=== PATIENT | male | born 1990 | race Caucasian/White ===

== ENCOUNTER 2022-06-26 02:04 | Emergency (ER) | payer MEDICARE, MEDICAID ==
[~2022-06-26] VITALS: Ht 172.7 cm; Wt 84.0 kg
[2022-06-26] MEDS ORDERED: SODIUM CHLORIDE 0.9% 2,000 ML IV ONE (02:30)
[2022-06-26] MEDS ORDERED: SODIUM BICARBONATE 8.4 % INJ 50ML VIAL IV ONE (02:30)
[2022-06-26 03:29] LABS: Basophils # (auto) 0 10 ^3/uL (0-0.2); Eosinophils # (auto) 0.1 10 ^3/uL (0-0.8); Eosinophils % (auto) 2.5 % (0.0-7.0); Hematocrit 44.6 % (41.0-53.0); Hemoglobin 15.5 g/dL (13.5-17.5); Lymphocytes # (auto) 1.9 10 ^3/uL (0.4-5.4); Mean Corpuscular Hgb Conc. 34.7 g/dL (32.0-36.0); Mean Corpuscular Volume 97.9 fL (80.0-100.0); Monocytes # (auto) 0.5 10 ^3/uL (0-1.3); Monocytes % (auto) 10.8 % (0.0-12.0); Neutrophils # (auto) 2.1 10 ^3/uL (1.6-8.6); Neutrophils % (auto) 45.7 % (37.0-80.0); Nucleated Red Blood Cells % 0.2 %; Red Blood Cells 4.56 10^6/uL (4.5-5.90); Red Cell Distribution Width 12.7 % (11.8-14.3); White Blood Cell 4.7 10^3/uL (4.4-10.8)
[2022-06-26 03:50] LABS: Albumin 3.4 g/dL (3.4-5.0); Calcium 9.2 mg/dL (8.5-10.1); Magnesium 2.5 mg/dL (1.6-2.6); Potassium 5.4 mmol/L (3.5-5.1)
[2022-06-26 03:58] LABS: BUN/Creatinine Ratio 25.5; Bilirubin, Total 0.6 mg/dL (0.2-1.0); Total Protein 7.4 g/dL (6.4-8.2)
[2022-06-26] MEDS ORDERED: InsuLIN REG 1unit/0.01ml Soln (100units/ml) IV ONE ×2 (04:30→05:30)
[2022-06-26] MEDS ORDERED: SODIUM CHLORIDE 0.9% 1,000 ML IV ONE (05:30)
[2022-06-26 07:43] LABS: Urine WBC None Seen /hpf (0 - 3)
[2022-06-26 08:31] LABS: BUN/Creatinine Ratio 28.7; Calcium 8.7 mg/dL (8.5-10.1); Potassium 4.5 mmol/L (3.5-5.1)
[2022-06-26 08:48] LABS: Urine Bacteria NONE SEEN /hpf (None Seen); Urine Blood Negative /uL (Negative); Urine Specific Gravity 1.012 (1.001-1.035)
[2022-06-26 09:25] VITALS: BP 128/84
== END 2022-06-26 09:55 | disposition home or self-care (01) ==
LOC: EDBD 02:04 → ER 02:04 → EDUNIT# 02:04 → ER 09:55
DX: E11.65 Type 2 diabetes mellitus with hyperglycemia (principal); E87.5 Hyperkalemia; N28.9 Disorder of kidney and ureter, unspecified; E86.0 Dehydration; F10.10 Alcohol abuse, uncomplicated
CPT/HCPCS: 36415; 36600; 80048; 80053; 81001; 82010; 82805; 82962; 83605; 83735; 85025; 96361; 96374; 96376; 99284; J1815; J7030

== ENCOUNTER 2022-07-12 14:33 | Inpatient (IN) | payer MEDICARE, MEDICAID ==
[~2022-07-12] VITALS: Ht 193 cm; Wt 86.0 kg
[2022-07-12 15:36] LABS: Basophils # (auto) 0.1 10 ^3/uL (0-0.2); Eosinophils # (auto) 0.1 10 ^3/uL (0-0.8); Eosinophils % (auto) 1.2 % (0.0-7.0); Hematocrit 44.4 % (41.0-53.0); Hemoglobin 15.4 g/dL (13.5-17.5); Lymphocytes # (auto) 1.5 10 ^3/uL (0.4-5.4); Lymphocytes % (auto) 23.2 % (10.0-50.0); Mean Corpuscular Hemoglobin 32.6 pg (28.0-32.0); Mean Corpuscular Hgb Conc. 34.6 g/dL (32.0-36.0); Mean Corpuscular Volume 94.3 fL (80.0-100.0); Monocytes # (auto) 0.5 10 ^3/uL (0-1.3); Monocytes % (auto) 8.1 % (0.0-12.0); Neutrophils # (auto) 4.2 10 ^3/uL (1.6-8.6); Neutrophils % (auto) 66.5 % (37.0-80.0); Nucleated Red Blood Cells % 0.1 %; Red Blood Cells 4.71 10^6/uL (4.5-5.90); White Blood Cell 6.4 10^3/uL (4.4-10.8)
[2022-07-12 17:38] LABS: Albumin 3.5 g/dL (3.4-5.0); Calcium 9.3 mg/dL (8.5-10.1); Potassium 4.8 mmol/L (3.5-5.1)
[2022-07-12 17:40] LABS: BUN/Creatinine Ratio 23.4
[2022-07-12 17:43] LABS: Bilirubin, Total 0.6 mg/dL (0.2-1.0); Total Protein 7.2 g/dL (6.4-8.2)
[2022-07-12] MEDS ORDERED: SODIUM CHLORIDE 0.9% 1,000 ML IV ONE (21:15)
[2022-07-12] MEDS ORDERED: InsuLIN REG 1unit/0.01ml Soln (100units/ml) IV ONE (23:00)
[2022-07-12] MEDS ORDERED: ONDANSETRON HCL 4 MG/2 ML VIAL IV ONE (23:15)
[2022-07-13] MEDS ORDERED: DEXTROSE (50%) 50ML SYRG IV PRN (03:45)
[2022-07-13] MEDS ORDERED: ACETAMINOPHEN 325 MG TAB PO PRN ×2 (03:45→10:30)
[2022-07-13] MEDS ORDERED: LORazepam 0.5 MG TAB PO PRN (03:45)
[2022-07-13] MEDS ORDERED: HYDROcodone-ACET 5/325MG TAB PO PRN (03:45)
[2022-07-13] MEDS ORDERED: MORPHINE SULFATE INJ 2 MG/ml SYRG IV PRN (03:45)
[2022-07-13] MEDS ORDERED: DOCUSATE SOD 100 MG CAP PO PRN (03:45)
[2022-07-13] MEDS ORDERED: ONDANSETRON HCL 4 MG/2 ML VIAL IV PRN (03:45)
[2022-07-13] MEDS: ACCU-CHEK COMFORT CURVE STRIP VI SCH ×5 (04:34→19:43)
[2022-07-13] MEDS: InsuLIN REG 1unit/0.01ml Soln (100units/ml) SC SCH ×5 (04:38→19:46)
[2022-07-13] MEDS: SODIUM CHLORIDE 0.9% 1,000 ML IV SCH ×2 (04:49→21:52)
[2022-07-13 05:02] LABS: Basophils # (auto) 0.1 10 ^3/uL (0-0.2); Basophils % (auto) 0.8 % (0.0-2.0); Eosinophils # (auto) 0.2 10 ^3/uL (0-0.8); Eosinophils % (auto) 2.8 % (0.0-7.0); Hematocrit 47.5 % (41.0-53.0); Lymphocytes # (auto) 1.8 10 ^3/uL (0.4-5.4); Lymphocytes % (auto) 24.8 % (10.0-50.0); Mean Corpuscular Hemoglobin 32.1 pg (28.0-32.0); Mean Corpuscular Hgb Conc. 33.6 g/dL (32.0-36.0); Mean Corpuscular Volume 95.4 fL (80.0-100.0); Monocytes # (auto) 0.7 10 ^3/uL (0-1.3); Monocytes % (auto) 10.4 % (0.0-12.0); Neutrophils # (auto) 4.3 10 ^3/uL (1.6-8.6); Neutrophils % (auto) 61.2 % (37.0-80.0); Red Blood Cells 4.97 10^6/uL (4.5-5.90); Red Cell Distribution Width 12.9 % (11.8-14.3); White Blood Cell 7.1 10^3/uL (4.4-10.8)
[2022-07-13 05:24] LABS: BUN/Creatinine Ratio 26.5; Calcium 9.1 mg/dL (8.5-10.1); Potassium 3.9 mmol/L (3.5-5.1)
[2022-07-13 09:52] VITALS: BP 127/69
[2022-07-13] MEDS ORDERED: INSULIN LANTUS (GLARGINE) 1 /0.01ml (100units/ml) SC ONE (10:30)
[2022-07-13 12:04] VITALS: BP 114/80
[2022-07-13] MEDS ORDERED: INSLANTI SC (14:16)
[2022-07-13] MEDS ORDERED: BACL20TA PO (14:16)
[2022-07-13] MEDS ORDERED: IBUP800T27 PO (14:18)
[2022-07-13] MEDS ORDERED: ACET1CAP14 PO (14:19)
[2022-07-13] MEDS ORDERED: ZIPR60CA24 PO (14:21)
[2022-07-13] MEDS ORDERED: QUET400T PO (14:23)
[2022-07-13] MEDS ORDERED: DIVA500T2 PO (14:25)
[2022-07-13] MEDS ORDERED: MONT-8 PO (14:26)
[2022-07-13] MEDS ORDERED: ATOR-47 PO (14:26)
[2022-07-13] MEDS ORDERED: LEVO25TA6 PO (14:27)
[2022-07-13] MEDS ORDERED: ASPI1TAB91 PO (14:28)
[2022-07-13] MEDS ORDERED: OMEP20TA PO (14:29)
[2022-07-13] MEDS ORDERED: LISI40TA11 PO (14:30)
[2022-07-13] MEDS ORDERED: CITA10TA8 PO (14:32)
[2022-07-13 17:05] VITALS: BP 115/59
[2022-07-13] MEDS ORDERED: diphenhdrAMINE HCL 50 MG/1 ML VL IV ONE (19:30)
[2022-07-13] MEDS ORDERED: ARTIFICIAL TEARS 15ml EACHEYE PRN (19:30)
[2022-07-13] MEDS: BACLOFEN 10 MG TAB PO SCH (21:49)
[2022-07-13 22:00] VITALS: BP 137/82
[2022-07-13] MEDS ORDERED: ZIPRASIDONE 60 MG PO SCH (22:00)
[2022-07-14] MEDS: ACCU-CHEK COMFORT CURVE STRIP VI SCH ×5 (00:12→15:58)
[2022-07-14] MEDS ORDERED: IBUPROFEN 800 MG TAB PO PRN (02:00)
[2022-07-14] MEDS ORDERED: ACETAMINOPHEN 325 MG PO SCH (02:00)
[2022-07-14] MEDS: InsuLIN REG 1unit/0.01ml Soln (100units/ml) SC SCH ×5 (04:37→16:13)
[2022-07-14 05:00] VITALS: BP 124/76
[2022-07-14 05:16] LABS: Basophils # (auto) 0.1 10 ^3/uL (0-0.2); Basophils % (auto) 1.3 % (0.0-2.0); Eosinophils # (auto) 0.2 10 ^3/uL (0-0.8); Eosinophils % (auto) 3.3 % (0.0-7.0); Hematocrit 45.5 % (41.0-53.0); Hemoglobin 15.7 g/dL (13.5-17.5); Lymphocytes # (auto) 1.8 10 ^3/uL (0.4-5.4); Lymphocytes % (auto) 25.3 % (10.0-50.0); Mean Corpuscular Hemoglobin 32.9 pg (28.0-32.0); Mean Corpuscular Hgb Conc. 34.5 g/dL (32.0-36.0); Mean Corpuscular Volume 95.3 fL (80.0-100.0); Monocytes # (auto) 0.6 10 ^3/uL (0-1.3); Monocytes % (auto) 7.8 % (0.0-12.0); Neutrophils # (auto) 4.5 10 ^3/uL (1.6-8.6); Neutrophils % (auto) 62.3 % (37.0-80.0); Nucleated Red Blood Cells % 0.1 %; Red Blood Cells 4.77 10^6/uL (4.5-5.90); White Blood Cell 7.2 10^3/uL (4.4-10.8)
[2022-07-14 05:40] LABS: BUN/Creatinine Ratio 19.2; Calcium 8.9 mg/dL (8.5-10.1); Potassium 4.5 mmol/L (3.5-5.1)
[2022-07-14] MEDS ORDERED: INSULIN LANTUS (GLARGINE) 1 /0.01ml (100units/ml) SC SCH (06:00)
[2022-07-14] MEDS: BACLOFEN 10 MG TAB PO SCH ×2 (06:08→14:42)
[2022-07-14] MEDS ORDERED: LEVOTHYROXINE SODIUM 25 MCG TAB PO SCH (07:00)
[2022-07-14 08:00] VITALS: BP 124/64
[2022-07-14 08:58] VITALS: BP 124/64
[2022-07-14] MEDS ORDERED: MONTELUKAST SODIUM 10 MG TAB PO SCH (10:00)
[2022-07-14] MEDS ORDERED: ATORVASTATIN 20 MG TAB PO SCH (10:00)
[2022-07-14] MEDS ORDERED: CITALOPRAM HYDROBR 20 MG TAB PO SCH (10:00)
[2022-07-14] MEDS ORDERED: ASPirin-EC 81 mg tab PO SCH (10:00)
[2022-07-14] MEDS ORDERED: PANTOPRAZOLE 40 MG TAB PO SCH (10:00)
[2022-07-14] MEDS ORDERED: LISINOPRIL 20 MG TAB PO SCH (10:00)
[2022-07-14] MEDS ORDERED: INSLANTI SC (10:42)
[2022-07-14] MEDS ORDERED: LORATADINE 10 MG TAB PO ONE (11:00)
[2022-07-14 12:57] VITALS: BP 123/60
[2022-07-14] MEDS: SODIUM CHLORIDE 0.9% 1,000 ML IV SCH (14:44)
[2022-07-14 16:23] VITALS: BP 123/60
[2022-07-14 17:00] VITALS: BP 118/61
[2022-07-14] MEDS ORDERED: QUEtiapine FUMARATE 100 MG TAB PO SCH (18:00)
[2022-07-15] MEDS ORDERED: INSULIN LANTUS (GLARGINE) 1 /0.01ml (100units/ml) SC SCH (06:00)
== END 2022-07-14 17:57 | disposition home or self-care (01) | DRG 639 ==
LOC: ER 14:33 → TELE 07-13 03:46 → TELE-EAST 07-13 09:36 → EAST 07-13 11:32
PROVIDERS: ADMIT Hospitalist; ATTEND Hospitalist
DX: E10.65 Type 1 diabetes mellitus with hyperglycemia (principal); F20.9 Schizophrenia, unspecified; N28.9 Disorder of kidney and ureter, unspecified; F32.A Depression, unspecified; R07.9 Chest pain, unspecified; Z20.822 Contact with and (suspected) exposure to COVID-19
CPT/HCPCS: 36415; 71045; 80048; 80053; 82962; 83036; 84484; 85025; 93005; 96361; 96374; G0378; J1815; J2405

== ENCOUNTER 2022-07-16 10:45 | Inpatient (IN) | payer BC, MEDICAID ==
[~2022-07-16] VITALS: Ht 193 cm; Wt 85.0 kg
[~2022-07-16 10:45] MED LIST: ACET1CAP14 PO; ASPI1TAB91 PO; ATOR-47 PO; BACL20TA PO; CITA10TA8 PO; DIVA500T2 PO; IBUP800T27 PO; INSLANTI SC; LEVO25TA6 PO; LISI40TA11 PO; MONT-8 PO; OMEP20TA PO; QUET400T PO; ZIPR60CA24 PO
[2022-07-16 12:03] LABS: Basophils # (auto) 0.1 10 ^3/uL (0-0.2); Basophils % (auto) 0.9 % (0.0-2.0); Eosinophils # (auto) 0.1 10 ^3/uL (0-0.8); Eosinophils % (auto) 1.5 % (0.0-7.0); Hematocrit 48.5 % (41.0-53.0); Hemoglobin 16.4 g/dL (13.5-17.5); Lymphocytes # (auto) 1.7 10 ^3/uL (0.4-5.4); Lymphocytes % (auto) 20.4 % (10.0-50.0); Mean Corpuscular Hemoglobin 32.4 pg (28.0-32.0); Mean Corpuscular Hgb Conc. 33.8 g/dL (32.0-36.0); Mean Corpuscular Volume 95.7 fL (80.0-100.0); Monocytes # (auto) 0.6 10 ^3/uL (0-1.3); Monocytes % (auto) 7.6 % (0.0-12.0); Neutrophils # (auto) 5.7 10 ^3/uL (1.6-8.6); Neutrophils % (auto) 69.6 % (37.0-80.0); Nucleated Red Blood Cells % 0.1 %; Red Blood Cells 5.07 10^6/uL (4.5-5.90); White Blood Cell 8.1 10^3/uL (4.4-10.8)
[2022-07-16 12:29] LABS: Albumin 3.5 g/dL (3.4-5.0); Calcium 9.7 mg/dL (8.5-10.1)
[2022-07-16 12:37] LABS: BUN/Creatinine Ratio 20.9; Bilirubin, Total 0.8 mg/dL (0.2-1.0); Total Protein 7.9 g/dL (6.4-8.2)
[2022-07-16 12:54] LABS: Potassium 6.3 mmol/L (3.5-5.1)
[2022-07-16 13:53] LABS: Salicylate 3.8 mg/dL (2.8-20.0)
[2022-07-16 13:55] LABS: Acetaminophen < 2.0 ug/mL (10-30)
[2022-07-16] MEDS ORDERED: INSULIN LANTUS (GLARGINE) 1 /0.01ml (100units/ml) SC ONE ×2 (14:30→18:15)
[2022-07-16] MEDS ORDERED: DEXTROSE (50%) 50ML SYRG IV PRN (14:30)
[2022-07-16] MEDS ORDERED: SODIUM CHLORIDE 0.9% 1,000 ML IV ONE (14:30)
[2022-07-16] MEDS ORDERED: InsuLIN R (HUMAN) 100 UNITS in SODIUM CHL 0.9% 99 ML IV SCH ×2 (14:30→19:00)
[2022-07-16 14:57] LABS: Basophils # (auto) 0.1 10 ^3/uL (0-0.2); Basophils % (auto) 0.7 % (0.0-2.0); Eosinophils # (auto) 0.1 10 ^3/uL (0-0.8); Eosinophils % (auto) 1.7 % (0.0-7.0); Hematocrit 46.9 % (41.0-53.0); Lymphocytes # (auto) 1.8 10 ^3/uL (0.4-5.4); Lymphocytes % (auto) 21.7 % (10.0-50.0); Mean Corpuscular Hemoglobin 32.8 pg (28.0-32.0); Mean Corpuscular Hgb Conc. 34.1 g/dL (32.0-36.0); Mean Corpuscular Volume 96.1 fL (80.0-100.0); Monocytes # (auto) 0.7 10 ^3/uL (0-1.3); Monocytes % (auto) 8.2 % (0.0-12.0); Neutrophils # (auto) 5.5 10 ^3/uL (1.6-8.6); Neutrophils % (auto) 67.7 % (37.0-80.0); Nucleated Red Blood Cells % 0.1 %; Red Blood Cells 4.88 10^6/uL (4.5-5.90); White Blood Cell 8.1 10^3/uL (4.4-10.8)
[2022-07-16] MEDS ORDERED: KETOROLAC TROMETH 30 MG/ML 1ML VIAL IM ONE (15:00)
[2022-07-16] MEDS: ACCU-CHEK COMFORT CURVE STRIP VI SCH ×7 (15:00→23:55)
[2022-07-16 15:14] LABS: BUN/Creatinine Ratio 24.8; Calcium 9.3 mg/dL (8.5-10.1); Phosphorus 4.1 mg/dL (2.5-4.90); Potassium 4.8 mmol/L (3.5-5.1)
[2022-07-16] MEDS: SODIUM CHLORIDE 0.9% 1,000 ML IV SCH ×2 (15:55→17:30)
[2022-07-16] MEDS ORDERED: DOCUSATE SOD 100 MG CAP PO PRN (16:30)
[2022-07-16] MEDS ORDERED: SODIUM CHLORIDE 0.9% 1,000 ML IV SCH ×3 (16:30→20:30)
[2022-07-16] MEDS ORDERED: ACETAMINOPHEN 325 MG TAB PO PRN (16:30)
[2022-07-16 17:20] LABS: BUN/Creatinine Ratio 28.1; Calcium 8.8 mg/dL (8.5-10.1)
[2022-07-16] MEDS: HYDROcodone-ACET 5/325MG TAB PO PRN (19:56)
[2022-07-16 20:37] LABS: BUN/Creatinine Ratio 29.2; Calcium 8.9 mg/dL (8.5-10.1); Potassium 3.8 mmol/L (3.5-5.1)
[2022-07-16 23:01] LABS: BUN/Creatinine Ratio 32.8; Calcium 9.1 mg/dL (8.5-10.1); Potassium 4.1 mmol/L (3.5-5.1)
[2022-07-17] MEDS: ACCU-CHEK COMFORT CURVE STRIP VI SCH ×5 (01:30→12:21)
[2022-07-17] MEDS ORDERED: DEXTROSE (50%) 50ML SYRG IV PRN (03:30)
[2022-07-17] MEDS: InsuLIN REG 1unit/0.01ml Soln (100units/ml) SC SCH ×3 (03:40→12:35)
[2022-07-17 03:53] LABS: BUN/Creatinine Ratio 37.6; Calcium 8.6 mg/dL (8.5-10.1); Potassium 4.5 mmol/L (3.5-5.1)
[2022-07-17] MEDS: HYDROcodone-ACET 5/325MG TAB PO PRN (05:12)
[2022-07-17 05:34] LABS: Basophils # (auto) 0.1 10 ^3/uL (0-0.2); Basophils % (auto) 1.7 % (0.0-2.0); Eosinophils # (auto) 0.2 10 ^3/uL (0-0.8); Eosinophils % (auto) 2.9 % (0.0-7.0); Hematocrit 43.4 % (41.0-53.0); Hemoglobin 15.2 g/dL (13.5-17.5); Lymphocytes # (auto) 1.7 10 ^3/uL (0.4-5.4); Lymphocytes % (auto) 26.5 % (10.0-50.0); Mean Corpuscular Hemoglobin 33.2 pg (28.0-32.0); Mean Corpuscular Hgb Conc. 35.1 g/dL (32.0-36.0); Mean Corpuscular Volume 94.7 fL (80.0-100.0); Monocytes # (auto) 0.6 10 ^3/uL (0-1.3); Monocytes % (auto) 8.7 % (0.0-12.0); Neutrophils # (auto) 3.9 10 ^3/uL (1.6-8.6); Neutrophils % (auto) 60.2 % (37.0-80.0); Nucleated Red Blood Cells % 0.2 %; Red Blood Cells 4.59 10^6/uL (4.5-5.90); Red Cell Distribution Width 12.9 % (11.8-14.3); White Blood Cell 6.5 10^3/uL (4.4-10.8)
[2022-07-17] MEDS: MORPHINE SULFATE INJ 2 MG/ml SYRG IV PRN ×2 (09:37→13:55)
[2022-07-17] MEDS: ONDANSETRON HCL 4 MG/2 ML VIAL IV PRN ×2 (09:37→13:55)
[2022-07-17] MEDS ORDERED: LEVOTHYROXINE SODIUM 25 MCG TAB PO SCH (10:00)
[2022-07-17] MEDS ORDERED: CITALOPRAM HYDROBR 20 MG TAB PO SCH (10:00)
[2022-07-17] MEDS ORDERED: INSULIN LANTUS (GLARGINE) 1 /0.01ml (100units/ml) SC SCH ×2 (10:00)
[2022-07-17] MEDS ORDERED: ENOXAPARIN SOD 40 MG/0.4 ML SYRINGE SC SCH (10:00)
[2022-07-17] MEDS ORDERED: INSLANTI SC (12:52)
[2022-07-17] MEDS ORDERED: INSREGI SC (12:52)
[2022-07-17 15:05] VITALS: BP 110/52
[2022-07-17] MEDS ORDERED: QUEtiapine FUMARATE 100 MG TAB PO SCH (18:00)
== END 2022-07-17 15:11 | disposition home or self-care (01) | DRG 638 ==
LOC: EDBD 10:45 → EDUNIT# 10:45 → ER 10:45 → TELE 16:24
PROVIDERS: ADMIT Internal Medicine; ATTEND Internal Medicine
DX: E11.10 Type 2 diabetes mellitus with ketoacidosis without coma (principal); R45.851 Suicidal ideations; E78.5 Hyperlipidemia, unspecified; E03.9 Hypothyroidism, unspecified; F32.A Depression, unspecified; F20.9 Schizophrenia, unspecified; Z20.822 Contact with and (suspected) exposure to COVID-19; E11.65 Type 2 diabetes mellitus with hyperglycemia; Z79.4 Long term (current) use of insulin
CPT/HCPCS: 36415; 36600; 71045; 80048; 80053; 80320; 80329; 82010; 82805; 83735; 83930; 84100; 84484; 85025; 93005; 96361; 96365; 96375; 99291; G0378; J1815; J1885; J2405

== ENCOUNTER 2022-07-21 13:26 | Emergency (ER) | payer BC, MEDICAID ==
[~2022-07-21] VITALS: Ht 193 cm; Wt 80.7 kg
[~2022-07-21 13:26] MED LIST changes: +INSREGI SC
[2022-07-21 13:51] VITALS: BP 139/77
[2022-07-21 17:30] LABS: Basophils # (auto) 0.1 10 ^3/uL (0-0.2); Basophils % (auto) 1.6 % (0.0-2.0); Eosinophils # (auto) 0.3 10 ^3/uL (0-0.8); Eosinophils % (auto) 2.8 % (0.0-7.0); Hematocrit 45.6 % (41.0-53.0); Hemoglobin 15.5 g/dL (13.5-17.5); Lymphocytes # (auto) 1.7 10 ^3/uL (0.4-5.4); Lymphocytes % (auto) 18.5 % (10.0-50.0); Mean Corpuscular Hemoglobin 32.6 pg (28.0-32.0); Mean Corpuscular Hgb Conc. 34.1 g/dL (32.0-36.0); Mean Corpuscular Volume 95.6 fL (80.0-100.0); Monocytes # (auto) 0.5 10 ^3/uL (0-1.3); Monocytes % (auto) 5.8 % (0.0-12.0); Neutrophils # (auto) 6.7 10 ^3/uL (1.6-8.6); Neutrophils % (auto) 71.3 % (37.0-80.0); Red Blood Cells 4.77 10^6/uL (4.5-5.90); Red Cell Distribution Width 12.9 % (11.8-14.3); White Blood Cell 9.4 10^3/uL (4.4-10.8)
[2022-07-21 17:48] LABS: Albumin 3.5 g/dL (3.4-5.0); BUN/Creatinine Ratio 21.5; Calcium 9.3 mg/dL (8.5-10.1); Potassium 4.4 mmol/L (3.5-5.1)
[2022-07-21 17:51] LABS: Bilirubin, Total 0.4 mg/dL (0.2-1.0); Total Protein 7.4 g/dL (6.4-8.2)
[2022-07-21] MEDS ORDERED: SODIUM CHLORIDE 0.9% 1,000 ML IV ONE (21:00)
[2022-07-21] MEDS ORDERED: CITA10TA8 PO (22:20)
== END 2022-07-21 22:27 | disposition home or self-care (01) ==
LOC: ER 13:26
DX: E86.0 Dehydration (principal); E11.649 Type 2 diabetes mellitus with hypoglycemia without coma; Z76.0 Encounter for issue of repeat prescription; Z79.82 Long term (current) use of aspirin; Z79.899 Other long term (current) drug therapy
CPT/HCPCS: 36415; 80053; 82010; 82962; 85025

== ENCOUNTER 2023-01-27 09:58 | Emergency (ER) | payer OTHER, MEDICAID ==
[~2023-01-27] VITALS: Ht 188 cm; Wt 72.6 kg
[2023-01-27] MEDS ORDERED: PANTOPRAZOLE 40 MG TAB PO ONE (10:30)
[2023-01-27 10:43] LABS: Basophils # (auto) 0 10 ^3/uL (0-0.2); Eosinophils # (auto) 0.1 10 ^3/uL (0-0.8); Lymphocytes # (auto) 1.5 10 ^3/uL (0.4-5.4); Mean Corpuscular Hemoglobin 34.8 pg (28.0-32.0); Mean Corpuscular Volume 97.9 fL (80.0-100.0); Monocytes # (auto) 0.4 10 ^3/uL (0-1.3)
[2023-01-27 10:45] LABS: Basophils % (auto) 0.8 % (0.0-2.0); Eosinophils % (auto) 1.1 % (0.0-7.0); Hematocrit 40.4 % (41.0-53.0); Hemoglobin 14.3 g/dL (13.5-17.5); Lymphocytes % (auto) 28.3 % (10.0-50.0); Mean Corpuscular Hgb Conc. 35.5 g/dL (32.0-36.0); Monocytes % (auto) 7.2 % (0.0-12.0); Neutrophils # (auto) 3.3 10 ^3/uL (1.6-8.6); Neutrophils % (auto) 62.6 % (37.0-80.0); Red Blood Cells 4.12 10^6/uL (4.5-5.90); Red Cell Distribution Width 13.2 % (11.8-14.3); White Blood Cell 5.3 10^3/uL (4.4-10.8)
[2023-01-27 10:49] LABS: Urine Bacteria NONE SEEN /hpf (None Seen); Urine Blood 1+ /uL (Negative); Urine Specific Gravity 1.026 (1.001-1.035); Urine WBC 8 /hpf (0 - 3)
[2023-01-27 10:59] LABS: Albumin 2.9 g/dL (3.4-5.0); BUN/Creatinine Ratio 16.8 (10.0-20.0); Calcium 8.7 mg/dL (8.5-10.1); Potassium 3.9 mmol/L (3.5-5.1)
[2023-01-27 11:01] LABS: INR 0.94 (0.9-1.15)
[2023-01-27 11:02] LABS: Bilirubin, Total 0.4 mg/dL (0.2-1.0); Total Protein 6.8 g/dL (6.4-8.2)
[2023-01-27] MEDS ORDERED: SODIUM CHLORIDE 0.9% 1,000 ML IV ONE (11:30)
[2023-01-27] MEDS ORDERED: FAMO20TA10 GT (12:41)
[2023-01-27] MEDS ORDERED: CYCL-839 PO (12:41)
[2023-01-27 13:06] VITALS: BP 133/85
== END 2023-01-27 13:10 | disposition home or self-care (01) ==
LOC: ER 09:58
DX: K21.9 Gastro-esophageal reflux disease without esophagitis (principal); E10.8 Type 1 diabetes mellitus with unspecified complications; G89.29 Other chronic pain; M54.9 Dorsalgia, unspecified
CPT/HCPCS: 36415; 71046; 80053; 81001; 82962; 85025; 85610; 96360; 99284; J7030

== ENCOUNTER 2023-11-03 10:45 | Inpatient (IN) | payer OTHER, MEDICAID ==
[~2023-11-03] VITALS: Ht 190.5 cm; Wt 74.6 kg
[~2023-11-03 10:45] MED LIST changes: -ASPI1TAB91 PO; +ASPI81TA28 PO; +CYCL-839 PO; -DIVA500T2 PO; +DIVA500T3 PO; +FAMO20TA10 GT; +IBUP-1456 PO; -IBUP800T27 PO; -LISI40TA11 PO; +LISI40TA16 PO
[2023-11-03 11:56] LABS: Basophils # (auto) 0 10 ^3/uL (0-0.2); Basophils % (auto) 0.9 % (0.0-2.0); Eosinophils # (auto) 0 10 ^3/uL (0-0.8); Eosinophils % (auto) 0.5 % (0.0-7.0); Hematocrit 33.7 % (41.0-53.0); Hemoglobin 12.1 g/dL (13.5-17.5); Lymphocytes # (auto) 0.9 10 ^3/uL (0.4-5.4); Lymphocytes % (auto) 23.7 % (10.0-50.0); Mean Corpuscular Hemoglobin 33.3 pg (28.0-32.0); Mean Corpuscular Hgb Conc. 35.8 g/dL (32.0-36.0); Mean Corpuscular Volume 92.8 fL (80.0-100.0); Monocytes # (auto) 0.3 10 ^3/uL (0-1.3); Monocytes % (auto) 7.2 % (0.0-12.0); Neutrophils # (auto) 2.7 10 ^3/uL (1.6-8.6); Neutrophils % (auto) 67.7 % (37.0-80.0); Red Blood Cells 3.63 10^6/uL (4.5-5.90); Red Cell Distribution Width 13.2 % (11.8-14.3); White Blood Cell 3.9 10^3/uL (4.4-10.8)
[2023-11-03 12:12] LABS: Alanine Aminotransferase 13 U/L (7-40); Albumin 3.6 g/dL (3.2-4.8); Alkaline Phosphatase 83 U/L (46-116); Anion Gap 10 (5-15); Aspartate Aminotransferase < 8 U/L (13-40); BUN/Creatinine Ratio 6.8 (10.0-20.0); Bilirubin, Total 0.5 mg/dL (0.2-1.0); Blood Urea Nitrogen 6 mg/dL (9-23); Calcium 8.8 mg/dL (8.5-10.1); Carbon Dioxide 24 mmol/L (20-30); Chloride 102 mmol/L (98-107); Glucose 286 mg/dL (74-106); Potassium 3.3 mmol/L (3.5-5.1); Sodium 136 mmol/L (136-145); Total Protein 5.7 g/dL (5.7-8.2)
[2023-11-03] MEDS ORDERED: ONDANSETRON HCL 4 MG/2 ML VIAL IV ONE (12:30)
[2023-11-03] MEDS ORDERED: SODIUM CHLORIDE 0.9% 1,000 ML IV ONE ×2 (12:30→13:30)
[2023-11-03] MEDS ORDERED: PANTOPRAZOLE 40 MG/10 ML VIAL INJ IV ONE (12:30)
[2023-11-03 12:34] LABS: Lactic Acid w/Reflex 2.5 mmol/L (0.4-2.0)
[2023-11-03] MEDS ORDERED: PIPERACILLIN-TAZOB 3.375GM 100 ML IV ONE (13:30)
[2023-11-03 13:52] LABS: INR 1.06 (0.9-1.15); Prothrombin Time 11.1 sec (9.3-11.8)
[2023-11-03] MEDS ORDERED: ACETAMINOPHEN 325 MG TAB PO PRN (14:00)
[2023-11-03] MEDS ORDERED: DEXTROSE (50%) 50ML SYRG IV PRN (14:00)
[2023-11-03] MEDS ORDERED: DOCUSATE SOD 100 MG CAP PO PRN (14:00)
[2023-11-03] MEDS ORDERED: ALBUTEROL SULF HFA 90MCG INH 200DOSE IN PRN (14:00)
[2023-11-03] MEDS ORDERED: REMDESIVIR PER PHARMACY 0 ML IV SCH ×2 (14:00→15:15)
[2023-11-03] MEDS ORDERED: HYDROcodone-ACET 10/325MG TAB PO PRN (14:00)
[2023-11-03] MEDS ORDERED: HYDROcodone-ACET 5/325MG TAB PO PRN (14:00)
[2023-11-03] MEDS ORDERED: POTASSIUM CHL 20 Meq TABLET PO ONE (14:00)
[2023-11-03] MEDS ORDERED: NITROGLYCERIN 0.4 MG SL TAB SL PRN (14:00)
[2023-11-03] MEDS ORDERED: ONDANSETRON HCL 4 MG/2 ML VIAL IV PRN (14:00)
[2023-11-03 14:04] LABS: COVID19 ANTIGEN SOFIA FIA POSITIVE (NEGATIVE)
[2023-11-03 14:05] LABS: Rapid Influenza A Negative (Negative); Rapid Influenza B Negative (Negative)
[2023-11-03] MEDS ORDERED: ASPirin-EC 325mg tab PO ONE (14:45)
[2023-11-03 14:52] VITALS: PULSE 89; RESP 19; O2SAT 94
[2023-11-03] MEDS ORDERED: BUPR300T28 PO (15:08)
[2023-11-03] MEDS ORDERED: CITA-77 PO (15:08)
[2023-11-03] MEDS ORDERED: QUET300T24 PO (15:08)
[2023-11-03] MEDS ORDERED: TRAZ-228 PO (15:08)
[2023-11-03] MEDS: SODIUM CHLORIDE 0.9% 1,000 ML IV SCH ×2 (16:14→20:28)
[2023-11-03 16:35] VITALS: PULSE 88; RESP 11; O2SAT 97
[2023-11-03] MEDS ORDERED: IOHEXOL 350 MG/ML 100ML IJ ONE (17:07)
[2023-11-03] MEDS: ACCU-CHEK COMFORT CURVE STRIP VI SCH ×2 (17:14→22:00)
[2023-11-03] MEDS: InsuLIN REG 1unit/0.01ml Soln (100units/ml) SC SCH ×2 (17:15→22:00)
[2023-11-03 19:25] LABS: Triglycerides 152 mg/dL (< 150)
[2023-11-03 19:26] LABS: LDL Cholesterol 59 mg/dL (< 100)
[2023-11-03 19:27] LABS: Amylase 81 U/L (30-118); Cholesterol 113 mg/dL (< 200); HDL Cholesterol 29 mg/dL (40-59)
[2023-11-03 19:30] VITALS: PULSE 98; RESP 14; O2SAT 98
[2023-11-03] MEDS: MORPHINE SULFATE INJ 2 MG/ml SYRG IV PRN (21:38)
[2023-11-03 21:40] LABS: Urine Bacteria NONE SEEN /hpf (None Seen); Urine Blood 1+ /uL (Negative); Urine Clarity Clear (Clear); Urine Color Colorless (Yellow); Urine Protein, UAD TRACE (Negative); Urine Specific Gravity 1.005 (1.001-1.035); Urine Urobilinogen Normal (Negative); Urine WBC 1 /hpf (0 - 3); Urine pH 5.5 (5.0-8.0)
[2023-11-03] MEDS: PANTOPRAZOLE 40 MG/10 ML VIAL INJ IV SCH (21:58)
[2023-11-03] MEDS ORDERED: QUEtiapine FUMARATE 100 MG TAB PO SCH (22:00)
[2023-11-03] MEDS: ZIPRASIDONE HYDROCHLORIDE PO SCH (22:00)
[2023-11-03] MEDS ORDERED: ATORVASTATIN 20 MG TAB PO SCH (22:00)
[2023-11-03] MEDS ORDERED: traZODone HCL 50 MG TAB PO SCH (22:00)
[2023-11-04] VITALS (9 sets, daily range): BP systolic 135–153; BP diastolic 71–88; PULSE 93–111; RESP 18–22; TEMP 98.4–99.3; O2SAT 95–98
[2023-11-04] MEDS: MORPHINE SULFATE INJ 2 MG/ml SYRG IV PRN (01:18)
[2023-11-04] MEDS: SODIUM CHLORIDE 0.9% 1,000 ML IV SCH ×2 (03:20→08:52)
[2023-11-04] MEDS: ACCU-CHEK COMFORT CURVE STRIP VI SCH ×2 (06:14→11:30)
[2023-11-04] MEDS: InsuLIN REG 1unit/0.01ml Soln (100units/ml) SC SCH ×2 (06:23→13:00)
[2023-11-04 07:00] LABS: Basophils # (auto) 0 10 ^3/uL (0-0.2); Basophils % (auto) 0.4 % (0.0-2.0); Eosinophils # (auto) 0 10 ^3/uL (0-0.8); Eosinophils % (auto) 0.9 % (0.0-7.0); Hematocrit 33.7 % (41.0-53.0); Hemoglobin 11.8 g/dL (13.5-17.5); Lymphocytes % (auto) 25.3 % (10.0-50.0); Mean Corpuscular Hemoglobin 33.3 pg (28.0-32.0); Mean Corpuscular Hgb Conc. 35.2 g/dL (32.0-36.0); Mean Corpuscular Volume 94.6 fL (80.0-100.0); Monocytes # (auto) 0.4 10 ^3/uL (0-1.3); Monocytes % (auto) 9.2 % (0.0-12.0); Neutrophils # (auto) 2.4 10 ^3/uL (1.6-8.6); Neutrophils % (auto) 64.2 % (37.0-80.0); Nucleated Red Blood Cells % 0.1 %; Red Blood Cells 3.56 10^6/uL (4.5-5.90); White Blood Cell 3.8 10^3/uL (4.4-10.8)
[2023-11-04] MEDS ORDERED: BUPROPION HCL 300 MG PO SCH (07:00)
[2023-11-04 07:10] LABS: Albumin 3.6 g/dL (3.2-4.8); Alkaline Phosphatase 78 U/L (46-116); Anion Gap 6 (5-15); Aspartate Aminotransferase 8 U/L (13-40); Bilirubin, Total 0.3 mg/dL (0.2-1.0); Calcium 8.7 mg/dL (8.5-10.1); Carbon Dioxide 29 mmol/L (20-30); Chloride 107 mmol/L (98-107); Cholesterol 103 mg/dL (< 200); Glucose 228 mg/dL (74-106); HDL Cholesterol 26 mg/dL (40-59); LDL Cholesterol 54 mg/dL (< 100); Potassium 3.8 mmol/L (3.5-5.1); Sodium 142 mmol/L (136-145); Triglycerides 151 mg/dL (< 150)
[2023-11-04 07:11] LABS: Total Protein 5.6 g/dL (5.7-8.2)
[2023-11-04 07:16] LABS: Alanine Aminotransferase 9 U/L (7-40); BUN/Creatinine Ratio 5.4 (10.0-20.0); Blood Urea Nitrogen < 5 mg/dL (9-23)
[2023-11-04] MEDS ORDERED: cefTRIAXone 1GM/50ML D5W 50 ML IV SCH (09:00)
[2023-11-04] MEDS ORDERED: DexAMETHasone SOD PHOS 10MG/1ML VIAL INJ IV SCH (10:00)
[2023-11-04] MEDS ORDERED: LISINOPRIL 20 MG TAB PO SCH (10:00)
[2023-11-04] MEDS ORDERED: LEVOTHYROXINE SODIUM 25 MCG TAB PO SCH (10:00)
[2023-11-04] MEDS ORDERED: ASCORBIC ACID 1,000 MG TAB PO SCH (10:00)
[2023-11-04] MEDS ORDERED: ZINC SULFATE 220mg CAP or TAB PO SCH (10:00)
[2023-11-04] MEDS ORDERED: ASPirin-EC 81 mg tab PO SCH (10:00)
[2023-11-04] MEDS ORDERED: AZITHROMYCIN 500MG/ 250ML 250 ML IV SCH (10:00)
[2023-11-04] MEDS: ZIPRASIDONE HYDROCHLORIDE PO SCH (10:00)
[2023-11-04] MEDS ORDERED: MONTELUKAST SODIUM 10 MG TAB PO SCH (10:00)
[2023-11-04] MEDS ORDERED: CITALOPRAM HYDROBR 20 MG TAB PO SCH (10:00)
[2023-11-04] MEDS ORDERED: CHOLECALCIFEROL (VITD3) 2,000 UNIT CAP/TAB PO SCH (10:00)
[2023-11-04] MEDS: PANTOPRAZOLE 40 MG/10 ML VIAL INJ IV SCH (10:07)
[2023-11-04] MEDS ORDERED: hydrALAZINE HCL 20 MG/ML VL IV PRN (10:45)
[2023-11-04] MEDS ORDERED: MAGNESIUM SULFATE 1GM/100ML 100 ML IV ONE (10:45)
[2023-11-04] MEDS ORDERED: MET25T PO (12:40)
[2023-11-04] MEDS ORDERED: SACU1TAB PO (12:40)
[2023-11-04] MEDS ORDERED: PANT40TA2 PO (12:40)
[2023-11-04] MEDS ORDERED: SUCR1SUS26 PO (12:40)
[2023-11-04 13:52] LABS: Amphetamine Screen, Urine Neg (NEGATIVE); Barbiturate Scree,Urine Neg (NEGATIVE); Benzodiazephine Screen, Urine Neg (NEGATIVE); Cannabinoid Screen, Urine Pos (NEGATIVE); Cocaine Screen, Urine Neg (NEGATIVE); Opiate Scree,Urine Neg (NEGATIVE); Phencyclidine Screen, Urine Neg (NEGATIVE)
[2023-11-04] MEDS ORDERED: SUCRALFATE 1 GM/10 ML ORAL SUSP PO SCH (17:00)
[2023-11-04] MEDS ORDERED: REMDESIVIR 200 MG in NS 210ml LOADING DOSE ADULT IV ONE (18:00)
[2023-11-04] MEDS ORDERED: ATORVASTATIN 20 MG TAB PO SCH (22:00)
[2023-11-04] MEDS ORDERED: METOPROLOL TARTRATE 25 MG TAB PO SCH (22:00)
[2023-11-05 09:35] LABS: Hepatitis B Surface Antigen Negative (Negative)
[2023-11-05 10:13] LABS: Hepatitis C Antibody Negative (Negative)
[2023-11-05] MEDS ORDERED: REMDESIVIR 100mg 100 MG in SODIUM CHL 0.9% 230 ML IV SCH (15:00)
[2023-11-05] MEDS ORDERED: SACUBITRIL-VALSARTAN 24mg/26mg TAB PO SCH (22:00)
== END 2023-11-04 16:30 | disposition home or self-care (01) | DRG 377 ==
LOC: ER 10:45 → TELE 14:35 → TELE-EAST 22:28
PROVIDERS: ADMIT Internal Medicine Pulmonary Disease; ATTEND Internal Medicine Pulmonary Disease
DX: K29.21 Alcoholic gastritis with bleeding (principal); I21.A1 Myocardial infarction type 2; U07.1 COVID-19; I50.20 Unspecified systolic (congestive) heart failure; F31.9 Bipolar disorder, unspecified; F20.9 Schizophrenia, unspecified; J45.909 Unspecified asthma, uncomplicated; Z78.9 Other specified health status; E87.6 Hypokalemia; E78.5 Hyperlipidemia, unspecified; E10.9 Type 1 diabetes mellitus without complications; E03.9 Hypothyroidism, unspecified; N20.0 Calculus of kidney; N28.1 Cyst of kidney, acquired; F17.210 Nicotine dependence, cigarettes, uncomplicated; G89.29 Other chronic pain; K21.9 Gastro-esophageal reflux disease without esophagitis; M54.9 Dorsalgia, unspecified; I11.0 Hypertensive heart disease with heart failure; F12.90 Cannabis use, unspecified, uncomplicated; F10.90 Alcohol use, unspecified, uncomplicated
CPT/HCPCS: 36415; 71045; 74018; 74176; 80053; 80061; 80307; 81001; 82150; 82306; 82728; 82962; 83036; 83605; 83615; 83690; 83735; 83880; 84443; 84484; 85025; 85379; 85610; 85730; 86803; 86850; 86900; 86901; 87040; 87081; 87086; 87340; 87426; 87804; 93005; 93306; 96361; 96365; 96375; C9113; G0378; J1815; J2405; J2543

== ENCOUNTER 2024-07-20 17:07 | Emergency (ER) | payer OTHER, MEDICAID ==
[~2024-07-20] VITALS: Ht 188 cm; Wt 160.6 kg
[~2024-07-20 17:07] MED LIST changes: +BUPR-581 PO; +CITA-77 PO; +DIVA-91 PO; -DIVA500T3 PO; +MET25T PO; +PANT40TA2 PO; +QUET300T24 PO; +SACU1TAB PO; +SUCR1SUS26 PO; +TRAZ-228 PO
[2024-07-20 17:55] VITALS: PULSE 82; RESP 21; O2SAT 100
[2024-07-20] MEDS: ONDANSETRON HCL 4 MG/2 ML VIAL IV ONE (18:06)
[2024-07-20] MEDS: MORPHINE SULFATE 4 MG/ML SYR/VIAL IV ONE (18:07)
[2024-07-20 18:17] LABS: Basophils # (auto) 0 10 ^3/uL (0-0.2); Eosinophils # (auto) 0.1 10 ^3/uL (0-0.8); Eosinophils % (auto) 2.1 % (0.0-7.0); Hematocrit 47.4 % (41.0-53.0); Hemoglobin 16.6 g/dL (13.5-17.5); Lymphocytes % (auto) 38.3 % (10.0-50.0); Mean Corpuscular Hemoglobin 32.9 pg (28.0-32.0); Monocytes # (auto) 0.3 10 ^3/uL (0-1.3); Monocytes % (auto) 5.4 % (0.0-12.0); Neutrophils # (auto) 2.8 10 ^3/uL (1.6-8.6); Neutrophils % (auto) 53.2 % (37.0-80.0); Nucleated Red Blood Cells % 0.1 %; Platelet Count (auto) 278 10^3/uL (140-450); Red Blood Cells 5.04 10^6/uL (4.5-5.90); Red Cell Distribution Width 13.3 % (11.8-14.3); White Blood Cell 5.2 10^3/uL (4.4-10.8)
[2024-07-20 18:34] LABS: Alanine Aminotransferase 17 U/L (7-40); Albumin 4.1 g/dL (3.2-4.8); Alkaline Phosphatase 130 U/L (46-116); Anion Gap 10 (5-15); Aspartate Aminotransferase 12 U/L (13-40); BUN/Creatinine Ratio 15.1 (10.0-20.0); Bilirubin, Total 0.6 mg/dL (0.2-1.0); Blood Urea Nitrogen 18 mg/dL (9-23); Calcium 9.8 mg/dL (8.7-10.4); Carbon Dioxide 24 mmol/L (20-30); Chloride 100 mmol/L (98-107); Glucose 374 mg/dL (74-106); Lipase 32 U/L (12-53); Potassium 4.3 mmol/L (3.5-5.1); Sodium 134 mmol/L (136-145)
[2024-07-20 18:52] LABS: Lactic Acid w/Reflex 3.2 mmol/L (0.4-2.0)
[2024-07-20] MEDS: SODIUM CHLORIDE 0.9% 1,000 ML IV ONE ×2 (19:22→21:27)
[2024-07-20 19:40] VITALS: TEMP 98.1
[2024-07-20 19:41] LABS: Urine Bacteria None Seen /hpf (None Seen)
[2024-07-20 19:58] LABS: Urine Blood Negative /uL (Negative); Urine Clarity Clear (Clear); Urine Color Light-Yellow (Yellow); Urine Protein, UAD TRACE (Negative); Urine Specific Gravity 1.019 (1.001-1.035); Urine Urobilinogen Normal (Negative); Urine WBC <1 /hpf (0 - 3)
[2024-07-20 21:00] VITALS: BP 137/77; PULSE 62; RESP 14; O2SAT 100
[2024-07-20] MEDS ORDERED: CEFP200T15 PO (21:00)
[2024-07-20] MEDS ORDERED: METF-370 PO (21:00)
[2024-07-20] MEDS ORDERED: HYDR-4798 PO (21:00)
[2024-07-20] MEDS ORDERED: IBUP-1455 PO (21:00)
== END 2024-07-20 21:40 | disposition home or self-care (01) ==
LOC: ER 17:07
DX: N20.0 Calculus of kidney (principal); N12 Tubulo-interstitial nephritis, not specified as acute or chronic; E11.65 Type 2 diabetes mellitus with hyperglycemia; I10 Essential (primary) hypertension; E78.5 Hyperlipidemia, unspecified; K21.9 Gastro-esophageal reflux disease without esophagitis
CPT/HCPCS: 36415; 71045; 74176; 80053; 81001; 82010; 82962; 83605; 83690; 84484; 85025; 96361; 96374; 96375; 99285; J2270; J2405; J7030

== ENCOUNTER 2024-08-05 13:53 | Emergency (ER) | payer OTHER, MEDICAID ==
[~2024-08-05] VITALS: Ht 185.4 cm; Wt 77.1 kg
[~2024-08-05 13:53] MED LIST changes: +CEFP200T15 PO; +HYDR-4798 PO; +IBUP-1455 PO; +METF-370 PO
[2024-08-05 15:32] VITALS: BP 138/77; PULSE 98; RESP 17; TEMP 97.7; O2SAT 97
[2024-08-05] MEDS ORDERED: PRED20TA2 PO (15:50)
[2024-08-05] MEDS ORDERED: AMOX875T3 PO (15:50)
== END 2024-08-05 16:09 | disposition home or self-care (01) ==
LOC: ER 13:53
DX: S61.210A Laceration without foreign body of right index finger without damage to nail, initial encounter (principal); J01.90 Acute sinusitis, unspecified; E11.9 Type 2 diabetes mellitus without complications; K21.9 Gastro-esophageal reflux disease without esophagitis; E78.5 Hyperlipidemia, unspecified; I10 Essential (primary) hypertension; W26.8XXA Contact with other sharp object(s), not elsewhere classified, initial encounter; Y93.89 Activity, other specified; Y92.89 Other specified places as the place of occurrence of the external cause; Y99.8 Other external cause status

== ENCOUNTER 2024-08-13 22:30 | Inpatient (IN) | payer OTHER, MEDICAID ==
[~2024-08-13] VITALS: Ht 185.4 cm; Wt 97.9 kg
[~2024-08-13 22:30] MED LIST changes: +AMOX875T3 PO; +PRED20TA2 PO
[2024-08-13 23:32] LABS: Urine Bacteria MANY /hpf (None Seen); Urine Blood Negative /uL (Negative); Urine Clarity Turbid (Clear); Urine Color Yellow (Yellow); Urine Protein, UAD 2+ (Negative); Urine Specific Gravity 1.024 (1.001-1.035); Urine Sperm PRESENT /hpf (None Seen); Urine Urobilinogen 2 mg/dL (Negative); Urine WBC 16 /hpf (0 - 3); Urine pH 8.5 (5.0-9.0)
[2024-08-13 23:59] LABS: Basophils # (auto) 0 10 ^3/uL (0-0.2); Basophils % (auto) 0.6 % (0.0-2.0); Eosinophils # (auto) 0.1 10 ^3/uL (0-0.8); Eosinophils % (auto) 1.4 % (0.0-7.0); Hemoglobin 17.4 g/dL (13.5-17.5); Lymphocytes # (auto) 2.5 10 ^3/uL (0.4-5.4); Lymphocytes % (auto) 35.6 % (10.0-50.0); Mean Corpuscular Hgb Conc. 35.4 g/dL (32.0-36.0); Monocytes # (auto) 0.5 10 ^3/uL (0-1.3); Monocytes % (auto) 6.8 % (0.0-12.0); Neutrophils # (auto) 3.9 10 ^3/uL (1.6-8.6); Neutrophils % (auto) 55.6 % (37.0-80.0); Nucleated Red Blood Cells % 0.1 %; Platelet Count (auto) 376 10^3/uL (140-450); Red Cell Distribution Width 13.8 % (11.8-14.3)
[2024-08-14 00:26] LABS: Alanine Aminotransferase 25 U/L (7-40); Albumin 4.5 g/dL (3.2-4.8); Alkaline Phosphatase 117 U/L (46-116); Anion Gap 7 (5-15); Aspartate Aminotransferase 18 U/L (13-40); Bilirubin, Total 0.4 mg/dL (0.2-1.0); Blood Urea Nitrogen 13 mg/dL (9-23); Calcium 10.3 mg/dL (8.7-10.4); Carbon Dioxide 28 mmol/L (20-31); Chloride 103 mmol/L (98-107); Glucose 176 mg/dL (74-106); Potassium 4.8 mmol/L (3.5-5.1); Sodium 138 mmol/L (136-145); Total Protein 7.1 g/dL (5.7-8.2)
[2024-08-14 00:30] LABS: Lactic Acid w/Reflex 2.5 mmol/L (0.4-2.0)
[2024-08-14] MEDS: MORPHINE SULFATE 4 MG/ML SYR/VIAL IV ONE ×2 (01:00→07:40)
[2024-08-14] MEDS: ONDANSETRON HCL 4 MG/2 ML VIAL IV ONE ×2 (01:00→07:40)
[2024-08-14] MEDS: cefTRIAXone 1GM/50ML D5W 50 ML IV ONE (01:34)
[2024-08-14 07:23] VITALS: PULSE 107; RESP 18; O2SAT 100
[2024-08-14] MEDS ORDERED: ONDANSETRON HCL 4 MG/2 ML VIAL IV PRN (09:45)
[2024-08-14] MEDS ORDERED: DEXTROSE (50%) 50ML SYRG IV PRN (09:45)
[2024-08-14] MEDS ORDERED: ACETAMINOPHEN 325 MG TAB PO PRN (09:45)
[2024-08-14] MEDS: SODIUM CHLORIDE 0.9% 1,000 ML IV ONE ×2 (10:05→11:04)
[2024-08-14] MEDS: HYDROcodone-ACET 5/325MG TAB PO PRN (10:12)
[2024-08-14 10:57] LABS: Basophils # (auto) 0 10 ^3/uL (0-0.2); Basophils % (auto) 0.5 % (0.0-2.0); Eosinophils # (auto) 0.1 10 ^3/uL (0-0.8); Eosinophils % (auto) 1.3 % (0.0-7.0); Hematocrit 45.1 % (41.0-53.0); Hemoglobin 15.6 g/dL (13.5-17.5); Lymphocytes # (auto) 1.7 10 ^3/uL (0.4-5.4); Lymphocytes % (auto) 27.6 % (10.0-50.0); Mean Corpuscular Hemoglobin 33.3 pg (28.0-32.0); Mean Corpuscular Hgb Conc. 34.7 g/dL (32.0-36.0); Mean Corpuscular Volume 95.9 fL (80.0-100.0); Monocytes # (auto) 0.4 10 ^3/uL (0-1.3); Monocytes % (auto) 6.4 % (0.0-12.0); Neutrophils % (auto) 64.2 % (37.0-80.0); Nucleated Red Blood Cells % 0.2 %; Platelet Count (auto) 303 10^3/uL (140-450); White Blood Cell 6.3 10^3/uL (4.4-10.8)
[2024-08-14] MEDS: SUCRALFATE 1 GM/10 ML ORAL SUSP PO SCH (11:30)
[2024-08-14 11:58] LABS: Triglycerides 310 mg/dL (< 150)
[2024-08-14] MEDS: ACCU-CHEK COMFORT CURVE STRIP VI SCH (11:58)
[2024-08-14 11:59] LABS: LDL Cholesterol 100 mg/dL (< 100)
[2024-08-14 12:00] LABS: Cholesterol 178 mg/dL (< 200); HDL Cholesterol 36 mg/dL (40-59)
[2024-08-14] MEDS: InsuLIN REG 1unit/0.01ml Soln (100units/ml) SC SCH (12:15)
[2024-08-14] MEDS: SODIUM CHLORIDE 0.9% 1,000 ML IV SCH (12:16)
[2024-08-14] MEDS: HYDROcodone-ACET 10/325MG TAB PO PRN (13:19)
[2024-08-14] MEDS ORDERED: BACLOFEN 10 MG TAB PO SCH (14:00)
[2024-08-14] MEDS ORDERED: IBUPROFEN 800 MG TAB PO SCH (14:00)
[2024-08-14 14:20] VITALS: BP 132/97; PULSE 117; RESP 20; TEMP 98; O2SAT 98
[2024-08-14 14:21] VITALS: BP 132/97; PULSE 117; RESP 20; TEMP 98; O2SAT 98
[2024-08-14] MEDS: CYCLOBENZAPRINE HCL 10 MG TAB PO PRN (16:39)
[2024-08-14 16:47] VITALS: BP 147/87; PULSE 107; RESP 18; TEMP 98.1; O2SAT 98
[2024-08-14 20:00] VITALS: PULSE 88; RESP 20; O2SAT 99
[2024-08-14 21:00] VITALS: BP 126/72; PULSE 87; RESP 18; TEMP 97.9; O2SAT 100
[2024-08-14] MEDS: traZODone HCL 50 MG TAB PO SCH (21:59)
[2024-08-14] MEDS: MONTELUKAST SODIUM 10 MG TAB PO SCH (21:59)
[2024-08-14] MEDS: METOPROLOL TARTRATE 25 MG TAB PO SCH (21:59)
[2024-08-14] MEDS: ATORVASTATIN 20 MG TAB PO SCH (21:59)
[2024-08-14] MEDS: ZIPRASIDONE HYDROCHLORIDE PO SCH (22:00)
[2024-08-14] MEDS ORDERED: SACUBITRIL-VALSARTAN 24mg/26mg TAB PO SCH (22:00)
[2024-08-14] MEDS ORDERED: FAMOTIDINE 20 MG TAB GT SCH (22:00)
[2024-08-15 01:00] VITALS: BP 140/75; PULSE 79; RESP 19; TEMP 98.1; O2SAT 95
[2024-08-15 05:00] VITALS: BP 120/65; PULSE 82; RESP 18; TEMP 97.6; O2SAT 96
[2024-08-15] MEDS: LEVOTHYROXINE SODIUM 25 MCG TAB PO SCH (05:55)
[2024-08-15 06:04] LABS: Alanine Aminotransferase 19 U/L (7-40); Albumin 3.5 g/dL (3.2-4.8); Alkaline Phosphatase 95 U/L (46-116); Anion Gap 7 (5-15); Aspartate Aminotransferase 15 U/L (13-40); BUN/Creatinine Ratio 12.5 (10.0-20.0); Basophils # (auto) 0 10 ^3/uL (0-0.2); Basophils % (auto) 0.7 % (0.0-2.0); Blood Urea Nitrogen 11 mg/dL (9-23); Carbon Dioxide 23 mmol/L (20-31); Chloride 108 mmol/L (98-107); Eosinophils # (auto) 0.2 10 ^3/uL (0-0.8); Eosinophils % (auto) 3.2 % (0.0-7.0); Glucose 272 mg/dL (74-106); Hematocrit 45.1 % (41.0-53.0); Hemoglobin 15.8 g/dL (13.5-17.5); Lymphocytes # (auto) 1.9 10 ^3/uL (0.4-5.4); Lymphocytes % (auto) 39.8 % (10.0-50.0); Mean Corpuscular Hgb Conc. 35.2 g/dL (32.0-36.0); Mean Corpuscular Volume 96.8 fL (80.0-100.0); Monocytes # (auto) 0.4 10 ^3/uL (0-1.3); Monocytes % (auto) 7.9 % (0.0-12.0); Neutrophils # (auto) 2.4 10 ^3/uL (1.6-8.6); Neutrophils % (auto) 48.4 % (37.0-80.0); Nucleated Red Blood Cells % 0.1 %; Platelet Count (auto) 278 10^3/uL (140-450); Potassium 4.6 mmol/L (3.5-5.1); Red Blood Cells 4.66 10^6/uL (4.5-5.90); Red Cell Distribution Width 13.8 % (11.8-14.3); Sodium 138 mmol/L (136-145); White Blood Cell 4.9 10^3/uL (4.4-10.8)
[2024-08-15 06:05] LABS: Bilirubin, Total 0.5 mg/dL (0.2-1.0); Total Protein 5.7 g/dL (5.7-8.2)
[2024-08-15] MEDS: BUPROPION HCL 300 MG PO SCH (06:28)
[2024-08-15 08:00] VITALS: BP 118/80; PULSE 89; RESP 18; TEMP 98.2; O2SAT 100; O2SAT 99
[2024-08-15] MEDS ORDERED: LISINOPRIL 20 MG TAB PO SCH (10:00)
[2024-08-15] MEDS: QUETIAPINE FUMERATE 300 MG PO SCH (10:00)
[2024-08-15] MEDS: cefTRIAXone 1GM/50ML D5W 50 ML IV SCH (10:09)
[2024-08-15] MEDS: ASPirin-EC 81 mg tab PO SCH (10:12)
[2024-08-15] MEDS: CITALOPRAM HYDROBR 20 MG TAB PO SCH (10:22)
[2024-08-15] MEDS: NICOTINE 7MG/24HR TOPICAL PATCH TD ONE (11:54)
[2024-08-15 12:00] VITALS: BP 130/75; PULSE 69; RESP 18; TEMP 97.7; O2SAT 97
[2024-08-15] MEDS: PANTOPRAZOLE 40 MG TAB PO ONE (14:08)
[2024-08-15] MEDS: HYDROcodone-ACET 10/325MG TAB PO PRN (14:10)
[2024-08-15] MEDS: IBUPROFEN 800 MG TAB PO SCH (14:11)
[2024-08-15 16:00] VITALS: BP 134/74; PULSE 87; RESP 18; TEMP 97.9; O2SAT 98
[2024-08-15] MEDS ORDERED: DEXTROSE (50%) 50ML SYRG IV PRN (16:30)
[2024-08-15] MEDS: InsuLIN REG 1unit/0.01ml Soln (100units/ml) SC SCH ×2 (17:16→21:22)
[2024-08-15] MEDS: ACCU-CHEK COMFORT CURVE STRIP VI SCH (17:17)
[2024-08-15 21:00] VITALS: BP 113/67; PULSE 75; RESP 17; TEMP 98; O2SAT 96
[2024-08-15] MEDS: PANTOPRAZOLE 40 MG TAB PO SCH (21:25)
[2024-08-16 01:00] VITALS: BP 130/81; PULSE 69; RESP 19; TEMP 98; O2SAT 99
[2024-08-16 05:00] VITALS: BP 106/70; PULSE 64; RESP 18; TEMP 98; O2SAT 98
[2024-08-16 09:00] VITALS: BP 134/83; PULSE 64; RESP 20; TEMP 98.6; O2SAT 96
[2024-08-16] MEDS: NICOTINE 7MG/24HR TOPICAL PATCH TD SCH (11:16)
[2024-08-16 13:00] VITALS: BP 115/69; PULSE 83; RESP 16; TEMP 97.9; O2SAT 98
[2024-08-16] MEDS: KETOROLAC TROMETH 30 MG/ML 1ML VIAL IV PRN (13:43)
[2024-08-16 16:52] VITALS: BP 134/83; PULSE 64; TEMP 36.6
[2024-08-16 17:00] VITALS: BP 112/69; PULSE 67; RESP 20; TEMP 98.8; O2SAT 99
[2024-08-20] MEDS ORDERED: HYDROcodone-ACET 5/325MG TAB PO PRN (11:30)
== END 2024-08-16 17:20 | disposition home or self-care (01) | DRG 690 ==
LOC: ER 22:30 → OVERFLOW 08-14 09:42 → WEST WING 08-14 13:46
PROVIDERS: ADMIT Nurse Practitioner Family; ATTEND Family Medicine
DX: N10 Acute pyelonephritis (principal); E87.21 Acute metabolic acidosis; K21.9 Gastro-esophageal reflux disease without esophagitis; F17.200 Nicotine dependence, unspecified, uncomplicated; I10 Essential (primary) hypertension; E78.00 Pure hypercholesterolemia, unspecified; F32.A Depression, unspecified; F20.9 Schizophrenia, unspecified; N20.0 Calculus of kidney; G89.4 Chronic pain syndrome; Z87.442 Personal history of urinary calculi; Z79.1 Long term (current) use of non-steroidal anti-inflammatories (NSAID); Z79.899 Other long term (current) drug therapy; Z79.84 Long term (current) use of oral hypoglycemic drugs; Z79.4 Long term (current) use of insulin; E11.65 Type 2 diabetes mellitus with hyperglycemia
CPT/HCPCS: 36415; 71045; 80053; 80061; 81001; 82962; 83036; 83605; 84484; 85025; 87081; 87086; 93005; G0378; J1815; J1885; J2405

== ENCOUNTER 2025-01-04 18:00 | Inpatient (IN) | payer OTHER, MEDICAID ==
[~2025-01-04] VITALS: Ht 188 cm; Wt 74.3 kg
--- NOTE | 2025-01-04 18:43 | ED.PDOC ---
History of present illness HPI Comments HPI: Poor Historian. 34-year-old male brought in by ambulance from home for evaluation of generalized weakness for the last three days and flu-like symptoms. Patient's blood sugar was 436. Patient took Lantus 60 units this morning and 40 regular units of insulin this morning. Past Medical History: Diabetes, hypertension, hyper lipidemia, MT, thyroid disease, depression. Past Surgical History: REVIEW OF SYSTEMS: CONSTITUTIONAL: Denies acute: fever, diaphoresis, chills, HEAD: Denies acute: headache, photophobia Eyes: Denies acute: Double vision, vision loss, eye pain, eye discharge. EARS: Denies acute: tinnitus, hearing loss, ear discharge, ear pain, THROAT: Denies acute: sore throat, swelling, difficulty swallowing , pain with swallowing, change in voice. NECK: Denies acute: neck pain, neck swelling, stiff neck. HEART: Denies acute : chest pain, palpitations, LUNGS: Denies acute: SOB, wheezing, cough, hemoptysis ABDOMEN: Denies acute: abdominal pain, Nausea, Vomiting, diarrhea, melena , hematemesis, hematochezia SKIN: Denies acute: rash, redness, lesions, itchiness. EXTREMITIES: Denies acute: calf pain, numbness, tingling, weakness, denies pain in extremity. Denies acute: Low back pain. Neuro: Denies acute: focal neurological deficit, motor or sensory focal neurological deficit, tremors, seizure like activity, confusion, dizziness, change in mental status, loss of bowel or bladder function, cauda equina like symptoms. : Denies acute: dysuria, hematuria, flank pain, increase in urinary frequency. PSYCH: Denies acute: hallucination, suicidal ideation, homicidal ideation. PHYSICAL EXAM: General: no acute distress, awake and alert. Head: normocephalic, atraumatic. Neck: supple, trachea is midline, no swelling. Throat: Normal phonation. Eyes:, no erythema, no purulent discharge, no proptosis, no icterus. Heart: regular tachycardic, no significant murmur appreciated. Lungs: no apparent respiratory distress, Able to speak in full sentences. No wheezing, no rhonchi, no crackles. No stridors Clear to auscultation bilaterally. Abdomen: non tender to palpation, non distended, soft, no guarding, no rebound, + bowel sounds. Neuro: Awake, Alert, oriented to name, self, situation, follows commands GCS=15. Speech is normal. Skin: no petechia, no purpura, no cyanosis, non-pale, not jaundice. Lower extremities: --no - Pitting edema no deformity, no focal swelling, no calf TTP. Makes eye contact. moves all four extremities. Face: no apparent facial droop. ED COURSE: Chief Complaint: Hyperglycemia Time Seen by MD: 18:15 Primary Care Provider: Nereida History of present illness: Nurses Notes, Allergies Allergies: Coded Allergies: NO KNOWN ALLERGIES (Unverified , 06/26/22) Home Meds Active Scripts Prednisone (Prednisone) 20 Mg Tab, 60 MG PO DAILY, #18 TAB Prov:TABATHA MONTENEGRO 08/05/24 Amoxicillin Trihydrate (Amoxicillin) 875 Mg Tab, 1 TAB PO BID, #20 TAB Prov:TABATHA MONTENEGRO 08/05/24 Metformin Hydrochloride (Metformin Hcl) 500 Mg Tab, 1 TAB PO BID, #60 TAB 3 Refills Prov:JENISE RAMOS 07/20/24 Ibuprofen Micronized (Ibuprofen) 800 Mg Tab, 800 MG PO Q8HPRN PRN, #20 TAB Prov:JENISE RAMOS 07/20/24 Hydrocodone-Acetaminophen (Hydrocodone Bitartrate/AC 10-325 mg) 1 Tab Tab, 1 TAB PO Q6HPRN PRN, #15 TAB Prov:JENISE RAMOS 07/20/24 Cefpodoxime Proxetil (Cefpodoxime Proxetil) 200 Mg Tab, 1 TAB PO BID for 10 Days, #20 TAB Prov:JENISE RAMOS 07/20/24 Pantoprazole Sodium Sesquihydr (Protonix) 40 Mg Tab, 40 MG PO BID for 30 Days, #60 TAB Prov:JOSE DE JESUS CLIFFORD MD 11/04/23 Sucralfate (CARAFATE SUSP) 1 Gm/10 Ml Ss, 1 GM PO TIDAC for 30 Days, #1200 ML Prov:JOSE DE JESUS CLIFFORD MD 11/04/23 Sacubitril-Valsartan (Entresto 24-26 mg) 1 Tab Tab, 1 TAB PO BID for 30 Days, #60 TAB Prov:JOSE DE JESUS CLIFFORD MD 11/04/23 Metoprolol Tartrate (Lopressor) 25 Mg Tb, 12.5 MG PO BID for 30 Days, #60 TAB Prov:JOSE DE JESUS CLIFFORD MD 11/04/23 Cyclobenzaprine Hcl (Cyclobenzaprine Hcl) 10 Mg Tab, 10 MG PO BID PRN, #20 TAB Prov:ISAAC ANTONIO MD 01/27/23 Famotidine (PEPCID TABLET) 20 Mg Tb, 20 MG GT BID for 14 Days, #28 TAB Prov:ISAAC ANTONIO MD 01/27/23 Citalopram Hydrobromide (Celexa) 10 Mg Tab, 1 TAB PO DAILY, #30 TAB 0 Refills Prov:DANIELA LEOS MD 07/21/22 Insulin Regular (Human) (Novolin R) 100 Unit/Ml Inj, 0 UNITS SC IQ4HR for 30 Days, INJ if BS 150-200 give 2 units if BS 201-250 give 4 units if BS 251-300 give 6 units if BS 301-350 give 8 units if BS 351-400 give 10 units. if BS >400 call your doctor Prov:BILLIE ADAMS MD 07/17/22 Insulin Glargine (Lantus) 100 Unit/Ml Inj, 30 UNIT SC DAILY for 30 Days, #30 INJ Prov:BILLIE ADAMS MD 07/17/22 Reported Medications Quetiapine Fumerate (QUETIAPINE FUMARATE) 300 Mg Tab, 1 TAB PO DAILY 11/03/23 Trazodone Hcl (Trazodone Hcl) 100 Mg Tab, 1 TAB PO HS 11/03/23 Citalopram Hydrobromide (Citalopram Hydrobromide) 20 Mg Tab, 1 TAB PO DAILY 11/03/23 Bupropion Hcl (Bupropion Hcl Xl) 300 Mg Tab, 1 TAB PO QAM 11/03/23 Citalopram Hydrobromide (Celexa) 10 Mg Tab, 1 TAB PO DAILY, #30 TAB 2 Refills 07/13/22 Lisinopril (Lisinopril) 40 Mg Tab, 1 TAB PO DAILY, #30 TAB 5 Refills 07/13/22 Omeprazole (Gnp Omeprazole) 20 Mg Tab, 1 TAB PO DAILY, #90 TAB 1 Refill 07/13/22 Aspirin (Aspirin Ec) 81 Mg Tab, 81 MG PO DAILY, TAB 07/13/22 Levothyroxine Sodium (Levothyroxine Sodium) 25 Mcg Tab, 1 TAB PO DAILY, #30 TAB 5 Refills 07/13/22 Montelukast Sodium (MONTELUKAST SODIUM) 10 Mg Tab, 1 TAB PO DAILY, #30 TAB 5 Refills 07/13/22 Atorvastatin Calcium (ATORVASTATIN CALCIUM) 80 Mg Tab, 1 TAB PO DAILY, #30 TAB 5 Refills 07/13/22 Divalproex Sodium (Depakote) 500 Mg Tab, 500 MG PO DAILY, TAB 07/13/22 Quetiapine Fumerate (Seroquel) 400 Mg Tab, 1 TAB PO QPM, #30 TAB 1 Refill 07/13/22 Ziprasidone Hydrochloride (Geodon) 60 Mg Cap, 60 MG PO BID, CAP 07/13/22 Acetaminophen (Tylenol) 325 Mg Cap, 325 MG PO Q4HPRN, CAP 07/13/22 Ibuprofen (Ibuprofen) 800 Mg Tab, 1 TAB PO Q4HPRN, #90 TAB 1 Refill 07/13/22 Baclofen (Baclofen) 20 Mg Tab, 1 TAB PO TID, #90 TAB 2 Refills 07/13/22 Mode of Arrival: EMS Past Medical History PAST MEDICAL HISTORY: Depression, DM, GERD, High Lipids, HTN, Schizophrenia Surgical History: Denies all surgeries Family History Family History: Reviewed,noncontributory to illness Social History Smoker: Non-Smoker Alcohol: Heavy Drugs: Denies Drug Use Lives In: Assisted Care Was a procedure done? Was a procedure done?: No Differential Diagnosis (DM) Differential Diagnosis: Dehydration, Diabetic Coma, DKA, Encephalopathy, Gastritis, Gastroenteritis, Hepatitis, Hyperglycemia, Hyperosmolar State, Hypoglycemia, Pancreatitis, Pyelonephritis, UTI X-Ray, Labs, Meds, VS Vital Signs Date Time Temp Pulse Resp B/P (MAP) Pulse Ox O2 Delivery O2 Flow Rate FiO2 01/04/25 20:36 98.9 108 15 120/82 (95) 98 98.9 01/04/25 18:21 99.0 110 22 159/94 (115) 100 Lab Test 01/04/25 20:44 01/04/25 20:30 01/04/25 20:10 01/04/25 19:15 Range/Units POC Glucose 533 *H 70-106 mg/dl Influenza Type A Antigen Negative Negative Influenza Type B Antigen Negative Negative SARS-CoV-2 Antigen (Rapid) Negative NEGATIVE Troponin I High Sensitivity 430 *H </=54 ng/L Urine Color Colorless Yellow Urine Clarity Clear Clear Urine pH 7.5 5.0-9.0 Urine Specific [place] 1.017 1.001-1.035 Urine Protein Negative Negative Urine Ketones 1+ H Negative Urine Blood Negative Negative /uL Urine Nitrite Negative Negative Urine Bilirubin Negative Negative Urine Urobilinogen Normal Negative mg/dL Urine Leukocyte Esterase Negative Negative /uL Urine RBC 1 0 - 3 /hpf Urine Microscopic WBC 1 0-3 /HPF Urine Squamous Epithelial Cells None seen <5 /hpf Urine Bacteria None seen None Seen /hpf Urine Glucose 4+ H Normal mg/dL Urine Opiates Screen Neg NEGATIVE Urine Fentanyl Screen Neg NEGATIVE Urine Barbiturates Screen Neg NEGATIVE Urine Phencyclidine Screen Neg NEGATIVE Urine Amphetamines Screen Neg NEGATIVE Urine Benzodiazepines Screen Neg NEGATIVE Urine Cocaine Screen Neg NEGATIVE Urine Cannabinoids Screen Neg NEGATIVE Test 01/04/25 18:58 01/04/25 18:56 Range/Units White Blood Count 8.3 4.4-10.8 10^3/uL Red Blood Count 4.60 4.5-5.90 10^6/uL Hemoglobin 15.2 13.5-17.5 g/dL Hematocrit 43.1 41.0-53.0 % Mean Corpuscular Volume 93.7 80.0-100.0 fL Mean Corpuscular Hemoglobin 33.1 H 28.0-32.0 pg Mean Corpuscular Hemoglobin Concent 35.4 32.0-36.0 g/dL Red Cell Distribution Width 13.5 11.8-14.3 % Platelet Count 401 140-450 10^3/uL Mean Platelet Volume 7.1 6.9-10.8 fL Neutrophils (%) (Auto) 71.7 37.0-80.0 % Lymphocytes (%) (Auto) 17.8 10.0-50.0 % Monocytes (%) (Auto) 9.3 0.0-12.0 % Eosinophils (%) (Auto) 0.7 0.0-7.0 % Basophils (%) (Auto) 0.5 0.0-2.0 % Neutrophils # (Auto) 5.9 1.6-8.6 10 ^3/uL Lymphocytes # (Auto) 1.5 0.4-5.4 10 ^3/uL Monocytes # (Auto) 0.8 0-1.3 10 ^3/uL Eosinophils # (Auto) 0.1 0-0.8 10 ^3/uL Basophils # (Auto) 0 0-0.2 10 ^3/uL Nucleated Red Blood Cells 0.0 % Sodium Level 130 L 136-145 mmol/L Potassium Level 4.9 3.5-5.1 mmol/L Chloride Level 95 L 98-107 mmol/L Carbon Dioxide Level 23 20-31 mmol/L Anion Gap 12 5-15 Blood Urea Nitrogen 20 9-23 mg/dL Creatinine 1.18 0.700-1.30 mg/dL Glomerular Filtration Rate Calc 83 >90 mL/min BUN/Creatinine Ratio 16.9 10.0-20.0 Serum Glucose 497 *H 74-106 mg/dL Lactic Acid Level 1.7 0.4-2.0 mmol/L Calcium Level 10.0 8.7-10.4 mg/dL Magnesium Level 1.9 1.6-2.6 mg/dL Total Bilirubin 0.4 0.2-1.0 mg/dL Aspartate Amino Transferase (AST) 9 L 13-40 U/L Alanine Aminotransferase (ALT) 15 7-40 U/L Alkaline Phosphatase 119 H 46-116 U/L Troponin I High Sensitivity 460 *H </=54 ng/L B-Type Natriuretic Peptide 22.30 0-100 pg/mL Total Protein 6.3 5.7-8.2 g/dL Albumin 4.3 3.2-4.8 g/dL Beta-Hydroxybutyric Acid 2.666 H < 0.4 mmol/L Blood Gas Specimen Type Venous Blood Gas Sample Site Vbg - n/a Blood Gas Patient Temperature 37.0 Arterial Blood Date Drawn [id number] Neno Test N/a Venous Blood pH 7.469 H 7.320-7.430 Venous Blood pCO2 at Patient Temp 33.5 L 38.0-54.0 mmHg Venous Blood pO2 at Patient Temp < 36.5 23.0-48.0 mmHg Venous Blood HCO3 23.8 22.0-29.0 mmol/L Venous Blood Base Excess 0.8 -2.0-3.0 mmol/L Blood Gas Modality Room air FiO2 % 21.0 Current Medications Medications (Trade) Dose Ordered Sig/Munir Route Start Time Stop Time Status Last Admin Sodium Chloride 1,000 ml @ 1,000 mls/hr Q1H ONCE IV 01/04/25 18:30 01/04/25 19:29 DC 01/04/25 20:30 Insulin Human Regular (InsuLIN R) 5 units ONCE ONCE IV 01/04/25 18:30 01/04/25 18:31 DC 01/04/25 20:49 Sodium Chloride 1,000 ml @ 1,000 mls/hr Q1H ONCE IV 01/04/25 21:00 01/04/25 21:59 DC 01/04/25 22:32 [place] [address] Ph: [phone] DIAGNOSTIC IMAGING Diagnostic Imaging Report : [id number] Signed PATIENT: MAKAYLA OSCAR ACCT: [id number] UNIT: [id number] : 1990 LOC: ER ROOM / BED: / AGE / SEX: 34 / M ADM STATUS: REG ER SERVICE 15 ORDERING PHYSICIAN: ESTHER BAZZI DO PROCEDURE(s): CXRP - CHEST PORTABLE REASON: hyperglycemia, tachy, fever ORDER NUMBER(s): [id number], ACCESSION NUMBER(s): [id number] EXAM: XR Chest, 1 View CLINICAL INDICATION: hyperglycemia, tachy, fever TECHNIQUE: Frontal view of the chest. COMPARISON: XY CHEST XRAY 1 VIEW on DOS: 08/13/24, XY CHEST XRAY 1 VIEW on DOS: 07/20/24, XY CHEST PORTABLE on DOS: 11/03/23, CHEST PORTABLE on DOS: 07/16/22, CXRP on DOS: 07/16/22 FINDINGS: LUNGS AND PLEURAL SPACES: Unremarkable. No consolidation. No pneumothorax. HEART: Unremarkable. No cardiomegaly. MEDIASTINUM: Unremarkable. Normal mediastinal contour. BONES/JOINTS: Unremarkable. No acute fracture. OTHER FINDINGS: . None. IMPRESSION: No acute cardiopulmonary process. ATED BY: DINAH WU MD DICTATED DATE/TIME: 01/04/251857 SIGNED BY: DINAH WU MD SIGNED DATE/TIME: 01/04/251857 CC: Time of 1ST Reevaluation: 01:29 Reevaluation 1ST: Improved Patient Education/Counseling: Diagnosis, Treatment Family Education/Counseling: No Family Present Comments Patient presented with the above HPI.----hyperglycemia and flu-like symptoms--workup was initiated. patient was found with the above mentioned diagnosis. the following medications were ordered: please refer to order lists of meds and tests obtained by myself Dr. Bazzi. Patient ED course and VS have been stabilized. Patient has been reassessed in the ED and remained in a stable condition. Pertinent incidental findings were discussed with the patient and/or family. Patient/family voices understanding and is agreeable with plan. Patient has been observed in the ED adequate length of time to insure improvement/stability. Escalation of care considered: Consideration of escalation to observation or admission Patient was ADMITTED to the medicine team for further evaluation and treatment of their presentation. All the reports of any imaging studies that were ordered by myself were reviewed by myself. Departure 1 Departure Time of Disposition: 19:47 Impression: Primary Impression: Uncontrolled diabetes mellitus Additional Impression: Hyperglycemia Disposition: 09 ADMITTED INPATIENT Admit to: Tele Condition: Guarded Discharged With: Self Critical Care Note Critical Care Time?: No I personally scribed for ESTHER BAZZI DO ([email or web address]) on 01/04/25 at 20:33. Electronically submitted by [employer]). ESTHER BAZZI DO Jan 04, 2025 18:43
--- NOTE | 2025-01-04 19:01 | DVH ---
EXAM: XR Chest, 1 View CLINICAL INDICATION: hyperglycemia, tachy, fever TECHNIQUE: Frontal view of the chest. COMPARISON: XY CHEST XRAY 1 VIEW on DOS: 08/13/24, XY CHEST XRAY 1 VIEW on DOS: 07/20/24, XY CHEST PO RTABLE on DOS: 11/03/23, CHEST PORTABLE on DOS: 07/16/22, CXRP on DOS: 07/16/22 FINDINGS: LUNGS AND PLEURAL SPACES: Unremarkable. No consolidation. No pneumothorax. HEART: Unremarkable. No cardiomegaly. MEDIASTINUM: Unremarkable. Normal mediastinal contour. BONES/JOINTS: Unremarkable. No acute fracture. OTHER FINDINGS: . None. IMPRESSION: No acute cardiopulmonary process.
[2025-01-04 19:10] LABS: Basophils # (auto) 0 10 ^3/uL (0-0.2); Basophils % (auto) 0.5 % (0.0-2.0); Eosinophils # (auto) 0.1 10 ^3/uL (0-0.8); Eosinophils % (auto) 0.7 % (0.0-7.0); Hematocrit 43.1 % (41.0-53.0); Hemoglobin 15.2 g/dL (13.5-17.5); Lymphocytes # (auto) 1.5 10 ^3/uL (0.4-5.4); Lymphocytes % (auto) 17.8 % (10.0-50.0); Mean Corpuscular Hemoglobin 33.1 pg (28.0-32.0); Mean Corpuscular Hgb Conc. 35.4 g/dL (32.0-36.0); Mean Corpuscular Volume 93.7 fL (80.0-100.0); Monocytes # (auto) 0.8 10 ^3/uL (0-1.3); Monocytes % (auto) 9.3 % (0.0-12.0); Neutrophils # (auto) 5.9 10 ^3/uL (1.6-8.6); Neutrophils % (auto) 71.7 % (37.0-80.0); Platelet Count (auto) 401 10^3/uL (140-450); Red Cell Distribution Width 13.5 % (11.8-14.3); White Blood Cell 8.3 10^3/uL (4.4-10.8)
[2025-01-04 19:17] LABS: Urine Bacteria None Seen /hpf (None Seen)
[2025-01-04 19:24] LABS: Urine Blood Negative /uL (Negative); Urine Clarity Clear (Clear); Urine Color Colorless (Yellow); Urine Protein, UAD Negative (Negative); Urine Specific Gravity 1.017 (1.001-1.035); Urine Squamous Epithelial Cell None Seen /hpf (<5); Urine Urobilinogen Normal (Negative); Urine WBC 1 /HPF (0-3); Urine pH 7.5 (5.0-9.0)
[2025-01-04 19:27] LABS: Alanine Aminotransferase 15 U/L (7-40); Albumin 4.3 g/dL (3.2-4.8); Anion Gap 12 (5-15); BUN/Creatinine Ratio 16.9 (10.0-20.0); Bilirubin, Total 0.4 mg/dL (0.2-1.0); Blood Urea Nitrogen 20 mg/dL (9-23); Carbon Dioxide 23 mmol/L (20-31); Magnesium 1.9 mg/dL (1.6-2.6); Potassium 4.9 mmol/L (3.5-5.1)
[2025-01-04 19:28] LABS: Total Protein 6.3 g/dL (5.7-8.2)
[2025-01-04 19:36] LABS: Chloride 95 mmol/L (98-107); Sodium 130 mmol/L (136-145)
[2025-01-04 19:37] LABS: Alkaline Phosphatase 119 U/L (46-116); Aspartate Aminotransferase 9 U/L (13-40); Glucose 497 mg/dL (74-106)
[2025-01-04] MEDS: SODIUM CHLORIDE 0.9% 1,000 ML IV ONE ×2 (20:30→22:32)
[2025-01-04] MEDS: InsuLIN REG 1unit/0.01ml Soln (100units/ml) IV ONE (20:49)
[2025-01-04] MEDS ORDERED: DEXTROSE (50%) 50ML SYRG IV PRN (21:30)
[2025-01-04] MEDS: INSULIN LANTUS (GLARGINE) 1 /0.01ml (100units/ml) SC SCH (22:00)
[2025-01-04 22:07] LABS: Amphetamine Screen, Urine Neg (NEGATIVE); Barbiturate Scree,Urine Neg (NEGATIVE); Benzodiazephine Screen, Urine Neg (NEGATIVE); Cannabinoid Screen, Urine Neg (NEGATIVE); Cocaine Screen, Urine Neg (NEGATIVE); Opiate Scree,Urine Neg (NEGATIVE); Phencyclidine Screen, Urine Neg (NEGATIVE)
[2025-01-04 22:09] LABS: COVID19 ANTIGEN SOFIA FIA NEGATIVE (NEGATIVE); Rapid Influenza A Negative (Negative); Rapid Influenza B Negative (Negative)
--- NOTE | 2025-01-04 22:28 | DVH ---
PARANASAL SINUSES: INDICATION: sinusitis TECHNIQUE: 4 views FINDINGS: Air-fluid level left maxillary sinus No abnormal soft tissue densities or air-fluid levels are present. Osseous alignment is anatomic. No displaced fractures are demonstrated. IMPRESSION: 1. Air-fluid level left maxillary sinus. HS:Y
[2025-01-05] VITALS (10 sets, daily range): BP systolic 106–139; BP diastolic 67–95; PULSE 67–125; RESP 15–19; TEMP 97.2–98.6; O2SAT 95–99
[2025-01-05] MEDS: ACCU-CHEK COMFORT CURVE STRIP VI SCH (00:09)
[2025-01-05] MEDS: InsuLIN REG 1unit/0.01ml Soln (100units/ml) SC SCH (00:12)
[2025-01-05] MEDS: AMOXICILLIN/CLAVUL 875 MG TAB PO SCH (02:19)
[2025-01-05 02:34] LABS: Erythrocyte Sedimentation Rate 23 mm/hr (0-20)
[2025-01-05] MEDS: LISINOPRIL 20 MG TAB PO SCH (03:35)
[2025-01-05] MEDS: METOPROLOL SUCCINATE XL 50 MG TAB PO SCH (03:36)
--- NOTE | 2025-01-05 04:04 | DVHHPRES ---
History of Present Illness Resident Creating Document: RANJIT GASTON RESIDENT Reason for Visit: Hyperglycemia History of Present Illness 34-year-old male with a history of diabetes mellitus, hypertension, hyperlipidemia, schizophrenia, chronic heart failure and hypothyroidism brought in by ambulance due to generalized weakness for three days. The patient reports feeling weak over the past three days with associated upper respiratory symptoms, including a runny nose and nasal congestion. He denies shortness of breath but describes difficulty breathing through his nose due to increased nasal secretions. Additionally, he noted that his blood sugars have been consistently elevated above 400 mg/dL. At home, he takes Lantus 60 units in the morning along with 40 units of regular insulin. His medication adherence is unclear. He has a history of diabetes, hypertension, hyperlipidemia, hyperthyroidism, and psychiatric conditions, including schizophrenia and depression. The patient was previously admitted for what Type 2 NSTEMI. Upon admission, initial labs revealed hyperglycemia, mild hyponatremia, and an elevated troponin trending around 400. The patients BNP is normal. He had an echocardiogram a year ago showing an ejection fraction of 45%. EKG on admission is unremarkable. The patient denies chest pain or other acute cardiac symptoms. Past Medical History: Diabetes Mellitus, Hypertension, Hyperlipidemia, Hypothyroidism, Schizophrenia, Depression, History of Type 2 NSTEMI (unclear details), Chronic Heart Failure (EF 45% per echocardiogram from one year ago) Medications at Home:Tylenol, Aspirin, Atorvastatin, Baclofen, Bupropion, Citalopram, Divalproex, Insulin (Lantus 60 units AM, 40 units regular), Levothyroxine, Lisinopril, Metformin, Metoprolol, Quetiapine, Ziprasidone UDS negative Smoker: Non-Smoker Alcohol: Heavy Drugs: Denies Drug Use Lives In: Assisted Care Review of Systems Constitutional: Yes: Weakness, Malaise; No: Fever, Chills, Sweats, Other Eyes: No: Pain, Vision change, Conjunctivae inflammation, Eyelid inflammation, Other, Redness ENT: Nose congestion; No: Ear pain, Ear discharge, Nose pain, Nose discharge, Mouth pain, Mouth swelling, Throat pain, Throat swelling, Other Respiratory: No: Cough, Dry, Shortness of breath, SOB with excertion, Wheezing, Hemoptysis, Pleuritic Pain, Sputum, Wheezing, Other Cardiovascular: No: Chest Pain, Palpitations, Orthopnea, Paroxysmal Noc. Dyspnea, Edema, Lt Headedness, Other Gastrointestinal: Nausea; No: Vomiting, Abdominal Pain, Diarrhea, Constipation, Melena, Hematochezia, Other Genitourinary: No Dysuria, No Frequency, No Incontinence, No Hematuria, No Retention, No Other Musculoskeletal: back pain; No: other, neck pain, shoulder pain, arm pain, hand pain, leg pain, foot pain Skin: No: Rash, Lesions, Jaundice, Bruising, Other Neurological: No: Weakness, Numbness, Incoordination, Change in speech, Confusion, Seizures, Other Allergies: Coded Allergies: Egg-derived Products (Verified Allergy, Unknown, 01/05/25) Medications Current Medications Medications Dose Ordered Sig/Munir Route Start Time Stop Time Status Last Admin Dose Admin Insulin Glargine 30 units HS SC 01/04/25 22:00 01/04/25 22:00 30 UNITS Diagnostic Test (Pha) 1 strip Q6HR 01/05/25 00:00 01/05/25 00:09 1 STRIP Insulin Human Regular Q6HR SC 01/05/25 00:00 01/05/25 00:12 12 UNITS Dextrose 50 ml UD PRN IV 01/04/25 21:30 Levothyroxine Sodium 25 mcg DAILY PO 01/05/25 10:00 Divalproex Sodium 500 mg DAILY PO 01/05/25 10:00 Amoxicillin/ Clavulanate Potassium 875 mg Q12HR PO 01/05/25 02:00 01/05/25 02:19 875 MG Lisinopril 40 mg DAILY PO 01/05/25 03:00 01/05/25 03:35 40 MG Empaglifozin 10 mg DAILY PO 01/05/25 10:00 Metoprolol Succinate 25 mg DAILY PO 01/05/25 03:00 01/05/25 03:36 25 MG Acetaminophen 650 mg Q4HP PRN PO 01/05/25 03:30 Ondansetron HCl 4 mg Q4HPRN PRN IV 01/05/25 03:30 Exam Vital Signs Vital Signs Date Time Temp Pulse Resp B/P (MAP) Pulse Ox O2 Delivery O2 Flow Rate FiO2 01/05/25 03:36 98 139/88 01/05/25 01:37 13 97 01/05/25 00:00 Room Air* 0 21 01/04/25 23:53 98.4 98.4 General Appearance: Alert, Oriented X3, Cooperative HEENT: Atraumatic, PERRLA, EOMI, Other (nasal congestion ) Respiratory: Clear to auscultation Cardiovascular: Regular rate, Normal S1 Abdominal: Normal bowel sounds, Soft Extremities: No clubbing, No cyanosis Skin: No rashes, No breakdown Neuro: Normal gait, Normal speech Psych/Mental Status: Mental status NL, Mood NL Labs/Xrays Labs Test 01/05/25 01:31 01/04/25 23:57 01/04/25 21:54 01/04/25 20:30 Range/Units Erythrocyte Sedimentation Rate 23 H 0-20 mm/hr POC Glucose 310 H 70-106 mg/dl Troponin I High Sensitivity 453 *H </=54 ng/L C-Reactive Protein High Sensitivity 1.01 H <1.0 mg/dL Influenza Type A Antigen Negative Negative Influenza Type B Antigen Negative Negative SARS-CoV-2 Antigen (Rapid) Negative NEGATIVE Test 01/04/25 19:15 01/04/25 18:58 01/04/25 18:56 Range/Units Urine Color Colorless Yellow Urine Clarity Clear Clear Urine pH 7.5 5.0-9.0 Urine Specific [place] 1.017 1.001-1.035 Urine Protein Negative Negative Urine Ketones 1+ H Negative Urine Blood Negative Negative /uL Urine Nitrite Negative Negative Urine Bilirubin Negative Negative Urine Urobilinogen Normal Negative mg/dL Urine Leukocyte Esterase Negative Negative /uL Urine RBC 1 0 - 3 /hpf Urine Microscopic WBC 1 0-3 /HPF Urine Squamous Epithelial Cells None seen <5 /hpf Urine Bacteria None seen None Seen /hpf Urine Glucose 4+ H Normal mg/dL Urine Opiates Screen Neg NEGATIVE Urine Fentanyl Screen Neg NEGATIVE Urine Barbiturates Screen Neg NEGATIVE Urine Phencyclidine Screen Neg NEGATIVE Urine Amphetamines Screen Neg NEGATIVE Urine Benzodiazepines Screen Neg NEGATIVE Urine Cocaine Screen Neg NEGATIVE Urine Cannabinoids Screen Neg NEGATIVE White Blood Count 8.3 4.4-10.8 10^3/uL Red Blood Count 4.60 4.5-5.90 10^6/uL Hemoglobin 15.2 13.5-17.5 g/dL Hematocrit 43.1 41.0-53.0 % Mean Corpuscular Volume 93.7 80.0-100.0 fL Mean Corpuscular Hemoglobin 33.1 H 28.0-32.0 pg Mean Corpuscular Hemoglobin Concent 35.4 32.0-36.0 g/dL Red Cell Distribution Width 13.5 11.8-14.3 % Platelet Count 401 140-450 10^3/uL Mean Platelet Volume 7.1 6.9-10.8 fL Neutrophils (%) (Auto) 71.7 37.0-80.0 % Lymphocytes (%) (Auto) 17.8 10.0-50.0 % Monocytes (%) (Auto) 9.3 0.0-12.0 % Eosinophils (%) (Auto) 0.7 0.0-7.0 % Basophils (%) (Auto) 0.5 0.0-2.0 % Neutrophils # (Auto) 5.9 1.6-8.6 10 ^3/uL Lymphocytes # (Auto) 1.5 0.4-5.4 10 ^3/uL Monocytes # (Auto) 0.8 0-1.3 10 ^3/uL Eosinophils # (Auto) 0.1 0-0.8 10 ^3/uL Basophils # (Auto) 0 0-0.2 10 ^3/uL Nucleated Red Blood Cells 0.0 % Sodium Level 130 L 136-145 mmol/L Potassium Level 4.9 3.5-5.1 mmol/L Chloride Level 95 L 98-107 mmol/L Carbon Dioxide Level 23 20-31 mmol/L Anion Gap 12 5-15 Blood Urea Nitrogen 20 9-23 mg/dL Creatinine 1.18 0.700-1.30 mg/dL Glomerular Filtration Rate Calc 83 >90 mL/min BUN/Creatinine Ratio 16.9 10.0-20.0 Serum Glucose 497 *H 74-106 mg/dL Lactic Acid Level 1.7 0.4-2.0 mmol/L Calcium Level 10.0 8.7-10.4 mg/dL Magnesium Level 1.9 1.6-2.6 mg/dL Total Bilirubin 0.4 0.2-1.0 mg/dL Aspartate Amino Transferase (AST) 9 L 13-40 U/L Alanine Aminotransferase (ALT) 15 7-40 U/L Alkaline Phosphatase 119 H 46-116 U/L B-Type Natriuretic Peptide 22.30 0-100 pg/mL Total Protein 6.3 5.7-8.2 g/dL Albumin 4.3 3.2-4.8 g/dL Beta-Hydroxybutyric Acid 2.666 H < 0.4 mmol/L Blood Gas Specimen Type Venous Blood Gas Sample Site Vbg - n/a Blood Gas Patient Temperature 37.0 Arterial Blood Date Drawn [id number] Neno Test N/a Venous Blood pH 7.469 H 7.320-7.430 Venous Blood pCO2 at Patient Temp 33.5 L 38.0-54.0 mmHg Venous Blood pO2 at Patient Temp < 36.5 23.0-48.0 mmHg Venous Blood HCO3 23.8 22.0-29.0 mmol/L Venous Blood Base Excess 0.8 -2.0-3.0 mmol/L Blood Gas Modality Room air FiO2 % 21.0 Assessment/Plan Assessment/Plan Labs & Imaging: CBC: Unremarkable CMP: Mild hyponatremia, hyperglycemia ESR: 23 CRP: 1 Troponins: Trending at ~400 BNP: Normal EKG: sinus tachycardia Echocardiogram (1 year ago): EF 45% Assessment & Plan: #NSTEMI possible type 2 #Uncontrolled diabetes - hyperglycemia #Acute sinusitis #Hypertensive heart disease with systolic dysfunction #Schizophrenia #Depression #Bipolar Disorder #Hyponatremia -mild Med surg Cardiac diet Cardiology consult due to NSTEMI with unclear cause - no chest pain - acute HF DVT prophylaxis Continue lisinopril 40 mg Start Jardiance Continue metoprolol 25 mg Continue divalproex 500 mg Levothyroxine 25 mcg Lantus 30 ui Moderate sliding scale Amoxicillin/ clavulanate due to sinusitis Tylenol per needed Zofran per minute IV fluids already given Case discussed with Dr. Lord Plan discussed with: Patient, Other My Orders Orders - RANJIT GASTON RESIDENT Procedure Category Date Status Time Admit ADMIT 01/04/25 Transmitted 21:24 Insulin Lantus PHA 01/04/25 In Process (Glargine) (Lantus) 22:00 Glucose Blood PHA 01/05/25 In Process (Accu-Chek Comfort 00:00 Insulin R (Human) PHA 01/05/25 In Process (Insulin R) 00:00 Dextrose 50% Syringe PHA 01/04/25 In Process 21:30 X Paranasal Sinuses XY 01/04/25 Resulted 3+ View 21:32 Levothyroxine Tablet PHA 01/05/25 In Process (Synthroid Tablet) 10:[address] Tablet PHA 01/05/25 In Process (Depakote "" Tabl 10:00 Echo 2d Mode Cardiac US 01/04/25 Logged DOP 21:38 Amoxicillin/Clavulanate PHA 01/05/25 In Process Tablet (Augmenti 02:00 Lisinopril Tablet PHA 01/05/25 In Process (Zestril Tablet) 03:00 Empagliflozin PHA 01/05/25 In Process (Jardiance) 10:00 Metoprolol Xl PHA 01/05/25 In Process Succinate (Toprol Xl) 03:00 Acetaminophen Tablet PHA 01/05/25 In Process (Tylenol Tablet) 03:30 Ondansetron Hcl PHA 01/05/25 In Process (Zofran) 03:30 Date of Service: Jan 04, 2025 Billing Provider: ORLIN LORD MD Common Visit Codes: [id number] INP/OBS CARE (HIGH) RANJIT GASTON RESIDENT Jan 05, 2025 04:04 ORLIN LORD MD Jan 06, 2025 08:46
[2025-01-05 05:09] LABS: Basophils # (auto) 0.1 10 ^3/uL (0-0.2); Eosinophils # (auto) 0.1 10 ^3/uL (0-0.8); Eosinophils % (auto) 1.3 % (0.0-7.0); Hematocrit 42.5 % (41.0-53.0); Hemoglobin 14.7 g/dL (13.5-17.5); Lymphocytes # (auto) 1.7 10 ^3/uL (0.4-5.4); Lymphocytes % (auto) 27.7 % (10.0-50.0); Mean Corpuscular Hemoglobin 32.6 pg (28.0-32.0); Mean Corpuscular Hgb Conc. 34.5 g/dL (32.0-36.0); Mean Corpuscular Volume 94.4 fL (80.0-100.0); Monocytes # (auto) 0.7 10 ^3/uL (0-1.3); Monocytes % (auto) 10.9 % (0.0-12.0); Neutrophils # (auto) 3.7 10 ^3/uL (1.6-8.6); Neutrophils % (auto) 59.1 % (37.0-80.0); Platelet Count (auto) 362 10^3/uL (140-450); Red Cell Distribution Width 13.5 % (11.8-14.3); White Blood Cell 6.3 10^3/uL (4.4-10.8)
[2025-01-05] MEDS: ONDANSETRON HCL 4 MG/2 ML VIAL IV PRN (05:19)
[2025-01-05] MEDS: ACETAMINOPHEN 325 MG TAB PO PRN (05:19)
[2025-01-05 05:33] LABS: Alanine Aminotransferase 12 U/L (7-40); Albumin 4.2 g/dL (3.2-4.8); Alkaline Phosphatase 112 U/L (46-116); Anion Gap 9 (5-15); BUN/Creatinine Ratio 14.5 (10.0-20.0); Blood Urea Nitrogen 16 mg/dL (9-23); Calcium 9.3 mg/dL (8.7-10.4); Carbon Dioxide 24 mmol/L (20-31); Chloride 101 mmol/L (98-107); Cholesterol 147 mg/dL (< 200); LDL Cholesterol 77 mg/dL (< 100); Potassium 4.2 mmol/L (3.5-5.1); Total Protein 6.4 g/dL (5.7-8.2)
[2025-01-05 05:36] LABS: Aspartate Aminotransferase 9 U/L (13-40); Bilirubin, Total 0.3 mg/dL (0.2-1.0); Blood Alcohol < 3.0 mg/dL (<10); Glucose 350 mg/dL (74-106); HDL Cholesterol 26 mg/dL (40-59); Sodium 134 mmol/L (136-145); Triglycerides 286 mg/dL (< 150)
[2025-01-05] MEDS ORDERED: PREGABALIN CAPSULE 75 MG CAP PO ONE (10:15)
[2025-01-05] MEDS: LEVOTHYROXINE SODIUM 25 MCG TAB PO SCH (10:39)
[2025-01-05] MEDS: ENOXAPARIN SOD 40 MG/0.4 ML SYRINGE SC SCH (10:39)
[2025-01-05] MEDS: EMPAGLIFLOZIN 10 MG TAB PO SCH (10:39)
--- NOTE | 2025-01-05 10:51 | DVHPNRES ---
Progress Note Date Seen: Jan 05, 2025 Resident Creating Document: SIENNA UMANZOR RESIDENT Medical Necessity Reason Pt with a Central, PICC or Fol: No Subjective Review of Systems Mr. Emery is a 34-year-old male patient with PMHx of juvenile diabetes mellitus 2, hypertension, hypothyroidism, HFmrEF, schizophrenia, NSTEMI 2 and COVID-19 2022, who presents to the ER with a chief complaint of generalized weakness and neuropathic pain along with URI symptoms for the past 3 days. He reports that he took his lidocaine patch following which he developed neuropathic pain bilateral lower and lower extremity. He denies previous history of neuropathic pain. Also reports runny nose/epistaxis. Says that his glucometer has been showing high for the past few days and has been using up to 60 units of insulin Lantus at a time, which could not control his blood glucose. Associated symptoms include dizziness. Patient is A&O x3. Patient smokes cigarettes and cannabis. Last 10/2023 shows EF 45%. PCP: Dr. Stratton. Patient denies chest pain/shortness of breaths/palpitations/diaphoresis. EKGs unremarkable. Home medications: Ziprasidone 60 mg, bupropion, valproate, topiramate, citalopram, lisinopril, tamsulosin, atorvastatin, atorvastatin, metoprolol, montelukast, levothyroxine, omeprazole Social history, lives with mother, smokes marijuana Patient seen and examined at the bedside. Lyrica started 25 mg b.i.d.. Pending cardiology consult, echocardiogram pending. Objective vital signs Vital Sign Date Time Temp Pulse Resp B/P (MAP) Pulse Ox O2 Delivery O2 Flow Rate FiO2 01/05/25 09:00 97.3 117 17 125/75 (92) 99 97.3 01/05/25 02:53 Room Air* 0 21 Total Intake and Output 01/04/25 01/04/25 01/05/25 15:00 23:00 07:00 Intake Total 1000 ml 1225 ml Balance 1000 ml 1225 ml medications Current Medications Medications Dose Ordered Sig/Munir Route Start Time Stop Time Status Last Admin Dose Admin Insulin Glargine 30 units HS SC 01/04/25 22:00 01/04/25 22:00 30 UNITS Diagnostic Test (Pha) 1 strip Q6HR 01/05/25 00:00 01/05/25 06:34 1 STRIP Insulin Human Regular Q6HR SC 01/05/25 00:00 01/05/25 06:41 9 UNITS Dextrose 50 ml UD PRN IV 01/04/25 21:30 Levothyroxine Sodium 25 mcg DAILY PO 01/05/25 10:00 Divalproex Sodium 500 mg DAILY PO 01/05/25 10:00 Amoxicillin/ Clavulanate Potassium 875 mg Q12HR PO 01/05/25 02:00 01/05/25 02:19 875 MG Lisinopril 40 mg DAILY PO 01/05/25 03:00 01/05/25 03:35 40 MG Empaglifozin 10 mg DAILY PO 01/05/25 10:00 Metoprolol Succinate 25 mg DAILY PO 01/05/25 03:00 01/05/25 03:36 25 MG Acetaminophen 650 mg Q4HP PRN PO 01/05/25 03:30 01/05/25 05:19 650 MG Ondansetron HCl 4 mg Q4HPRN PRN IV 01/05/25 03:30 01/05/25 05:19 4 MG Enoxaparin Sodium 40 mg DAILY SC 01/05/25 10:00 Pregabalin 25 mg BID PO 01/05/25 22:00 UNV Examination Patient lying in bed, standing at the window, saying benefit in the bed given the neuropathic pain General: thin, afebrile, palor, mucosae are moist Cardiovascular: Regular S1 and S2. No murmurs, gallops or rubs. No JVD elevation. No pedal edema Respiratory: Normal B/L air entry on room air. Clear lung sounds on auscultation Abdomen: Soft, nontender, nondistended, normoactive bowel sounds, no rebound tenderness, no organomegaly, no masses Genitourinary: Deferred MSK/skin: Mobilizes 4 limbs. Skin is dry and warm Neurological: No motor, no sensitive deficits, normal speech. Pupils are isocoric and reactive. Psych/Mental Status: A/Ox3 laboratory and microbiology Laboratory Tests 01/05/25 04:58 Test 01/05/25 04:58 Range/Units Serum Glucose 350 #H 74-106 mg/dL Labs and/or images reviewed: Labs reviewed by me, Image(s) reviewed by me Problem List/Assessment/Plan Problem List/Assessment/Plan HFmrEF- last echo 10/31 45% NSTEMI Hypertension EKG unremarkable, troponin unremarkable, BNP WNL monitoring coordinator Cardiology consulted, echocardiogram pending Continue home medication lisinopril 40 mg, 13, metoprolol 25 mg daily Uncontrolled juvenile diabetes mellitus type 2-A1c 13 Diabetic neuropathic pain Continue home medication Lantus 30 units daily On ISS Patient's is on sliding scale at home Started Lyrica 25 mg b.i.d. Acute sinusitis Continue Amoxil clavulanate daily Hyponatremia - psychogenic causes versus medication induced Monitor Schizophrenia Bipolar disorder Resume home medication Cannabis dependence Counseled regarding cessation for more than 22 minutes Hypertriglyceridemia Monitor Lovenox 40 mg sc daily Cardiac diet Plan discussed with patient in which all questions have been answered Goals of care discussed with patient for more than 28 minutes, full code status Case discussed with Dr. Coleman Plan discussed with: Patient My Orders My Orders Orders - SIENNA UMANZOR Procedure Category Date Status Time Supervisor Phosphorus Processing ORDERS 01/05/25 Transmitted 10:08 Transfer Orders XFER 01/05/25 Transmitted 10:08 Pregabalin Capsule PHA 01/05/25 Logged (Lyrica Capsule) 10:15 Pregabalin Capsule PHA 01/05/25 Logged (Lyrica Capsule) 22:00 Date of Service: Jan 05, 2025 Billing Provider: ADAIR GUEVARA MD Common Visit Codes: [id number] INP/OBS CARE(HIGH) SIENNA UMANZOR Jan 05, 2025 10:51 ADAIR GUEVARA MD Jan 16, 2025 01:10
[2025-01-05] MEDS: THROAT LOZENGES(CEPASTAT) MT ONE (11:15)
[2025-01-05] MEDS: PANTOPRAZOLE 40 MG/10 ML VIAL INJ IV ONE (12:14)
[2025-01-05] MEDS: PREGABALIN 25 MG CAP PO SCH (12:14)
--- NOTE | 2025-01-05 17:15 | DVHINCON2 ---
Date Seen: Jan 05, 2025 Referring Physician MD Dre resident Reason for Consultation NSTEMI History of Present Illness This is a 34-year-old male patient who presents to emergency room with chief complaint of generalized weakness, dizziness, and blurry vision for approximately five days prior to emergency room arrival. The patient reports he tried following up with his primary care physician and was told that he should come to the emergency room instead. Cardiology has been consulted at this time for elevated troponin level. The patient denies any cardiac symptoms at time of assessment. Initial twelve lead electrocardiogram reveals sinus tachycardia without any significant ST segment changes. Initial troponin level of 460ng/L with flat trend thereafter. Significant past medical history includes congestive heart failure, hypertension, hypertriglyceridemia, juvenile type 2 diabetes mellitus, thyroid disease, kidney stones, bipolar disorder, schizophrenia and heavy tobacco use. The patient reports he sees a change director in the outpatient setting in [place], does not remember his name at this time. Past Medical History Past medical history reviewed. No other significant than mentioned above. Past Surgical History Denies all previous surgeries Family History: Cardiovascular disease G8 MOTHER Diabetes mellitus G8 FATHER Family History Family history reviewed. Social History Patient has a 21 pack-year history, smokes approximately one pack per day Patient admits to marijuana use The patient reports occasional alcohol use Allergies: Coded Allergies: Egg-derived Products (Verified Allergy, Unknown, 01/05/25) Home Meds Active Scripts Prednisone (Prednisone) 20 Mg Tab, 60 MG PO DAILY, #18 TAB Prov:TABATHA MONTENEGRO 08/05/24 Amoxicillin Trihydrate (Amoxicillin) 875 Mg Tab, 1 TAB PO BID, #20 TAB Prov:TABATHA MONTENEGRO 08/05/24 Metformin Hydrochloride (Metformin Hcl) 500 Mg Tab, 1 TAB PO BID, #60 TAB 3 Refills Prov:JENISE RAMOS 07/20/24 Ibuprofen Micronized (Ibuprofen) 800 Mg Tab, 800 MG PO Q8HPRN PRN, #20 TAB Prov:JENISE RAMOS 07/20/24 Hydrocodone-Acetaminophen (Hydrocodone Bitartrate/AC 10-325 mg) 1 Tab Tab, 1 TAB PO Q6HPRN PRN, #15 TAB Prov:JENISE RAMOS 07/20/24 Cefpodoxime Proxetil (Cefpodoxime Proxetil) 200 Mg Tab, 1 TAB PO BID for 10 Days, #20 TAB Prov:JENISE RAMOS PAC 07/20/24 Pantoprazole Sodium Sesquihydr (Protonix) 40 Mg Tab, 40 MG PO BID for 30 Days, #60 TAB Prov:JOSE DE JESUS CLIFFORD MD 11/04/23 Sucralfate (CARAFATE SUSP) 1 Gm/10 Ml Ss, 1 GM PO TIDAC for 30 Days, #1200 ML Prov:JOSE DE JESUS CLIFFORD MD 11/04/23 Sacubitril-Valsartan (Entresto 24-26 mg) 1 Tab Tab, 1 TAB PO BID for 30 Days, #60 TAB Prov:JOSE DE JESUS CLIFFORD MD 11/04/23 Metoprolol Tartrate (Lopressor) 25 Mg Tb, 12.5 MG PO BID for 30 Days, #60 TAB Prov:JOSE DE JESUS CLIFFORD MD 11/04/23 Cyclobenzaprine Hcl (Cyclobenzaprine Hcl) 10 Mg Tab, 10 MG PO BID PRN, #20 TAB Prov:ISAAC ANTONIO MD 01/27/23 Famotidine (PEPCID TABLET) 20 Mg Tb, 20 MG GT BID for 14 Days, #28 TAB Prov:ISAAC ANTONIO MD 01/27/23 Citalopram Hydrobromide (Celexa) 10 Mg Tab, 1 TAB PO DAILY, #30 TAB 0 Refills Prov:DANIELA LEOS MD 07/21/22 Insulin Regular (Human) (Novolin R) 100 Unit/Ml Inj, 0 UNITS SC IQ4HR for 30 Days, INJ if BS 150-200 give 2 units if BS 201-250 give 4 units if BS 251-300 give 6 units if BS 301-350 give 8 units if BS 351-400 give 10 units. if BS >400 call your doctor Prov:BILLIE ADAMS MD 07/17/22 Insulin Glargine (Lantus) 100 Unit/Ml Inj, 30 UNIT SC DAILY for 30 Days, #30 INJ Prov:BILLIE ADAMS MD 07/17/22 Reported Medications Quetiapine Fumerate (QUETIAPINE FUMARATE) 300 Mg Tab, 1 TAB PO DAILY 11/03/23 Trazodone Hcl (Trazodone Hcl) 100 Mg Tab, 1 TAB PO HS 11/03/23 Citalopram Hydrobromide (Citalopram Hydrobromide) 20 Mg Tab, 1 TAB PO DAILY 11/03/23 Bupropion Hcl (Bupropion Hcl Xl) 300 Mg Tab, 1 TAB PO QAM 11/03/23 Citalopram Hydrobromide (Celexa) 10 Mg Tab, 1 TAB PO DAILY, #30 TAB 2 Refills 07/13/22 Lisinopril (Lisinopril) 40 Mg Tab, 1 TAB PO DAILY, #30 TAB 5 Refills 07/13/22 Omeprazole (Gnp Omeprazole) 20 Mg Tab, 1 TAB PO DAILY, #90 TAB 1 Refill 07/13/22 Aspirin (Aspirin Ec) 81 Mg Tab, 81 MG PO DAILY, TAB 07/13/22 Levothyroxine Sodium (Levothyroxine Sodium) 25 Mcg Tab, 1 TAB PO DAILY, #30 TAB 5 Refills 07/13/22 Montelukast Sodium (MONTELUKAST SODIUM) 10 Mg Tab, 1 TAB PO DAILY, #30 TAB 5 Refills 07/13/22 Atorvastatin Calcium (ATORVASTATIN CALCIUM) 80 Mg Tab, 1 TAB PO DAILY, #30 TAB 5 Refills 07/13/22 Divalproex Sodium (Depakote) 500 Mg Tab, 500 MG PO DAILY, TAB 07/13/22 Quetiapine Fumerate (Seroquel) 400 Mg Tab, 1 TAB PO QPM, #30 TAB 1 Refill 07/13/22 Ziprasidone Hydrochloride (Geodon) 60 Mg Cap, 60 MG PO BID, CAP 07/13/22 Acetaminophen (Tylenol) 325 Mg Cap, 325 MG PO Q4HPRN, CAP 07/13/22 Ibuprofen (Ibuprofen) 800 Mg Tab, 1 TAB PO Q4HPRN, #90 TAB 1 Refill 07/13/22 Baclofen (Baclofen) 20 Mg Tab, 1 TAB PO TID, #90 TAB 2 Refills 07/13/22 Home Meds Home medications reviewed. Current Medications Current Medications Medications (Trade) Dose Ordered Sig/Munir Route PRN Reason Start Time Stop Time Status Last Admin Insulin Glargine (Lantus) 30 units HS SC 01/04/25 22:00 01/04/25 22:00 Diagnostic Test (Pha) (Accu-Chek Comfort Curve T) 1 strip Q6HR 01/05/25 00:00 01/05/25 12:25 Insulin Human Regular (InsuLIN R) Q6HR SC 01/05/25 00:00 01/05/25 06:41 Dextrose 50 ml UD PRN IV Blood Sugar LESS THAN 60 01/04/25 21:30 Levothyroxine Sodium (Synthroid Tablet) 25 mcg DAILY PO 01/05/25 10:00 01/05/25 10:39 Divalproex Sodium (Depakote "Dr" Tablet) 500 mg DAILY PO 01/05/25 10:00 01/05/25 10:39 Amoxicillin/ Clavulanate Potassium (Augmentin Tablet) 875 mg Q12HR PO 01/05/25 02:00 01/05/25 10:38 Lisinopril (Zestril Tablet) 40 mg DAILY PO 01/05/25 03:00 01/05/25 03:35 Empaglifozin (Jardiance) 10 mg DAILY PO 01/05/25 10:00 01/05/25 10:39 Metoprolol Succinate (Toprol Xl) 25 mg DAILY PO 01/05/25 03:00 01/05/25 03:36 Acetaminophen (Tylenol Tablet) 650 mg Q4HP PRN PO MODERATE PAIN (4-6 PAIN SCALE) 01/05/25 03:30 01/05/25 05:19 Ondansetron HCl (Zofran) 4 mg Q4HPRN PRN IV NAUSEA / VOMITING 01/05/25 03:30 01/05/25 05:19 Enoxaparin Sodium (Lovenox) 40 mg DAILY SC 01/05/25 10:00 01/05/25 10:39 Pregabalin (Lyrica Capsule) 25 mg BID PO 01/05/25 11:00 01/05/25 12:14 Topiramate (Topamax) 25 mg DAILY PO 01/06/25 10:00 Future Hold Patient Own Medication 1 DAILY PO 01/06/25 10:00 Future Hold Throat Lozenges (Cepastat Lozenges) 1 nathaly Q2HP PRN MT FOR SORE THROAT 01/05/25 11:15 Pantoprazole Sodium (Protonix) 40 mg DAILY IV 01/06/25 10:00 Tamsulosin HCl (Flomax) 0.4 mg QPM PO 01/05/25 18:00 Review of Systems Constitutional: No symptom reported Ears, Nose, & Throat: No symptom reported Eyes: No symptom reported Neurological: No symptoms reported Pulmonary/Respiratory: No symptoms reported Cardiovascular: No symptom reported Gastrointestinal: No symptom reported Genitourinary: No symptom reported Musculoskeletal: No symptom reported Skin: No symptom reported Psychiatric: No symptom reported Endocrine: No symptom reported Hematologic/Lymphatic: No symptom reported Vital Signs Vital Signs Date Time Temp Pulse Resp B/P (MAP) Pulse Ox O2 Delivery O2 Flow Rate FiO2 01/05/25 13:00 97.6 100 19 106/67 (80) 99 97.6 01/05/25 08:00 Room Air* 0 21 Physical Exam General Appearance: Cooperative. Well-developed. Well-nourished. No acute distress. Pulmonary/Respiratory: Clear, bilateral breaths sounds. Cardiovascular/Chest: Regular rate and rhythm. Peripheral Pulses: 2+ Radial (R). 2+ Radial (L). 2+ Pedal (R). 2+ Pedal (L) Abdominal Exam: Normal bowel sounds. Ankle Exam: Negative ankle edema Lower extremities: Negative lower extremity edema Neuro/Mental Status: A/OX4, coherent. Thoughts/Psych: Normal thought pattern. Appropriate mood and affect. Good judgment and insight. Appearance: No acute distress. Skin Exam: Normal inspection. Normal color. Warm and dry. Labs/Diagnostic Data Labs Test 01/05/25 12:22 01/05/25 04:58 01/05/25 01:31 01/04/25 21:54 Range/Units POC Glucose 104 70-106 mg/dl White Blood Count 6.3 4.4-10.8 10^3/uL Red Blood Count 4.50 4.5-5.90 10^6/uL Hemoglobin 14.7 13.5-17.5 g/dL Hematocrit 42.5 41.0-53.0 % Mean Corpuscular Volume 94.4 80.0-100.0 fL Mean Corpuscular Hemoglobin 32.6 H 28.0-32.0 pg Mean Corpuscular Hemoglobin Concent 34.5 32.0-36.0 g/dL Red Cell Distribution Width 13.5 11.8-14.3 % Platelet Count 362 140-450 10^3/uL Mean Platelet Volume 7.0 6.9-10.8 fL Neutrophils (%) (Auto) 59.1 37.0-80.0 % Lymphocytes (%) (Auto) 27.7 10.0-50.0 % Monocytes (%) (Auto) 10.9 0.0-12.0 % Eosinophils (%) (Auto) 1.3 0.0-7.0 % Basophils (%) (Auto) 1.0 0.0-2.0 % Neutrophils # (Auto) 3.7 1.6-8.6 10 ^3/uL Lymphocytes # (Auto) 1.7 0.4-5.4 10 ^3/uL Monocytes # (Auto) 0.7 0-1.3 10 ^3/uL Eosinophils # (Auto) 0.1 0-0.8 10 ^3/uL Basophils # (Auto) 0.1 0-0.2 10 ^3/uL Nucleated Red Blood Cells 0.0 % Sodium Level 134 L 136-145 mmol/L Potassium Level 4.2 3.5-5.1 mmol/L Chloride Level 101 98-107 mmol/L Carbon Dioxide Level 24 20-31 mmol/L Anion Gap 9 5-15 Blood Urea Nitrogen 16 9-23 mg/dL Creatinine 1.10 0.700-1.30 mg/dL Glomerular Filtration Rate Calc 90 >90 mL/min BUN/Creatinine Ratio 14.5 10.0-20.0 Serum Glucose 350 #H 74-106 mg/dL Hemoglobin A1c 13.1 H <5.7 % A1C Calcium Level 9.3 8.7-10.4 mg/dL Total Bilirubin 0.3 0.2-1.0 mg/dL Aspartate Amino Transferase (AST) 9 L 13-40 U/L Alanine Aminotransferase (ALT) 12 7-40 U/L Alkaline Phosphatase 112 46-116 U/L Troponin I High Sensitivity 437 *H </=54 ng/L Total Protein 6.4 5.7-8.2 g/dL Albumin 4.2 3.2-4.8 g/dL Triglycerides Level 286 H < 150 mg/dL Cholesterol Level 147 < 200 mg/dL LDL Cholesterol 77 < 100 mg/dL HDL Cholesterol 26 L 40-59 mg/dL Thyroid Stimulating Hormone (TSH) 2.67 0.55-4.78 uIU/mL Plasma/Serum Blood Alcohol < 3.0 <10 mg/dL Erythrocyte Sedimentation Rate 23 H 0-20 mm/hr C-Reactive Protein High Sensitivity 1.01 H <1.0 mg/dL Test 01/04/25 20:30 01/04/25 19:15 01/04/25 18:58 01/04/25 18:56 Range/Units Influenza Type A Antigen Negative Negative Influenza Type B Antigen Negative Negative SARS-CoV-2 Antigen (Rapid) Negative NEGATIVE Urine Color Colorless Yellow Urine Clarity Clear Clear Urine pH 7.5 5.0-9.0 Urine Specific [place] 1.017 1.001-1.035 Urine Protein Negative Negative Urine Ketones 1+ H Negative Urine Blood Negative Negative /uL Urine Nitrite Negative Negative Urine Bilirubin Negative Negative Urine Urobilinogen Normal Negative mg/dL Urine Leukocyte Esterase Negative Negative /uL Urine RBC 1 0 - 3 /hpf Urine Microscopic WBC 1 0-3 /HPF Urine Squamous Epithelial Cells None seen <5 /hpf Urine Bacteria None seen None Seen /hpf Urine Glucose 4+ H Normal mg/dL Urine Opiates Screen Neg NEGATIVE Urine Fentanyl Screen Neg NEGATIVE Urine Barbiturates Screen Neg NEGATIVE Urine Phencyclidine Screen Neg NEGATIVE Urine Amphetamines Screen Neg NEGATIVE Urine Benzodiazepines Screen Neg NEGATIVE Urine Cocaine Screen Neg NEGATIVE Urine Cannabinoids Screen Neg NEGATIVE Lactic Acid Level 1.7 0.4-2.0 mmol/L Magnesium Level 1.9 1.6-2.6 mg/dL B-Type Natriuretic Peptide 22.30 0-100 pg/mL Beta-Hydroxybutyric Acid 2.666 H < 0.4 mmol/L Blood Gas Specimen Type Venous Blood Gas Sample Site Vbg - n/a Blood Gas Patient Temperature 37.0 Arterial Blood Date Drawn [id number] Neno Test N/a Venous Blood pH 7.469 H 7.320-7.430 Venous Blood pCO2 at Patient Temp 33.5 L 38.0-54.0 mmHg Venous Blood pO2 at Patient Temp < 36.5 23.0-48.0 mmHg Venous Blood HCO3 23.8 22.0-29.0 mmol/L Venous Blood Base Excess 0.8 -2.0-3.0 mmol/L Blood Gas Modality Room air FiO2 % 21.0 Assessment NSTEMI, rule out coronary ischemia Chronic HFmrEF, NYHA class II Uncontrolled juvenile type 2 diabetes mellitus, Hgb A1c 13.1% Hypertension Hypertriglyceridemia Thyroid disease Bipolar Schizophrenia Tobacco use Plan/Recommendation We will continue with the following plan/recommendations (Dr. Lamas): Case discussed with . We will proceed with obtaining a transthoracic echocardiogram to evaluate cardiac function. Previous echocardiogram reveals EF 45% on 11/03/2023. Given the patient's history of mildly reduced ejection fraction and now elevated troponin level, we will offer the patient a nuclear stress test on 01/06/25. Thank you for allowing us to care for this patient. Please call with any questions or concerns. Critical care time spent: 40 minutes This medical document was created using an electronic medical record system with voice recognition software and computerized dictation system. Although this document has been carefully reviewed, there might still be some phonetic and typographical errors. Occasional wrong-word or ``sound-alike substitutions may have occurred due to the inherent limitations of voice recognition software. These areas are purely typographical due to imperfections of the software programs and do not reflect any compromise in the patient's medical care. Please read the chart carefully and recognize, using context, where these substitutions have occurred. Plan discussed with: Patient NYHA Physical activity limitations: Class2(Slight)fatigue,sob (palpitatns, angina w activityv) Date of Service: Jan 05, 2025 Billing Provider: LAURENCE GALVIN Cardiology Common Codes: [id number] INP/OBS CARE (High) Cardiology Consultation Codes: [id number] CONSULT <45MIN LAURENCE GALVIN Jan 05, 2025 17:15
[2025-01-05] MEDS: TAMSULOSIN HYDROCHLORIDE 0.4 MG CAP PO SCH (18:12)
--- NOTE | 2025-01-05 20:52 | DVHSR ---
APPROVED REPORT EXAM: Two-dimensional and M-mode echocardiogram with Doppler and color Doppler. Blood Pressure: 139/88 mmHg INDICATION Heart Failure RISK FACTORS Height: 6'2", Weight: 154 DIMENSIONS LVDd4.4 (3.8-5.7cm)LA (2D)3.7 (1.9-4.0cm)Aortic Root2.7 (2.0-3.7cm) LVDs3.6 (2.5-4.0cm)LA (MM) (1.9-4.0cm)Aortic Cusp Exc1.7 (1.5-2.0cm) EF (%) 40.0 (55-70%)Rt. Atrium3.4 (1.9-4.0cm)Asc. Aorta2.8 cm IVSd1.0 (0.7-1.1cm)RV (D)4.3 (1.8-2.4cm) PWd1.0 (0.7-1.1cm) Mitral Valve MitralMitral Stenosis E wave0.60m/sMV Mean GR.mmHg A wave0.69m/sMV Peak GR.mmHg E/A ratio0.92D MVAcm2 DECEL [id number] 1/2 Timems Aortic Valve Aortic ValveAortic Stenosis V10.95m/Vikas Mean GR.5mmHg V21.35m/Vikas Peak GR.7mmHg LVOT Diameter2.3 (1.8-2.4cm)Doppler AVA2.92cm2 Pulmonic Valve V20.85m/s Conclusion Technically good study. Sinus rhythm. Mild LV enlargement with concentric LVH. Mild LA enlargement. RV enlargement. Valves appear to be normal. EF diminished. There is anterior apical and mid anterior septal hypokinesis of [id number] degr ee. EF is about 40%. Mild TR. No pericardial effusion masses or vegetations.
[2025-01-05] MEDS: THROAT LOZENGES(CEPASTAT) MT PRN (20:56)
[2025-01-05] MEDS: ZIPRASIDONE 60 MG PO SCH (22:14)
[2025-01-05] MEDS: MELATONIN 5 MG TAB PO ONE (23:54)
[2025-01-06] VITALS (7 sets, daily range): BP systolic 90–119; BP diastolic 58–90; PULSE 69–122; RESP 15–21; TEMP 97.5–98.5; O2SAT 94–100
[2025-01-06 05:17] LABS: Basophils # (auto) 0 10 ^3/uL (0-0.2); Basophils % (auto) 0.6 % (0.0-2.0); Eosinophils # (auto) 0.1 10 ^3/uL (0-0.8); Eosinophils % (auto) 1.6 % (0.0-7.0); Hematocrit 47.8 % (41.0-53.0); Hemoglobin 16.7 g/dL (13.5-17.5); Lymphocytes # (auto) 2.3 10 ^3/uL (0.4-5.4); Lymphocytes % (auto) 36.3 % (10.0-50.0); Mean Corpuscular Hgb Conc. 34.9 g/dL (32.0-36.0); Mean Corpuscular Volume 94.6 fL (80.0-100.0); Monocytes # (auto) 0.7 10 ^3/uL (0-1.3); Monocytes % (auto) 11.2 % (0.0-12.0); Neutrophils # (auto) 3.2 10 ^3/uL (1.6-8.6); Neutrophils % (auto) 50.3 % (37.0-80.0); Platelet Count (auto) 396 10^3/uL (140-450); Red Blood Cells 5.05 10^6/uL (4.5-5.90); Red Cell Distribution Width 13.7 % (11.8-14.3); White Blood Cell 6.4 10^3/uL (4.4-10.8)
[2025-01-06 05:30] LABS: Alanine Aminotransferase 13 U/L (7-40); Albumin 4.5 g/dL (3.2-4.8); Alkaline Phosphatase 108 U/L (46-116); Anion Gap 11 (5-15); BUN/Creatinine Ratio 12.6 (10.0-20.0); Blood Urea Nitrogen 12 mg/dL (9-23); Carbon Dioxide 26 mmol/L (20-31); Chloride 103 mmol/L (98-107); Magnesium 2.4 mg/dL (1.6-2.6); Potassium 4.2 mmol/L (3.5-5.1); Sodium 140 mmol/L (136-145)
[2025-01-06 05:31] LABS: Bilirubin, Total 0.3 mg/dL (0.2-1.0)
[2025-01-06 05:42] LABS: Aspartate Aminotransferase 9 U/L (13-40); Calcium 10.6 mg/dL (8.7-10.4); Glucose 134 mg/dL (74-106)
[2025-01-06] MEDS: LEVOTHYROXINE SODIUM 25 MCG TAB PO SCH (07:00)
[2025-01-06] MEDS: REGADENOSON 0.4 MG/5 ML SYRG IV ONE ×2 (09:18→09:24)
--- NOTE | 2025-01-06 09:30 | ECG ---
[facility] Test Date: 2025-01-05 Test Time: 02:05:45 Pat Name: MAKAYLA OSCAR Department: ER Room: 0218T B Gender: M Volunteer Patient Representative: Dany : 1990 Requested By: ESTHER BAZZI Order Number: [id number] Reading MD: Sukhwinder Lamas Measurements Intervals [place] Rate: 102 P: 69 NV: 144 QRS: 29 QRSD: 111 T: 16 QT: 356 QTc: 464 Interpretive Statements Incomplete analysis due to missing data in precordial lead V4 Sinus tachycardia Borderline T wave abnormalities Missing lead(s): V4 Electronically Signed On 01-07-2025 17:44:53 PST by Sukhwinder Lamas Please click the below link to view image of tracing.
[2025-01-06] MEDS ORDERED: TOPIRAMATE 25 MG TAB PO SCH (10:00)
--- NOTE | 2025-01-06 10:27 | ECG ---
[facility] Test Date: 2025-01-05 Test Time: 02:08:10 Pat Name: MAKAYLA OSCAR Department: ER Room: 0218T B Gender: M Financial Planner: Dany : 1990 Requested By: ESTHER BAZZI Order Number: [id number] Reading MD: Sukhwinder Lamas Measurements Intervals [place] Rate: 104 P: 62 MD: 152 QRS: 30 QRSD: 107 T: 28 QT: 345 QTc: 454 Interpretive Statements Sinus tachycardia Partial missing lead(s): V4 Electronically Signed On 01-07-2025 17:44:57 PST by Sukhwinder Lamas Please click the below link to view image of tracing.
[2025-01-06] MEDS: PANTOPRAZOLE 40 MG/10 ML VIAL INJ IV SCH (10:51)
[2025-01-06] MEDS: PROCHLORPERAZINE EDISYLATE 5 MG/ML 2ML VIAL IM ONE (15:13)
--- NOTE | 2025-01-06 17:17 | DVHPN2 ---
Consult Progress Note Date Seen: Jan 06, 2025 Subjective Review of Systems: CVS:Normal, RESPIRATORY:Normal, NEURO:Normal Objective vital signs Vital Sign Date Time Temp Pulse Resp B/P (MAP) Pulse Ox O2 Delivery O2 Flow Rate FiO2 01/06/25 13:00 97.5 122 21 107/72 (84) 100 97.5 01/06/25 08:00 Room Air* 0 21 Total Intake and Output 01/05/25 01/05/25 01/06/25 15:00 23:00 07:00 Intake Total 875 ml Balance 875 ml medications Current Medications Medications Dose Ordered Sig/Munir Route Start Time Stop Time Status Last Admin Dose Admin Insulin Glargine 30 units HS SC 01/04/25 22:00 01/05/25 22:11 30 UNITS Diagnostic Test (Pha) 1 strip Q6HR 01/05/25 00:00 01/06/25 11:59 1 STRIP Insulin Human Regular Q6HR SC 01/05/25 00:00 01/06/25 11:59 15 UNITS Dextrose 50 ml UD PRN IV 01/04/25 21:30 Divalproex Sodium 500 mg DAILY PO 01/05/25 10:00 01/06/25 10:53 500 MG Amoxicillin/ Clavulanate Potassium 875 mg Q12HR PO 01/05/25 02:00 01/06/25 11:09 875 MG Lisinopril 40 mg DAILY PO 01/05/25 03:00 01/06/25 10:53 40 MG Empaglifozin 10 mg DAILY PO 01/05/25 10:00 01/06/25 10:53 10 MG Metoprolol Succinate 25 mg DAILY PO 01/05/25 03:00 01/06/25 10:52 25 MG Acetaminophen 650 mg Q4HP PRN PO 01/05/25 03:30 01/06/25 11:09 650 MG Ondansetron HCl 4 mg Q4HPRN PRN IV 01/05/25 03:30 01/05/25 05:19 4 MG Enoxaparin Sodium 40 mg DAILY SC 01/05/25 10:00 01/06/25 10:54 40 MG Pregabalin 25 mg BID PO 01/05/25 11:00 01/06/25 10:51 25 MG Topiramate 25 mg DAILY PO 01/06/25 10:00 Hold Throat Lozenges 1 imelda Q2HP PRN MT 01/05/25 11:15 01/06/25 00:00 1 IMELDA Pantoprazole Sodium 40 mg DAILY IV 01/06/25 10:00 01/06/25 10:51 40 MG Tamsulosin HCl 0.4 mg QPM PO 01/05/25 18:00 01/05/25 18:12 0.4 MG Patient Own Medication 1 HS PO 01/05/25 22:00 01/05/25 22:14 1 Levothyroxine Sodium 25 mcg QAM PO 01/06/25 07:00 Examination: GENERAL:Abnormal (Anxious), LUNGS:Normal, CVS:Normal, NEURO:Normal laboratory and microbiology Laboratory Tests 01/06/25 04:58 Test 01/06/25 04:58 Range/Units Serum Glucose 134 #H 74-106 mg/dL Problem List/Assessment/Plan Problem List/Assessment/Plan NSTEMI, rule out coronary ischemia Chronic HFmrEF, 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 Lamas) Transthoracic echocardiogram revealed EF 40% with anterior apical and mid anterior septal hypokinesis of [id number] degree. Cardiolite stress test reviewed by Dr. Lamas with preliminary results indicating inferior wall ischemia. The patient is scheduled for a coronary angiogram with cardiac catheterization at first available and tentatively for 01/09/25. In the meantime, continue GDMT for CHF and uptitrate as tolerated. Initiate single- antiplatelet therapy and lipid-lowering agent. DVT/VTE prophylaxis. Thank you for allowing us to care for this patient. Please call with any questions or concerns. This medical document was created using an electronic medical record system with voice recognition software and computerized dictation system. Although this document has been carefully reviewed, there might still be some phonetic and typographical errors. Occasional wrong-word or ``sound-alike substitutions may have occurred due to the inherent limitations of voice recognition software. These areas are purely typographical due to imperfections of the software programs and do not reflect any compromise in the patient's medical care. Please read the chart carefully and recognize, using context, where these substitutions have occurred. Plan discussed with: Patient, Other (mother) Date of Service: Jan 06, 2025 Billing Provider: VLAD PRATER Cardiology Common Codes: [id number] HOSP CARE(High VLAD PRATER Jan 06, 2025 17:17
--- NOTE | 2025-01-06 17:25 | DVHPNRES ---
Progress Note Date Seen: Jan 06, 2025 Resident Creating Document: SIENNA UMANZOR RESIDENT Medical Necessity Reason Pt with a Central, PICC or Fol: No Subjective Review of Systems Mr. Emery is a 34-year-old male patient with PMHx of juvenile diabetes mellitus 2, hypertension, hypothyroidism, HFmrEF, schizophrenia, NSTEMI 2 and COVID-19 2022, who presents to the ER with a chief complaint of generalized weakness and neuropathic pain along with URI symptoms for the past 3 days. He reports that he took his lidocaine patch following which he developed neuropathic pain bilateral lower and lower extremity. He denies previous history of neuropathic pain. Also reports runny nose/epistaxis. Says that his glucometer has been showing high for the past few days and has been using up to 60 units of insulin Lantus at a time, which could not control his blood glucose. Associated symptoms include dizziness. Patient is A&O x3. Patient smokes cigarettes and cannabis. Last 10/2023 shows EF 45%. PCP: Dr. Stratton. Patient denies chest pain/shortness of breaths/palpitations/diaphoresis. EKGs unremarkable. Home medications: Ziprasidone 60 mg, bupropion, valproate, topiramate, citalopram, lisinopril, tamsulosin, atorvastatin, atorvastatin, metoprolol, montelukast, levothyroxine, omeprazole Social history, lives with mother, smokes marijuana 01/05-Patient seen and examined at the bedside. Lyrica started 25 mg b.i.d.. Pending cardiology consult, echocardiogram pending. 01/06-patient seen and examined at the bedside. Underwent TTE which revealed EF 40% with anterior apical and mid anterior septal hypokinesis of [id number] degree. Cardiolite stress test performed, results indicate inferior wall ischemia. Patient is scheduled for coronary angiogram with cardiac catheterization tentatively for 01/09/2025. Cardiology started GDMT. Objective vital signs Vital Sign Date Time Temp Pulse Resp B/P (MAP) Pulse Ox O2 Delivery O2 Flow Rate FiO2 01/06/25 13:00 97.5 122 21 107/72 (84) 100 97.5 01/06/25 08:00 Room Air* 0 21 Total Intake and Output 01/05/25 01/05/25 01/06/25 15:00 23:00 07:00 Intake Total 875 ml Balance 875 ml medications Current Medications Medications Dose Ordered Sig/Munir Route Start Time Stop Time Status Last Admin Dose Admin Insulin Glargine 30 units HS SC 01/04/25 22:00 01/05/25 22:11 30 UNITS Diagnostic Test (Pha) 1 strip Q6HR 01/05/25 00:00 01/06/25 11:59 1 STRIP Insulin Human Regular Q6HR SC 01/05/25 00:00 01/06/25 11:59 15 UNITS Dextrose 50 ml UD PRN IV 01/04/25 21:30 Divalproex Sodium 500 mg DAILY PO 01/05/25 10:00 01/06/25 10:53 500 MG Amoxicillin/ Clavulanate Potassium 875 mg Q12HR PO 01/05/25 02:00 01/06/25 11:09 875 MG Lisinopril 40 mg DAILY PO 01/05/25 03:00 01/06/25 10:53 40 MG Empaglifozin 10 mg DAILY PO 01/05/25 10:00 01/06/25 10:53 10 MG Metoprolol Succinate 25 mg DAILY PO 01/05/25 03:00 01/06/25 10:52 25 MG Acetaminophen 650 mg Q4HP PRN PO 01/05/25 03:30 01/06/25 11:09 650 MG Ondansetron HCl 4 mg Q4HPRN PRN IV 01/05/25 03:30 01/05/25 05:19 4 MG Enoxaparin Sodium 40 mg DAILY SC 01/05/25 10:00 01/06/25 10:54 40 MG Pregabalin 25 mg BID PO 01/05/25 11:00 01/06/25 10:51 25 MG Topiramate 25 mg DAILY PO 01/06/25 10:00 Hold Throat Lozenges 1 iemlda Q2HP PRN MT 01/05/25 11:15 01/06/25 00:00 1 IMELDA Pantoprazole Sodium 40 mg DAILY IV 01/06/25 10:00 01/06/25 10:51 40 MG Tamsulosin HCl 0.4 mg QPM PO 01/05/25 18:00 01/05/25 18:12 0.4 MG Patient Own Medication 1 HS PO 01/05/25 22:00 01/05/25 22:14 1 Levothyroxine Sodium 25 mcg QAM PO 01/06/25 07:00 Aspirin 81 mg DAILY PO 01/07/25 10:00 UNV Atorvastatin Calcium 40 mg HS PO 01/06/25 22:00 UNV Examination Patient lying in bed comfortably General: thin, afebrile, palor, mucosae are moist Cardiovascular: Regular S1 and S2. No murmurs, gallops or rubs. No JVD elevation. No pedal edema Respiratory: Normal B/L air entry on room air. Clear lung sounds on auscultation Abdomen: Soft, nontender, nondistended, normoactive bowel sounds, no rebound tenderness, no organomegaly, no masses Genitourinary: Deferred MSK/skin: Mobilizes 4 limbs. Skin is dry and warm Neurological: No motor, no sensitive deficits, normal speech. Pupils are isocoric and reactive. Unremarkable neurological exam. Psych/Mental Status: A/Ox3 laboratory and microbiology Laboratory Tests 01/06/25 04:58 Test 01/06/25 04:58 Range/Units Serum Glucose 134 #H 74-106 mg/dL Labs and/or images reviewed: Labs reviewed by me, Image(s) reviewed by me Problem List/Assessment/Plan Problem List/Assessment/Plan HFmrEF- last echo 10/31 45% NSTEMI Hypertension EKG unremarkable, troponin unremarkable, BNP WNL manager environmental services Cardiology consulted, Underwent TTE which revealed EF 40% with anterior apical and mid anterior septal hypokinesis of [id number] degree. Cardiolite stress test performed, results indicate inferior wall ischemia. Patient is scheduled for coronary angiogram with cardiac catheterization tentatively for 01/09/2025. Continue home medication lisinopril 40 mg, metoprolol 25 mg daily Continue aspirin 81 and atorvastatin 40 mg daily Uncontrolled juvenile diabetes mellitus type 2-A1c 13 Diabetic neuropathic pain Continue home medication Lantus 30 units daily On ISS Patient's is on sliding scale at home Started Lyrica 25 mg b.i.d. Acute sinusitis Continue Amoxil clavulanate daily Hyponatremia - psychogenic causes versus medication induced Monitor Schizophrenia Bipolar disorder Resume home medication Cannabis dependence Counseled regarding cessation for more than 22 minutes Hypertriglyceridemia Monitor Lovenox 40 mg sc daily Cardiac diet Plan discussed with patient in which all questions have been answered Goals of care discussed with patient for more than 28 minutes, full code status Case discussed with Dr. Coleman Plan discussed with: Patient My Orders My Orders Orders - SIENNA UMANZOR Procedure Category Date Status Time Patients Own PHA 01/05/25 In Process Medication 22:00 Date of Service: Jan 06, 2025 Billing Provider: ADAIR GUEVARA MD Common Visit Codes: [id number] INP/OBS CARE(HIGH) SIENNA UMANZOR Jan 06, 2025 17:25 ADAIR GUEVARA MD Jan 16, 2025 01:22
[2025-01-06] MEDS: ASPirin 81 mg TAB PO ONE (20:01)
[2025-01-06] MEDS ORDERED: ZIPRASIDONE 60 MG PO SCH (22:00)
[2025-01-06] MEDS: ATORVASTATIN 20 MG TAB PO SCH (23:10)
[2025-01-07] VITALS (9 sets, daily range): BP systolic 92–118; BP diastolic 55–72; PULSE 97–139; RESP 16–18; TEMP 97.5–98.8; O2SAT 94–100
[2025-01-07 08:05] LABS: Chloride 103 mmol/L (98-107); Potassium 4.2 mmol/L (3.5-5.1); Sodium 138 mmol/L (136-145)
[2025-01-07 08:06] LABS: Anion Gap 12 (5-15); Carbon Dioxide 23 mmol/L (20-31)
[2025-01-07 08:07] LABS: Calcium 9.6 mg/dL (8.7-10.4)
[2025-01-07 08:11] LABS: BUN/Creatinine Ratio 14.4 (10.0-20.0); Blood Urea Nitrogen 14 mg/dL (9-23); Glucose 99 mg/dL (74-106)
[2025-01-07] MEDS: ASPirin 81 mg TAB PO SCH (09:41)
--- NOTE | 2025-01-07 13:06 | DVHPNRES ---
Progress Note Date Seen: Jan 07, 2025 Resident Creating Document: MADALYN CHINCHILLA RESIDENT Medical Necessity Reason Pt with a Central, PICC or Fol: No Subjective Review of Systems Mr. Emery is a 34-year-old male patient with PMHx of juvenile diabetes mellitus 2, hypertension, hypothyroidism, HFmrEF, schizophrenia, NSTEMI 2 and COVID-19 2022, who presents to the ER with a chief complaint of generalized weakness and neuropathic pain along with URI symptoms for the past 3 days. He reports that he took his lidocaine patch following which he developed neuropathic pain bilateral lower and lower extremity. He denies previous history of neuropathic pain. Also reports runny nose/epistaxis. Says that his glucometer has been showing high for the past few days and has been using up to 60 units of insulin Lantus at a time, which could not control his blood glucose. Associated symptoms include dizziness. Patient is A&O x3. Patient smokes cigarettes and cannabis. Last 10/2023 shows EF 45%. PCP: Dr. Stratton. Patient denies chest pain/shortness of breaths/palpitations/diaphoresis. EKGs unremarkable. Home medications: Ziprasidone 60 mg, bupropion, valproate, topiramate, citalopram, lisinopril, tamsulosin, atorvastatin, atorvastatin, metoprolol, montelukast, levothyroxine, omeprazole Social history, lives with mother, smokes marijuana 01/05-Patient seen and examined at the bedside. Lyrica started 25 mg b.i.d.. Pending cardiology consult, echocardiogram pending. 01/06-patient seen and examined at the bedside. Underwent TTE which revealed EF 40% with anterior apical and mid anterior septal hypokinesis of [id number] degree. Cardiolite stress test performed, results indicate inferior wall ischemia. Patient is scheduled for coronary angiogram with cardiac catheterization tentatively for 01/09/2025. Cardiology started GDMT. 01/07-patient was seen today for clinical evaluation. Less than chart reviewed. Patient tolerating GDM T well. No acute chest pain or shortness of breath noted today. Patient is scheduled for coronary angiogram with cardiac catheterization tentatively for 01/09/2025. Objective vital signs Vital Sign Date Time Temp Pulse Resp B/P (MAP) Pulse Ox O2 Delivery O2 Flow Rate FiO2 01/07/25 09:42 95/55 01/07/25 09:00 97.5 104 18 96 97.5 01/07/25 08:10 Room Air* 0 21 Total Intake and Output 01/06/25 01/06/25 01/07/25 15:00 23:00 07:00 Intake Total 850 ml 1600 ml Output Total 0 ml Balance 850 ml 1600 ml medications Current Medications Medications Dose Ordered Sig/Munir Route Start Time Stop Time Status Last Admin Dose Admin Insulin Glargine 30 units HS SC 01/04/25 22:00 01/06/25 23:10 30 UNITS Diagnostic Test (Pha) 1 strip Q6HR 01/05/25 00:00 01/07/25 11:47 1 STRIP Insulin Human Regular Q6HR SC 01/05/25 00:00 01/07/25 11:58 15 UNITS Dextrose 50 ml UD PRN IV 01/04/25 21:30 Divalproex Sodium 500 mg DAILY PO 01/05/25 10:00 01/07/25 09:42 500 MG Amoxicillin/ Clavulanate Potassium 875 mg Q12HR PO 01/05/25 02:00 01/07/25 09:41 875 MG Lisinopril 40 mg DAILY PO 01/05/25 03:00 01/07/25 09:42 40 MG Empaglifozin 10 mg DAILY PO 01/05/25 10:00 01/07/25 09:42 10 MG Metoprolol Succinate 25 mg DAILY PO 01/05/25 03:00 01/06/25 10:52 25 MG Acetaminophen 650 mg Q4HP PRN PO 01/05/25 03:30 01/07/25 10:44 650 MG Ondansetron HCl 4 mg Q4HPRN PRN IV 01/05/25 03:30 01/05/25 05:19 4 MG Enoxaparin Sodium 40 mg DAILY SC 01/05/25 10:00 01/07/25 09:41 40 MG Pregabalin 25 mg BID PO 01/05/25 11:00 01/07/25 09:41 25 MG Topiramate 25 mg DAILY PO 01/06/25 10:00 Hold Throat Lozenges 1 imelda Q2HP PRN MT 01/05/25 11:15 01/06/25 00:00 1 IMELDA Pantoprazole Sodium 40 mg DAILY IV 01/06/25 10:00 01/07/25 09:41 40 MG Tamsulosin HCl 0.4 mg QPM PO 01/05/25 18:00 01/06/25 17:33 0.4 MG Patient Own Medication 1 HS PO 01/05/25 22:00 01/06/25 22:00 1 Levothyroxine Sodium 25 mcg QAM PO 01/06/25 07:00 Aspirin 81 mg DAILY PO 01/07/25 10:00 01/07/25 09:41 81 MG Atorvastatin Calcium 40 mg HS PO 01/06/25 22:00 01/06/25 23:10 40 MG Examination Patient lying in bed comfortably General: thin, afebrile, palor, mucosae are moist Cardiovascular: Regular S1 and S2. No murmurs, gallops or rubs. No JVD elevation. No pedal edema Respiratory: Normal B/L air entry on room air. Clear lung sounds on auscultation Abdomen: Soft, nontender, nondistended, normoactive bowel sounds, no rebound tenderness, no organomegaly, no masses Genitourinary: Deferred MSK/skin: Mobilizes 4 limbs. Skin is dry and warm Neurological: No motor, no sensitive deficits, normal speech. Pupils are isocoric and reactive. Unremarkable neurological exam. Psych/Mental Status: A/Ox3 laboratory and microbiology Laboratory Tests 01/07/25 06:56 01/06/25 04:58 Test 01/07/25 06:56 Range/Units Serum Glucose 99 74-106 mg/dL Problem List/Assessment/Plan Problem List/Assessment/Plan Problem List/Assessment/Plan HFmrEF- last echo 10/31 45% NSTEMI Hypertension EKG unremarkable, troponin unremarkable, BNP WNL lunchroom monitor Cardiology consulted, Underwent TTE which revealed EF 40% with anterior apical and mid anterior septal hypokinesis of [id number] degree. Cardiolite stress test performed, results indicate inferior wall ischemia. Patient is scheduled for coronary angiogram with cardiac catheterization tentatively for 01/09/2025. Continue home medication lisinopril 40 mg, metoprolol 25 mg daily Continue aspirin 81 and atorvastatin 40 mg daily Uncontrolled juvenile diabetes mellitus type 2-A1c 13 Diabetic neuropathic pain Continue home medication Lantus 30 units daily On ISS Patient's is on sliding scale at home Started Lyrica 25 mg b.i.d. Acute sinusitis Continue Amoxil clavulanate daily Hyponatremia - psychogenic causes versus medication induced Monitor Schizophrenia Bipolar disorder Resume home medication Cannabis dependence Counseled regarding cessation for more than 22 minutes Hypertriglyceridemia Monitor Lovenox 40 mg sc daily Cardiac diet Plan discussed with patient in which all questions have been answered Goals of care discussed with patient for more than 28 minutes, full code status Case discussed with Dr. Coleman Plan discussed with: Patient Plan discussed with: Patient, Other (RN) Date of Service: Jan 07, 2025 Billing Provider: ADAIR GUEVARA MD Common Visit Codes: [id number] INP/OBS CARE(HIGH) MADALYN CHINCHILLA RESIDENT Jan 07, 2025 13:06 ADAIR GUEVARA MD Jan 16, 2025 01:26
[2025-01-07] MEDS ORDERED: hydrOXYzine 25 MG TAB or CAP PO PRN (17:15)
[2025-01-07] MEDS: MORPHINE SULFATE INJ 2 MG/ml SYRG IV PRN (17:46)
[2025-01-07] MEDS: TOPIRAMATE 25 MG TAB PO ONE (18:04)
[2025-01-07] MEDS: CITALOPRAM HYDROBR 20 MG TAB PO ONE (18:04)
[2025-01-07] MEDS: QUEtiapine FUMARATE 100 MG TAB PO SCH (22:23)
[2025-01-07] MEDS: LORazepam 2MG/ML-1ML VIAL IV PRN (22:23)
[2025-01-08] VITALS (12 sets, daily range): BP systolic 93–124; BP diastolic 50–79; PULSE 72–121; RESP 16–20; TEMP 97.4–98.2; O2SAT 93–100
[2025-01-08] MEDS: METOPROLOL SUCCINATE XL 50 MG TAB PO SCH (00:50)
[2025-01-08 07:40] LABS: Chloride 103 mmol/L (98-107); Potassium 4.6 mmol/L (3.5-5.1); Sodium 137 mmol/L (136-145)
[2025-01-08 07:41] LABS: Anion Gap 10 (5-15); Calcium 9.5 mg/dL (8.7-10.4); Carbon Dioxide 24 mmol/L (20-31)
[2025-01-08 07:46] LABS: BUN/Creatinine Ratio 15.7 (10.0-20.0); Blood Urea Nitrogen 20 mg/dL (9-23); Magnesium 2.4 mg/dL (1.6-2.6)
[2025-01-08 07:47] LABS: Glucose 296 mg/dL (74-106)
[2025-01-08] MEDS ORDERED: SODIUM CHLORIDE 0.9% 1,000 ML IV ONE (10:45)
[2025-01-08] MEDS ORDERED: SODIUM CHLORIDE 0.9% 250 ML IV ONE (10:45)
--- NOTE | 2025-01-08 11:19 | DVHPN2 ---
Consult Progress Note Date Seen: Jan 08, 2025 Subjective Review of Systems: CVS:Normal, RESPIRATORY:Normal, NEURO:Normal Other Systems: Denies any cardic symptoms Objective vital signs Vital Sign Date Time Temp Pulse Resp B/P (MAP) Pulse Ox O2 Delivery O2 Flow Rate FiO2 01/08/25 09:00 97.4 104 16 109/64 (79) 95 97.4 01/08/25 07:50 Room Air* 0 21 Total Intake and Output 01/07/25 01/07/25 01/08/25 15:00 23:00 07:00 Intake Total 240 ml 1230 ml Balance 240 ml 1230 ml medications Current Medications Medications Dose Ordered Sig/Munir Route Start Time Stop Time Status Last Admin Dose Admin Insulin Glargine 30 units HS SC 01/04/25 22:00 01/08/25 00:05 30 UNITS Diagnostic Test (Pha) 1 strip Q6HR 01/05/25 00:00 01/08/25 06:22 1 STRIP Insulin Human Regular Q6HR SC 01/05/25 00:00 01/08/25 06:22 6 UNITS Dextrose 50 ml UD PRN IV 01/04/25 21:30 Divalproex Sodium 500 mg DAILY PO 01/05/25 10:00 01/07/25 09:42 500 MG Amoxicillin/ Clavulanate Potassium 875 mg Q12HR PO 01/05/25 02:00 01/07/25 22:23 875 MG Lisinopril 40 mg DAILY PO 01/05/25 03:00 Hold 01/07/25 09:42 40 MG Empaglifozin 10 mg DAILY PO 01/05/25 10:00 01/07/25 09:42 10 MG Acetaminophen 650 mg Q4HP PRN PO 01/05/25 03:30 01/07/25 10:44 650 MG Ondansetron HCl 4 mg Q4HPRN PRN IV 01/05/25 03:30 01/05/25 05:19 4 MG Enoxaparin Sodium 40 mg DAILY SC 01/05/25 10:00 01/07/25 09:41 40 MG Pregabalin 25 mg BID PO 01/05/25 11:00 01/07/25 22:23 25 MG Throat Lozenges 1 imelda Q2HP PRN MT 01/05/25 11:15 01/06/25 00:00 1 IMELDA Pantoprazole Sodium 40 mg DAILY IV 01/06/25 10:00 01/07/25 09:41 40 MG Tamsulosin HCl 0.4 mg QPM PO 01/05/25 18:00 01/07/25 18:04 0.4 MG Patient Own Medication 1 HS PO 01/05/25 22:00 01/07/25 22:24 1 Levothyroxine Sodium 25 mcg QAM PO 01/06/25 07:00 01/08/25 06:23 25 MCG Aspirin 81 mg DAILY PO 01/07/25 10:00 01/07/25 09:41 81 MG Atorvastatin Calcium 40 mg HS PO 01/06/25 22:00 01/07/25 22:23 40 MG Morphine Sulfate 1 mg Q6HP PRN IV 01/07/25 15:30 01/07/25 17:46 1 MG Quetiapine Fumarate 400 mg HS PO 01/07/25 22:00 01/07/25 22:23 400 MG Hydroxyzine Pamoate 25 mg TID PRN PO 01/07/25 17:15 Topiramate 25 mg DAILY PO 01/08/25 10:00 Citalopram Hydrobromide 10 mg DAILY PO 01/08/25 10:00 Lorazepam 1 mg Q8HP PRN IV 01/07/25 22:00 01/07/25 22:23 1 MG Metoprolol Succinate 25 mg BID PO 01/08/25 00:50 Examination: LUNGS:Normal, CVS:Normal, NEURO:Normal laboratory and microbiology Laboratory Tests 01/08/25 06:40 01/06/25 04:58 Test 01/08/25 06:40 Range/Units Serum Glucose 296 #H 74-106 mg/dL Problem List/Assessment/Plan Problem List/Assessment/Plan NSTEMI rule out coronary ischemia Chronic HFmrEF, 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 Lamas) Transthoracic echocardiogram revealed EF 40% with anterior apical and mid anterior septal hypokinesis of [id number] degree. Cardiolite stress test reviewed by Dr. Lamas with preliminary results indicating inferior wall ischemia. The patient is scheduled for a coronary angiogram with cardiac catheterization at first available and tentatively for 01/09/25. In the meantime, continue GDMT for CHF and uptitrate as tolerated. Continue single- antiplatelet therapy and lipid-lowering agent. DVT/VTE prophylaxis, hold day of procedure. Thank you for allowing us to care for this patient. Please call with any questions or concerns. This medical document was created using an electronic medical record system with voice recognition software and computerized dictation system. Although this document has been carefully reviewed, there might still be some phonetic and typographical errors. Occasional wrong-word or ``sound-alike substitutions may have occurred due to the inherent limitations of voice recognition software. These areas are purely typographical due to imperfections of the software programs and do not reflect any compromise in the patient's medical care. Please read the chart carefully and recognize, using context, where these substitutions have occurred. Plan discussed with: Patient, Other Date of Service: Jan 08, 2025 Billing Provider: VLAD PRATER Cardiology Common Codes: [id number] HOSP CARE(High VLAD PRATER Jan 08, 2025 11:19
[2025-01-08] MEDS: CITALOPRAM HYDROBR 20 MG TAB PO SCH (11:34)
[2025-01-08] MEDS: TOPIRAMATE 25 MG TAB PO SCH (11:35)
--- NOTE | 2025-01-08 12:08 | DVHINCON2 ---
Date of Service if different f: Jan 08, 2025 Consultation ([facility]) Progress: Somewhat better Labs Laboratory Tests Test 01/04/25 18:56 01/04/25 18:58 01/04/25 19:15 01/04/25 20:30 Blood Gas Specimen Type Venous Blood Gas Sample Site Vbg - n/a Blood Gas Patient Temperature 37.0 Arterial Blood Date Drawn [id number] [place] Test N/a Venous Blood pH 7.469 (7.320-7.430) Venous Blood pCO2 at Patient Temp 33.5 mmHg (38.0-54.0) Venous Blood pO2 at Patient Temp < 36.5 mmHg (23.0-48.0) Venous Blood HCO3 23.8 mmol/L (22.0-29.0) Venous Blood Base Excess 0.8 mmol/L (-2.0-3.0) Blood Gas Modality Room air FiO2 % 21.0 Lactic Acid Level 1.7 mmol/L (0.4-2.0) B-Type Natriuretic Peptide 22.30 pg/mL (0-100) Beta-Hydroxybutyric Acid 2.666 mmol/L (< 0.4) Urine Color Colorless (Yellow) Urine Clarity Clear (Clear) Urine pH 7.5 (5.0-9.0) Urine Specific [place] 1.017 (1.001-1.035) Urine Protein Negative (Negative) Urine Ketones 1+ (Negative) Urine Blood Negative /uL (Negative) Urine Nitrite Negative (Negative) Urine Bilirubin Negative (Negative) Urine Urobilinogen Normal mg/dL (Negative) Urine Leukocyte Esterase Negative /uL (Negative) Urine RBC 1 /hpf (0 - 3) Urine Microscopic WBC 1 /HPF (0-3) Urine Squamous Epithelial Cells None seen /hpf (<5) Urine Bacteria None seen /hpf (None Seen) Urine Glucose 4+ mg/dL (Normal) Urine Opiates Screen Neg (NEGATIVE) Urine Fentanyl Screen Neg (NEGATIVE) Urine Barbiturates Screen Neg (NEGATIVE) Urine Phencyclidine Screen Neg (NEGATIVE) Urine Amphetamines Screen Neg (NEGATIVE) Urine Benzodiazepines Screen Neg (NEGATIVE) Urine Cocaine Screen Neg (NEGATIVE) Urine Cannabinoids Screen Neg (NEGATIVE) Influenza Type A Antigen Negative (Negative) Influenza Type B Antigen Negative (Negative) SARS-CoV-2 Antigen (Rapid) Negative (NEGATIVE) Test 01/04/25 21:54 01/05/25 01:31 01/05/25 04:58 01/06/25 04:58 C-Reactive Protein High Sensitivity 1.01 mg/dL (<1.0) Erythrocyte Sedimentation Rate 23 mm/hr (0-20) Hemoglobin A1c 13.1 % A1C (<5.7) Troponin I High Sensitivity 437 ng/L (</=54) Triglycerides Level 286 mg/dL (< 150) Cholesterol Level 147 mg/dL (< 200) LDL Cholesterol 77 mg/dL (< 100) HDL Cholesterol 26 mg/dL (40-59) Thyroid Stimulating Hormone (TSH) 2.67 uIU/mL (0.55-4.78) Plasma/Serum Blood Alcohol < 3.0 mg/dL (<10) White Blood Count 6.4 10^3/uL (4.4-10.8) Red Blood Count 5.05 10^6/uL (4.5-5.90) Hemoglobin 16.7 g/dL (13.5-17.5) Hematocrit 47.8 % (41.0-53.0) Mean Corpuscular Volume 94.6 fL (80.0-100.0) Mean Corpuscular Hemoglobin 33.0 pg (28.0-32.0) Mean Corpuscular Hemoglobin Concent 34.9 g/dL (32.0-36.0) Red Cell Distribution Width 13.7 % (11.8-14.3) Platelet Count 396 10^3/uL (140-450) Mean Platelet Volume 7.1 fL (6.9-10.8) Neutrophils (%) (Auto) 50.3 % (37.0-80.0) Lymphocytes (%) (Auto) 36.3 % (10.0-50.0) Monocytes (%) (Auto) 11.2 % (0.0-12.0) Eosinophils (%) (Auto) 1.6 % (0.0-7.0) Basophils (%) (Auto) 0.6 % (0.0-2.0) Neutrophils # (Auto) 3.2 10 ^3/uL (1.6-8.6) Lymphocytes # (Auto) 2.3 10 ^3/uL (0.4-5.4) Monocytes # (Auto) 0.7 10 ^3/uL (0-1.3) Eosinophils # (Auto) 0.1 10 ^3/uL (0-0.8) Basophils # (Auto) 0 10 ^3/uL (0-0.2) Nucleated Red Blood Cells 0.0 % Total Bilirubin 0.3 mg/dL (0.2-1.0) Aspartate Amino Transf (AST/SGOT) 9 U/L (13-40) Alanine Aminotransferase (ALT/SGPT) 13 U/L (7-40) Alkaline Phosphatase 108 U/L (46-116) Total Protein 7.0 g/dL (5.7-8.2) Albumin 4.5 g/dL (3.2-4.8) Test 01/08/25 05:26 01/08/25 06:40 Bedside Glucose 246 mg/dl (70-106) Sodium Level 137 mmol/L (136-145) Potassium Level 4.6 mmol/L (3.5-5.1) Chloride Level 103 mmol/L (98-107) Carbon Dioxide Level 24 mmol/L (20-31) Anion Gap 10 (5-15) Blood Urea Nitrogen 20 mg/dL (9-23) Creatinine 1.27 mg/dL (0.700-1.30) Glomerular Filtration Rate Calc 76 mL/min (>90) BUN/Creatinine Ratio 15.7 (10.0-20.0) Serum Glucose 296 mg/dL (74-106) Calcium Level 9.5 mg/dL (8.7-10.4) Magnesium Level 2.4 mg/dL (1.6-2.6) Appetite: Very Good (voracious) Side effects of medications: EPS (pt c/o some tightness in jaws right now. Offered singel dose of cogentin for relief now. Hospitalist agreed.) Appearance: Stated age Psychomotor activity: WNL Behavioral: Cooperative Eye contact: Appropriate Speech: WNL Affect: Appropriate, Mood Congruent Mood: Euthymic Thought processes: Linear/Goal-directed Thought content: WNL Suicidal ideations: Absent Homicidal ideations: Absent Orientation: Person, Place, Time, Situation Memory intact: Recent Intellect: Average Abstractability: WNL Concentration: Adequate Attention: Adequate Judgement: Limited (struggles with prioritizing smoking versus adhering to medical team recommendations for angiogram tomorrow.) Insight: Fair Vitals Vital Signs Date Time Temp Pulse Resp B/P (MAP) Pulse Ox O2 Delivery O2 Flow Rate FiO2 01/08/25 09:00 97.4 104 16 109/64 (79) 95 97.4 01/08/25 07:50 Room Air* 0 21 Current medications Current Medications Medications Dose Ordered Sig/Munir Route Start Time Stop Time Status Last Admin Dose Admin Insulin Glargine 30 units HS SC 01/04/25 22:00 01/08/25 00:05 30 UNITS Diagnostic Test (Pha) 1 strip Q6HR 01/05/25 00:00 01/08/25 06:22 1 STRIP Insulin Human Regular Q6HR SC 01/05/25 00:00 01/08/25 06:22 6 UNITS Dextrose 50 ml UD PRN IV 01/04/25 21:30 Divalproex Sodium 500 mg DAILY PO 01/05/25 10:00 01/07/25 09:42 500 MG Amoxicillin/ Clavulanate Potassium 875 mg Q12HR PO 01/05/25 02:00 01/07/25 22:23 875 MG Lisinopril 40 mg DAILY PO 01/05/25 03:00 Hold 01/07/25 09:42 40 MG Empaglifozin 10 mg DAILY PO 01/05/25 10:00 01/07/25 09:42 10 MG Acetaminophen 650 mg Q4HP PRN PO 01/05/25 03:30 01/07/25 10:44 650 MG Ondansetron HCl 4 mg Q4HPRN PRN IV 01/05/25 03:30 01/05/25 05:19 4 MG Enoxaparin Sodium 40 mg DAILY SC 01/05/25 10:00 01/07/25 09:41 40 MG Pregabalin 25 mg BID PO 01/05/25 11:00 01/07/25 22:23 25 MG Throat Lozenges 1 imelda Q2HP PRN MT 01/05/25 11:15 01/06/25 00:00 1 IMELDA Pantoprazole Sodium 40 mg DAILY IV 01/06/25 10:00 01/07/25 09:41 40 MG Tamsulosin HCl 0.4 mg QPM PO 01/05/25 18:00 01/07/25 18:04 0.4 MG Patient Own Medication 1 HS PO 01/05/25 22:00 01/07/25 22:24 1 Levothyroxine Sodium 25 mcg QAM PO 01/06/25 07:00 01/08/25 06:23 25 MCG Aspirin 81 mg DAILY PO 01/07/25 10:00 01/07/25 09:41 81 MG Atorvastatin Calcium 40 mg HS PO 01/06/25 22:00 01/07/25 22:23 40 MG Morphine Sulfate 1 mg Q6HP PRN IV 01/07/25 15:30 01/07/25 17:46 1 MG Quetiapine Fumarate 400 mg HS PO 01/07/25 22:00 01/07/25 22:23 400 MG Hydroxyzine Pamoate 25 mg TID PRN PO 01/07/25 17:15 Topiramate 25 mg DAILY PO 01/08/25 10:00 Citalopram Hydrobromide 10 mg DAILY PO 01/08/25 10:00 Lorazepam 1 mg Q8HP PRN IV 01/07/25 22:00 01/07/25 22:23 1 MG Metoprolol Succinate 25 mg BID PO 01/08/25 00:50 Treatment plan discussed: With staff Medication adjusted: Yes Labs ordered: No Psychotherapy provided: Yes Type: Voluntary Diagnosis: Bipolar Disorder Unspecified. ADHD Combined type. Nicotine addition. Plan : Meds reviewed with covering hospitalist in detail while pt was also interviewed. Recommended med changes - Stop Seroquel, tomapax, celexa, hydroxyzine (not working for the rash) and ativan. Continue Depakote. Start Haldol 5 mg PO BID (May increase by 5 mg per dose to get optimal benefit per pt report). Start Cogentin 1 mg PO q am. Start Benadryl 25 mg PO Qhs. Start Lexapro 10 mg P Qam. If the pt has c/o anxiety, consider reducing the dose or lisinopril and optimizing toprol xl further to address anxiety more while keeping the HTN management stable. Please also initiate an endocrine consult for transitioning the pt to CGM and Insulin pump as his current way of managing his BS is not working and he is losing wt and likely hyperglycemic more often than not. Please have SW coordinate with PBM and OP provider/pharmacy to make sure pt has the CGM and Insulin pump before he leaves the hospital (Ideally). Please explore meds to beds program if available with the pt's health plan and pharmacy benefit (Case management referral) and please refer to adaptive physical educator before discharge and for OP follow-up. History of Present Illness Reason for Consult : Pt was making suicidal thoughts. HPI : Pt says that he has bipolar disorder. He takes many pills daily. Pt recently made friends when he was living in [facility]. Pt always struggled with making friends. One of his friends got discharged yesterday and he went down stairs, smoked a cigarettes and cried a lot. Upon his return he was still upset. Pt was NPO and they hadn't taken it off and he didn't have dinner last night. The nurses had to go down to the kitchen to get him food because of it. Pt talks about at length about his lack of diabetes management and trouble with declining health, weight. Pt admits to having had an emotional day yesterday and felt nearly suicidal. Pt denies current SI, HI or AVH. Pt denies lifetime SA. Pt says he was diagnosed with ADHD as a kid when he was admitted to the hospital for initial presentation of diabetes, but was never told by anyone that he had bipolar disorder. However, pt feels that his mood are highly volatile and unstable frequently, if he is not on these meds. Past Psychiatric History : Lengthy history of ADHD, not diagnosed with bipolar disorder per se. Past Medical History : DM2, CAD. Social History : Lives with mother. Gets SSI. Not working. Assessment/Diagnosis/Plan Reviewed: Consults, Care Plan, Labs, Medications, Previous Orders LUCIANA BECERRIL MD Jan 08, 2025 12:08
[2025-01-08] MEDS: LEVALBUTEROL HCL 1.25 MG/3 ML NEB NEB SCH (12:40)
[2025-01-08] MEDS: BENZTROPINE MESY 0.5 MG TAB PO ONE (12:52)
[2025-01-08] MEDS: LACTATED RINGER'S 500 ML IV ONE (12:52)
[2025-01-08] MEDS: InsuLIN REG 1unit/0.01ml Soln (100units/ml) IV ONE ×2 (12:53→15:05)
[2025-01-08] MEDS: NICOTINE 21MG/24 HR TOPICAL PATCH TD ONE (13:30)
[2025-01-08] MEDS: diphenhdrAMINE HCL 25 MG CAP PO SCH (13:31)
[2025-01-08] MEDS: HALOPERIDOL LACTATE 5 MG/ML INJ VIAL IV SCH (13:31)
--- NOTE | 2025-01-08 13:57 | DVHPNRES ---
Progress Note Date Seen: Jan 08, 2025 Resident Creating Document: SIENNA UMANZOR RESIDENT Medical Necessity Reason Pt with a Central, PICC or Fol: No Subjective Review of Systems Mr. Emery is a 34-year-old male patient with PMHx of juvenile diabetes mellitus 2, hypertension, hypothyroidism, HFmrEF, schizophrenia, NSTEMI 2 and COVID-19 2022, who presents to the ER with a chief complaint of generalized weakness and neuropathic pain along with URI symptoms for the past 3 days. He reports that he took his lidocaine patch following which he developed neuropathic pain bilateral lower and lower extremity. He denies previous history of neuropathic pain. Also reports runny nose/epistaxis. Says that his glucometer has been showing high for the past few days and has been using up to 60 units of insulin Lantus at a time, which could not control his blood glucose. Associated symptoms include dizziness. Patient is A&O x3. Patient smokes cigarettes and cannabis. Last 10/2023 shows EF 45%. PCP: Dr. Stratton. Patient denies chest pain/shortness of breaths/palpitations/diaphoresis. EKGs unremarkable. Home medications: Ziprasidone 60 mg, bupropion, valproate, topiramate, citalopram, lisinopril, tamsulosin, atorvastatin, atorvastatin, metoprolol, montelukast, levothyroxine, omeprazole Social history, lives with mother, smokes marijuana 01/05-Patient seen and examined at the bedside. Lyrica started 25 mg b.i.d.. Pending cardiology consult, echocardiogram pending. 01/06-patient seen and examined at the bedside. Underwent TTE which revealed EF 40% with anterior apical and mid anterior septal hypokinesis of [id number] degree. Cardiolite stress test performed, results indicate inferior wall ischemia. Patient is scheduled for coronary angiogram with cardiac catheterization tentatively for 01/09/2025. Cardiology started GDMT. 01/08 - patient seen and examined at the bedside with Dr Londono over the phone for telepsyv. Discontinued Ativan, topiramate, Seroquel, hydroxyzine. Patient started on haloperidol 5 mg IV b.i.d., we will continue Celexa 10 mg daily given that escitalopram is not available. Continue metoprolol for anxiety and heart failure. Benadryl 25 mg Q 8 hours scheduled for next 2 days, then 25 mg p.o. daily. Nicotine patch and nebulized treatment started. Tablet benztropine 1 mg daily for questionable EPS Patient was counseled regarding the importance of smoking cessation, he is struggling with smoking cessation and recommendations at this time. Objective vital signs Vital Sign Date Time Temp Pulse Resp B/P (MAP) Pulse Ox O2 Delivery O2 Flow Rate FiO2 01/08/25 12:45 102 20 98 01/08/25 12:40 Room Air* 0 21 01/08/25 12:27 97.4 109/64 97.4 Total Intake and Output 01/07/25 01/07/25 01/08/25 15:00 23:00 07:00 Intake Total 240 ml 1230 ml Balance 240 ml 1230 ml medications Current Medications Medications Dose Ordered Sig/Munir Route Start Time Stop Time Status Last Admin Dose Admin Insulin Glargine 30 units HS SC 01/04/25 22:00 01/08/25 00:05 30 UNITS Diagnostic Test (Pha) 1 strip Q6HR 01/05/25 00:00 01/08/25 11:34 1 STRIP Insulin Human Regular Q6HR SC 01/05/25 00:00 01/08/25 06:22 6 UNITS Dextrose 50 ml UD PRN IV 01/04/25 21:30 Divalproex Sodium 500 mg DAILY PO 01/05/25 10:00 01/08/25 11:34 500 MG Amoxicillin/ Clavulanate Potassium 875 mg Q12HR PO 01/05/25 02:00 01/08/25 11:34 875 MG Lisinopril 40 mg DAILY PO 01/05/25 03:00 Hold 01/07/25 09:42 40 MG Empaglifozin 10 mg DAILY PO 01/05/25 10:00 01/08/25 11:33 10 MG Acetaminophen 650 mg Q4HP PRN PO 01/05/25 03:30 01/07/25 10:44 650 MG Ondansetron HCl 4 mg Q4HPRN PRN IV 01/05/25 03:30 01/05/25 05:19 4 MG Enoxaparin Sodium 40 mg DAILY SC 01/05/25 10:00 01/08/25 11:32 40 MG Pregabalin 25 mg BID PO 01/05/25 11:00 01/08/25 11:34 25 MG Throat Lozenges 1 imelda Q2HP PRN MT 01/05/25 11:15 01/06/25 00:00 1 IMELDA Pantoprazole Sodium 40 mg DAILY IV 01/06/25 10:00 01/08/25 11:32 40 MG Tamsulosin HCl 0.4 mg QPM PO 01/05/25 18:00 01/07/25 18:04 0.4 MG Patient Own Medication 1 HS PO 01/05/25 22:00 01/07/25 22:24 1 Levothyroxine Sodium 25 mcg QAM PO 01/06/25 07:00 01/08/25 06:23 25 MCG Aspirin 81 mg DAILY PO 01/07/25 10:00 01/08/25 11:33 81 MG Atorvastatin Calcium 40 mg HS PO 01/06/25 22:00 01/07/25 22:23 40 MG Morphine Sulfate 1 mg Q6HP PRN IV 01/07/25 15:30 01/07/25 17:46 1 MG Citalopram Hydrobromide 10 mg DAILY PO 01/08/25 10:00 01/08/25 11:34 10 MG Metoprolol Succinate 25 mg BID PO 01/08/25 00:50 01/08/25 11:45 25 MG Sodium Chloride 250 ml @ 250 mls/hr Q1H IV 01/08/25 11:45 01/08/25 13:44 Benztropine Mesylate 1 mg DAILY PO 01/09/25 10:00 Haloperidol Lactate 5 mg BID IV 01/08/25 12:15 01/08/25 13:31 5 MG Diphenhydramine HCl 25 mg Q8H PO 01/08/25 12:15 01/08/25 13:31 25 MG Nicotine 1 patch DAILY TD 01/09/25 10:00 Levalbuterol HCl 0.625 mg Q6HR NEB 01/08/25 12:15 01/08/25 12:40 0.625 MG Examination Patient lying in bed comfortably General: thin, afebrile, palor, mucosae are moist Cardiovascular: Regular S1 and S2. No murmurs, gallops or rubs. No JVD elevation. No pedal edema Respiratory: Normal B/L air entry on room air. Clear lung sounds on auscultation Abdomen: Soft, nontender, nondistended, normoactive bowel sounds, no rebound tenderness, no organomegaly, no masses Genitourinary: Deferred MSK/skin: Mobilizes 4 limbs. Skin is dry and warm Neurological: No motor, no sensitive deficits, normal speech. Pupils are isocoric and reactive. Unremarkable neurological exam. Psych/Mental Status: A/Ox3 laboratory and microbiology Laboratory Tests 01/08/25 06:40 01/06/25 04:58 Test 01/08/25 06:40 Range/Units Serum Glucose 296 #H 74-106 mg/dL Labs and/or images reviewed: Labs reviewed by me, Image(s) reviewed by me Problem List/Assessment/Plan Problem List/Assessment/Plan 01/08-tele psych Dr. Londono: Discontinued Ativan, topiramate, Seroquel, hydroxyzine. Patient started on haloperidol 5 mg IV b.i.d., we will continue Celexa 10 mg daily given that escitalopram is not available. Continue metoprolol for anxiety and heart failure. Benadryl 25 mg Q 8 hours scheduled for next 2 days, then 25 mg p.o. daily. Nicotine patch and nebulized treatment started. Tablet benztropine 1 mg daily for questionable EPS Patient was counseled regarding the importance of smoking cessation, he is struggling with smoking cessation and recommendations at this time. 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 Cardiolite stress test performed, results indicate inferior wall ischemia. Patient is scheduled for coronary angiogram with cardiac catheterization tentatively for 01/09/2025. Continue home medication lisinopril 40 mg, metoprolol 25 mg b.i.d. Continue aspirin 81 and atorvastatin 40 mg daily Uncontrolled juvenile diabetes mellitus type 2-A1c 13 Diabetic neuropathic pain Continue home medication Lantus 30 units daily On aggressive ISS Patient's is on sliding scale at home Started Lyrica 25 mg b.i.d. Diabetic education provided Acute sinusitis Continue Amoxil clavulanate daily Hyponatremia - psychogenic causes versus medication induced Monitor ADHD combined type Bipolar disorder-unspecified Possible EPS Continue haloperidol 5 mg IV b.i.d., Celexa 10 mg daily given that his citalopram is not available Continue benztropine 1 mg daily Continue Benadryl 25 mg Q 8 hourly for the next 2 days followed by 25 mg p.o. daily Cannabis and nicotine dependence Counseled regarding cessation for more than 22 minutes Nicotine patch started Hypertriglyceridemia Monitor Lovenox 40 mg sc daily Cardiac diet. NPO after midnight for left heart catheterization 01/09 Plan discussed with patient in which all questions have been answered Goals of care discussed with patient for more than 28 minutes, full code status Case discussed with Dr. Coleman Plan discussed with: Patient My Orders My Orders Orders - SIENNA UMANZOR Procedure Category Date Status Time Sitter 1:1 ORDERS 01/08/25 Transmitted 10:33 Sodium Chloride 0.9% PHA 01/08/25 In Process 11:45 Benztropine Tablet PHA 01/09/25 In Process (Cogentin Tablet) 10:00 Haloperidol Lactate PHA 01/08/25 In Process Injection (Haldol) 12:15 Diphenhdramine PHA 01/08/25 In Process Capsule (Benadryl 12:15 Nicotine 21mg/24hr PHA 01/09/25 In Process (Nicoderm 21mg/24hr) 10:00 Levalbuterol Hcl PHA 01/08/25 In Process (Xopenex Medneb) 12:15 Date of Service: Jan 08, 2025 Billing Provider: ADAIR GUEVARA MD Common Visit Codes: [id number] INP/OBS CARE(HIGH) SIENNA UMANZOR RESIDENT Jan 08, 2025 13:57 ADAIR GUEVARA MD Jan 16, 2025 01:28
[2025-01-08] MEDS ORDERED: DEXTROSE (50%) 50ML SYRG IV PRN (14:00)
[2025-01-08] MEDS: SODIUM CHLORIDE 0.9% 250 ML IV SCH (14:40)
[2025-01-08] MEDS: ACCU-CHEK COMFORT CURVE STRIP VI SCH (17:29)
[2025-01-08] MEDS: InsuLIN REG 1unit/0.01ml Soln (100units/ml) SC SCH ×2 (17:43→21:33)
[2025-01-08] MEDS: HALOPERIDOL LACTATE 5 MG/ML INJ VIAL IM SCH (21:11)
[2025-01-09] VITALS (19 sets, daily range): BP systolic 108–150; BP diastolic 67–99; PULSE 60–145; RESP 11–20; TEMP 97.3–98.1; O2SAT 95–100
[2025-01-09] MEDS: QUEtiapine FUMARATE 100 MG TAB PO ONE (00:16)
[2025-01-09] MEDS: LORazepam 2MG/ML-1ML VIAL IV ONE (00:17)
[2025-01-09 07:55] LABS: Anion Gap 11 (5-15); Carbon Dioxide 23 mmol/L (20-31); Chloride 105 mmol/L (98-107); Potassium 4.7 mmol/L (3.5-5.1); Sodium 139 mmol/L (136-145)
[2025-01-09 07:56] LABS: Calcium 9.5 mg/dL (8.7-10.4)
[2025-01-09 08:00] LABS: INR 0.97 (0.9-1.15); Partial Thromboplastin Time 27.1 SEC (24.5-34.5); Prothrombin Time 10.3 sec (9.3-11.8)
[2025-01-09 08:01] LABS: BUN/Creatinine Ratio 15.2 (10.0-20.0); Blood Urea Nitrogen 14 mg/dL (9-23)
[2025-01-09 08:02] LABS: Glucose 72 mg/dL (74-106)
--- NOTE | 2025-01-09 08:06 | DVHSR ---
APPROVED REPORT Exam: Nuclear Stress Test Indication: NSTEMI BMI: 0 Medical History Medical History: HTN, COPD, CT Allergies: No known drug allergies Stress Test Details Stress Test: Pharmacologic stress testing performed using 0.4 mg of regadenoson per 5 mL given IV ov er 10 seconds. HR Resting HR: 125 bpmMax Heart Rate (APMHR): 185.382656 bpm Max HR Achieved: 136 bpmTarget HR (85% APMHR): 157.150256 bpm % of APMHR: 73.51 Recovery HR: 125 bpm BP Resting BP: 111/54 mmHg Recovery BP: 104/59 mmHg ECG Resting ECG: Sinus Tachycardia Clinical Reason for Termination: Completed protocol Nurse Comments Recieved pt. from [facility]. A/Ox4 on RA. Connected to manager documentation, VS stable. PIV flushes well. Reviewed POC. Pt. verbalized understanding of procedure including risks and side ef fects, agrees for stress testing. Lexiscan stress test performed per protocol. [employer] administered Cardiolite. Pt. tolerated well . Pt. stable, no change on exam. VS returned to baseline. Transferred to [facility] via wheelchair w/ te ch. Stress ECG Conclusion lvef 38% moderate LV dysfunction inferoseptal ischemia is noted ecg shows sinus tachy with LAD NM EXAM: Myocardial Perfusion REST/STRESS Imaging Protocol: Rest Tc-99m/Stress Tc-99m 1 day Resting Data Rest SPECT myocardial perfusion imaging was performed in supine position 60 minutes following the int ravenous injection of 14.3 mCi of Tc-99m Sestamibi. Time of rest injection: 0735 Time of rest imagin Administration Route: IV Administration Site: Right Hand Pharmacologic Stress Pharmacologic stress test was performed by injecting Regadenoson 0.4 mg IV push followed by the intra venous injection of 32 mCi of Tc-99m Sestamibi. Time of stress injection: 0924 Time of stress imagin Administration Route: IV Administration Site: Right Hand Gated Stress SPECT was performed 60 minutes after stress injection. The images were gated to evaluate regional wall motion and calculate left ventricular ejection fracti on. Stress only was performed in the Supine position. Nuclear Conclusion Nuclear Findings: positive for ischemia lvef 38% moderate LV dysfunction inferoseptal ischemia is noted ecg shows sinus tachy with LAD
[2025-01-09 09:52] LABS: Basophils # (auto) 0 10 ^3/uL (0-0.2); Eosinophils # (auto) 0.1 10 ^3/uL (0-0.8); Eosinophils % (auto) 2.4 % (0.0-7.0); Hematocrit 40.8 % (41.0-53.0); Hemoglobin 13.7 g/dL (13.5-17.5); Lymphocytes # (auto) 2.2 10 ^3/uL (0.4-5.4); Lymphocytes % (auto) 46.4 % (10.0-50.0); Mean Corpuscular Hemoglobin 32.2 pg (28.0-32.0); Mean Corpuscular Hgb Conc. 33.5 g/dL (32.0-36.0); Mean Corpuscular Volume 96.2 fL (80.0-100.0); Monocytes # (auto) 0.4 10 ^3/uL (0-1.3); Monocytes % (auto) 8.7 % (0.0-12.0); Neutrophils # (auto) 1.9 10 ^3/uL (1.6-8.6); Neutrophils % (auto) 41.5 % (37.0-80.0); Nucleated Red Blood Cells % 0.3 %; Platelet Count (auto) 336 10^3/uL (140-450); Red Blood Cells 4.25 10^6/uL (4.5-5.90); Red Cell Distribution Width 13.8 % (11.8-14.3); White Blood Cell 4.7 10^3/uL (4.4-10.8)
[2025-01-09] MEDS: BENZTROPINE MESY 0.5 MG TAB PO SCH (10:45)
[2025-01-09] MEDS: NICOTINE 21MG/24 HR TOPICAL PATCH TD SCH (10:52)
[2025-01-09] MEDS: MIDAZOLAM HCL 2MG/2ML 2ml VIAL (1mg/ml) ONE (14:09)
[2025-01-09] MEDS: HEPARIN SODIUM (PORCINE) 5000 UNITS/ML 1ML VIAL ONE (14:09)
[2025-01-09] MEDS: VERAPAMIL 2.5MG/ML INJ 2ML VIAL IV ONE (14:09)
[2025-01-09] MEDS: fentaNYL CITRATE 100 MCG/2 ML VL ONE (14:09)
[2025-01-09] MEDS: LIDOCAINE 2%HCL (LOCAL ANESTH.) INJ 20ML MDV ONE (14:10)
[2025-01-09] MEDS: SODIUM CHL 0.9% 0 ML ONE (14:16)
[2025-01-09] MEDS: ANGIOMAX 250 MG VIAL IV ONE (14:16)
--- NOTE | 2025-01-09 14:50 | DVHPN2 ---
Progress Note Date Seen: Jan 09, 2025 Medical Necessity Reason Pt with a Central, PICC or Fol: No Subjective Patient reports: Feels better Other Systems: sp cath has multivessel cad pt wishes to go out to smoke Objective vital signs Vital Sign Date Time Temp Pulse Resp B/P (MAP) Pulse Ox O2 Delivery O2 Flow Rate FiO2 01/09/25 12:16 77 16 100 01/09/25 12:11 Room Air 0.0 01/09/25 12:11 21 01/09/25 08:51 97.6 108/67 (81) 97.6 Total Intake and Output 01/08/25 01/08/25 01/09/25 15:00 23:00 07:00 Intake Total 500 ml 1150 ml 500 ml Balance 500 ml 1150 ml 500 ml medications Current Medications Medications Dose Ordered Sig/Munir Route Start Time Stop Time Status Last Admin Dose Admin Insulin Glargine 30 units HS SC 01/04/25 22:00 01/08/25 21:32 30 UNITS Divalproex Sodium 500 mg DAILY PO 01/05/25 10:00 01/09/25 10:45 500 MG Amoxicillin/ Clavulanate Potassium 875 mg Q12HR PO 01/05/25 02:00 01/09/25 10:45 875 MG Lisinopril 40 mg DAILY PO 01/05/25 03:00 Hold 01/07/25 09:42 40 MG Empaglifozin 10 mg DAILY PO 01/05/25 10:00 01/08/25 11:33 10 MG Acetaminophen 650 mg Q4HP PRN PO 01/05/25 03:30 01/08/25 14:43 650 MG Ondansetron HCl 4 mg Q4HPRN PRN IV 01/05/25 03:30 01/05/25 05:19 4 MG Enoxaparin Sodium 40 mg DAILY SC 01/05/25 10:00 01/08/25 11:32 40 MG Pregabalin 25 mg BID PO 01/05/25 11:00 01/09/25 10:45 25 MG Throat Lozenges 1 imelda Q2HP PRN MT 01/05/25 11:15 01/06/25 00:00 1 IMELDA Pantoprazole Sodium 40 mg DAILY IV 01/06/25 10:00 01/09/25 10:39 40 MG Tamsulosin HCl 0.4 mg QPM PO 01/05/25 18:00 01/08/25 17:30 0.4 MG Patient Own Medication 1 HS PO 01/05/25 22:00 01/08/25 21:26 1 Levothyroxine Sodium 25 mcg QAM PO 01/06/25 07:00 01/09/25 06:23 25 MCG Aspirin 81 mg DAILY PO 01/07/25 10:00 01/09/25 10:45 81 MG Atorvastatin Calcium 40 mg HS PO 01/06/25 22:00 01/08/25 21:12 40 MG Morphine Sulfate 1 mg Q6HP PRN IV 01/07/25 15:30 01/07/25 17:46 1 MG Citalopram Hydrobromide 10 mg DAILY PO 01/08/25 10:00 01/08/25 11:34 10 MG Metoprolol Succinate 25 mg BID PO 01/08/25 00:50 01/08/25 11:45 25 MG Benztropine Mesylate 1 mg DAILY PO 01/09/25 10:00 01/09/25 10:45 1 MG Diphenhydramine HCl 25 mg Q8H PO 01/08/25 12:15 01/09/25 05:08 25 MG Nicotine 1 patch DAILY TD 01/09/25 10:00 Levalbuterol HCl 0.625 mg Q6HR NEB 01/08/25 12:15 01/09/25 12:11 0.625 MG Diagnostic Test (Pha) 1 strip ACHS 01/08/25 17:00 01/09/25 11:13 1 STRIP Insulin Human Regular AC SC 01/08/25 17:00 01/08/25 17:43 12 UNITS Insulin Human Regular HS SC 01/08/25 22:00 01/08/25 21:33 3 UNITS Dextrose 50 ml UD PRN IV 01/08/25 14:00 Haloperidol Lactate 5 mg BID IM 01/08/25 22:00 01/09/25 10:44 5 MG Examination: GENERAL:Abnormal, HEENT:Abnormal, LUNGS:Abnormal, CVS:Abnormal, ABDOMEN:Abnormal laboratory and microbiology Laboratory Tests 01/09/25 05:40 Test 01/09/25 05:40 Range/Units Serum Glucose 72 #L 74-106 mg/dL Problem List/Assessment/Plan Problem List/Assessment/Plan cad HTN HL DM uncontrolled type 1 tobacco LHC shows multivessel cad options include cabg vs pci pt wishes to speak with primary cards team further regarding best option compliance is an issue for pt will sign off Plan discussed with: Patient Date of Service: Jan 09, 2025 Billing Provider: AMARILIS SMITH MD Common Visit Codes: NOT BILLABLE AMARILIS SMITH MD Jan 09, 2025 14:50
--- NOTE | 2025-01-09 14:54 | DVHOP2 ---
Operative Report Operative Report CARDIAC LOSS PREVENTION OFFICER PROCEDURE REPORT [place], [place] Date of Service: 01/09/25 Efficiency Miner: Amarilis Smith MD PROCEDURES PERFORMED: Coronary angiogram, left heart catheterization, conscious sedation administration and supervision, less than 15 minutes; fluoroscopy use and interpretation. PREOPERATIVE DIAGNOSES: ACS, abnormal stress POSTOP DIAGNOSIS: multivessel cad DESCRIPTION OF PROCEDURE: The patient or appropriate family signed informed consent understanding the risks, benefits and alternatives of the procedure, they wished to proceed. The patient was brought to the cardiac laborer cutting tool in n.p.o. state. The patient was prepped in a sterile fashion. Sedation was used per cardiac cath protocol. I administered 2 mL of 2% lidocaine to the right wrist. With an antegrade front wall puncture. I cannulated the right radial artery and placed a 6-[place] slender. Next, an intra-arterial spasmolytic was administered. Next, a - 6[place] catheter and and were used for coronary angiogram and LVEDP measurement and pressure pullback. At the completion of procedure, all guides and wires were removed, and there were no immediate complications. FINDINGS: RCA: Moderate vessel off the right sinus of Valsalva, there i40-50% mid vessel stenosis. rpda and rpl have mild ostial plaque. LEFT MAIN: Moderate size left main, it bifurcates into LAD and circumflex. no severe stenosis. CIRCUMFLEX: Moderate caliber vessel coming off the left main. prox CX is patent. mid CX has tandem 70-80% stenosis. OM3 is largest OM branch has a focal 90% soft plaque LAD: LAD is a moderate caliber vessel coming of the left main. prox LAD is patent. mid LAD has a tubular 70-80% stenosis, distal LAD has a 70% stenosis and apical LAD has 70% stenosis. LVEDP of 2 mmhg CONCLUSIONS: 1. consider LAD/CX/OM pci vs cabg AMARILIS SMITH MD Jan 09, 2025 14:54
--- NOTE | 2025-01-09 16:09 | DVHPNRES ---
Progress Note Date Seen: Jan 09, 2025 Resident Creating Document: SIENNA UMANZOR RESIDENT Medical Necessity Reason Pt with a Central, PICC or Fol: No Subjective Review of Systems Mr. Emery is a 34-year-old male patient with PMHx of juvenile diabetes mellitus 2, hypertension, hypothyroidism, HFmrEF, schizophrenia, NSTEMI 2 and COVID-19 2022, who presents to the ER with a chief complaint of generalized weakness and neuropathic pain along with URI symptoms for the past 3 days. He reports that he took his lidocaine patch following which he developed neuropathic pain bilateral lower and lower extremity. He denies previous history of neuropathic pain. Also reports runny nose/epistaxis. Says that his glucometer has been showing high for the past few days and has been using up to 60 units of insulin Lantus at a time, which could not control his blood glucose. Associated symptoms include dizziness. Patient is A&O x3. Patient smokes cigarettes and cannabis. Last 10/2023 shows EF 45%. PCP: Dr. Stratton. Patient denies chest pain/shortness of breaths/palpitations/diaphoresis. EKGs unremarkable. Home medications: Ziprasidone 60 mg, bupropion, valproate, topiramate, citalopram, lisinopril, tamsulosin, atorvastatin, atorvastatin, metoprolol, montelukast, levothyroxine, omeprazole Social history, lives with mother, smokes marijuana 01/05-Patient seen and examined at the bedside. Lyrica started 25 mg b.i.d.. Pending cardiology consult, echocardiogram pending. 01/06-patient seen and examined at the bedside. Underwent TTE which revealed EF 40% with anterior apical and mid anterior septal hypokinesis of [id number] degree. Cardiolite stress test performed, results indicate inferior wall ischemia. Patient is scheduled for coronary angiogram with cardiac catheterization tentatively for 01/09/2025. Cardiology started GDMT. 01/08 - patient seen and examined at the bedside with Dr Londono over the phone for telepsyv. Discontinued Ativan, topiramate, Seroquel, hydroxyzine. Patient started on haloperidol 5 mg IV b.i.d., we will continue Celexa 10 mg daily given that escitalopram is not available. Continue metoprolol for anxiety and heart failure. Benadryl 25 mg Q 8 hours scheduled for next 2 days, then 25 mg p.o. daily. Nicotine patch and nebulized treatment started. Tablet benztropine 1 mg daily for questionable EPS Patient was counseled regarding the importance of smoking cessation, he is struggling with smoking cessation and recommendations at this time. 01/09 - patient underwent left heart catheterization, shows multivessel coronary artery disease. Options include CABG versus PCI per Cardiology. No acute distress. Objective vital signs Vital Sign Date Time Temp Pulse Resp B/P (MAP) Pulse Ox O2 Delivery O2 Flow Rate FiO2 01/09/25 12:16 77 16 100 01/09/25 12:11 Room Air 0.0 01/09/25 12:11 21 01/09/25 08:51 97.6 108/67 (81) 97.6 Total Intake and Output 01/08/25 01/08/25 01/09/25 15:00 23:00 07:00 Intake Total 500 ml 1150 ml 500 ml Balance 500 ml 1150 ml 500 ml medications Current Medications Medications Dose Ordered Sig/Munir Route Start Time Stop Time Status Last Admin Dose Admin Insulin Glargine 30 units HS SC 01/04/25 22:00 01/08/25 21:32 30 UNITS Divalproex Sodium 500 mg DAILY PO 01/05/25 10:00 01/09/25 10:45 500 MG Amoxicillin/ Clavulanate Potassium 875 mg Q12HR PO 01/05/25 02:00 01/09/25 10:45 875 MG Lisinopril 40 mg DAILY PO 01/05/25 03:00 Hold 01/07/25 09:42 40 MG Empaglifozin 10 mg DAILY PO 01/05/25 10:00 01/08/25 11:33 10 MG Acetaminophen 650 mg Q4HP PRN PO 01/05/25 03:30 01/08/25 14:43 650 MG Ondansetron HCl 4 mg Q4HPRN PRN IV 01/05/25 03:30 01/05/25 05:19 4 MG Enoxaparin Sodium 40 mg DAILY SC 01/05/25 10:00 01/08/25 11:32 40 MG Pregabalin 25 mg BID PO 01/05/25 11:00 01/09/25 10:45 25 MG Throat Lozenges 1 imelda Q2HP PRN MT 01/05/25 11:15 01/06/25 00:00 1 IMELDA Pantoprazole Sodium 40 mg DAILY IV 01/06/25 10:00 01/09/25 10:39 40 MG Tamsulosin HCl 0.4 mg QPM PO 01/05/25 18:00 01/08/25 17:30 0.4 MG Patient Own Medication 1 HS PO 01/05/25 22:00 01/08/25 21:26 1 Levothyroxine Sodium 25 mcg QAM PO 01/06/25 07:00 01/09/25 06:23 25 MCG Aspirin 81 mg DAILY PO 01/07/25 10:00 01/09/25 10:45 81 MG Atorvastatin Calcium 40 mg HS PO 01/06/25 22:00 01/08/25 21:12 40 MG Morphine Sulfate 1 mg Q6HP PRN IV 01/07/25 15:30 01/07/25 17:46 1 MG Citalopram Hydrobromide 10 mg DAILY PO 01/08/25 10:00 01/08/25 11:34 10 MG Metoprolol Succinate 25 mg BID PO 01/08/25 00:50 01/08/25 11:45 25 MG Benztropine Mesylate 1 mg DAILY PO 01/09/25 10:00 01/09/25 10:45 1 MG Diphenhydramine HCl 25 mg Q8H PO 01/08/25 12:15 01/09/25 05:08 25 MG Nicotine 1 patch DAILY TD 01/09/25 10:00 Levalbuterol HCl 0.625 mg Q6HR NEB 01/08/25 12:15 01/09/25 12:11 0.625 MG Diagnostic Test (Pha) 1 strip ACHS 01/08/25 17:00 01/09/25 11:13 1 STRIP Insulin Human Regular AC SC 01/08/25 17:00 01/08/25 17:43 12 UNITS Insulin Human Regular HS SC 01/08/25 22:00 01/08/25 21:33 3 UNITS Dextrose 50 ml UD PRN IV 01/08/25 14:00 Haloperidol Lactate 5 mg BID IM 01/08/25 22:00 01/09/25 10:44 5 MG Examination Patient lying in bed comfortably General: thin, afebrile, palor, mucosae are moist Cardiovascular: Regular S1 and S2. No murmurs, gallops or rubs. No JVD elevation. No pedal edema Respiratory: Normal B/L air entry on room air. Clear lung sounds on auscultation Abdomen: Soft, nontender, nondistended, normoactive bowel sounds, no rebound tenderness, no organomegaly, no masses Genitourinary: Deferred MSK/skin: Mobilizes 4 limbs. Skin is dry and warm Neurological: No motor, no sensitive deficits, normal speech. Pupils are isocoric and reactive. Unremarkable neurological exam. Psych/Mental Status: A/Ox3 laboratory and microbiology Laboratory Tests 01/09/25 05:40 Test 01/09/25 05:40 Range/Units Serum Glucose 72 #L 74-106 mg/dL Labs and/or images reviewed: Labs reviewed by me, Image(s) reviewed by me Problem List/Assessment/Plan Problem List/Assessment/Plan 01/08-tele psych Dr. Londono: Discontinued Ativan, topiramate, Seroquel, hydroxyzine. Patient started on haloperidol 5 mg IV b.i.d., we will continue Celexa 10 mg daily given that escitalopram is not available. Continue metoprolol for anxiety and heart failure. Benadryl 25 mg Q 8 hours scheduled for next 2 days, then 25 mg p.o. daily. Nicotine patch and nebulized treatment started. Tablet benztropine 1 mg daily for questionable EPS Patient was counseled regarding the importance of smoking cessation, he is struggling with smoking cessation and recommendations at this time. HFmrEF- last echo 10/31 45% NSTEMI Hypertension Multivessel coronary artery disease EKG unremarkable, troponin unremarkable, BNP WNL school lunch monitor Cardiology consulted, Underwent TTE which revealed EF 40% with anterior apical and mid anterior septal hypokinesis of [id number] degree. Cardiolite stress test performed, results indicate inferior wall ischemia. 01/09-Underwent left heart catheterization, shows multivessel coronary artery disease. Cardiology recommended CABG versus PCI. Continue home medication lisinopril 40 mg, metoprolol 25 mg b.i.d. Continue aspirin 81 and atorvastatin 40 mg daily Uncontrolled juvenile diabetes mellitus type 2-A1c 13 Diabetic neuropathic pain Continue home medication Lantus 30 units daily On aggressive ISS Patient's is on sliding scale at home Started Lyrica 25 mg b.i.d. Diabetic education provided Acute sinusitis Continue Amoxil clavulanate daily Hyponatremia - psychogenic causes versus medication induced Monitor ADHD combined type Bipolar disorder-unspecified Possible EPS Continue haloperidol 5 mg IV b.i.d., Celexa 10 mg daily given that his citalopram is not available Continue benztropine 1 mg daily Continue Benadryl 25 mg Q 8 hourly for the next 2 days followed by 25 mg p.o. daily Cannabis and nicotine dependence Counseled regarding cessation for more than 22 minutes Nicotine patch started Hypertriglyceridemia Monitor Lovenox 40 mg sc daily Cardiac diet. Plan discussed with patient in which all questions have been answered Goals of care discussed with patient for more than 28 minutes, full code status Case discussed with Dr. Coleman Plan discussed with: Patient Date of Service: Jan 09, 2025 Billing Provider: ADARI GUEVARA MD Common Visit Codes: [id number] INP/OBS CARE(HIGH) SIENNA UMANZOR RESIDENT Jan 09, 2025 16:09 ADAIR GUEVARA MD Jan 16, 2025 01:55
[2025-01-10] VITALS (8 sets, daily range): BP systolic 98–145; BP diastolic 56–89; PULSE 81–118; RESP 16–20; TEMP 97.9–98.4; O2SAT 95–99
[2025-01-10] MEDS: HALOPERIDOL LACTATE 5 MG/ML INJ VIAL IV ONE (00:10)
[2025-01-10] MEDS: QUEtiapine FUMARATE 25 MG TAB PO ONE (01:45)
[2025-01-10] MEDS: clonazePAM 0.5 MG TAB PO ONE (01:45)
[2025-01-10 07:02] LABS: Anion Gap 10 (5-15); Calcium 9.8 mg/dL (8.7-10.4); Carbon Dioxide 24 mmol/L (20-31); Chloride 106 mmol/L (98-107); Potassium 4.2 mmol/L (3.5-5.1); Sodium 140 mmol/L (136-145)
[2025-01-10 07:05] LABS: Basophils # (auto) 0 10 ^3/uL (0-0.2); Basophils % (auto) 0.9 % (0.0-2.0); Eosinophils # (auto) 0.1 10 ^3/uL (0-0.8); Eosinophils % (auto) 1.5 % (0.0-7.0); Hematocrit 40.5 % (41.0-53.0); Hemoglobin 14.2 g/dL (13.5-17.5); Lymphocytes % (auto) 37.4 % (10.0-50.0); Mean Corpuscular Hemoglobin 33.3 pg (28.0-32.0); Mean Corpuscular Volume 95.1 fL (80.0-100.0); Monocytes # (auto) 0.4 10 ^3/uL (0-1.3); Monocytes % (auto) 8.1 % (0.0-12.0); Neutrophils # (auto) 2.8 10 ^3/uL (1.6-8.6); Neutrophils % (auto) 52.1 % (37.0-80.0); Nucleated Red Blood Cells % 0.1 %; Platelet Count (auto) 361 10^3/uL (140-450); Red Blood Cells 4.25 10^6/uL (4.5-5.90); Red Cell Distribution Width 13.6 % (11.8-14.3); White Blood Cell 5.4 10^3/uL (4.4-10.8)
[2025-01-10 07:08] LABS: BUN/Creatinine Ratio 17.3 (10.0-20.0); Blood Urea Nitrogen 14 mg/dL (9-23)
[2025-01-10 07:09] LABS: Magnesium 2.3 mg/dL (1.6-2.6)
[2025-01-10 07:18] LABS: Glucose 109 mg/dL (74-106)
[2025-01-10] MEDS ORDERED: THROAT LOZENGES(CEPASTAT) MT PRN (10:00)
--- NOTE | 2025-01-10 10:02 | DVHPN2 ---
Consult Progress Note Date Seen: Jan 10, 2025 Subjective Review of Systems: CVS:Normal, RESPIRATORY:Normal, NEURO:Normal Objective vital signs Vital Sign Date Time Temp Pulse Resp B/P (MAP) Pulse Ox O2 Delivery O2 Flow Rate FiO2 01/10/25 08:47 98.4 83 19 98/56 (70) 95 98.4 01/09/25 23:22 Room Air* 0 21 Total Intake and Output 01/09/25 01/09/25 01/10/25 15:00 23:00 07:00 Intake Total 300 ml 400 ml Balance 300 ml 400 ml medications Current Medications Medications Dose Ordered Sig/Munir Route Start Time Stop Time Status Last Admin Dose Admin Insulin Glargine 30 units HS SC 01/04/25 22:00 01/09/25 22:26 30 UNITS Divalproex Sodium 500 mg DAILY PO 01/05/25 10:00 01/09/25 10:45 500 MG Amoxicillin/ Clavulanate Potassium 875 mg Q12HR PO 01/05/25 02:00 01/09/25 22:13 875 MG Lisinopril 40 mg DAILY PO 01/05/25 03:00 Hold 01/07/25 09:42 40 MG Empaglifozin 10 mg DAILY PO 01/05/25 10:00 01/08/25 11:33 10 MG Acetaminophen 650 mg Q4HP PRN PO 01/05/25 03:30 01/08/25 14:43 650 MG Ondansetron HCl 4 mg Q4HPRN PRN IV 01/05/25 03:30 01/05/25 05:19 4 MG Enoxaparin Sodium 40 mg DAILY SC 01/05/25 10:00 01/08/25 11:32 40 MG Pregabalin 25 mg BID PO 01/05/25 11:00 01/09/25 21:53 25 MG Throat Lozenges 1 imelda Q2HP PRN MT 01/05/25 11:15 01/06/25 00:00 1 IMELDA Pantoprazole Sodium 40 mg DAILY IV 01/06/25 10:00 01/09/25 10:39 40 MG Tamsulosin HCl 0.4 mg QPM PO 01/05/25 18:00 01/09/25 18:12 0.4 MG Patient Own Medication 1 HS PO 01/05/25 22:00 01/09/25 21:53 1 Levothyroxine Sodium 25 mcg QAM PO 01/06/25 07:00 01/10/25 06:46 25 MCG Aspirin 81 mg DAILY PO 01/07/25 10:00 01/09/25 10:45 81 MG Atorvastatin Calcium 40 mg HS PO 01/06/25 22:00 01/09/25 21:53 40 MG Morphine Sulfate 1 mg Q6HP PRN IV 01/07/25 15:30 01/07/25 17:46 1 MG Citalopram Hydrobromide 10 mg DAILY PO 01/08/25 10:00 01/08/25 11:34 10 MG Metoprolol Succinate 25 mg BID PO 01/08/25 00:50 01/09/25 22:12 25 MG Benztropine Mesylate 1 mg DAILY PO 01/09/25 10:00 01/09/25 10:45 1 MG Diphenhydramine HCl 25 mg Q8H PO 01/08/25 12:15 01/10/25 05:23 25 MG Nicotine 1 patch DAILY TD 01/09/25 10:00 Levalbuterol HCl 0.625 mg Q6HR NEB 01/08/25 12:15 01/09/25 23:22 0.625 MG Diagnostic Test (Pha) 1 strip ACHS 01/08/25 17:00 01/10/25 06:46 1 STRIP Insulin Human Regular AC SC 01/08/25 17:00 01/08/25 17:43 12 UNITS Insulin Human Regular HS SC 01/08/25 22:00 01/09/25 22:27 6 UNITS Dextrose 50 ml UD PRN IV 01/08/25 14:00 Haloperidol Lactate 5 mg BID IM 01/08/25 22:00 01/09/25 21:52 5 MG Examination: GENERAL:Abnormal (Anxious), LUNGS:Normal, CVS:Normal, NEURO:Normal laboratory and microbiology Laboratory Tests 01/10/25 06:03 Test 01/10/25 06:03 Range/Units Serum Glucose 109 H 74-106 mg/dL Problem List/Assessment/Plan Problem List/Assessment/Plan Non-ST elevation myocardial infarction Severe multivessel coronary artery disease Chronic compensated HFmrEF, 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 Lamas) Transthoracic echocardiogram revealed EF 40% with anterior apical and mid anterior septal hypokinesis of mejg-he-[id number] degree. Cardiolite stress test revealed inferoseptal wall ischemia. Coronary angiogram with cardiac catheterization revealed multivessel disease involving the LCx, OM, and LAD. He will be referred to [facility] for CABG. In the meantime, continue GDMT for CHF and uptitrate as tolerated. Continue single-antiplatelet therapy (hold Plavix) and lipid-lowering agent. Thank you for allowing us to care for this patient. Please call with any questions or concerns. This medical document was created using an electronic medical record system with voice recognition software and computerized dictation system. Although this document has been carefully reviewed, there might still be some phonetic and typographical errors. Occasional wrong-word or ``sound-alike substitutions may have occurred due to the inherent limitations of voice recognition software. These areas are purely typographical due to imperfections of the software programs and do not reflect any compromise in the patient's medical care. Please read the chart carefully and recognize, using context, where these substitutions have occurred. Plan discussed with: Patient, Other Date of Service: Jan 10, 2025 Billing Provider: VLAD PRAETR Cardiology Common Codes: [id number] [facility](High VLAD PRATER Jan 10, 2025 10:02
[2025-01-10] MEDS: SACUBITRIL-VALSARTAN 24mg/26mg TAB PO SCH (11:00)
--- NOTE | 2025-01-10 13:28 | DVHPNRES ---
Progress Note Date Seen: Jan 10, 2025 Resident Creating Document: SIENNA UMANZOR RESIDENT Medical Necessity Reason Pt with a Central, PICC or Fol: No Subjective Review of Systems Mr. Emery is a 34-year-old male patient with PMHx of juvenile diabetes mellitus 2, hypertension, hypothyroidism, HFmrEF, schizophrenia, NSTEMI 2 and COVID-19 2022, who presents to the ER with a chief complaint of generalized weakness and neuropathic pain along with URI symptoms for the past 3 days. He reports that he took his lidocaine patch following which he developed neuropathic pain bilateral lower and lower extremity. He denies previous history of neuropathic pain. Also reports runny nose/epistaxis. Says that his glucometer has been showing high for the past few days and has been using up to 60 units of insulin Lantus at a time, which could not control his blood glucose. Associated symptoms include dizziness. Patient is A&O x3. Patient smokes cigarettes and cannabis. Last 10/2023 shows EF 45%. PCP: Dr. Stratton. Patient denies chest pain/shortness of breaths/palpitations/diaphoresis. EKGs unremarkable. Home medications: Ziprasidone 60 mg, bupropion, valproate, topiramate, citalopram, lisinopril, tamsulosin, atorvastatin, atorvastatin, metoprolol, montelukast, levothyroxine, omeprazole Social history, lives with mother, smokes marijuana 01/05-Patient seen and examined at the bedside. Lyrica started 25 mg b.i.d.. Pending cardiology consult, echocardiogram pending. 01/06-patient seen and examined at the bedside. Underwent TTE which revealed EF 40% with anterior apical and mid anterior septal hypokinesis of [id number] degree. Cardiolite stress test performed, results indicate inferior wall ischemia. Patient is scheduled for coronary angiogram with cardiac catheterization tentatively for 01/09/2025. Cardiology started GDMT. 01/08 - patient seen and examined at the bedside with Dr Londono over the phone for telepsyv. Discontinued Ativan, topiramate, Seroquel, hydroxyzine. Patient started on haloperidol 5 mg IV b.i.d., we will continue Celexa 10 mg daily given that escitalopram is not available. Continue metoprolol for anxiety and heart failure. Benadryl 25 mg Q 8 hours scheduled for next 2 days, then 25 mg p.o. daily. Nicotine patch and nebulized treatment started. Tablet benztropine 1 mg daily for questionable EPS Patient was counseled regarding the importance of smoking cessation, he is struggling with smoking cessation and recommendations at this time. 01/09 - patient underwent left heart catheterization, shows multivessel coronary artery disease. Options include CABG versus PCI per Cardiology. No acute distress. 01/10-social worker health services consulted for higher level of care for CABG. No acute distress. Objective vital signs Vital Sign Date Time Temp Pulse Resp B/P (MAP) Pulse Ox O2 Delivery O2 Flow Rate FiO2 01/10/25 12:38 98.4 81 19 145/89 (107) 98 98.4 01/10/25 08:00 Room Air* 0 21 Total Intake and Output 01/09/25 01/09/25 01/10/25 15:00 23:00 07:00 Intake Total 300 ml 400 ml Balance 300 ml 400 ml medications Current Medications Medications Dose Ordered Sig/Munir Route Start Time Stop Time Status Last Admin Dose Admin Insulin Glargine 30 units HS SC 01/04/25 22:00 01/09/25 22:26 30 UNITS Divalproex Sodium 500 mg DAILY PO 01/05/25 10:00 01/10/25 11:02 500 MG Amoxicillin/ Clavulanate Potassium 875 mg Q12HR PO 01/05/25 02:00 01/10/25 12:18 875 MG Empaglifozin 10 mg DAILY PO 01/05/25 10:00 01/10/25 11:03 10 MG Acetaminophen 650 mg Q4HP PRN PO 01/05/25 03:30 01/08/25 14:43 650 MG Ondansetron HCl 4 mg Q4HPRN PRN IV 01/05/25 03:30 01/05/25 05:19 4 MG Enoxaparin Sodium 40 mg DAILY SC 01/05/25 10:00 01/10/25 11:05 40 MG Pregabalin 25 mg BID PO 01/05/25 11:00 01/10/25 11:01 25 MG Pantoprazole Sodium 40 mg DAILY IV 01/06/25 10:00 01/10/25 11:05 40 MG Tamsulosin HCl 0.4 mg QPM PO 01/05/25 18:00 01/09/25 18:12 0.4 MG Patient Own Medication 1 HS PO 01/05/25 22:00 01/09/25 21:53 1 Levothyroxine Sodium 25 mcg QAM PO 01/06/25 07:00 01/10/25 06:46 25 MCG Aspirin 81 mg DAILY PO 01/07/25 10:00 01/10/25 10:57 81 MG Atorvastatin Calcium 40 mg HS PO 01/06/25 22:00 01/09/25 21:53 40 MG Morphine Sulfate 1 mg Q6HP PRN IV 01/07/25 15:30 01/07/25 17:46 1 MG Citalopram Hydrobromide 10 mg DAILY PO 01/08/25 10:00 01/10/25 11:03 10 MG Metoprolol Succinate 25 mg BID PO 01/08/25 00:50 01/09/25 22:12 25 MG Benztropine Mesylate 1 mg DAILY PO 01/09/25 10:00 01/10/25 11:00 1 MG Diphenhydramine HCl 25 mg Q8H PO 01/08/25 12:15 01/10/25 12:18 25 MG Nicotine 1 patch DAILY TD 01/09/25 10:00 Levalbuterol HCl 0.625 mg Q6HR NEB 01/08/25 12:15 01/09/25 23:22 0.625 MG Diagnostic Test (Pha) 1 strip ACHS 01/08/25 17:00 01/10/25 12:19 1 STRIP Insulin Human Regular AC SC 01/08/25 17:00 01/10/25 12:23 12 UNITS Insulin Human Regular HS SC 01/08/25 22:00 01/09/25 22:27 6 UNITS Dextrose 50 ml UD PRN IV 01/08/25 14:00 Haloperidol Lactate 5 mg BID IM 01/08/25 22:00 01/10/25 11:06 5 MG Sacubitril/ Valsartan 0.5 tab BID PO 01/10/25 10:00 01/10/25 11:00 0.5 TAB Throat Lozenges 1 nathaly Q2HP PRN MT 01/10/25 10:00 Examination Patient lying in bed comfortably General: thin, afebrile, palor, mucosae are moist Cardiovascular: Regular S1 and S2. No murmurs, gallops or rubs. No JVD elevation. No pedal edema Respiratory: Normal B/L air entry on room air. Clear lung sounds on auscultation Abdomen: Soft, nontender, nondistended, normoactive bowel sounds, no rebound tenderness, no organomegaly, no masses Genitourinary: Deferred MSK/skin: Mobilizes 4 limbs. Skin is dry and warm Neurological: No motor, no sensitive deficits, normal speech. Pupils are isocoric and reactive. Unremarkable neurological exam. Psych/Mental Status: A/Ox3 laboratory and microbiology Laboratory Tests 01/10/25 06:03 Test 01/10/25 06:03 Range/Units Serum Glucose 109 H 74-106 mg/dL Labs and/or images reviewed: Labs reviewed by me, Image(s) reviewed by me Problem List/Assessment/Plan Problem List/Assessment/Plan 01/08-tele psych Dr. Londono: Discontinued Ativan, topiramate, Seroquel, hydroxyzine. Patient started on haloperidol 5 mg IV b.i.d., we will continue Celexa 10 mg daily given that escitalopram is not available. Continue metoprolol for anxiety and heart failure. Benadryl 25 mg Q 8 hours scheduled for next 2 days, then 25 mg p.o. daily. Nicotine patch and nebulized treatment started. Tablet benztropine 1 mg daily for questionable EPS Patient was counseled regarding the importance of smoking cessation, he is struggling with smoking cessation and recommendations at this time. HFmrEF- last echo 10/31 45% NSTEMI Hypertension Multivessel coronary artery disease EKG unremarkable, troponin unremarkable, BNP WNL potline monitor Cardiology consulted, Underwent TTE which revealed EF 40% with anterior apical and mid anterior septal hypokinesis of [id number] degree. Cardiolite stress test performed, results indicate inferior wall ischemia. 01/09-Underwent left heart catheterization, shows multivessel coronary artery disease. Cardiology recommended CABG versus PCI. Patient will be transferred to [facility] for CABG. Continue home medication lisinopril 40 mg, metoprolol 25 mg b.i.d. Continue aspirin 81 and atorvastatin 40 mg daily Uncontrolled juvenile diabetes mellitus type 2-A1c 13 Diabetic neuropathic pain Continue home medication Lantus 30 units daily On aggressive ISS Patient's is on sliding scale at home Started Lyrica 25 mg b.i.d. Diabetic education provided Acute sinusitis Continue Amoxil clavulanate daily Hyponatremia - psychogenic causes versus medication induced Monitor ADHD combined type Bipolar disorder-unspecified Possible EPS Continue haloperidol 5 mg IV b.i.d., Celexa 10 mg daily given that his citalopram is not available Continue benztropine 1 mg daily Continue Benadryl 25 mg Q 8 hourly for the next 2 days followed by 25 mg p.o. daily Cannabis and nicotine dependence Counseled regarding cessation for more than 22 minutes Nicotine patch started Hypertriglyceridemia Monitor Lovenox 40 mg sc daily Cardiac diet. visitor services technician consulted for transferring to higher level of care for CABG Plan discussed with patient in which all questions have been answered Goals of care discussed with patient for more than 28 minutes, full code status Case discussed with Dr. Coleman Plan discussed with: Patient Date of Service: Jan 10, 2025 Billing Provider: ADAIR GUEVARA MD Common Visit Codes: [id number] INP/OBS CARE(HIGH) SIENNA UMANZOR RESIDENT Jan 10, 2025 13:28 ADAIR GUEVARA MD Jan 16, 2025 01:56
--- NOTE | 2025-01-10 13:36 | DVHDSRES ---
Discharge Summary Date of Admission Resident Creating Document: SIENNA UMANZOR RESIDENT Jan 04, 2025 at 21:24 Date of Discharge: Jan 11, 2025 Labs/Diagnostic Data: Laboratory Results Test 01/10/25 11:25 01/10/25 06:03 01/09/25 05:40 01/06/25 04:58 POC Glucose 317 mg/dl (70-106) White Blood Count 5.4 10^3/uL (4.4-10.8) Red Blood Count 4.25 10^6/uL (4.5-5.90) Hemoglobin 14.2 g/dL (13.5-17.5) Hematocrit 40.5 % (41.0-53.0) Mean Corpuscular Volume 95.1 fL (80.0-100.0) Mean Corpuscular Hemoglobin 33.3 pg (28.0-32.0) Mean Corpuscular Hemoglobin Concent 35.0 g/dL (32.0-36.0) Red Cell Distribution Width 13.6 % (11.8-14.3) Platelet Count 361 10^3/uL (140-450) Mean Platelet Volume 7.0 fL (6.9-10.8) Neutrophils (%) (Auto) 52.1 % (37.0-80.0) Lymphocytes (%) (Auto) 37.4 % (10.0-50.0) Monocytes (%) (Auto) 8.1 % (0.0-12.0) Eosinophils (%) (Auto) 1.5 % (0.0-7.0) Basophils (%) (Auto) 0.9 % (0.0-2.0) Neutrophils # (Auto) 2.8 10 ^3/uL (1.6-8.6) Lymphocytes # (Auto) 2.0 10 ^3/uL (0.4-5.4) Monocytes # (Auto) 0.4 10 ^3/uL (0-1.3) Eosinophils # (Auto) 0.1 10 ^3/uL (0-0.8) Basophils # (Auto) 0 10 ^3/uL (0-0.2) Nucleated Red Blood Cells 0.1 % Sodium Level 140 mmol/L (136-145) Potassium Level 4.2 mmol/L (3.5-5.1) Chloride Level 106 mmol/L (98-107) Carbon Dioxide Level 24 mmol/L (20-31) Anion Gap 10 (5-15) Blood Urea Nitrogen 14 mg/dL (9-23) Creatinine 0.81 mg/dL (0.700-1.30) Glomerular Filtration Rate Calc 118 mL/min (>90) BUN/Creatinine Ratio 17.3 (10.0-20.0) Serum Glucose 109 mg/dL (74-106) Calcium Level 9.8 mg/dL (8.7-10.4) Magnesium Level 2.3 mg/dL (1.6-2.6) Prothrombin Time 10.3 sec (9.3-11.8) Prothrombin Time INR 0.97 (0.9-1.15) Activated Partial Thromboplast Time 27.1 SEC (24.5-34.5) Total Bilirubin 0.3 mg/dL (0.2-1.0) Aspartate Amino Transferase (AST) 9 U/L (13-40) Alanine Aminotransferase (ALT) 13 U/L (7-40) Alkaline Phosphatase 108 U/L (46-116) Total Protein 7.0 g/dL (5.7-8.2) Albumin 4.5 g/dL (3.2-4.8) Test 01/05/25 04:58 01/05/25 01:31 01/04/25 21:54 01/04/25 20:30 Hemoglobin A1c 13.1 % A1C (<5.7) Troponin I High Sensitivity 437 ng/L (</=54) Triglycerides Level 286 mg/dL (< 150) Cholesterol Level 147 mg/dL (< 200) LDL Cholesterol 77 mg/dL (< 100) HDL Cholesterol 26 mg/dL (40-59) Thyroid Stimulating Hormone (TSH) 2.67 uIU/mL (0.55-4.78) Plasma/Serum Blood Alcohol < 3.0 mg/dL (<10) Erythrocyte Sedimentation Rate 23 mm/hr (0-20) C-Reactive Protein High Sensitivity 1.01 mg/dL (<1.0) Influenza Type A Antigen Negative (Negative) Influenza Type B Antigen Negative (Negative) SARS-CoV-2 Antigen (Rapid) Negative (NEGATIVE) Test 01/04/25 19:15 01/04/25 18:58 01/04/25 18:56 Urine Color Colorless (Yellow) Urine Clarity Clear (Clear) Urine pH 7.5 (5.0-9.0) Urine Specific [place] 1.017 (1.001-1.035) Urine Protein Negative (Negative) Urine Ketones 1+ (Negative) Urine Blood Negative /uL (Negative) Urine Nitrite Negative (Negative) Urine Bilirubin Negative (Negative) Urine Urobilinogen Normal mg/dL (Negative) Urine Leukocyte Esterase Negative /uL (Negative) Urine RBC 1 /hpf (0 - 3) Urine Microscopic WBC 1 /HPF (0-3) Urine Squamous Epithelial Cells None seen /hpf (<5) Urine Bacteria None seen /hpf (None Seen) Urine Glucose 4+ mg/dL (Normal) Urine Opiates Screen Neg (NEGATIVE) Urine Fentanyl Screen Neg (NEGATIVE) Urine Barbiturates Screen Neg (NEGATIVE) Urine Phencyclidine Screen Neg (NEGATIVE) Urine Amphetamines Screen Neg (NEGATIVE) Urine Benzodiazepines Screen Neg (NEGATIVE) Urine Cocaine Screen Neg (NEGATIVE) Urine Cannabinoids Screen Neg (NEGATIVE) Lactic Acid Level 1.7 mmol/L (0.4-2.0) B-Type Natriuretic Peptide 22.30 pg/mL (0-100) Beta-Hydroxybutyric Acid 2.666 mmol/L (< 0.4) Blood Gas Specimen Type Venous Blood Gas Sample Site Vbg - n/a Blood Gas Patient Temperature 37.0 Arterial Blood Date Drawn [id number] [place] Test N/a Venous Blood pH 7.469 (7.320-7.430) Venous Blood pCO2 at Patient Temp 33.5 mmHg (38.0-54.0) Venous Blood pO2 at Patient Temp < 36.5 mmHg (23.0-48.0) Venous Blood HCO3 23.8 mmol/L (22.0-29.0) Venous Blood Base Excess 0.8 mmol/L (-2.0-3.0) Blood Gas Modality Room air FiO2 % 21.0 Other Laboratory Tests 01/10/25 06:03 Brief Hx & Hospital Course: Mr. Emery is a 34-year-old male patient with PMHx of juvenile diabetes mellitus 2, hypertension, hypothyroidism, HFmrEF, schizophrenia, NSTEMI 2 and COVID-19 2022, who presents to the ER with a chief complaint of generalized weakness and neuropathic pain along with URI symptoms for the past 3 days. He reports that he took his lidocaine patch following which he developed neuropathic pain bilateral lower and lower extremity. He denies previous history of neuropathic pain. Also reports runny nose/epistaxis. Says that his glucometer has been showing high for the past few days and has been using up to 60 units of insulin Lantus at a time, which could not control his blood glucose. Associated symptoms include dizziness. Patient is A&O x3. Patient smokes cigarettes and cannabis. Last 10/2023 shows EF 45%. PCP: Dr. Stratton. Patient denies chest pain/shortness of breaths/palpitations/diaphoresis. EKGs unremarkable. Home medications: Ziprasidone 60 mg, bupropion, valproate, topiramate, citalopram, lisinopril, tamsulosin, atorvastatin, atorvastatin, metoprolol, montelukast, levothyroxine, omeprazole Social history, lives with mother, smokes marijuana During the hospitalization, EKG unremarkable, troponin unremarkable, BNP WNL, cardiology was consulted patient underwent TTE which revealed EF 40% with anterior apical and mid anterior septal hypokinesis of [id number] degree. Cardiolite stress test performed, results indicate inferior wall ischemia. Conceivably was scheduled for left heart catheterization on 01/09/2025 showed multivessel CAD. Cardiology recommended CABG versus PCI. Patient up to for CABG at this time, therefore social work lecturer are consulted for higher level of care for CABG. Patient was started on aspirin 81 and atorvastatin 40 mg daily. Given the psych comorbidities, tele psych was consulted on 01/08-tele psych Dr. Londono Discontinued Ativan, topiramate, Seroquel, hydroxyzine. Patient started on haloperidol 5 mg IV b.i.d., we will continue Celexa 10 mg daily given that escitalopram is not available. Continue metoprolol for anxiety and heart failure. Benadryl 25 mg Q 8 hours scheduled for next 2 days, then 25 mg p.o. daily. Nicotine patch and nebulized treatment started. Tablet benztropine 1 mg daily for questionable EPS Patient was counseled regarding the importance of smoking cessation, he is struggling with smoking cessation and recommendations at this time. He was prescribed nicotine patch and breathing treatments and Benadryl, all of which he refused and said that did not help with the feeling get from smoking. Patient was placed on aggressive ISS and home medication Lantus 30 units daily for adequate glucose control. We started Lyrica 25 mg twice daily. Diabetic education was provided. He also received amoxicillin for sinusitis. 01/10/2025-patient is hemodynamically/clinically stable, on room air awaiting transfer to higher level of care for CABG. Discharge diagnosis: Chest pain secondary to Multivessel coronary artery disease HFmrEF- last echo 10/31 45% NSTEMI Hypertension Uncontrolled juvenile diabetes mellitus type 2-A1c 13 Diabetic neuropathic pain Acute sinusitis Hyponatremia - psychogenic causes versus medication induced ADHD combined type Bipolar disorder-unspecified Possible EPS Cannabis and nicotine dependence Hypertriglyceridemia Consults/Reason for consult Cardiology consulted for chest pain Operations or Procedures Operative Report Operative Report CARDIAC PHLEBOTOMY LAB ASSISTANT PROCEDURE REPORT [place], [place] Date of Service: 01/09/25 Licensed Life And Health Agent: Elie Smith MD PROCEDURES PERFORMED: Coronary angiogram, left heart catheterization, conscious sedation administration and supervision, less than 15 minutes; fluoroscopy use and interpretation. PREOPERATIVE DIAGNOSES: ACS, abnormal stress POSTOP DIAGNOSIS: multivessel cad DESCRIPTION OF PROCEDURE: The patient or appropriate family signed informed consent understanding the risks, benefits and alternatives of the procedure, they wished to proceed. The patient was brought to the cardiac nursery laborer in n.p.o. state. The patient was prepped in a sterile fashion. Sedation was used per cardiac cath protocol. I administered 2 mL of 2% lidocaine to the right wrist. With an antegrade front wall puncture. I cannulated the right radial artery and placed a 6-[place] Gl[place]heath slender. Next, an intra-arterial spasmolytic was administered. Next, a - 6French Toponas catheter and and were used for coronary angiogram and LVEDP measurement and pressure pullback. At the completion of procedure, all guides and wires were removed, and there were no immediate complications. FINDINGS: RCA: Moderate vessel off the right sinus of Valsalva, there i40-50% mid vessel stenosis. rpda and rpl have mild ostial plaque. LEFT MAIN: Moderate size left main, it bifurcates into LAD and circumflex. no severe stenosis. CIRCUMFLEX: Moderate caliber vessel coming off the left main. prox CX is patent. mid CX has tandem 70-80% stenosis. OM3 is largest OM branch has a focal 90% soft plaque LAD: LAD is a moderate caliber vessel coming of the left main. prox LAD is patent. mid LAD has a tubular 70-80% stenosis, distal LAD has a 70% stenosis and apical LAD has 70% stenosis. LVEDP of 2 mmhg CONCLUSIONS: 1. consider LAD/CX/OM pci vs cabg ELIE SMITH MD Jan 09, 2025 14:54 DICTATED BY:ELIE SMITH MD DICTATED DATE/TIME:01/09/251453 ELECTRONICALLY SIGNED BY:ELIE SMITH MD 01/09/25 145 ELECTRONICALLY CO-SIGNED BY: ORDERING PHYSICIAN: LAURENCE GALVIN PROCEDURE(s): CWMM - CARDIOLITE MULTIPLE REASON: NSTEMI ORDER NUMBER(s): [id number], ACCESSION NUMBER(s): [id number] APPROVED REPORT Exam: Nuclear Stress Test Indication: NSTEMI BMI: 0 Medical History Medical History: HTN, COPD, [place] Allergies: No known drug allergies Stress Test Details Stress Test: Pharmacologic stress testing performed using 0.4 mg of regadenoson per 5 mL given IV over 10 seconds. HR Resting HR: 125 bpm Max Heart Rate (APMHR): 185.664585 bpm Max HR Achieved: 136 bpm Target HR (85% APMHR): 157.729377 bpm % of APMHR: 73.51 Recovery HR: 125 bpm BP Resting BP: 111/54 mmHg Recovery BP: 104/59 mmHg ECG Resting ECG: Sinus Tachycardia Clinical Reason for Termination: Completed protocol Nurse Comments Recieved pt. from [employer]. A/Ox4 on RA. Connected to air sampling and monitoring, VS stable. PIV flushes well. Reviewed POC. Pt. verbalized understanding of procedure including risks and side effects, agrees for stress testing. Lexiscan stress test performed per protocol. [employer] tech administered Cardiolite. Pt. tolerated well. Pt. stable, no change on exam. VS returned to baseline. Transferred to [employer] via wheelchair w/ tech. Stress ECG Conclusion lvef 38% moderate LV dysfunction inferoseptal ischemia is noted ecg shows sinus tachy with LAD NM EXAM: Myocardial Perfusion REST/STRESS Imaging Protocol: Rest Tc-99m/Stress Tc-99m 1 day Resting Data Rest SPECT myocardial perfusion imaging was performed in supine position 60 minutes following the intravenous injection of 14.3 mCi of Tc-99m Sestamibi. Time of rest injection: 0735 Time of rest imagin Administration Route: IV Administration Site: Right Hand Pharmacologic Stress Pharmacologic stress test was performed by injecting Regadenoson 0.4 mg IV push followed by the intravenous injection of 32 mCi of Tc-99m Sestamibi. Time of stress injection: 0924 Time of stress imagin Administration Route: IV Administration Site: Right Hand Gated Stress SPECT was performed 60 minutes after stress injection. The images were gated to evaluate regional wall motion and calculate left ventricular ejection fraction. Stress only was performed in the Supine position. Nuclear Conclusion Nuclear Findings: positive for ischemia lvef 38% moderate LV dysfunction inferoseptal ischemia is noted ecg shows sinus tachy with LAD SIGNED BY: ELIE SMITH MD SIGNED DATE/TIME: 01/09/25 0806 CC: Condition at Discharge: Higher Level of Care Final Diagnosis/Problems List Chest pain secondary to Multivessel coronary artery disease HFmrEF- last echo 10/31 45% NSTEMI Hypertension Uncontrolled juvenile diabetes mellitus type 2-A1c 13 Diabetic neuropathic pain Acute sinusitis Hyponatremia - psychogenic causes versus medication induced ADHD combined type Bipolar disorder-unspecified Possible EPS Cannabis and nicotine dependence Hypertriglyceridemia Discharge Disposition: Acute Care Facility Discharge Instruct/Medications Activity: Light activity Follow Up/Referral: Follow up with the higher level of care Medications: Per EMR Discharge Statement: "Patient was advised to return to the ER or call 911 if any headaches, dizziness, shortness of breath, chest pain, abdominal pain, bleeding, fevers, or worsening of medical condition. Patient was counseled about treatment plan, medications, possible side effects, patientverbalized understanding. All questions were answered to the best of my ability. This discharge took greater then 30 minutes in planning, reviewing documentation, counseling the patient, and discussing with other team members." ASSESSMENT ASSESSMENT Assessment Date of Service: Jan 11, 2025 Billing Provider: ADAIR GUEVARA MD Common Visit Codes: 22897-BAZ/OBS DISCH DAY >30min SIENNA UMANZOR RESIDENT Jan 10, 2025 13:36 ADAIR GUEVARA MD Jan 16, 2025 02:32
[2025-01-10] MEDS: THROAT LOZENGES(CEPASTAT) MT ONE (14:24)
[2025-01-11] VITALS (7 sets, daily range): BP systolic 104–129; BP diastolic 61–80; PULSE 76–99; RESP 16–20; TEMP 97.4–97.9; O2SAT 94–100
--- NOTE | 2025-01-11 14:32 | DVHPN2 ---
Consult Progress Note Date Seen: Jan 11, 2025 Subjective Review of Systems: CVS:Normal, RESPIRATORY:Normal, NEURO:Normal Objective vital signs Vital Sign Date Time Temp Pulse Resp B/P (MAP) Pulse Ox O2 Delivery O2 Flow Rate FiO2 01/11/25 13:00 97.9 88 19 104/61 (75) 100 97.9 01/11/25 12:25 21 01/11/25 10:00 Room Air 01/11/25 10:00 0 Total Intake and Output 01/10/25 01/10/25 01/11/25 15:00 23:00 07:00 Intake Total 1040 ml 700 ml Balance 1040 ml 700 ml medications Current Medications Medications Dose Ordered Sig/Munir Route Start Time Stop Time Status Last Admin Dose Admin Insulin Glargine 30 units HS SC 01/04/25 22:00 01/10/25 21:52 30 UNITS Divalproex Sodium 500 mg DAILY PO 01/05/25 10:00 01/11/25 10:27 500 MG Amoxicillin/ Clavulanate Potassium 875 mg Q12HR PO 01/05/25 02:00 01/11/25 10:27 875 MG Empaglifozin 10 mg DAILY PO 01/05/25 10:00 01/11/25 10:27 10 MG Acetaminophen 650 mg Q4HP PRN PO 01/05/25 03:30 01/11/25 09:07 650 MG Ondansetron HCl 4 mg Q4HPRN PRN IV 01/05/25 03:30 01/05/25 05:19 4 MG Enoxaparin Sodium 40 mg DAILY SC 01/05/25 10:00 01/11/25 10:29 40 MG Pregabalin 25 mg BID PO 01/05/25 11:00 01/11/25 10:26 25 MG Pantoprazole Sodium 40 mg DAILY IV 01/06/25 10:00 01/11/25 10:25 40 MG Tamsulosin HCl 0.4 mg QPM PO 01/05/25 18:00 01/10/25 18:39 0.4 MG Patient Own Medication 1 HS PO 01/05/25 22:00 01/10/25 21:54 1 Levothyroxine Sodium 25 mcg QAM PO 01/06/25 07:00 01/10/25 06:46 25 MCG Aspirin 81 mg DAILY PO 01/07/25 10:00 3/5/25 10:27 81 MG Atorvastatin Calcium 40 mg HS PO 01/06/25 22:00 01/10/25 21:53 40 MG Morphine Sulfate 1 mg Q6HP PRN IV 01/07/25 15:30 01/11/25 11:58 1 MG Citalopram Hydrobromide 10 mg DAILY PO 01/08/25 10:00 01/11/25 10:27 10 MG Metoprolol Succinate 25 mg BID PO 01/08/25 00:50 01/11/25 10:28 25 MG Benztropine Mesylate 1 mg DAILY PO 01/09/25 10:00 01/11/25 10:26 1 MG Diphenhydramine HCl 25 mg Q8H PO 01/08/25 12:15 01/11/25 10:53 25 MG Nicotine 1 patch DAILY TD 01/09/25 10:00 01/11/25 10:30 1 PATCH Levalbuterol HCl 0.625 mg Q6HR NEB 01/08/25 12:15 01/09/25 23:22 0.625 MG Diagnostic Test (Pha) 1 strip ACHS 01/08/25 17:00 01/11/25 10:53 1 STRIP Insulin Human Regular AC SC 01/08/25 17:00 01/11/25 10:57 16 UNITS Insulin Human Regular HS SC 01/08/25 22:00 01/10/25 21:51 10 UNITS Dextrose 50 ml UD PRN IV 01/08/25 14:00 Haloperidol Lactate 5 mg BID IM 01/08/25 22:00 01/10/25 21:56 5 MG Sacubitril/ Valsartan 0.5 tab BID PO 01/10/25 10:00 01/11/25 10:26 0.5 TAB Throat Lozenges 1 nathaly Q2HP PRN MT 01/10/25 10:00 Examination: GENERAL:Abnormal (Anxious), LUNGS:Normal, CVS:Normal, NEURO:Normal laboratory and microbiology Laboratory Tests 01/10/25 06:03 Test 01/10/25 06:03 Range/Units Serum Glucose 109 H 74-106 mg/dL Problem List/Assessment/Plan Problem List/Assessment/Plan Non-ST elevation myocardial infarction Severe multivessel coronary artery disease Chronic compensated HFmrEF, NYHA class II Uncontrolled juvenile type 2 diabetes mellitus, Hgb A1c 13.1% Hypertension Hypertriglyceridemia Thyroid disease Bipolar Schizophrenia Nicotine dependance Plan/Recommendation (Dr. Lamas) Transthoracic echocardiogram revealed EF 40% with anterior apical and mid anterior septal hypokinesis of [id number] degree. Cardiolite stress test revealed inferoseptal wall ischemia. Coronary angiogram with cardiac catheterization revealed multivessel disease involving the LCx, OM, and LAD. Patient has been accepted to [facility], awaiting bed assignment at this time. In the meantime, continue GDMT for CHF and uptitrate as tolerated. Continue single-antiplatelet therapy (hold Plavix) and lipid-lowering agent. Strongly counseled on tobacco use cessation. We will sign off. Kindly call if in need to continue follow-up. Thank you for allowing us to care for this patient. This medical document was created using an electronic medical record system with voice recognition software and computerized dictation system. Although this document has been carefully reviewed, there might still be some phonetic and typographical errors. Occasional wrong-word or ``sound-alike substitutions may have occurred due to the inherent limitations of voice recognition software. These areas are purely typographical due to imperfections of the software programs and do not reflect any compromise in the patient's medical care. Please read the chart carefully and recognize, using context, where these substitutions have occurred. Plan discussed with: Patient, Other Date of Service: Jan 11, 2025 Billing Provider: VLAD PRATER Cardiology Common Codes: [id number] INP/OBS CARE(Mod) VLAD PRATER Jan 11, 2025 14:32
--- NOTE | 2025-01-11 14:52 | DVHPNRES ---
Progress Note Date Seen: Jan 11, 2025 Resident Creating Document: SIENNA UMANZOR RESIDENT Medical Necessity Reason Pt with a Central, PICC or Fol: No Subjective Review of Systems Mr. Emery is a 34-year-old male patient with PMHx of juvenile diabetes mellitus 2, hypertension, hypothyroidism, HFmrEF, schizophrenia, NSTEMI 2 and COVID-19 2022, who presents to the ER with a chief complaint of generalized weakness and neuropathic pain along with URI symptoms for the past 3 days. He reports that he took his lidocaine patch following which he developed neuropathic pain bilateral lower and lower extremity. He denies previous history of neuropathic pain. Also reports runny nose/epistaxis. Says that his glucometer has been showing high for the past few days and has been using up to 60 units of insulin Lantus at a time, which could not control his blood glucose. Associated symptoms include dizziness. Patient is A&O x3. Patient smokes cigarettes and cannabis. Last 10/2023 shows EF 45%. PCP: Dr. Stratton. Patient denies chest pain/shortness of breaths/palpitations/diaphoresis. EKGs unremarkable. Home medications: Ziprasidone 60 mg, bupropion, valproate, topiramate, citalopram, lisinopril, tamsulosin, atorvastatin, atorvastatin, metoprolol, montelukast, levothyroxine, omeprazole Social history, lives with mother, smokes marijuana 01/05-Patient seen and examined at the bedside. Lyrica started 25 mg b.i.d.. Pending cardiology consult, echocardiogram pending. 01/06-patient seen and examined at the bedside. Underwent TTE which revealed EF 40% with anterior apical and mid anterior septal hypokinesis of [id number] degree. Cardiolite stress test performed, results indicate inferior wall ischemia. Patient is scheduled for coronary angiogram with cardiac catheterization tentatively for 01/09/2025. Cardiology started GDMT. 01/08 - patient seen and examined at the bedside with Dr Londono over the phone for telepsyv. Discontinued Ativan, topiramate, Seroquel, hydroxyzine. Patient started on haloperidol 5 mg IV b.i.d., we will continue Celexa 10 mg daily given that escitalopram is not available. Continue metoprolol for anxiety and heart failure. Benadryl 25 mg Q 8 hours scheduled for next 2 days, then 25 mg p.o. daily. Nicotine patch and nebulized treatment started. Tablet benztropine 1 mg daily for questionable EPS Patient was counseled regarding the importance of smoking cessation, he is struggling with smoking cessation and recommendations at this time. 01/09 - patient underwent left heart catheterization, shows multivessel coronary artery disease. Options include CABG versus PCI per Cardiology. No acute distress. 01/10-social sciences lecturer consulted for higher level of care for CABG. No acute distress. 01/11 - patient seen and examined at the bedside. He reports taking doxepin 75 mg HS. Started doxepin 75 mg HS. Cardiology- Continue single-antiplatelet therapy (hold Plavix) and lipid-lowering agent. Strongly counseled on tobacco use cessation. We will sign off. Objective vital signs Vital Sign Date Time Temp Pulse Resp B/P (MAP) Pulse Ox O2 Delivery O2 Flow Rate FiO2 01/11/25 13:00 97.9 88 19 104/61 (75) 100 97.9 01/11/25 12:25 21 01/11/25 10:00 Room Air 01/11/25 10:00 0 Total Intake and Output 01/10/25 01/10/25 01/11/25 15:00 23:00 07:00 Intake Total 1040 ml 700 ml Balance 1040 ml 700 ml medications Current Medications Medications Dose Ordered Sig/Munir Route Start Time Stop Time Status Last Admin Dose Admin Insulin Glargine 30 units HS SC 01/04/25 22:00 01/10/25 21:52 30 UNITS Divalproex Sodium 500 mg DAILY PO 01/05/25 10:00 01/11/25 10:27 500 MG Amoxicillin/ Clavulanate Potassium 875 mg Q12HR PO 01/05/25 02:00 01/11/25 10:27 875 MG Empaglifozin 10 mg DAILY PO 01/05/25 10:00 01/11/25 10:27 10 MG Acetaminophen 650 mg Q4HP PRN PO 01/05/25 03:30 01/11/25 09:07 650 MG Ondansetron HCl 4 mg Q4HPRN PRN IV 01/05/25 03:30 01/05/25 05:19 4 MG Enoxaparin Sodium 40 mg DAILY SC 01/05/25 10:00 01/11/25 10:29 40 MG Pregabalin 25 mg BID PO 01/05/25 11:00 01/11/25 10:26 25 MG Pantoprazole Sodium 40 mg DAILY IV 01/06/25 10:00 01/11/25 10:25 40 MG Tamsulosin HCl 0.4 mg QPM PO 01/05/25 18:00 01/10/25 18:39 0.4 MG Patient Own Medication 1 HS PO 01/05/25 22:00 01/10/25 21:54 1 Levothyroxine Sodium 25 mcg QAM PO 01/06/25 07:00 01/10/25 06:46 25 MCG Aspirin 81 mg DAILY PO 01/07/25 10:00 01/11/25 10:27 81 MG Atorvastatin Calcium 40 mg HS PO 01/06/25 22:00 01/10/25 21:53 40 MG Morphine Sulfate 1 mg Q6HP PRN IV 01/07/25 15:30 01/11/25 11:58 1 MG Citalopram Hydrobromide 10 mg DAILY PO 01/08/25 10:00 01/11/25 10:27 10 MG Metoprolol Succinate 25 mg BID PO 01/08/25 00:50 01/11/25 10:28 25 MG Benztropine Mesylate 1 mg DAILY PO 01/09/25 10:00 01/11/25 10:26 1 MG Diphenhydramine HCl 25 mg Q8H PO 01/08/25 12:15 01/11/25 10:53 25 MG Nicotine 1 patch DAILY TD 01/09/25 10:00 01/11/25 10:30 1 PATCH Levalbuterol HCl 0.625 mg Q6HR NEB 01/08/25 12:15 01/09/25 23:22 0.625 MG Diagnostic Test (Pha) 1 strip ACHS 01/08/25 17:00 01/11/25 10:53 1 STRIP Insulin Human Regular AC SC 01/08/25 17:00 01/11/25 10:57 16 UNITS Insulin Human Regular HS SC 01/08/25 22:00 01/10/25 21:51 10 UNITS Dextrose 50 ml UD PRN IV 01/08/25 14:00 Haloperidol Lactate 5 mg BID IM 01/08/25 22:00 01/10/25 21:56 5 MG Sacubitril/ Valsartan 0.5 tab BID PO 01/10/25 10:00 01/11/25 10:26 0.5 TAB Throat Lozenges 1 nathaly Q2HP PRN MT 01/10/25 10:00 Patient Own Medication 1 HS PO 01/11/25 22:00 UNV Examination Patient lying in bed comfortably General: thin, afebrile, palor, mucosae are moist Cardiovascular: Regular S1 and S2. No murmurs, gallops or rubs. No JVD elevation. No pedal edema Respiratory: Normal B/L air entry on room air. Clear lung sounds on auscultation Abdomen: Soft, nontender, nondistended, normoactive bowel sounds, no rebound tenderness, no organomegaly, no masses Genitourinary: Deferred MSK/skin: Mobilizes 4 limbs. Skin is dry and warm Neurological: No motor, no sensitive deficits, normal speech. Pupils are isocoric and reactive. Unremarkable neurological exam. Psych/Mental Status: A/Ox3 laboratory and microbiology Laboratory Tests 01/10/25 06:03 Test 01/10/25 06:03 Range/Units Serum Glucose 109 H 74-106 mg/dL Labs and/or images reviewed: Labs reviewed by me, Image(s) reviewed by me Problem List/Assessment/Plan Problem List/Assessment/Plan 01/08-tele psych Dr. Londono: Discontinued Ativan, topiramate, Seroquel, hydroxyzine. Patient started on haloperidol 5 mg IV b.i.d., we will continue Celexa 10 mg daily given that escitalopram is not available. Continue metoprolol for anxiety and heart failure. Benadryl 25 mg Q 8 hours scheduled for next 2 days, then 25 mg p.o. daily. Nicotine patch and nebulized treatment started. Tablet benztropine 1 mg daily for questionable EPS Patient was counseled regarding the importance of smoking cessation, he is struggling with smoking cessation and recommendations at this time. HFmrEF- last echo 10/31 45% NSTEMI Hypertension Multivessel coronary artery disease EKG unremarkable, troponin unremarkable, BNP WNL medical reception specialist Cardiology consulted, Underwent TTE which revealed EF 40% with anterior apical and mid anterior septal hypokinesis of [id number] degree. Cardiolite stress test performed, results indicate inferior wall ischemia. 01/09-Underwent left heart catheterization, shows multivessel coronary artery disease. Cardiology recommended CABG versus PCI. Patient will be transferred to [facility] for CABG. Continue home medication lisinopril 40 mg, metoprolol 25 mg b.i.d. Continue aspirin 81 and atorvastatin 40 mg daily Uncontrolled juvenile diabetes mellitus type 2-A1c 13 Diabetic neuropathic pain Continue home medication Lantus 30 units daily On aggressive ISS Patient's is on sliding scale at home Started Lyrica 25 mg b.i.d. Diabetic education provided Acute sinusitis Continue Amoxil clavulanate daily Hyponatremia - psychogenic causes versus medication induced Monitor ADHD combined type Bipolar disorder-unspecified Possible EPS Continue haloperidol 5 mg IV b.i.d., Celexa 10 mg daily given that his citalopram is not available Continue benztropine 1 mg daily Continue Benadryl 25 mg Q 8 hourly for the next 2 days followed by 25 mg p.o. daily Started doxepin 75 mg HS daily Cannabis and nicotine dependence Counseled regarding cessation for more than 22 minutes Nicotine patch started Hypertriglyceridemia Monitor Lovenox 40 mg sc daily Cardiac diet. child and family services worker consulted for transferring to higher level of care for CABG Plan discussed with patient in which all questions have been answered Goals of care discussed with patient for more than 28 minutes, full code status Case discussed with Dr. Coleman Plan discussed with: Patient My Orders My Orders Orders - SIENNA UMANZOR Procedure Category Date Status Time Discharge DISCHARGE 01/11/25 Transmitted 14:10 Patients Own PHA 01/11/25 Logged Medication 22:00 Date of Service: Jan 11, 2025 Billing Provider: ADAIR GUEVARA MD Common Visit Codes: [id number] INP/OBS CARE(HIGH) SIENNA UMANZOR Jan 11, 2025 14:52 ADAIR GUEVARA MD Jan 16, 2025 01:40
[2025-01-11] MEDS ORDERED: DOXEPIN 75 MG PO SCH (22:00)
[2025-01-11] MEDS ORDERED: PATIENTS OWN MEDICATION PO SCH (22:00)
[2025-01-12] MEDS ORDERED: diphenhdrAMINE HCL 25 MG CAP PO SCH (10:00)
== END 2025-01-11 20:10 | disposition short-term general hospital (02) | DRG 281 ==
LOC: ER 18:00 → EDBD 18:00 → OVERFLOW 21:24 → CENTRAL 01-05 02:36 → TELE-CENTR 01-05 16:45
PROVIDERS: ADMIT Student in an Organized Health Care Education/Training Program; ATTEND Student in an Organized Health Care Education/Training Program
PROC: B211YZZ Fluoroscopy of Multiple Coronary Arteries using Other Contrast (ICD-10-PCS; principal; 2025-01-09)
PROC: 4A023N7 Measurement of Cardiac Sampling and Pressure, Left Heart, Percutaneous Approach (ICD-10-PCS; 2025-01-09)
DX: I21.4 Non-ST elevation (NSTEMI) myocardial infarction (principal); E87.1 Hypo-osmolality and hyponatremia; I50.22 Chronic systolic (congestive) heart failure; R45.851 Suicidal ideations; I25.10 Atherosclerotic heart disease of native coronary artery without angina pectoris; E11.65 Type 2 diabetes mellitus with hyperglycemia; I11.0 Hypertensive heart disease with heart failure; Z20.822 Contact with and (suspected) exposure to COVID-19; F20.9 Schizophrenia, unspecified; E07.9 Disorder of thyroid, unspecified; F31.9 Bipolar disorder, unspecified; E78.1 Pure hyperglyceridemia; F90.2 Attention-deficit hyperactivity disorder, combined type; Z87.891 Personal history of nicotine dependence; Z87.442 Personal history of urinary calculi; Z83.3 Family history of diabetes mellitus; Z79.4 Long term (current) use of insulin; Z82.49 Family history of ischemic heart disease and other diseases of the circulatory system; Z79.84 Long term (current) use of oral hypoglycemic drugs; Z79.82 Long term (current) use of aspirin; Z79.899 Other long term (current) drug therapy
CPT/HCPCS: 36415; 36600; 70220; 71045; 78452; 80048; 80053; 80061; 80307; 80320; 81001; 82010; 82805; 82962; 83036; 83605; 83735; 83880; 84443; 84484; 85025; 85610; 85652; 85730; 86141; 86850; 86900; 86901; 87426; 87804; 93005; 93017; 93306; 93458; 94640; 96361; 96374; 99152; G0378; J1815; J2250; J2405; J2470

== ENCOUNTER 2025-01-22 15:06 | Inpatient (IN) | payer OTHER, MEDICAID ==
[~2025-01-22] VITALS: Ht 188 cm; Wt 74.2 kg
--- NOTE | 2025-01-22 15:48 | ED.PDOC ---
HPI Comments 34-year-old male with PMHx CABG, HTN, DM, presents with a chief complaint of chest pain and SOB x 4 days. Patient states that his pain is localized to his sternal region where he had his recent heart surgery. Patient mentions that he had a CABG done at [facility] and was just discharged x 4 days ago. Patient is reporting that since leaving the hospital he has been having chest pain and now feels SOB as well. Patient has recent, well-healing scar to sternal chest. Chief Complaint: Shortness of Breath Time Seen by MD: 15:40 Primary Care Provider: Nereida Reviewed Notes: Medications, Allergies Allergies: Coded Allergies: Egg-derived Products (Verified Allergy, Unknown, 01/05/25) Home Meds Active Scripts Prednisone (Prednisone) 20 Mg Tab, 60 MG PO DAILY, #18 TAB Prov:TABATHA MONTENEGRO 08/05/24 Amoxicillin Trihydrate (Amoxicillin) 875 Mg Tab, 1 TAB PO BID, #20 TAB Prov:TABATHA MONTENEGRO 08/05/24 Metformin Hydrochloride (Metformin Hcl) 500 Mg Tab, 1 TAB PO BID, #60 TAB 3 Refills Prov:JENISE RAMOS 07/20/24 Ibuprofen Micronized (Ibuprofen) 800 Mg Tab, 800 MG PO Q8HPRN PRN, #20 TAB Prov:JENISE RAMOS 07/20/24 Hydrocodone-Acetaminophen (Hydrocodone Bitartrate/AC 10-325 mg) 1 Tab Tab, 1 TAB PO Q6HPRN PRN, #15 TAB Prov:JENISE RAMOS 07/20/24 Cefpodoxime Proxetil (Cefpodoxime Proxetil) 200 Mg Tab, 1 TAB PO BID for 10 Days, #20 TAB Prov:JENISE RAMOS 07/20/24 Pantoprazole Sodium Sesquihydr (Protonix) 40 Mg Tab, 40 MG PO BID for 30 Days, #60 TAB Prov:JOSE DE JESUS CLIFFORD MD 11/04/23 Sucralfate (CARAFATE SUSP) 1 Gm/10 Ml Ss, 1 GM PO TIDAC for 30 Days, #1200 ML Prov:JOSE DE JESUS CLIFFORD MD 11/04/23 Sacubitril-Valsartan (Entresto 24-26 mg) 1 Tab Tab, 1 TAB PO BID for 30 Days, #60 TAB Prov:JOSE DE JESUS CLIFFORD MD 11/04/23 Metoprolol Tartrate (Lopressor) 25 Mg Tb, 12.5 MG PO BID for 30 Days, #60 TAB Prov:JOSE DE JESUS CLIFFORD MD 11/04/23 Cyclobenzaprine Hcl (Cyclobenzaprine Hcl) 10 Mg Tab, 10 MG PO BID PRN, #20 TAB Prov:ISAAC ANTONIO MD 01/27/23 Famotidine (PEPCID TABLET) 20 Mg Tb, 20 MG GT BID for 14 Days, #28 TAB Prov:ISAAC ANTONIO MD 01/27/23 Citalopram Hydrobromide (Celexa) 10 Mg Tab, 1 TAB PO DAILY, #30 TAB 0 Refills Prov:DANIELA LEOS MD 07/21/22 Insulin Regular (Human) (Novolin R) 100 Unit/Ml Inj, 0 UNITS SC IQ4HR for 30 Days, INJ if BS 150-200 give 2 units if BS 201-250 give 4 units if BS 251-300 give 6 units if BS 301-350 give 8 units if BS 351-400 give 10 units. if BS >400 call your doctor Prov:BILLIE ADAMS MD 07/17/22 Insulin Glargine (Lantus) 100 Unit/Ml Inj, 30 UNIT SC DAILY for 30 Days, #30 INJ Prov:BILLIE ADAMS MD 07/17/22 Reported Medications Quetiapine Fumerate (QUETIAPINE FUMARATE) 300 Mg Tab, 1 TAB PO DAILY 11/03/23 Trazodone Hcl (Trazodone Hcl) 100 Mg Tab, 1 TAB PO HS 11/03/23 Citalopram Hydrobromide (Citalopram Hydrobromide) 20 Mg Tab, 1 TAB PO DAILY 11/03/23 Bupropion Hcl (Bupropion Hcl Xl) 300 Mg Tab, 1 TAB PO QAM 11/03/23 Citalopram Hydrobromide (Celexa) 10 Mg Tab, 1 TAB PO DAILY, #30 TAB 2 Refills 07/13/22 Lisinopril (Lisinopril) 40 Mg Tab, 1 TAB PO DAILY, #30 TAB 5 Refills 07/13/22 Omeprazole (Gnp Omeprazole) 20 Mg Tab, 1 TAB PO DAILY, #90 TAB 1 Refill 07/13/22 Aspirin (Aspirin Ec) 81 Mg Tab, 81 MG PO DAILY, TAB 07/13/22 Levothyroxine Sodium (Levothyroxine Sodium) 25 Mcg Tab, 1 TAB PO DAILY, #30 TAB 5 Refills 07/13/22 Montelukast Sodium (MONTELUKAST SODIUM) 10 Mg Tab, 1 TAB PO DAILY, #30 TAB 5 Refills 07/13/22 Atorvastatin Calcium (ATORVASTATIN CALCIUM) 80 Mg Tab, 1 TAB PO DAILY, #30 TAB 5 Refills 07/13/22 Divalproex Sodium (Depakote) 500 Mg Tab, 500 MG PO DAILY, TAB 07/13/22 Quetiapine Fumerate (Seroquel) 400 Mg Tab, 1 TAB PO QPM, #30 TAB 1 Refill 07/13/22 Ziprasidone Hydrochloride (Geodon) 60 Mg Cap, 60 MG PO BID, CAP 07/13/22 Acetaminophen (Tylenol) 325 Mg Cap, 325 MG PO Q4HPRN, CAP 07/13/22 Ibuprofen (Ibuprofen) 800 Mg Tab, 1 TAB PO Q4HPRN, #90 TAB 1 Refill 07/13/22 Baclofen (Baclofen) 20 Mg Tab, 1 TAB PO TID, #90 TAB 2 Refills 07/13/22 Information Source: Patient Mode of Arrival: Ambulatory Severity: Moderate Timing: Days Duration: Since onset Prehospital treatment: None Location: Substernal Radiation: No Radiation Quality: Burning Onset: At Rest Cardiac Risk Factors: Smoker, HTN, Diabetes PE Risk Factors: Recent Surgery Past Medical History PAST MEDICAL HISTORY: Depression, DM, GERD, High Lipids, HTN, Schizophrenia Surgical History: Denies all surgeries Family History Family History: Reviewed,noncontributory to illness Social History Smoker: Cigarettes Alcohol: Heavy Drugs: Denies Drug Use Lives In: Assisted Care Constitutional: denies: chills, diaphoresis, fatigue, fever, malaise, sweats, weakness, others EENTM: denies: blurred vision, double vision, ear bleeding, ear discharge, ear drainage, ear pain, ear ringing, eye pain, eye redness, hearing loss, mouth pain, mouth swelling, nasal discharge, nose bleeding, nose congestion, nose pain, photophobia, tearing, throat pain, throat swelling, voice changes, others Respiratory: reports: shortness of breath; denies: cough, hemoptysis, orthopnea, SOB at rest, SOB with excertion, stridor, wheezing, others Cardiovascular: reports: chest pain; denies: dizzy spells, diaphoresis, Dyspnea on exertion, edema, irregular heart beat, left arm pain, lightheadedness, palpit ations, PND, syncope, others Gastrointestinal: denies: abdomen distended, abdominal pain, blood streaked b owels, constipated, diarrhea, dysphagia, difficulty swallowing, hematemesis, melena, nausea, poor appetite, poor fluid intake, rectal bleeding, rectal pain, vomiting, others Genitourinary: denies: burning, dysuria, flank pain, frequency, hematuria, incontinence, penile discharge, penile sore, pain, testicle pain, testicle swelling, urgency, others Neurological: denies: dizziness, fainting, headache, left sided numbness, left sided weakness, numbness, paresthesia, pre-existing deficit, right sided numbness, right sided weakness, seizure, speech problems, tingling, tremors, weakness, others Musculoskeletal: denies: back pain, gout, joint pain, joint swelling, muscle pain, muscle stiffness, neck pain, others Integumetry: denies: bruises, change in color, change in hair/nails, dryness, laceration, lesions, lumps, rash, wounds, others Allergic/Immunocompromised: denies: Difficulty Healing, Frequent Infections, Hives, Itching, others Hematologic/Lymphatic: denies: anemia, blood clots, easy bleeding, easy bruisi ng, swollen glands, others Endocrine: denies: excessive hunger, excessive sweating, excessive thirst, exce ssive urination, flushing, intolerance to cold, intolerance to heat, unexplained weight gain, unexplained weight loss, others Psychiatric: denies: anxiety, bipolar disorder, depression, hopeless, panic disorder, schizophrenia, sleepless, suicidal, others All Other Systems: Reviewed and Negative Physical Exam General Appearance: No Apparent Distress, Normal HEENT: Normal ENT Inspection, Pharynx Normal, TMs Normal Neck: Full Range of Motion, Non-Tender, Normal, Normal Inspection Respiratory: Chest Non-Tender, Lungs Clear, No Accessory Muscle Use, No Respiratory Distress, Normal Breath Sounds Cardiovascular: No Edema, No JVD, No Murmur, No Gallop, Normal Peripheral Pulses, Regular Rate/Rhythm, Other (WELL-HEALING STERNOTOMY WOUND) Breast Exam: Deferred Gastrointestinal: No Organomegaly, Non Tender, No Pulsatile Mass, Normal Bowel Sounds, Soft Genitalia: Deferred Pelvic: Deferred Rectal: Deferred Extremities: No calf tenderness, Normal capillary refill, Normal inspection, Normal range of motion, Non-tender, No pedal edema Musculoskeletal : Apperance: Normal Neurologic: Alert, hide spreader II-XII nml as Tested, No Motor Deficits, Normal Affect, Normal Mood, No Sensory Deficits Cerebellar Function: Normal Reflexes: Normal Skin: Dry, Normal Color, Warm Lymphatic: No Adenopathy EKG EKG : Pulse Rate (adult): 81 [place]: RAD Cardiac Rhythm: NSR Block: None Hypertrophy: None ST: Normal Was a procedure done? Was a procedure done?: No CP Differential Dx Differential Diagnosis: A-fib, A-Flutter, Angina, Anxiety / Panic Attack, Atrial Dysrhythmia, Electrolyte Disorder, Heart Failure, Hypoxia, TN, Pulmonary Embolus, Renal Failure, Sinus Tachycardia, Torsades De Pointes, Ventricular Dysrhythmia, V-Fib, V-Tach, WPW Differential Diagnosis: CHF Differential Diagnosis: Angina, Aortic dissection, Myocardial Infarction, Pericarditis, Pneumonia, Pneumothorax, Pulmonary Embolus X-Ray, Labs, Meds, VS Vital Signs Date Time Temp Pulse Resp B/P (MAP) Pulse Ox O2 Delivery O2 Flow Rate FiO2 01/22/25 17:00 22 100 Room Air* 0 21 01/22/25 16:00 80 01/22/25 16:00 80 19 93/51 (65) 97 01/22/25 15:48 81 01/22/25 15:18 81 01/22/25 15:15 98.2 81 16 87/47 (60) 98 98.2 94/43 (60) Lab Test 01/22/25 16:59 01/22/25 15:50 01/22/25 15:16 Range/Units Troponin I High Sensitivity Pending 147 *H </=54 ng/L White Blood Count 7.7 4.4-10.8 10^3/uL Red Blood Count 3.11 L 4.5-5.90 10^6/uL Hemoglobin 10.3 L 13.5-17.5 g/dL Hematocrit 30.1 L 41.0-53.0 % Mean Corpuscular Volume 97.0 80.0-100.0 fL Mean Corpuscular Hemoglobin 33.3 H 28.0-32.0 pg Mean Corpuscular Hemoglobin Concent 34.3 32.0-36.0 g/dL Red Cell Distribution Width 13.9 11.8-14.3 % Platelet Count 616 H 140-450 10^3/uL Mean Platelet Volume 6.9 6.9-10.8 fL Neutrophils (%) (Auto) 70.0 37.0-80.0 % Lymphocytes (%) (Auto) 23.0 10.0-50.0 % Monocytes (%) (Auto) 4.4 0.0-12.0 % Eosinophils (%) (Auto) 1.9 0.0-7.0 % Basophils (%) (Auto) 0.7 0.0-2.0 % Neutrophils # (Auto) 5.4 1.6-8.6 10 ^3/uL Lymphocytes # (Auto) 1.8 0.4-5.4 10 ^3/uL Monocytes # (Auto) 0.3 0-1.3 10 ^3/uL Eosinophils # (Auto) 0.1 0-0.8 10 ^3/uL Basophils # (Auto) 0.1 0-0.2 10 ^3/uL Nucleated Red Blood Cells 0.0 % D-Dimer, Quantitative 2.02 H 0.0-0.49 mg/L FEU Sodium Level 135 L 136-145 mmol/L Potassium Level 6.0 *H 3.5-5.1 mmol/L Chloride Level 104 98-107 mmol/L Carbon Dioxide Level 24 20-31 mmol/L Anion Gap 7 5-15 Blood Urea Nitrogen 29 H 9-23 mg/dL Creatinine 1.18 0.700-1.30 mg/dL Glomerular Filtration Rate Calc 83 >90 mL/min BUN/Creatinine Ratio 24.6 H 10.0-20.0 Serum Glucose 175 H 74-106 mg/dL Calcium Level 9.2 8.7-10.4 mg/dL POC Glucose 266 H 70-106 mg/dl Time of 1ST Reevaluation: 16:10 Reevaluation 1ST: Unchanged Time of 2ND Reevaluation: 17:27 Reevaluation 2ND: Improved Patient Education/Counseling: Diagnosis, Treatment, Prognosis, Need For Follow Up Family Education/Counseling: No Family Present Additional Information pt presents with post CABG sob, chest discomfort. ekg does not show new ischemia. cta is negative for PE or anuerism. US of the right extremity is negative for DVT. cxr does show pneumonia, with postoperative changes. he also has elevatged troponin, which is likely due to the recent CABG. he does have hyperkalemia, which will need to be monitored as we continue to treat it. we will also admit and trend the troponin. in addition, he needs treatment for pneumonia. he is not septic. his hypotensive state is accompanied by clinical symptoms. he is alert, active, has no fatigue or lightheadedness. he is receiving fluids. it is unknown what his EF is, which may make systolic BP in the 90s ideal, if it is low. Departure 1 Departure Time of Disposition: 17:26 Impression: Primary Impression: Pneumonia Qualified Codes: J18.9 - Pneumonia, unspecified organism Additional Impressions: Pleural effusion Hyperkalemia Elevated troponin Disposition: ADMITTED INPATIENT Condition: Serious Discharged With: Self Critical Care Note Critical Care Time?: Yes (55 min-critical care time only) Critical care comment: Due to concerns for patients condition deteriorating, the care required my highest level of attention and readiness to intervene. I assessed the patient, reviewed the medical records, ordered the appropriate tests and treatments, then reassessed for results and responsiveness. I communicated with medical personnel and consultants and formulated a plan of care. Total critical care time excludes any procedures Stability Stability form required: No Heart Score Heart Score: Heart Score Response (Comments) Value History Moderate Suspicious 1 EKG Repolarization Disturb 1 Age <45 0 Risk Factors >3 or Hx ASHD 2 Troponin >3 x's Normal limit 2 Total 6 I personally scribed for LOC DA SILVA MD ([email or web address]) on 01/22/25 at 15:48. Electronically submitted by Nayan Perrin ([email or web address]). LOC DA SILVA MD Jan 22, 2025 15:48
[2025-01-22 16:09] LABS: Eosinophils # (auto) 0.1 10 ^3/uL (0-0.8); Eosinophils % (auto) 1.9 % (0.0-7.0); Hemoglobin 10.3 g/dL (13.5-17.5)
[2025-01-22 16:10] LABS: Basophils # (auto) 0.1 10 ^3/uL (0-0.2); Basophils % (auto) 0.7 % (0.0-2.0); Hematocrit 30.1 % (41.0-53.0); Lymphocytes # (auto) 1.8 10 ^3/uL (0.4-5.4); Mean Corpuscular Hemoglobin 33.3 pg (28.0-32.0); Mean Corpuscular Hgb Conc. 34.3 g/dL (32.0-36.0); Monocytes # (auto) 0.3 10 ^3/uL (0-1.3); Monocytes % (auto) 4.4 % (0.0-12.0); Neutrophils # (auto) 5.4 10 ^3/uL (1.6-8.6); Platelet Count (auto) 616 10^3/uL (140-450); Red Blood Cells 3.11 10^6/uL (4.5-5.90); Red Cell Distribution Width 13.9 % (11.8-14.3); White Blood Cell 7.7 10^3/uL (4.4-10.8)
[2025-01-22 16:15] LABS: Anion Gap 7 (5-15); Carbon Dioxide 24 mmol/L (20-31); Chloride 104 mmol/L (98-107)
[2025-01-22 16:16] LABS: Calcium 9.2 mg/dL (8.7-10.4)
[2025-01-22 16:23] LABS: Sodium 135 mmol/L (136-145)
[2025-01-22 16:24] LABS: BUN/Creatinine Ratio 24.6 (10.0-20.0); Blood Urea Nitrogen 29 mg/dL (9-23); Glucose 175 mg/dL (74-106)
--- NOTE | 2025-01-22 16:26 | DVH ---
US RT LOWER DVT US 01/22/2025 04:14 PM Clinical History: r/o dvt Comparison: None Technique: Duplex Doppler evaluation of the deep venous system of the right lower extremity from the common femo ral vein to the popliteal vein including color Doppler and spectral/pulsed waveform analysis was perf ormed. Findings: The common femoral vein demonstrates appropriate compressibility and waveform variability. There is compressibility/patency of the great saphenous vein at the proximal thigh. The femoral vein demonstrates appropriate compressibility and waveform variability. The deep femoral vein demonstrates appropriate compressibility and waveform variability. The popliteal vein demonstrates appropriate compressibility and waveform variability. There is color flow in the tibioperoneal trunk and posterior tibial vein. Impression: 1. No deep venous thrombosis right lower extremity. If clinical concern/symptoms persist or worsen, short-interval follow-up study is suggested.
[2025-01-22] MEDS: ALBUTEROL SULF 2.5 MG/0.5ML(0.5%) NEB SOLN NEB ONE (17:00)
[2025-01-22] MEDS: SODIUM BICARB 8.4% 50Meq/50ml SYR INJ IV ONE (17:00)
[2025-01-22] MEDS: ALBUTEROL SULF 2.5 MG/0.5ML(0.5%) NEB SOLN ONE (17:00)
--- NOTE | 2025-01-22 17:11 | DVH ---
CHEST RADIOGRAPH Indication: cp Technique: Single frontal view of the chest was obtained COMPARISON: XY CHEST PORTABLE on DOS: 01/04/25, FINDINGS: Lines and Tubes: None Lungs: Small left pleural effusion with adjacent airspace disease. No pneumothorax. Cardiomediastinal contours: Cardiomegaly. Cardiothoracic postsurgical changes. Bones: Unremarkable IMPRESSION: 1. Small left pleural effusion with adjacent airspace disease.
[2025-01-22] MEDS: IOHEXOL 350 MG/ML 100ML IJ ONE (17:18)
--- NOTE | 2025-01-22 17:18 | DVH ---
PROCEDURE: CT CT ANGIO CHEST CONTRAST 01/22/2025 04:39 PM INDICATION: post CABG chest pain, and sob COMPARISON: None TECHNIQUE: Coverage: Thorax IV contrast: Administered Phases: Arterial Multiplanar 3-D Maximum Intensity Projection images (MIP) reconstructions were created by the technchin johnson in the coronal and sagittal planes as part of the CT angiography protocol. Adverse events: None Medication laboratory values were reviewed to verify the patient meets criteria for contrast administ ration. All CT scans at this medical facility are performed using dose modulation techniques as appropriate t o a performed exam including the following: Automated exposure control was utilized; adjustment of th e MA and/or KV according to patient size; and use of iterative reconstruction technique. Radiation dose: CTDIvol 23.68 mGy, DLP 568.63 mGy*cm. FINDINGS: Cardiovascular: No evidence of acute or chronic pulmonary emboli identified. Aorta is normal in calib er. The heart is normal in size. Median sternotomy wires and mediastinal vascular clips are seen. Tra ce pericardial effusion. Small foci air in the mediastinum anterior to the heart and in the upper abd omen related to the recent surgery Lungs: Small bilateral pleural effusions an adjacent pulmonary opacities No pneumothorax. The airways are patent. Thyroid: Unremarkable. Esophagus: Unremarkable. Lymphatics: No hilar or mediastinal lymphadenopathy. Bones/soft tissues: No acute abnormality. Upper abdomen: No acute abnormality. Other: None. IMPRESSION: 1. No evidence of acute pulmonary emboli. No aortic aneurysm or dissection. 2. Small pericardial effusion, trace pneumomediastinum and small amount of air in the anterior upper abdomen most likely postsurgical in nature. 3. Small bilateral pleural effusions and adjacent pulmonary opacities represent compressive atelectas is or pneumonia. Recommend clinical and biochemical correlation.
[2025-01-22] MEDS: SODIUM CHLORIDE 0.9% 1,000 ML IV ONE (17:30)
--- NOTE | 2025-01-22 18:15 | DVHHP2 ---
Admitting Diagnosis: Shortness of the breath History of Present Illness 34-year-old male with PMHx CABG, HTN, DM, presents with a chief complaint of chest pain and SOB x 4 days. Patient states that his pain is localized to his sternal region where he had his recent heart surgery. Patient mentions that he had a CABG done at [facility] and was just discharged x 4 days ago. Patient is reporting that since leaving the hospital he has been having chest pain and now feels SOB as well. Patient has recent, well-healing scar to sternal chest. PAST MEDICAL HISTORY: Depression, DM, GERD, High Lipids, HTN, Schizophrenia Surgical History: Denies all surgeries Family History Family History: Reviewed,noncontributory to illness Social History Smoker: Cigarettes Alcohol: Heavy Drugs: Denies Drug Use Lives In: Assisted Care Patient Family History: Cardiovascular disease G8 MOTHER Diabetes mellitus G8 FATHER Allergies: Coded Allergies: Egg-derived Products (Verified Allergy, Unknown, 01/05/25) Home Meds Active Scripts Prednisone (Prednisone) 20 Mg Tab, 60 MG PO DAILY, #18 TAB Prov:TABATHA MONTENEGRO 08/05/24 Amoxicillin Trihydrate (Amoxicillin) 875 Mg Tab, 1 TAB PO BID, #20 TAB Prov:TABATHA MONTENEGRO 08/05/24 Metformin Hydrochloride (Metformin Hcl) 500 Mg Tab, 1 TAB PO BID, #60 TAB 3 Refills Prov:JENISE RAMOS 07/20/24 Ibuprofen Micronized (Ibuprofen) 800 Mg Tab, 800 MG PO Q8HPRN PRN, #20 TAB Prov:JENISE RAMOS 07/20/24 Hydrocodone-Acetaminophen (Hydrocodone Bitartrate/AC 10-325 mg) 1 Tab Tab, 1 TAB PO Q6HPRN PRN, #15 TAB Prov:JENISE RAMOS 07/20/24 Cefpodoxime Proxetil (Cefpodoxime Proxetil) 200 Mg Tab, 1 TAB PO BID for 10 Days, #20 TAB Prov:JENISE RAMOS 07/20/24 Pantoprazole Sodium Sesquihydr (Protonix) 40 Mg Tab, 40 MG PO BID for 30 Days, #60 TAB Prov:JOSE DE JESUS CLIFFORD MD 11/04/23 Sucralfate (CARAFATE SUSP) 1 Gm/10 Ml Ss, 1 GM PO TIDAC for 30 Days, #1200 ML Prov:JOSE DE JESUS CLIFFORD MD 11/04/23 Sacubitril-Valsartan (Entresto 24-26 mg) 1 Tab Tab, 1 TAB PO BID for 30 Days, #60 TAB Prov:JOSE DE JESUS CLIFFORD MD 11/04/23 Metoprolol Tartrate (Lopressor) 25 Mg Tb, 12.5 MG PO BID for 30 Days, #60 TAB Prov:JOSE DE JESUS CLIFFORD MD 11/04/23 Cyclobenzaprine Hcl (Cyclobenzaprine Hcl) 10 Mg Tab, 10 MG PO BID PRN, #20 TAB Prov:ISAAC ANTONIO MD 01/27/23 Famotidine (PEPCID TABLET) 20 Mg Tb, 20 MG GT BID for 14 Days, #28 TAB Prov:ISAAC ANTONIO MD 01/27/23 Citalopram Hydrobromide (Celexa) 10 Mg Tab, 1 TAB PO DAILY, #30 TAB 0 Refills Prov:DANIELA LEOS MD 07/21/22 Insulin Regular (Human) (Novolin R) 100 Unit/Ml Inj, 0 UNITS SC IQ4HR for 30 Days, INJ if BS 150-200 give 2 units if BS 201-250 give 4 units if BS 251-300 give 6 units if BS 301-350 give 8 units if BS 351-400 give 10 units. if BS >400 call your doctor Prov:BILLIE ADAMS MD 07/17/22 Insulin Glargine (Lantus) 100 Unit/Ml Inj, 30 UNIT SC DAILY for 30 Days, #30 INJ Prov:BILLIE ADAMS MD 07/17/22 Reported Medications Quetiapine Fumerate (QUETIAPINE FUMARATE) 300 Mg Tab, 1 TAB PO DAILY 11/03/23 Trazodone Hcl (Trazodone Hcl) 100 Mg Tab, 1 TAB PO HS 11/03/23 Citalopram Hydrobromide (Citalopram Hydrobromide) 20 Mg Tab, 1 TAB PO DAILY 11/03/23 Bupropion Hcl (Bupropion Hcl Xl) 300 Mg Tab, 1 TAB PO QAM 11/03/23 Citalopram Hydrobromide (Celexa) 10 Mg Tab, 1 TAB PO DAILY, #30 TAB 2 Refills 07/13/22 Lisinopril (Lisinopril) 40 Mg Tab, 1 TAB PO DAILY, #30 TAB 5 Refills 07/13/22 Omeprazole (Gnp Omeprazole) 20 Mg Tab, 1 TAB PO DAILY, #90 TAB 1 Refill 07/13/22 Aspirin (Aspirin Ec) 81 Mg Tab, 81 MG PO DAILY, TAB 07/13/22 Levothyroxine Sodium (Levothyroxine Sodium) 25 Mcg Tab, 1 TAB PO DAILY, #30 TAB 5 Refills 07/13/22 Montelukast Sodium (MONTELUKAST SODIUM) 10 Mg Tab, 1 TAB PO DAILY, #30 TAB 5 Refills 07/13/22 Atorvastatin Calcium (ATORVASTATIN CALCIUM) 80 Mg Tab, 1 TAB PO DAILY, #30 TAB 5 Refills 07/13/22 Divalproex Sodium (Depakote) 500 Mg Tab, 500 MG PO DAILY, TAB 07/13/22 Quetiapine Fumerate (Seroquel) 400 Mg Tab, 1 TAB PO QPM, #30 TAB 1 Refill 07/13/22 Ziprasidone Hydrochloride (Geodon) 60 Mg Cap, 60 MG PO BID, CAP 07/13/22 Acetaminophen (Tylenol) 325 Mg Cap, 325 MG PO Q4HPRN, CAP 07/13/22 Ibuprofen (Ibuprofen) 800 Mg Tab, 1 TAB PO Q4HPRN, #90 TAB 1 Refill 07/13/22 Baclofen (Baclofen) 20 Mg Tab, 1 TAB PO TID, #90 TAB 2 Refills 07/13/22 Current Medications Current Medications Medications (Trade) Dose Ordered Sig/Munir Route PRN Reason Start Time Stop Time Status Last Admin Zirconium Oxide (Lokelma) 10 gm TID PO 01/22/25 22:00 01/24/25 14:01 Sodium Chloride (Saline Lock Ns) 10 ml Q8HR IV 01/22/25 22:00 Docusate Sodium (Colace Capsule) 100 mg BIDPRN PRN PO FOR CONSTIPATION 01/22/25 20:45 Acetaminophen (Tylenol Tablet) 650 mg Q6HP PRN PO PAIN SCALE 1-3 OR TEMP>100.4 01/22/25 20:45 Acetaminophen/ Hydrocodone Bitart ([place] 5/325MG Tab) 1 tab Q4HP PRN PO MODERATE PAIN (4-6 PAIN SCALE) 01/22/25 20:45 Hydromorphone HCl (Dilaudid Injection) 0.5 mg Q4HP PRN IV SEVERE PAIN (7-10 PAIN SCALE) 01/22/25 20:45 Ondansetron HCl (Zofran) 4 mg Q4HP PRN IV NAUSEA / VOMITING 01/22/25 20:45 Enoxaparin Sodium (Lovenox) 40 mg DAILY SC 01/23/25 10:00 Nitroglycerin (Ntrostat Sublingual) 0.4 mg Q5MINP PRN SL FOR CHEST PAIN 01/22/25 20:45 Morphine Sulfate 2 mg Q30M PRN IV FOR CHEST PAIN 01/22/25 20:45 Ceftriaxone Sodium 50 ml @ 100 mls/hr DAILY IV 01/23/25 10:00 Azithromycin 250 ml @ 125 mls/hr DAILY IV 01/23/25 10:00 Aspirin (Ecotrin Enteric Coated Tablet) 81 mg DAILY PO 01/23/25 10:00 UNV Famotidine (Pepcid Tablet) 20 mg BID GT 01/22/25 22:00 UNV Insulin Glargine (Lantus) 30 units DAILY SC 01/23/25 10:00 UNV Levothyroxine Sodium (Synthroid Tablet) 25 mcg DAILY PO 01/23/25 10:00 UNV Metoprolol Tartrate (Lopressor Tablet) 12.5 mg BID PO 01/22/25 22:00 UNV Montelukast Sodium (Singulair Tablet) 10 mg DAILY PO 01/23/25 10:00 UNV Pantoprazole Sodium (Protonix Tablet) 40 mg BID PO 01/22/25 22:00 UNV Sacubitril/ Valsartan (Entresto 24-26 Mg tab) 1 tab BID PO 01/22/25 22:00 UNV Patient Own Medication 1 tab DAILY PO 01/23/25 10:00 UNV Patient Own Medication 1 tab TID PO 01/22/25 22:00 UNV Patient Own Medication 1 tab QAM PO 01/23/25 07:00 UNV Patient Own Medication 1 tab DAILY PO 01/23/25 10:00 UNV Patient Own Medication 500 mg DAILY PO 01/23/25 10:00 UNV Patient Own Medication 1 tab DAILY PO 01/23/25 10:00 UNV Patient Own Medication 1 tab DAILY PO 01/23/25 10:00 UNV Patient Own Medication 1 tab DAILY PO 01/23/25 10:00 UNV Patient Own Medication 1 tab HS PO 01/22/25 22:00 UNV Vital Signs Vital Signs Date Time Temp Pulse Resp B/P (MAP) Pulse Ox O2 Delivery O2 Flow Rate FiO2 01/22/25 19:04 86 21 97 Room Air* 0 21 01/22/25 18:00 97.8 97/51 (66) 97.8 Physical Exam Gen: 34 y.o. man, sitting on bed. Mild distress HEENT: AT/NC Lung: decrease breath sounds Heart: RRR, + chest surgical site is healing Abd: soft, non-tender, non-distented Msk: No edema or cyanosis Neuro: Aox3, no focal deficit Results Labs Test 01/22/25 18:59 01/22/25 15:50 01/22/25 15:16 Range/Units Sodium Level 140 # 136-145 mmol/L Potassium Level 4.3 3.5-5.1 mmol/L Chloride Level 106 98-107 mmol/L Carbon Dioxide Level 25 20-31 mmol/L Anion Gap 9 5-15 Blood Urea Nitrogen 30 H 9-23 mg/dL Creatinine 1.06 0.700-1.30 mg/dL Glomerular Filtration Rate Calc 94 >90 mL/min BUN/Creatinine Ratio 28.3 H 10.0-20.0 Serum Glucose 268 H 74-106 mg/dL Lactic Acid Level 4.9 *H 0.4-2.0 mmol/L Calcium Level 9.4 8.7-10.4 mg/dL Troponin I High Sensitivity 154 *H </=54 ng/L White Blood Count 7.7 4.4-10.8 10^3/uL Red Blood Count 3.11 L 4.5-5.90 10^6/uL Hemoglobin 10.3 L 13.5-17.5 g/dL Hematocrit 30.1 L 41.0-53.0 % Mean Corpuscular Volume 97.0 80.0-100.0 fL Mean Corpuscular Hemoglobin 33.3 H 28.0-32.0 pg Mean Corpuscular Hemoglobin Concent 34.3 32.0-36.0 g/dL Red Cell Distribution Width 13.9 11.8-14.3 % Platelet Count 616 H 140-450 10^3/uL Mean Platelet Volume 6.9 6.9-10.8 fL Neutrophils (%) (Auto) 70.0 37.0-80.0 % Lymphocytes (%) (Auto) 23.0 10.0-50.0 % Monocytes (%) (Auto) 4.4 0.0-12.0 % Eosinophils (%) (Auto) 1.9 0.0-7.0 % Basophils (%) (Auto) 0.7 0.0-2.0 % Neutrophils # (Auto) 5.4 1.6-8.6 10 ^3/uL Lymphocytes # (Auto) 1.8 0.4-5.4 10 ^3/uL Monocytes # (Auto) 0.3 0-1.3 10 ^3/uL Eosinophils # (Auto) 0.1 0-0.8 10 ^3/uL Basophils # (Auto) 0.1 0-0.2 10 ^3/uL Nucleated Red Blood Cells 0.0 % D-Dimer, Quantitative 2.02 H 0.0-0.49 mg/L FEU POC Glucose 266 H 70-106 mg/dl Primary Diagnosis Shortness of breaths likely due to pneumonia Parapneumonic effusion Elevated troponin rule out ACS Recent CABG Hyperkalemia Plan Chest x-ray shows small effusion CTA chest ruled out PE small parapneumonic effusion Zosyn for broad-spectrum antibiotics Check blood culture, sputum culture. Adjust antibiotic according to the ID and sensitivity IV fluids Elevated troponin rule out ACS Check echocardiogram of the heart Cardiology consult for elevated troponin Check lactic acid BNP to assess for hyperkalemia resume home meds NPO midnight Nuclear stress test tomorrow Full code Cardiac diet Lovenox for DVT prophylaxis PPI for GI Plan discussed with: Patient Problems List: (1) Elevated troponin Status: Acute (2) Hyperkalemia Status: Acute (3) Pneumonia Status: Acute (4) Pleural effusion Status: Acute Date of Service: Jan 22, 2025 Billing Provider: JOSEPHINE LANDAVERDE MD Common Visit Codes: [id number] INP/OBS CARE (HIGH) JOSEPHINE LANDAVERDE MD Jan 22, 2025 18:15
[2025-01-22] MEDS: DEXTROSE (50%) 50ML SYRG IV ONE (18:40)
[2025-01-22] MEDS: InsuLIN REG 1unit/0.01ml Soln (100units/ml) IV ONE (18:45)
[2025-01-22] MEDS: cefTRIAXone 1GM/50ML D5W 50 ML IV ONE (18:55)
[2025-01-22 19:04] VITALS: PULSE 86; RESP 21; O2SAT 97
[2025-01-22 19:24] LABS: Chloride 106 mmol/L (98-107); Potassium 4.3 mmol/L (3.5-5.1); Sodium 140 mmol/L (136-145)
[2025-01-22 19:25] LABS: Anion Gap 9 (5-15); Calcium 9.4 mg/dL (8.7-10.4); Carbon Dioxide 25 mmol/L (20-31)
[2025-01-22 19:30] LABS: BUN/Creatinine Ratio 28.3 (10.0-20.0)
[2025-01-22 19:32] LABS: Blood Urea Nitrogen 30 mg/dL (9-23); Glucose 268 mg/dL (74-106)
[2025-01-22 19:34] VITALS: PULSE 88; RESP 18; O2SAT 98
[2025-01-22 19:37] LABS: Lactic Acid w/Reflex 4.9 mmol/L (0.4-2.0)
[2025-01-22] MEDS ORDERED: ONDANSETRON HCL 4 MG/2 ML VIAL IV PRN (20:45)
[2025-01-22] MEDS ORDERED: NITROGLYCERIN 0.4 MG SL TAB SL PRN (20:45)
[2025-01-22] MEDS ORDERED: ACETAMINOPHEN 325 MG TAB PO PRN (20:45)
[2025-01-22] MEDS ORDERED: DEXTROSE (50%) 50ML SYRG IV PRN (21:00)
[2025-01-22] MEDS: SODIUM CHLORIDE 0.9% 500 ML IV ONE (21:08)
[2025-01-22] MEDS: LACTATED RINGER'S 1,000 ML IV ONE (21:08)
[2025-01-22] MEDS: HYDROcodone-ACET 5/325MG TAB PO PRN (21:11)
[2025-01-22] MEDS ORDERED: PATIENTS OWN MEDICATION (Baclofen 1 TAB) PO SCH (22:00)
[2025-01-22] MEDS: FAMOTIDINE 20 MG TAB GT SCH (22:00)
[2025-01-22] MEDS ORDERED: PATIENTS OWN MEDICATION (Trazodone Hcl 1 TAB) PO SCH (22:00)
[2025-01-22 22:04] LABS: COVID19 ANTIGEN SOFIA FIA NEGATIVE (NEGATIVE)
[2025-01-22 22:05] LABS: Rapid Influenza A Negative (Negative); Rapid Influenza B Negative (Negative)
[2025-01-22] MEDS: SACUBITRIL-VALSARTAN 24mg/26mg TAB PO SCH (22:40)
[2025-01-22] MEDS: BACLOFEN 10 MG TAB PO SCH (22:40)
[2025-01-22] MEDS: PANTOPRAZOLE 40 MG TAB PO SCH (22:40)
[2025-01-22] MEDS: traZODone HCL 50 MG TAB PO SCH (22:41)
[2025-01-22] MEDS: METOPROLOL TARTRATE 25 MG TAB PO SCH (22:42)
[2025-01-22] MEDS: ACCU-CHEK COMFORT CURVE STRIP VI SCH (22:42)
[2025-01-22] MEDS: InsuLIN REG 1unit/0.01ml Soln (100units/ml) SC SCH (22:43)
[2025-01-22] MEDS: SODIUM ZIRCONIUM CYCL 10 GM PAK PO SCH (22:43)
[2025-01-22] MEDS: SODIUM CHLOR 0.9% PF (SALINE LOCK) 10ML VIAL/SYR IV SCH (22:59)
[2025-01-22 23:05] VITALS: BP 117/60; PULSE 78; PULSE 91; RESP 16; RESP 18; TEMP 98.4; O2SAT 98
[2025-01-23] MEDS ORDERED: SACU1TAB PO (00:18)
[2025-01-23] MEDS ORDERED: METO25TA93 PO (00:19)
[2025-01-23] MEDS ORDERED: METH-1181 PO (00:20)
[2025-01-23] MEDS: HYDROmorphone HCL 2 MG/ML VL/or syr IV PRN (01:04)
[2025-01-23] MEDS: MORPHINE SULFATE INJ 2 MG/ml SYRG IV PRN (03:27)
[2025-01-23 03:51] LABS: Basophils # (auto) 0.1 10 ^3/uL (0-0.2); Basophils % (auto) 1.3 % (0.0-2.0); Eosinophils # (auto) 0.1 10 ^3/uL (0-0.8); Eosinophils % (auto) 1.6 % (0.0-7.0); Hemoglobin 9.5 g/dL (13.5-17.5); Mean Corpuscular Hemoglobin 33.4 pg (28.0-32.0); Mean Corpuscular Hgb Conc. 35.1 g/dL (32.0-36.0); Monocytes # (auto) 0.4 10 ^3/uL (0-1.3); Monocytes % (auto) 5.7 % (0.0-12.0); Neutrophils # (auto) 4.2 10 ^3/uL (1.6-8.6); Neutrophils % (auto) 61.4 % (37.0-80.0); Platelet Count (auto) 649 10^3/uL (140-450); Red Blood Cells 2.84 10^6/uL (4.5-5.90); Red Cell Distribution Width 13.7 % (11.8-14.3); White Blood Cell 6.8 10^3/uL (4.4-10.8)
[2025-01-23 04:06] LABS: Alanine Aminotransferase 15 U/L (7-40); Albumin 3.9 g/dL (3.2-4.8); Alkaline Phosphatase 79 U/L (46-116); Anion Gap 10 (5-15); BUN/Creatinine Ratio 23.9 (10.0-20.0); Blood Urea Nitrogen 22 mg/dL (9-23); Calcium 9.5 mg/dL (8.7-10.4); Carbon Dioxide 23 mmol/L (20-31); Chloride 103 mmol/L (98-107); Magnesium 1.9 mg/dL (1.6-2.6); Potassium 3.9 mmol/L (3.5-5.1); Sodium 136 mmol/L (136-145); Total Protein 6.6 g/dL (5.7-8.2)
[2025-01-23 04:08] LABS: Bilirubin, Total 0.4 mg/dL (0.2-1.0)
[2025-01-23 04:14] LABS: Aspartate Aminotransferase 11 U/L (13-40); Glucose 186 mg/dL (74-106)
[2025-01-23] MEDS ORDERED: BACLOFEN 10 MG TAB PO SCH (06:00)
[2025-01-23 06:32] VITALS: BP 110/55; PULSE 83; RESP 16; TEMP 99.2; O2SAT 99
[2025-01-23 09:00] VITALS: BP 115/63; PULSE 91; RESP 17; TEMP 97.9; O2SAT 100
[2025-01-23] MEDS: ASPirin-EC 81 mg tab PO SCH (09:29)
[2025-01-23] MEDS: ATORVASTATIN 20 MG TAB PO SCH (09:30)
[2025-01-23] MEDS: cefTRIAXone 1GM/50ML D5W 50 ML IV SCH (09:30)
[2025-01-23] MEDS: ENOXAPARIN SOD 40 MG/0.4 ML SYRINGE SC SCH (09:31)
--- NOTE | 2025-01-23 09:58 | DVHINCON2 ---
Date Seen: Jan 23, 2025 Referring Physician MD Brendan Reason for Consultation Chest pain rule out ACS, recent CABG History of Present Illness This is a 34-year-old male who presented to the emergency room with a chief complaint of bilateral lower extremity paresthesia. The patient's initial complaint was his bilateral lower extremities feeling like pins and needles as well as complaining of a popping feeling to his left chest wall area with inspiration. Reports his chest wall symptoms initiated after sneezing approximately three days ago. The patient with a recent admission to this facility was transferred to [facility] on 01/11/2025 as he was found with multivessel coronary artery disease. He underwent a triple-vessel coronary artery bypass graft at [facility] with discharge home 5-6 days ago. Underwent multiple 12 lead electrocardiograms x 2 revealing a sinus rhythm with nonspecific ST nonprogressive changes. Serial troponin levels have remained flat in the 100s ng/L. Significant past medical history includes congestive heart failure, hypertension, hypertriglyceridemia, juvenile type 2 diabetes mellitus, thyroid disease, nephrolithiasis, bipolar disorder, schizophrenia, and heavy tobacco use. Past Medical History Past medical history reviewed. No other significant than mentioned above. Past Surgical History Triple-vessel CABG at [facility] on 01/2025 Family History: Cardiovascular disease G8 MOTHER Diabetes mellitus G8 FATHER Family History Family history reviewed. Social History Denies the use of illicit drugs and alcohol. Admits to current tobacco use. Allergies: Coded Allergies: Egg-derived Products (Verified Allergy, Unknown, 01/05/25) Home Meds Active Scripts Prednisone (Prednisone) 20 Mg Tab, 60 MG PO DAILY, #18 TAB Prov:TABATHA MONTENEGRO 08/05/24 Amoxicillin Trihydrate (Amoxicillin) 875 Mg Tab, 1 TAB PO BID, #20 TAB Prov:TABATHA MONTENEGRO 08/05/24 Metformin Hydrochloride (Metformin Hcl) 500 Mg Tab, 1 TAB PO BID, #60 TAB 3 Refills Prov:JENISE RAMOS 07/20/24 Ibuprofen Micronized (Ibuprofen) 800 Mg Tab, 800 MG PO Q8HPRN PRN, #20 TAB Prov:JENISE RAMOS 07/20/24 Hydrocodone-Acetaminophen (Hydrocodone Bitartrate/AC 10-325 mg) 1 Tab Tab, 1 TAB PO Q6HPRN PRN, #15 TAB Prov:JENISE RAMOS 07/20/24 Cefpodoxime Proxetil (Cefpodoxime Proxetil) 200 Mg Tab, 1 TAB PO BID for 10 Days, #20 TAB Prov:JENISE RAMOS [facility] 07/20/24 Pantoprazole Sodium Sesquihydr (Protonix) 40 Mg Tab, 40 MG PO BID for 30 Days, #60 TAB Prov:JOSE DE JESUS CLIFFORD MD 11/04/23 Sucralfate (CARAFATE SUSP) 1 Gm/10 Ml Ss, 1 GM PO TIDAC for 30 Days, #1200 ML Prov:JOSE DE JESUS CLIFFORD MD 11/04/23 Sacubitril-Valsartan (Entresto 24-26 mg) 1 Tab Tab, 1 TAB PO BID for 30 Days, #60 TAB Prov:JOSE DE JESUS CLIFFORD MD 11/04/23 Metoprolol Tartrate (Lopressor) 25 Mg Tb, 12.5 MG PO BID for 30 Days, #60 TAB Prov:JOSE DE JESUS CLIFFORD MD 11/04/23 Cyclobenzaprine Hcl (Cyclobenzaprine Hcl) 10 Mg Tab, 10 MG PO BID PRN, #20 TAB Prov:ISAAC ANTONIO MD 01/27/23 Famotidine (PEPCID TABLET) 20 Mg Tb, 20 MG GT BID for 14 Days, #28 TAB Prov:ISAAC ANTONIO MD 01/27/23 Citalopram Hydrobromide (Celexa) 10 Mg Tab, 1 TAB PO DAILY, #30 TAB 0 Refills Prov:DANIELA LEOS MD 07/21/22 Insulin Regular (Human) (Novolin R) 100 Unit/Ml Inj, 0 UNITS SC IQ4HR for 30 Days, INJ if BS 150-200 give 2 units if BS 201-250 give 4 units if BS 251-300 give 6 units if BS 301-350 give 8 units if BS 351-400 give 10 units. if BS >400 call your doctor Prov:BILLIE ADAMS MD 07/17/22 Insulin Glargine (Lantus) 100 Unit/Ml Inj, 30 UNIT SC DAILY for 30 Days, #30 INJ Prov:BILLIE ADAMS MD 07/17/22 Reported Medications Methocarbamol (Methocarbamol) 500 Mg Tab, 500 MG PO TID for 30 Days, MG 01/23/25 Metoprolol Succinate (Metoprolol Succinate Er) 25 Mg Tab, 25 MG PO DAILY for 30 Days, MG 01/23/25 Sacubitril-Valsartan (Entresto 24-26 mg) 1 Tab Tab, 1 TAB PO BID, TAB 01/23/25 Quetiapine Fumerate (QUETIAPINE FUMARATE) 300 Mg Tab, 1 TAB PO DAILY 11/03/23 Trazodone Hcl (Trazodone Hcl) 100 Mg Tab, 1 TAB PO HS 11/03/23 Citalopram Hydrobromide (Citalopram Hydrobromide) 20 Mg Tab, 1 TAB PO DAILY 11/03/23 Bupropion Hcl (Bupropion Hcl Xl) 300 Mg Tab, 1 TAB PO QAM 11/03/23 Citalopram Hydrobromide (Celexa) 10 Mg Tab, 1 TAB PO DAILY, #30 TAB 2 Refills 07/13/22 Lisinopril (Lisinopril) 40 Mg Tab, 1 TAB PO DAILY, #30 TAB 5 Refills 07/13/22 Omeprazole (Gnp Omeprazole) 20 Mg Tab, 1 TAB PO DAILY, #90 TAB 1 Refill 07/13/22 Aspirin (Aspirin Ec) 81 Mg Tab, 81 MG PO DAILY, TAB 07/13/22 Levothyroxine Sodium (Levothyroxine Sodium) 25 Mcg Tab, 1 TAB PO DAILY, #30 TAB 5 Refills 07/13/22 Montelukast Sodium (MONTELUKAST SODIUM) 10 Mg Tab, 1 TAB PO DAILY, #30 TAB 5 Refills 07/13/22 Atorvastatin Calcium (ATORVASTATIN CALCIUM) 80 Mg Tab, 1 TAB PO DAILY, #30 TAB 5 Refills 07/13/22 Divalproex Sodium (Depakote) 500 Mg Tab, 500 MG PO DAILY, TAB 07/13/22 Quetiapine Fumerate (Seroquel) 400 Mg Tab, 1 TAB PO QPM, #30 TAB 1 Refill 07/13/22 Ziprasidone Hydrochloride (Geodon) 60 Mg Cap, 60 MG PO BID, CAP 07/13/22 Acetaminophen (Tylenol) 325 Mg Cap, 325 MG PO Q4HPRN, CAP 07/13/22 Ibuprofen (Ibuprofen) 800 Mg Tab, 1 TAB PO Q4HPRN, #90 TAB 1 Refill 07/13/22 Baclofen (Baclofen) 20 Mg Tab, 1 TAB PO TID, #90 TAB 2 Refills 07/13/22 Home Meds Home medications reviewed. Current Medications Current Medications Medications (Trade) Dose Ordered Sig/Munir Route PRN Reason Start Time Stop Time Status Last Admin Zirconium Oxide (Lokelma) 10 gm TID PO 01/22/25 22:00 01/24/25 14:01 01/22/25 22:43 Sodium Chloride (Saline Lock Ns) 10 ml Q8HR IV 01/22/25 22:00 01/23/25 05:48 Docusate Sodium (Colace Capsule) 100 mg BIDPRN PRN PO FOR CONSTIPATION 01/22/25 20:45 Acetaminophen (Tylenol Tablet) 650 mg Q6HP PRN PO PAIN SCALE 1-3 OR TEMP>100.4 01/22/25 20:45 Acetaminophen/ Hydrocodone Bitart ([place] 5/325MG Tab) 1 tab Q4HP PRN PO MODERATE PAIN (4-6 PAIN SCALE) 01/22/25 20:45 01/22/25 21:11 Hydromorphone HCl (Dilaudid Injection) 0.5 mg Q4HP PRN IV SEVERE PAIN (7-10 PAIN SCALE) 01/22/25 20:45 01/23/25 01:04 Ondansetron HCl (Zofran) 4 mg Q4HP PRN IV NAUSEA / VOMITING 01/22/25 20:45 Enoxaparin Sodium (Lovenox) 40 mg DAILY SC 01/23/25 10:00 Nitroglycerin (Ntrostat Sublingual) 0.4 mg Q5MINP PRN SL FOR CHEST PAIN 01/22/25 20:45 Morphine Sulfate 2 mg Q30M PRN IV FOR CHEST PAIN 01/22/25 20:45 01/23/25 03:27 Ceftriaxone Sodium 50 ml @ 100 mls/hr DAILY IV 01/23/25 10:00 Azithromycin 250 ml @ 125 mls/hr DAILY IV 01/23/25 10:00 Aspirin (Ecotrin Enteric Coated Tablet) 81 mg DAILY PO 01/23/25 10:00 Famotidine (Pepcid Tablet) 20 mg BID GT 01/22/25 22:00 Insulin Glargine (Lantus) 30 units DAILY SC 01/23/25 10:00 Levothyroxine Sodium (Synthroid Tablet) 25 mcg DAILY PO 01/23/25 10:00 01/23/25 03:24 DC Metoprolol Tartrate (Lopressor Tablet) 12.5 mg BID PO 01/22/25 22:00 01/22/25 22:42 Montelukast Sodium (Singulair Tablet) 10 mg DAILY PO 01/23/25 10:00 01/23/25 03:25 DC Pantoprazole Sodium (Protonix Tablet) 40 mg BID PO 01/22/25 22:00 01/22/25 22:40 Sacubitril/ Valsartan (Entresto 24-26 Mg tab) 1 tab BID PO 01/22/25 22:00 01/22/25 22:40 Patient Own Medication 1 tab DAILY PO 01/23/25 10:00 01/22/25 21:20 DC Patient Own Medication 1 tab TID PO 01/22/25 22:00 01/22/25 21:22 DC Patient Own Medication 1 tab QAM PO 01/23/25 07:00 UNV Patient Own Medication 1 tab DAILY PO 01/23/25 10:00 01/22/25 21:15 DC Patient Own Medication 500 mg DAILY PO 01/23/25 10:00 UNV Patient Own Medication 1 tab DAILY PO 01/23/25 10:00 01/22/25 21:13 DC Patient Own Medication 1 tab DAILY PO 01/23/25 10:00 01/22/25 21:13 DC Patient Own Medication 1 tab DAILY PO 01/23/25 10:00 01/22/25 21:26 DC Patient Own Medication 1 tab HS PO 01/22/25 22:00 01/22/25 21:17 DC Diagnostic Test (Pha) (Accu-Chek Comfort Curve T) 1 strip ACHS 01/22/25 22:00 01/23/25 06:10 Insulin Human Regular (InsuLIN R) ACHS SC 01/22/25 22:00 01/23/25 06:11 Dextrose 50 ml UD PRN IV Blood Sugar LESS THAN 60 01/22/25 21:00 Citalopram Hydrobromide (CeleXA TABLET) 10 mg DAILY PO 01/23/25 10:00 01/23/25 03:18 DC Trazodone HCl (Desyrel) 100 mg HS PO 01/22/25 22:00 01/23/25 03:23 DC 01/22/25 22:41 Atorvastatin Calcium (Lipitor) 80 mg DAILY PO 01/23/25 10:00 Baclofen (Liorisal Tablet) 20 mg TID PO 01/22/25 22:00 01/23/25 03:21 DC 01/22/25 22:40 Quetiapine Fumarate (SEROquel TABLET) 300 mg DAILY PO 01/23/25 10:00 01/23/25 03:19 DC Citalopram Hydrobromide (CeleXA TABLET) 10 mg DAILY PO 01/23/25 10:00 UNV Quetiapine Fumarate (SEROquel TABLET) 300 mg DAILY PO 01/23/25 10:00 UNV Baclofen (Liorisal Tablet) 20 mg TID PO 01/23/25 06:00 UNV Levothyroxine Sodium (Synthroid Tablet) 25 mcg DAILY PO 01/23/25 10:00 01/23/25 03:24 DC Trazodone HCl (Desyrel) 100 mg HS PO 01/23/25 22:00 UNV Levothyroxine Sodium (Synthroid Tablet) 25 mcg DAILY PO 01/23/25 10:00 UNV Montelukast Sodium (Singulair Tablet) 10 mg DAILY PO 01/23/25 10:00 UNV Review of Systems Constitutional: No symptom reported Ears, Nose, & Throat: No symptom reported Eyes: No symptom reported Neurological: No symptoms reported Pulmonary/Respiratory: No symptom reported Cardiovascular: No symptom reported Gastrointestinal: No symptom reported Genitourinary: No symptom reported Musculoskeletal: Chest wall pain Skin: No symptom reported Psychiatric: No symptom reported Endocrine: No symptom reported Hemotologic/Lymphatic: No symptom reported Vital Signs Vital Signs Date Time Temp Pulse Resp B/P (MAP) Pulse Ox O2 Delivery O2 Flow Rate FiO2 01/23/25 06:32 99.2 83 16 110/55 (73) 99 99.2 01/22/25 19:34 Room Air* 0 21 Physical Exam General Appearance: Cooperative. Well developed. Well nourished. In no acute distress Head Exam: Normal inspection Neck Exam: Normal inspection. Non-tender. Normal alignment Pulmonary/Respiratory: Chest non-tender. Clear bilateral breath sounds Cardiovascular/Chest: Regular rate and rhythm. S1, S2. No murmurs. No JVD. Peripheral Pulses: 2+ Radial (R). 2+ Radial (L). 2+ Pedal (R). 2+ Pedal (L) Abdominal Exam: Normal bowel sounds. Soft. Nontender. No hepatospenomegaly. No masses Ankle Exam: Negative ankle edema Lower extremities: Negative lower extremity edema Neuro/Mental Status: A&O x4. Coherent Thoughts/Psych: Normal thought pattern. Rambling thoughts Appearance: In no acute distress Skin Exam: Hematoma to right thigh. Mid-sternal vertical incision with no signs of trauma or infection Labs/Diagnostic Data Labs Test 01/23/25 06:04 01/23/25 03:20 01/23/25 00:14 01/22/25 21:20 Range/Units POC Glucose 230 H 70-106 mg/dl White Blood Count 6.8 4.4-10.8 10^3/uL Red Blood Count 2.84 L 4.5-5.90 10^6/uL Hemoglobin 9.5 L 13.5-17.5 g/dL Hematocrit 27.0 #L 41.0-53.0 % Mean Corpuscular Volume 95.0 80.0-100.0 fL Mean Corpuscular Hemoglobin 33.4 H 28.0-32.0 pg Mean Corpuscular Hemoglobin Concent 35.1 32.0-36.0 g/dL Red Cell Distribution Width 13.7 11.8-14.3 % Platelet Count 649 H 140-450 10^3/uL Mean Platelet Volume 6.8 L 6.9-10.8 fL Neutrophils (%) (Auto) 61.4 37.0-80.0 % Lymphocytes (%) (Auto) 30.0 10.0-50.0 % Monocytes (%) (Auto) 5.7 0.0-12.0 % Eosinophils (%) (Auto) 1.6 0.0-7.0 % Basophils (%) (Auto) 1.3 0.0-2.0 % Neutrophils # (Auto) 4.2 1.6-8.6 10 ^3/uL Lymphocytes # (Auto) 2.0 0.4-5.4 10 ^3/uL Monocytes # (Auto) 0.4 0-1.3 10 ^3/uL Eosinophils # (Auto) 0.1 0-0.8 10 ^3/uL Basophils # (Auto) 0.1 0-0.2 10 ^3/uL Nucleated Red Blood Cells 0.0 % Sodium Level 136 136-145 mmol/L Potassium Level 3.9 3.5-5.1 mmol/L Chloride Level 103 98-107 mmol/L Carbon Dioxide Level 23 20-31 mmol/L Anion Gap 10 5-15 Blood Urea Nitrogen 22 9-23 mg/dL Creatinine 0.92 0.700-1.30 mg/dL Glomerular Filtration Rate Calc 111 >90 mL/min BUN/Creatinine Ratio 23.9 H 10.0-20.0 Serum Glucose 186 H 74-106 mg/dL Calcium Level 9.5 8.7-10.4 mg/dL Magnesium Level 1.9 1.6-2.6 mg/dL Total Bilirubin 0.4 0.2-1.0 mg/dL Aspartate Amino Transferase (AST) 11 L 13-40 U/L Alanine Aminotransferase (ALT) 15 7-40 U/L Alkaline Phosphatase 79 46-116 U/L Total Protein 6.6 5.7-8.2 g/dL Albumin 3.9 3.2-4.8 g/dL Troponin I High Sensitivity 168 *H </=54 ng/L Influenza Type A Antigen Negative Negative Influenza Type B Antigen Negative Negative SARS-CoV-2 Antigen (Rapid) Negative NEGATIVE Test 01/22/25 21:05 01/22/25 15:50 Range/Units Lactic Acid Level 4.3 *H 0.4-2.0 mmol/L D-Dimer, Quantitative 2.02 H 0.0-0.49 mg/L FEU Assessment Non-ST elevation myocardial infarction Type V post triple vessel CABG Severe multivessel coronary artery disease s/p CABG Chronic compensated HFrEF, NYHA class I Uncontrolled juvenile type 2 diabetes mellitus, Hgb A1c 13.1% Hypertension Hypertriglyceridemia Thyroid disease Bipolar/Schizophrenia Nicotine dependance Plan/Recommendation (Dr. Enriquez) The patient presents with pleuritic/chest wall pain post triple-vessel CABG at [facility] within the past week. Continue pain management with NSAIDS. Given findings from transthoracic echocardiogram revealing an EF of 40% initiate GDMT for CHF and uptitrate as tolerated. Continue single-antiplatelet therapy with ASA and lipid-lowering agent. Strongly counseled on tobacco use cessation. Follow-up with a primary prototype technician within 1-2 weeks post-discharge plus sutures removal within 8-10 days post surgical intervention. We will sign off at this time. Kindly call if in need to continue to follow-up. Thank you for allowing us to care for this patient. This medical document was created using an electronic medical record system with voice recognition software and computerized dictation system. Although this document has been carefully reviewed, there might still be some phonetic and typographical errors. Occasional wrong-word or ``sound-alike substitutions may have occurred due to the inherent limitations of voice recognition software. These areas are purely typographical due to imperfections of the software programs and do not reflect any compromise in the patient's medical care. Please read the chart carefully and recognize, using context, where these substitutions have occurred. Plan discussed with: Patient, Other NYHA Physical activity limitations: Class1(None)absent sob, (fatigue,palpitaions w activity) Date of Service: Jan 23, 2025 Billing Provider: VLAD PRATER Cardiology Common Codes: 46121-[id number] INP/OBS CARE (High) VLAD PRATER Jan 23, 2025 09:58
[2025-01-23] MEDS: NICOTINE 14 MG/24HR TOPICAL PATCH TD SCH (10:00)
[2025-01-23] MEDS ORDERED: QUEtiapine FUMARATE 100 MG TAB PO SCH ×2 (10:00)
[2025-01-23] MEDS ORDERED: PATIENTS OWN MEDICATION (Quetiapine Fumerate (Quetiapine Fumarate) 1 TAB) PO SCH (10:00)
[2025-01-23] MEDS ORDERED: LEVOTHYROXINE SODIUM 25 MCG TAB PO SCH ×2 (10:00)
[2025-01-23] MEDS ORDERED: MONTELUKAST SODIUM 10 MG TAB PO SCH (10:00)
[2025-01-23] MEDS ORDERED: CITALOPRAM HYDROBR 20 MG TAB PO SCH (10:00)
[2025-01-23] MEDS ORDERED: PATIENTS OWN MEDICATION (Atorvastatin Calcium 1 TAB) PO SCH (10:00)
[2025-01-23] MEDS ORDERED: PATIENTS OWN MEDICATION (Lisinopril 1 TAB) PO SCH (10:00)
[2025-01-23] MEDS ORDERED: PATIENTS OWN MEDICATION (Omeprazole (Gnp Omeprazole) 1 TAB) PO SCH (10:00)
[2025-01-23] MEDS ORDERED: PATIENTS OWN MEDICATION (Citalopram Hydrobromide (Celexa) 1 TAB) PO SCH (10:00)
[2025-01-23] MEDS: AZITHROMYCIN 500MG/ 250ML 250 ML IV SCH (11:01)
[2025-01-23] MEDS: KETOROLAC TROMETH 30 MG/ML 1ML VIAL IV ONE (11:12)
[2025-01-23] MEDS: EMPAGLIFLOZIN 10 MG TAB PO SCH (11:58)
[2025-01-23] MEDS: SPIRONOLACTONE 25 MG TAB PO SCH (11:59)
[2025-01-23] MEDS: INSULIN LANTUS (GLARGINE) 1 /0.01ml (100units/ml) SC SCH (12:01)
[2025-01-23 13:00] VITALS: BP 104/60; PULSE 81; RESP 17; TEMP 97.5; O2SAT 95
--- NOTE | 2025-01-23 14:02 | DVHPNRES ---
Progress Note Date Seen: Jan 23, 2025 Resident Creating Document: JOSE MCNAMARA RESIDENT Medical Necessity Reason Pt with a Central, PICC or Fol: No Subjective Review of Systems MAKAYLA OSCAR is a 34-year-old male with PMHx CABG, HTN, DM, presents with a chief complaint of chest pain and SOB x 4 days. patient reported his chest wall symptoms initiated after sneezing approximately three days ago. The patient with a recent admission to this facility was transferred to [facility] on 01/11/2025 as he was found with multivessel coronary artery disease. He underwent a triple-vessel coronary artery bypass graft at [facility] with discharge home 5-6 days ago. patient also reported he has been having bilateral lower extremity paresthesias, feeling neck pain son needle. On my assessment patient denies fever, nausea, vomiting, diarrhea, diaphoresis, palpitations, and other associated symptoms, PMH: CHF, CAD status post CABG, HTN, type 2 DM, hypertriglyceridemia, thyroid disease, nephrolithiasis, bipolar, schizophrenia PSH: Triple-vessel CABG at [facility] on 01/2025 Family history: Reviewed, noncontributory Social history: Lives with family. Active smoker still smoking but denies alcohol and other drug abuse Allergies: Egg derived products Patient seen and examined at the bedside. Patient reported mild chest wall pain but no new complaints. Underwent multiple 12 lead electrocardiograms x 2 revealing a sinus rhythm with nonspecific ST nonprogressive changes. Troponins are mildly elevated , consulted Cardiology, advised pain management due to pleuritic or chest wall pain post surgery and advised to continue aspirin, Lipitor and GDM T for CHF as tolerated. Objective vital signs Vital Sign Date Time Temp Pulse Resp B/P (MAP) Pulse Ox O2 Delivery O2 Flow Rate FiO2 01/23/25 10:30 78 118/78 01/23/25 09:00 97.9 17 100 97.9 01/22/25 23:05 Room Air* 0 21 Total Intake and Output 01/22/25 01/22/25 01/23/25 15:00 23:00 07:00 Intake Total 1000 ml Balance 1000 ml medications Current Medications Medications Dose Ordered Sig/Munir Route Start Time Stop Time Status Last Admin Dose Admin Zirconium Oxide 10 gm TID PO 01/22/25 22:00 01/24/25 14:01 01/22/25 22:43 10 GM Sodium Chloride 10 ml Q8HR IV 01/22/25 22:00 01/23/25 05:48 10 ML Docusate Sodium 100 mg BIDPRN PRN PO 01/22/25 20:45 Acetaminophen 650 mg Q6HP PRN PO 01/22/25 20:45 Acetaminophen/ Hydrocodone Bitart 1 tab Q4HP PRN PO 01/22/25 20:45 01/23/25 11:46 1 TAB Ondansetron HCl 4 mg Q4HP PRN IV 01/22/25 20:45 Enoxaparin Sodium 40 mg DAILY SC 01/23/25 10:00 01/23/25 09:31 40 MG Nitroglycerin 0.4 mg Q5MINP PRN SL 01/22/25 20:45 Morphine Sulfate 2 mg Q30M PRN IV 01/22/25 20:45 01/23/25 03:27 2 MG Ceftriaxone Sodium 50 ml @ 100 mls/hr DAILY IV 01/23/25 10:00 01/23/25 09:30 100 MLS/HR Azithromycin 250 ml @ 125 mls/hr DAILY IV 01/23/25 10:00 01/23/25 11:01 125 MLS/HR Aspirin 81 mg DAILY PO 01/23/25 10:00 01/23/25 09:29 81 MG Famotidine 20 mg BID GT 01/22/25 22:00 01/23/25 09:29 20 MG Insulin Glargine 30 units DAILY SC 01/23/25 10:00 01/23/25 12:01 30 UNITS Metoprolol Tartrate 12.5 mg BID PO 01/22/25 22:00 01/23/25 09:30 12.5 MG Pantoprazole Sodium 40 mg BID PO 01/22/25 22:00 01/23/25 09:30 40 MG Sacubitril/ Valsartan 1 tab BID PO 01/22/25 22:00 01/23/25 09:29 1 TAB Patient Own Medication 1 tab QAM PO 01/23/25 07:00 UNV Patient Own Medication 500 mg DAILY PO 01/23/25 10:00 UNV Diagnostic Test (Pha) 1 strip ACHS 01/22/25 22:00 01/23/25 11:44 1 STRIP Insulin Human Regular ACHS SC 01/22/25 22:00 01/23/25 12:02 6 UNITS Dextrose 50 ml UD PRN IV 01/22/25 21:00 Atorvastatin Calcium 80 mg DAILY PO 01/23/25 10:00 01/23/25 09:30 80 MG Citalopram Hydrobromide 10 mg DAILY PO 01/23/25 10:00 UNV Quetiapine Fumarate 300 mg DAILY PO 01/23/25 10:00 UNV Trazodone HCl 100 mg HS PO 01/23/25 22:00 UNV Levothyroxine Sodium 25 mcg DAILY PO 01/23/25 13:01 Montelukast Sodium 10 mg DAILY PO 01/23/25 13:08 Spironolactone 12.5 mg DAILY PO 01/23/25 10:00 01/23/25 11:59 12.5 MG Empaglifozin 10 mg DAILY PO 01/23/25 10:00 01/23/25 11:58 10 MG Nicotine 1 patch DAILY TD 01/23/25 10:00 Ketorolac Tromethamine 15 mg Q6HPRN PRN IV 01/23/25 10:00 01/28/25 09:59 Examination Pt is lying on bed General Appearance: Alert, Oriented X3, Cooperative, Not in acute distress HEENT: Atraumatic, Mucous membranes moist/pink Respiratory: Clear to auscultation, Normal air movement, No added sounds Cardiovascular:Chest wall tenderness. Regular rate, Normal S1, Normal S2, No murmurs Abdominal: Active bowel sounds, Soft, no distention, no tenderness Extremities: No edema, Normal pulses, No tenderness/swelling Skin: Skin Exam: Hematoma to right thigh. Mid-sternal vertical incision with no signs of trauma or infection Neuro: Normal speech, sensorimotor deficits none Psych/Mental Status: Mental status NL, Mood NL Nurse was there as sharperone during examination laboratory and microbiology Laboratory Tests 01/23/25 03:20 Test 01/23/25 03:20 Range/Units Serum Glucose 186 H 74-106 mg/dL Labs and/or images reviewed: Labs reviewed by me, Image(s) reviewed by me Problem List/Assessment/Plan Problem List/Assessment/Plan # NSEMI- V post triple vessel CABG # Severe multivessel CAD s/p CABG # Hypertriglyceridemia # Small pericardial effusion likely from CABG - 12 lead electrocardiograms x 2 revealing a sinus rhythm with nonspecific ST nonprogressive changes. - Troponins are mildly elevated - cardiology evaluated the patient, advised to continue aspirin, Lipitor # Acute G+/- bacterial PNA # Small bilateral pleural effusions - Evident on CXR and CT, Small left pleural effusion with adjacent airspace disease. - currently giving Rocephin and azithromycin - ordered respiratory cultures # Acute on hronic compensated HFrEF, NYHA class I - GDM T as tolerated - echocardiogram EF 40% # ? costochondritis from surgery - continue NSAIDs # Uncontrolled juvenile type 2 DM, Hgb A1c 13.1% - Accu-Cheks and ISS # ruled out DVT/PE - Negative lower venous scan and CT pulmonary angiogram # dependence tobacco # tobacco abuse disorder - counseled regarding cessation for more than 17 minutes - consider nicotine patches # bipolar/schizophrenia - resumed home meds - no suicidal or homicidal ideations Protonix Lovenox Cardiac diet Goals of care discussed with the patient for more than 27 minutes: Full code status Case discussed with Dr. Coleman, patient and nurse Plan discussed with: Patient My Orders My Orders Orders - JOSE MCNAMARA RESIDENT Procedure Category Date Status Time PTPTT LAB 01/23/25 Logged 13:48 Magnesium LAB 01/23/25 Logged 13:48 Thyroid Stimulating LAB 01/23/25 In Process Hormone 13:48 Urinalysis LAB 01/23/25 Logged 13:48 Rapid Influenza A&B LAB 01/23/25 Logged 13:48 Blood Alcohol LAB 01/23/25 Logged 13:48 B-Type Natriuretic LAB 01/23/25 In Process Peptide 13:48 Drug Screen LAB 01/23/25 Logged 13:48 Incentive Spirometry ORDERS 01/23/25 Transmitted 13:52 Pantoprazole Tablet PHA 01/24/25 Verified (Protonix Tablet) 06:00 JOSE MCNAMARA RESIDENT Jan 23, 2025 14:02
--- NOTE | 2025-01-23 14:46 | ECG ---
[facility] Test Date: 2025-01-22 Test Time: 15:18:51 Pat Name: MAKAYLA OSCAR Department: ER Room: 0292T Gender: M Computer Networking Instructor: DR VALERA: 1990 Requested By: SHANTAL HAWTHORNE Order Number: [id number] Reading MD: Sukhwinder Lamas Measurements Intervals [place] Rate: 81 P: 50 NH: 126 QRS: 128 QRSD: 107 T: 16 QT: 377 QTc: 438 Interpretive Statements Sinus rhythm Right axis deviation Minimal ST elevation, inferior leads Electronically Signed On 01-25-2025 22:31:34 PDT by Sukhwinder Lamas Please click the below link to view image of tracing.
[2025-01-23 14:54] LABS: Blood Alcohol < 3.0 mg/dL (<10)
[2025-01-23 14:58] LABS: INR 1.04 (0.9-1.15); Partial Thromboplastin Time 30.3 SEC (24.5-34.5)
[2025-01-23] MEDS: LEVOTHYROXINE SODIUM 25 MCG TAB PO SCH (15:24)
[2025-01-23] MEDS: MONTELUKAST SODIUM 10 MG TAB PO SCH (15:24)
[2025-01-23] MEDS: KETOROLAC TROMETH 30 MG/ML 1ML VIAL IV PRN (18:04)
[2025-01-23 18:40] VITALS: BP 111/64; PULSE 78; RESP 17; TEMP 97.5; O2SAT 97; O2SAT 99
[2025-01-23] MEDS ORDERED: THROAT LOZENGES(CEPASTAT) MT PRN (19:30)
--- NOTE | 2025-01-23 19:44 | DVHINCON2 ---
Date of service: Jan 23, 2025 Referring Physician MD Brendan Reason for Consultation Chest pain History of Present Illness This is a 34-year-old male with a PMH of congestive heart failure, hypertension, hypertriglyceridemia, juvenile type 2 diabetes mellitus, thyroid disease, nephrolithiasis, bipolar disorder, schizophrenia, and heavy tobacco use who presented to the ED with c/o chest pain and SOB x 4 days. Patient reports feeling a pop sensation to his left chest wall area with inspiration. Reports his chest wall symptoms initiated after sneezing. Patient endorses bilateral lower extremity paresthesia. Patient states his bilateral lower extremities feeling like pins and needles. The patient with a recent admission to this facility was transferred to [facility] on 01/11/2025 as he was found with multivessel coronary artery disease. Patient underwent a triple-vessel coronary artery bypass graft at [facility] with discharge home 5-6 days ago. EKG shows sinus rhythm with nonspecific ST nonprogressive changes. Serial troponin levels have remained flat in the 100s ng/L. Chest x-ray shows small left pleural effusion with adjacent airspace disease. RLE US is negative for DVT. CTA chest shows no evidence of acute pulmonary emboli. No aortic aneurysm or dissection. Small pericardial effusion, trace pneumomediastinum and small amount of air in the anterior upper abdomen most likely postsurgical in nature. Small bilateral pleural effusions and adjacent pulmonary opacities represent compressive atelectasis or pneumonia. Patient was admitted to the hospital. I am asked to consult on this patient. Family History: Cardiovascular disease G8 MOTHER Diabetes mellitus G8 FATHER Allergies: Coded Allergies: Egg-derived Products (Verified Allergy, Unknown, 01/05/25) Home Meds Active Scripts Prednisone (Prednisone) 20 Mg Tab, 60 MG PO DAILY, #18 TAB Prov:TABATHA MONTENEGRO 08/05/24 Amoxicillin Trihydrate (Amoxicillin) 875 Mg Tab, 1 TAB PO BID, #20 TAB Prov:TABATHA MONTENEGRO 08/05/24 Metformin Hydrochloride (Metformin Hcl) 500 Mg Tab, 1 TAB PO BID, #60 TAB 3 Refills Prov:JENISE RAMOS 07/20/24 Ibuprofen Micronized (Ibuprofen) 800 Mg Tab, 800 MG PO Q8HPRN PRN, #20 TAB Prov:JENISE RAMOS 07/20/24 Hydrocodone-Acetaminophen (Hydrocodone Bitartrate/AC 10-325 mg) 1 Tab Tab, 1 TAB PO Q6HPRN PRN, #15 TAB Prov:JENISE RAMOS PAC 07/20/24 Cefpodoxime Proxetil (Cefpodoxime Proxetil) 200 Mg Tab, 1 TAB PO BID for 10 Days, #20 TAB Prov:JENISE RAMOS PAC 07/20/24 Pantoprazole Sodium Sesquihydr (Protonix) 40 Mg Tab, 40 MG PO BID for 30 Days, #60 TAB Prov:JOSE DE JESUS CLIFFORD MD 11/04/23 Sucralfate (CARAFATE SUSP) 1 Gm/10 Ml Ss, 1 GM PO TIDAC for 30 Days, #1200 ML Prov:JOSE DE JESUS CLIFFORD MD 11/04/23 Sacubitril-Valsartan (Entresto 24-26 mg) 1 Tab Tab, 1 TAB PO BID for 30 Days, #60 TAB Prov:JOSE DE JESUS CLIFFORD MD 11/04/23 Metoprolol Tartrate (Lopressor) 25 Mg Tb, 12.5 MG PO BID for 30 Days, #60 TAB Prov:JOSE DE JESUS CLIFFORD MD 11/04/23 Cyclobenzaprine Hcl (Cyclobenzaprine Hcl) 10 Mg Tab, 10 MG PO BID PRN, #20 TAB Prov:ISAAC ANTONIO MD 01/27/23 Famotidine (PEPCID TABLET) 20 Mg Tb, 20 MG GT BID for 14 Days, #28 TAB Prov:ISAAC ANTONIO MD 01/27/23 Citalopram Hydrobromide (Celexa) 10 Mg Tab, 1 TAB PO DAILY, #30 TAB 0 Refills Prov:DANIELA LEOS MD 07/21/22 Insulin Regular (Human) (Novolin R) 100 Unit/Ml Inj, 0 UNITS SC IQ4HR for 30 Days, INJ if BS 150-200 give 2 units if BS 201-250 give 4 units if BS 251-300 give 6 units if BS 301-350 give 8 units if BS 351-400 give 10 units. if BS >400 call your doctor Prov:BILLIE ADAMS MD 07/17/22 Insulin Glargine (Lantus) 100 Unit/Ml Inj, 30 UNIT SC DAILY for 30 Days, #30 INJ Prov:BILLIE ADAMS MD 07/17/22 Reported Medications Methocarbamol (Methocarbamol) 500 Mg Tab, 500 MG PO TID for 30 Days, MG 01/23/25 Metoprolol Succinate (Metoprolol Succinate Er) 25 Mg Tab, 25 MG PO DAILY for 30 Days, MG 01/23/25 Sacubitril-Valsartan (Entresto 24-26 mg) 1 Tab Tab, 1 TAB PO BID, TAB 01/23/25 Quetiapine Fumerate (QUETIAPINE FUMARATE) 300 Mg Tab, 1 TAB PO DAILY 11/03/23 Trazodone Hcl (Trazodone Hcl) 100 Mg Tab, 1 TAB PO HS 11/03/23 Citalopram Hydrobromide (Citalopram Hydrobromide) 20 Mg Tab, 1 TAB PO DAILY 11/03/23 Bupropion Hcl (Bupropion Hcl Xl) 300 Mg Tab, 1 TAB PO QAM 11/03/23 Citalopram Hydrobromide (Celexa) 10 Mg Tab, 1 TAB PO DAILY, #30 TAB 2 Refills 07/13/22 Lisinopril (Lisinopril) 40 Mg Tab, 1 TAB PO DAILY, #30 TAB 5 Refills 07/13/22 Omeprazole (Gnp Omeprazole) 20 Mg Tab, 1 TAB PO DAILY, #90 TAB 1 Refill 07/13/22 Aspirin (Aspirin Ec) 81 Mg Tab, 81 MG PO DAILY, TAB 07/13/22 Levothyroxine Sodium (Levothyroxine Sodium) 25 Mcg Tab, 1 TAB PO DAILY, #30 TAB 5 Refills 07/13/22 Montelukast Sodium (MONTELUKAST SODIUM) 10 Mg Tab, 1 TAB PO DAILY, #30 TAB 5 Refills 07/13/22 Atorvastatin Calcium (ATORVASTATIN CALCIUM) 80 Mg Tab, 1 TAB PO DAILY, #30 TAB 5 Refills 07/13/22 Divalproex Sodium (Depakote) 500 Mg Tab, 500 MG PO DAILY, TAB 07/13/22 Quetiapine Fumerate (Seroquel) 400 Mg Tab, 1 TAB PO QPM, #30 TAB 1 Refill 07/13/22 Ziprasidone Hydrochloride (Geodon) 60 Mg Cap, 60 MG PO BID, CAP 07/13/22 Acetaminophen (Tylenol) 325 Mg Cap, 325 MG PO Q4HPRN, CAP 07/13/22 Ibuprofen (Ibuprofen) 800 Mg Tab, 1 TAB PO Q4HPRN, #90 TAB 1 Refill 07/13/22 Baclofen (Baclofen) 20 Mg Tab, 1 TAB PO TID, #90 TAB 2 Refills 07/13/22 Current Medications Current Medications Medications (Trade) Dose Ordered Sig/Munir Route PRN Reason Start Time Stop Time Status Last Admin Zirconium Oxide (Lokelma) 10 gm TID PO 01/22/25 22:00 01/24/25 14:01 01/23/25 15:23 Sodium Chloride (Saline Lock Ns) 10 ml Q8HR IV 01/22/25 22:00 01/23/25 14:00 Docusate Sodium (Colace Capsule) 100 mg BIDPRN PRN PO FOR CONSTIPATION 01/22/25 20:45 Acetaminophen (Tylenol Tablet) 650 mg Q6HP PRN PO PAIN SCALE 1-3 OR TEMP>100.4 01/22/25 20:45 Acetaminophen/ Hydrocodone Bitart (Wasta 5/325MG Tab) 1 tab Q4HP PRN PO MODERATE PAIN (4-6 PAIN SCALE) 01/22/25 20:45 01/23/25 11:46 Hydromorphone HCl (Dilaudid Injection) 0.5 mg Q4HP PRN IV SEVERE PAIN (7-10 PAIN SCALE) 01/22/25 20:45 01/23/25 09:50 DC 01/23/25 01:04 Ondansetron HCl (Zofran) 4 mg Q4HP PRN IV NAUSEA / VOMITING 01/22/25 20:45 Enoxaparin Sodium (Lovenox) 40 mg DAILY SC 01/23/25 10:00 01/23/25 09:31 Nitroglycerin (Ntrostat Sublingual) 0.4 mg Q5MINP PRN SL FOR CHEST PAIN 01/22/25 20:45 Morphine Sulfate 2 mg Q30M PRN IV FOR CHEST PAIN 01/22/25 20:45 01/23/25 03:27 Ceftriaxone Sodium 50 ml @ 100 mls/hr DAILY IV 01/23/25 10:00 01/23/25 09:30 Azithromycin 250 ml @ 125 mls/hr DAILY IV 01/23/25 10:00 01/23/25 11:01 Aspirin (Ecotrin Enteric Coated Tablet) 81 mg DAILY PO 01/23/25 10:00 01/23/25 09:29 Famotidine (Pepcid Tablet) 20 mg BID GT 01/22/25 22:00 01/23/25 09:29 Insulin Glargine (Lantus) 30 units DAILY SC 01/23/25 10:00 01/23/25 12:01 Levothyroxine Sodium (Synthroid Tablet) 25 mcg DAILY PO 01/23/25 10:00 01/23/25 03:24 DC Metoprolol Tartrate (Lopressor Tablet) 12.5 mg BID PO 01/22/25 22:00 01/23/25 09:30 Montelukast Sodium (Singulair Tablet) 10 mg DAILY PO 01/23/25 10:00 01/23/25 03:25 DC Pantoprazole Sodium (Protonix Tablet) 40 mg BID PO 01/22/25 22:00 01/23/25 09:30 Sacubitril/ Valsartan (Entresto 24-26 Mg tab) 1 tab BID PO 01/22/25 22:00 01/23/25 09:29 Patient Own Medication 1 tab DAILY PO 01/23/25 10:00 01/22/25 21:20 DC Patient Own Medication 1 tab TID PO 01/22/25 22:00 01/22/25 21:22 DC Bupropion HCl (Wellbutrin Tablet) 100 mg BID PO 01/23/25 22:00 Patient Own Medication 1 tab DAILY PO 01/23/25 10:00 01/22/25 21:15 DC Divalproex Sodium (Depakote "Dr" Tablet) 1,500 mg DAILY PO 01/24/25 10:00 Patient Own Medication 1 tab DAILY PO 01/23/25 10:00 01/22/25 21:13 DC Patient Own Medication 1 tab DAILY PO 01/23/25 10:00 01/22/25 21:13 DC Patient Own Medication 1 tab DAILY PO 01/23/25 10:00 01/22/25 21:26 DC Patient Own Medication 1 tab HS PO 01/22/25 22:00 01/22/25 21:17 DC Diagnostic Test (Pha) (Accu-Chek Comfort Curve T) 1 strip ACHS 01/22/25 22:00 01/23/25 17:04 Insulin Human Regular (InsuLIN R) ACHS SC 01/22/25 22:00 01/23/25 17:04 Dextrose 50 ml UD PRN IV Blood Sugar LESS THAN 60 01/22/25 21:00 Citalopram Hydrobromide (CeleXA TABLET) 10 mg DAILY PO 01/23/25 10:00 01/23/25 03:18 DC Trazodone HCl (Desyrel) 100 mg HS PO 01/22/25 22:00 01/23/25 03:23 DC 01/22/25 22:41 Atorvastatin Calcium (Lipitor) 80 mg DAILY PO 01/23/25 10:00 01/23/25 09:30 Baclofen (Liorisal Tablet) 20 mg TID PO 01/22/25 22:00 01/23/25 03:21 DC 01/22/25 22:40 Quetiapine Fumarate (SEROquel TABLET) 300 mg DAILY PO 01/23/25 10:00 01/23/25 03:19 DC Citalopram Hydrobromide (CeleXA TABLET) 20 mg DAILY PO 01/24/25 10:00 Quetiapine Fumarate (SEROquel TABLET) 300 mg DAILY PO 01/23/25 10:00 01/23/25 17:01 DC Baclofen (Liorisal Tablet) 20 mg TID PO 01/23/25 06:00 01/23/25 09:50 DC Levothyroxine Sodium (Synthroid Tablet) 25 mcg DAILY PO 01/23/25 10:00 01/23/25 03:24 DC Trazodone HCl (Desyrel) 100 mg HS PO 01/23/25 22:00 01/23/25 17:01 DC Levothyroxine Sodium (Synthroid Tablet) 25 mcg DAILY PO 01/23/25 13:01 01/23/25 15:24 Montelukast Sodium (Singulair Tablet) 10 mg DAILY PO 01/23/25 13:08 01/23/25 15:24 Spironolactone (Aldactone) 12.5 mg DAILY PO 01/23/25 10:00 01/23/25 11:59 Empaglifozin (Jardiance) 10 mg DAILY PO 01/23/25 10:00 01/23/25 11:58 Nicotine (Nicoderm 14MG/ 24HR) 1 patch DAILY TD 01/23/25 10:00 Ketorolac Tromethamine (Toradol Injection) 15 mg Q6HPRN PRN IV MODERATE PAIN (4-6 PAIN SCALE) 01/23/25 10:00 01/28/25 09:59 01/23/25 18:04 Pantoprazole Sodium (Protonix Tablet) 40 mg DAILY@0600 PO 01/24/25 06:00 Acetaminophen/ Hydrocodone Bitart (Wasta 7.5/325MG Tab) 1 tab Q6HP PRN PO MODERATE PAIN (4-6 PAIN SCALE) 01/23/25 15:30 Review of Systems Constitutional: denies: chills, diaphoresis, fatigue, fever, malaise, sweats, weakness, others EENTM: denies: blurred vision, double vision, ear bleeding, ear discharge, ear drainage, ear pain, ear ringing, eye pain, eye redness, hearing loss, mouth pain, mouth swelling, nasal discharge, nose bleeding, nose congestion, nose pain, photophobia, tearing, throat pain, throat swelling, voice changes, others Respiratory: reports: shortness of breath; denies: cough, hemoptysis, orthopnea, SOB at rest, SOB with excertion, stridor, wheezing, others Cardiovascular: reports: chest pain; denies: dizzy spells, diaphoresis, Dyspnea on exertion, edema, irregular heart beat, left arm pain, lightheadedness, palpitations, PND, syncope, others Gastrointestinal: denies: abdomen distended, abdominal pain, blood streaked bowels, constipated, diarrhea, dysphagia, difficulty swallowing, hematemesis, me betsy, nausea, poor appetite, poor fluid intake, rectal bleeding, rectal pain, vomiting, others Genitourinary: denies: burning, dysuria, flank pain, frequency, hematuria, incontinence, penile discharge, penile sore, pain, testicle pain, testicle swelling, urgency, others Neurological: denies: dizziness, fainting, headache, left sided numbness, left sided weakness, numbness, paresthesia, pre-existing deficit, right sided numbness, right sided weakness, seizure, speech problems, tingling, tremors, weakness, others Musculoskeletal: denies: back pain, gout, joint pain, joint swelling, muscle pain, muscle stiffness, neck pain, others Integumetry: denies: bruises, change in color, change in hair/nails, dryness, laceration, lesions, lumps, rash, wounds, others Allergic/Immunocompromised: denies: Difficulty Healing, Frequent Infections, Hives, Itching, others Hematologic/Lymphatic: denies: anemia, blood clots, easy bleeding, easy bruising, swollen glands, others Endocrine: denies: excessive hunger, excessive sweating, excessive thirst, excessive urination, flushing, intolerance to cold, intolerance to heat, unexplained weight gain, unexplained weight loss, others Psychiatric: denies: anxiety, bipolar disorder, depression, hopeless, panic disorder, schizophrenia, sleepless, suicidal, others All Other Systems: Reviewed and Negative Vital Signs Vital Signs Date Time Temp Pulse Resp B/P (MAP) Pulse Ox O2 Delivery O2 Flow Rate FiO2 01/23/25 18:40 78 17 97 Room Air* 0 21 01/23/25 18:40 97.5 111/64 (80) 97.5 Physical Exam GENERAL: Awake, alert, oriented. LUNGS: Clear. CARDIOVASCULAR: Heart sounds are good. ABDOMEN: Soft. SKIN: Hematoma to right thigh. Mid-sternal vertical incision with no signs of trauma or infection Labs/Diagnostic Data Labs Test 01/23/25 17:45 01/23/25 16:56 01/23/25 14:16 01/23/25 03:20 Range/Units POC Glucose 242 H 70-106 mg/dl Prothrombin Time 11.0 9.3-11.8 sec Prothrombin Time INR 1.04 0.9-1.15 Activated Partial Thromboplast Time 30.3 24.5-34.5 SEC Magnesium Level 2.0 1.6-2.6 mg/dL Plasma/Serum Blood Alcohol < 3.0 <10 mg/dL White Blood Count 6.8 4.4-10.8 10^3/uL Red Blood Count 2.84 L 4.5-5.90 10^6/uL Hemoglobin 9.5 L 13.5-17.5 g/dL Hematocrit 27.0 #L 41.0-53.0 % Mean Corpuscular Volume 95.0 80.0-100.0 fL Mean Corpuscular Hemoglobin 33.4 H 28.0-32.0 pg Mean Corpuscular Hemoglobin Concent 35.1 32.0-36.0 g/dL Red Cell Distribution Width 13.7 11.8-14.3 % Platelet Count 649 H 140-450 10^3/uL Mean Platelet Volume 6.8 L 6.9-10.8 fL Neutrophils (%) (Auto) 61.4 37.0-80.0 % Lymphocytes (%) (Auto) 30.0 10.0-50.0 % Monocytes (%) (Auto) 5.7 0.0-12.0 % Eosinophils (%) (Auto) 1.6 0.0-7.0 % Basophils (%) (Auto) 1.3 0.0-2.0 % Neutrophils # (Auto) 4.2 1.6-8.6 10 ^3/uL Lymphocytes # (Auto) 2.0 0.4-5.4 10 ^3/uL Monocytes # (Auto) 0.4 0-1.3 10 ^3/uL Eosinophils # (Auto) 0.1 0-0.8 10 ^3/uL Basophils # (Auto) 0.1 0-0.2 10 ^3/uL Nucleated Red Blood Cells 0.0 % Sodium Level 136 136-145 mmol/L Potassium Level 3.9 3.5-5.1 mmol/L Chloride Level 103 98-107 mmol/L Carbon Dioxide Level 23 20-31 mmol/L Anion Gap 10 5-15 Blood Urea Nitrogen 22 9-23 mg/dL Creatinine 0.92 0.700-1.30 mg/dL Glomerular Filtration Rate Calc 111 >90 mL/min BUN/Creatinine Ratio 23.9 H 10.0-20.0 Serum Glucose 186 H 74-106 mg/dL Calcium Level 9.5 8.7-10.4 mg/dL Total Bilirubin 0.4 0.2-1.0 mg/dL Aspartate Amino Transferase (AST) 11 L 13-40 U/L Alanine Aminotransferase (ALT) 15 7-40 U/L Alkaline Phosphatase 79 46-116 U/L B-Type Natriuretic Peptide 277.92 0-100 pg/mL Total Protein 6.6 5.7-8.2 g/dL Albumin 3.9 3.2-4.8 g/dL Thyroid Stimulating Hormone (TSH) 4.04 0.55-4.78 uIU/mL Test 01/23/25 00:14 01/22/25 21:20 01/22/25 21:05 01/22/25 15:50 Range/Units Troponin I High Sensitivity 168 *H </=54 ng/L SARS-CoV-2 Antigen (Rapid) Negative NEGATIVE Lactic Acid Level 4.3 *H 0.4-2.0 mmol/L D-Dimer, Quantitative 2.02 H 0.0-0.49 mg/L FEU Assessment Non-ST elevation myocardial infarction Type V post triple vessel CABG. Severe multivessel coronary artery disease s/p CABG. Chronic compensated HFrEF, NYHA class I. Uncontrolled juvenile type 2 diabetes mellitus. Hypertension. Hypertriglyceridemia. Thyroid disease. Bipolar/Schizophrenia. Nicotine dependance. Plan/Recommendation I agree with your ongoing assessment and care of plan. Telemetry reviewed. Strongly counseled on tobacco use cessation. Morphine and Wasta for pain management. Aspirin, Lipitor, Metoprolol. IV antibiotics as ordered. DVT and GI prophylactics. Nitro SL. Additional plan as per the hospital course. A total of 45 minutes was spent reviewing the patient record, examining the patient, making a diagnostic and therapeutic plan, discussing this plan with medical personnel, following up on diagnostic studies and following the patient for clinical stability excluding any and all procedures. At least 50% of this time was spent in direct, [id number] contact. Plan discussed with: Patient DEVEN MEJIA MD Jan 23, 2025 19:44
[2025-01-23 20:00] VITALS: PULSE 78; PULSE 83; RESP 17; O2SAT 100
[2025-01-23 20:11] LABS: Rapid Influenza A Negative (Negative); Rapid Influenza B Negative (Negative)
[2025-01-23 21:00] VITALS: BP 121/76; PULSE 83; RESP 17; TEMP 97.8; O2SAT 100
[2025-01-23] MEDS: buPROPion HCL 100 MG TAB PO SCH (21:47)
[2025-01-23] MEDS: HYDROcodone-ACET 7.5/325MG TAB PO PRN (21:48)
[2025-01-23] MEDS ORDERED: traZODone HCL 50 MG TAB PO SCH (22:00)
[2025-01-23] MEDS: HYDROmorphone HCL 2 MG/ML VL/or syr IV ONE (23:37)
[2025-01-24 01:00] VITALS: BP 131/74; PULSE 100; RESP 17; TEMP 97.8; O2SAT 98
[2025-01-24] MEDS: diphenhdrAMINE HCL 25 MG CAP PO ONE (01:05)
[2025-01-24 05:00] VITALS: BP 119/67; PULSE 77; RESP 16; TEMP 97.8; O2SAT 98
[2025-01-24] MEDS: PANTOPRAZOLE 40 MG TAB PO SCH (06:00)
[2025-01-24 07:27] LABS: Basophils # (auto) 0 10 ^3/uL (0-0.2); Basophils % (auto) 0.8 % (0.0-2.0); Eosinophils # (auto) 0.1 10 ^3/uL (0-0.8); Hematocrit 27.5 % (41.0-53.0); Hemoglobin 9.9 g/dL (13.5-17.5); Lymphocytes # (auto) 1.7 10 ^3/uL (0.4-5.4); Lymphocytes % (auto) 35.4 % (10.0-50.0); Mean Corpuscular Hemoglobin 34.1 pg (28.0-32.0); Monocytes # (auto) 0.4 10 ^3/uL (0-1.3); Monocytes % (auto) 7.1 % (0.0-12.0); Neutrophils # (auto) 2.6 10 ^3/uL (1.6-8.6); Neutrophils % (auto) 53.7 % (37.0-80.0); Nucleated Red Blood Cells % 0.1 %; Platelet Count (auto) 650 10^3/uL (140-450); Red Blood Cells 2.89 10^6/uL (4.5-5.90); Red Cell Distribution Width 13.5 % (11.8-14.3); White Blood Cell 4.9 10^3/uL (4.4-10.8)
[2025-01-24 07:45] LABS: Alanine Aminotransferase 23 U/L (7-40); Albumin 3.6 g/dL (3.2-4.8); Alkaline Phosphatase 108 U/L (46-116); Anion Gap 9 (5-15); Aspartate Aminotransferase 21 U/L (13-40); BUN/Creatinine Ratio 18.3 (10.0-20.0); Blood Urea Nitrogen 20 mg/dL (9-23); Calcium 9.3 mg/dL (8.7-10.4); Carbon Dioxide 26 mmol/L (20-31); Chloride 104 mmol/L (98-107); Magnesium 2.1 mg/dL (1.6-2.6); Potassium 4.1 mmol/L (3.5-5.1); Sodium 139 mmol/L (136-145); Total Protein 6.1 g/dL (5.7-8.2)
[2025-01-24 07:46] LABS: Bilirubin, Total 0.2 mg/dL (0.2-1.0); Glucose 195 mg/dL (74-106)
[2025-01-24 08:00] VITALS: PULSE 80; RESP 16; O2SAT 96
[2025-01-24 09:00] VITALS: BP 115/58; PULSE 80; RESP 16; TEMP 97.7; O2SAT 96
[2025-01-24] MEDS: DOCUSATE SOD 100 MG CAP PO PRN (09:26)
[2025-01-24] MEDS: CITALOPRAM HYDROBR 20 MG TAB PO SCH (10:09)
[2025-01-24 13:00] VITALS: BP 117/71; PULSE 74; RESP 19; TEMP 98.6; O2SAT 96
[2025-01-24] MEDS ORDERED: AZIT-185 PO (13:02)
[2025-01-24 14:03] VITALS: BP 114/69; PULSE 74
--- NOTE | 2025-01-24 14:10 | DVHDSRES ---
Discharge Summary Date of Admission Resident Creating Document: JOSE MCNAMARA RESIDENT Jan 22, 2025 at 20:45 Date of Discharge: Jan 24, 2025 Admitting Diagnosis Chest pain Labs/Diagnostic Data: Laboratory Results Test 01/24/25 12:41 01/24/25 06:14 01/23/25 17:45 01/23/25 14:16 POC Glucose 356 mg/dl (70-106) White Blood Count 4.9 10^3/uL (4.4-10.8) Red Blood Count 2.89 10^6/uL (4.5-5.90) Hemoglobin 9.9 g/dL (13.5-17.5) Hematocrit 27.5 % (41.0-53.0) Mean Corpuscular Volume 95.0 fL (80.0-100.0) Mean Corpuscular Hemoglobin 34.1 pg (28.0-32.0) Mean Corpuscular Hemoglobin Concent 36.0 g/dL (32.0-36.0) Red Cell Distribution Width 13.5 % (11.8-14.3) Platelet Count 650 10^3/uL (140-450) Mean Platelet Volume 6.8 fL (6.9-10.8) Neutrophils (%) (Auto) 53.7 % (37.0-80.0) Lymphocytes (%) (Auto) 35.4 % (10.0-50.0) Monocytes (%) (Auto) 7.1 % (0.0-12.0) Eosinophils (%) (Auto) 3.0 % (0.0-7.0) Basophils (%) (Auto) 0.8 % (0.0-2.0) Neutrophils # (Auto) 2.6 10 ^3/uL (1.6-8.6) Lymphocytes # (Auto) 1.7 10 ^3/uL (0.4-5.4) Monocytes # (Auto) 0.4 10 ^3/uL (0-1.3) Eosinophils # (Auto) 0.1 10 ^3/uL (0-0.8) Basophils # (Auto) 0 10 ^3/uL (0-0.2) Nucleated Red Blood Cells 0.1 % Sodium Level 139 mmol/L (136-145) Potassium Level 4.1 mmol/L (3.5-5.1) Chloride Level 104 mmol/L (98-107) Carbon Dioxide Level 26 mmol/L (20-31) Anion Gap 9 (5-15) Blood Urea Nitrogen 20 mg/dL (9-23) Creatinine 1.09 mg/dL (0.700-1.30) Glomerular Filtration Rate Calc 91 mL/min (>90) BUN/Creatinine Ratio 18.3 (10.0-20.0) Serum Glucose 195 mg/dL (74-106) Calcium Level 9.3 mg/dL (8.7-10.4) Magnesium Level 2.1 mg/dL (1.6-2.6) Total Bilirubin 0.2 mg/dL (0.2-1.0) Aspartate Amino Transferase (AST) 21 U/L (13-40) Alanine Aminotransferase (ALT) 23 U/L (7-40) Alkaline Phosphatase 108 U/L (46-116) Total Protein 6.1 g/dL (5.7-8.2) Albumin 3.6 g/dL (3.2-4.8) Influenza Type A Antigen Negative (Negative) Influenza Type B Antigen Negative (Negative) Prothrombin Time 11.0 sec (9.3-11.8) Prothrombin Time INR 1.04 (0.9-1.15) Activated Partial Thromboplast Time 30.3 SEC (24.5-34.5) Plasma/Serum Blood Alcohol < 3.0 mg/dL (<10) Test 01/23/25 03:20 01/23/25 00:14 01/22/25 21:20 01/22/25 21:05 B-Type Natriuretic Peptide 277.92 pg/mL (0-100) Thyroid Stimulating Hormone (TSH) 4.04 uIU/mL (0.55-4.78) Troponin I High Sensitivity 168 ng/L (</=54) SARS-CoV-2 Antigen (Rapid) Negative (NEGATIVE) Lactic Acid Level 4.3 mmol/L (0.4-2.0) Test 01/22/25 15:50 D-Dimer, Quantitative 2.02 mg/L FEU (0.0-0.49) Other Laboratory Tests 01/24/25 06:14 Brief Hx & Hospital Course: MAKAYLA OSCAR is a 34-year-old male with PMHx CABG, HTN, DM, presents with a chief complaint of chest pain and SOB x 4 days. patient reported his chest wall symptoms initiated after sneezing approximately three days ago. The patient with a recent admission to this facility was transferred to [facility] on 01/11/2025 as he was found with multivessel coronary artery disease. He underwent a triple-vessel coronary artery bypass graft at [facility] with discharge home 5-6 days ago. patient also reported he has been having bilateral lower extremity paresthesias, feeling neck pain son needle. On my assessment patient denies fever, nausea, vomiting, diarrhea, diaphoresis, palpitations, and other associated symptoms, Patient required hospital admission for further evaluation and management of chest pain. Underwent multiple 12 lead electrocardiograms x 2 revealing a sinus rhythm with nonspecific ST nonprogressive changes. Troponins are mildly elevated , consulted Cardiology, advised pain management due to pleuritic or chest wall pain post surgery and advised to continue aspirin, Lipitor and GDM T for CHF as tolerated. Continuously monitored. CXR showed small left pleural effusion with airspace disease and patient does reported SOB, patient is started on Rocephin and azithromycin and ordered respiratory cultures. Patient was counseled regarding tobacco cessation but unable to accept. Patient condition was improved, hemodynamically stable and in condition to be discharged home with optimal medical treatment. Patient will advised to follow up with PCP and Cardiology for further workup. Pt is lying on bed General Appearance: Alert, Oriented X3, Cooperative, Not in acute distress HEENT: Atraumatic, Mucous membranes moist/pink Respiratory: Clear to auscultation, Normal air movement, No added sounds Cardiovascular:Chest wall tenderness. Regular rate, Normal S1, Normal S2, No murmurs Abdominal: Active bowel sounds, Soft, no distention, no tenderness Extremities: No edema, Normal pulses, No tenderness/swelling Skin: Skin Exam: Hematoma to right thigh. Mid-sternal vertical incision with no signs of trauma or infection Neuro: Normal speech, sensorimotor deficits none Psych/Mental Status: Mental status NL, Mood NL Nurse was there as sharperone during examination Operations or Procedures PROCEDURE: CT CT ANGIO CHEST CONTRAST 01/22/2025 04:39 PM IMPRESSION: 1. No evidence of acute pulmonary emboli. No aortic aneurysm or dissection. 2. Small pericardial effusion, trace pneumomediastinum and small amount of air in the anterior upper abdomen most likely postsurgical in nature. 3. Small bilateral pleural effusions and adjacent pulmonary opacities represent compressive atelectasis or pneumonia. Recommend clinical and biochemical correlation. US RT LOWER DVT US 01/22/2025 04:14 PM Impression: 1. No deep venous thrombosis right lower extremity. If clinical concern/symptoms persist or worsen, short-interval follow-up study is suggested. CXR IMPRESSION: 1. Small left pleural effusion with adjacent airspace disease. Condition at Discharge: Stable Final Diagnosis/Problems List # NSTEMI- V post triple vessel CABG # Severe multivessel CAD s/p CABG # Hypertriglyceridemia # Small pericardial effusion likely from CABG # Acute G+/- bacterial PNA # Small bilateral pleural effusions # Acute on hronic compensated HFrEF, NYHA class I # ? Costochondritis from surgery # Uncontrolled juvenile type 2 DM, Hgb A1c 13.1% # ruled out DVT/PE # dependence tobacco # tobacco abuse disorder # bipolar/schizophrenia Discharge Disposition: Home Discharge Instruct/Medications Diet: Consistent carbohydrate, Cardiac 2g Na,low cholest Activity: No Restrictions, As Tolerated Follow Up/Referral: PCP and cardiology Medications: Azithromycin for 5 days and resume home meds Discharge Statement: "Patient was advised to return to the ER or call 911 if any headaches, dizziness, shortness of breath, chest pain, abdominal pain, bleeding, fevers, or worsening of medical condition. Patient was counseled about treatment plan, medications, possible side effects, patientverbalized understanding. All questions were answered to the best of my ability. This discharge took greater then 30 minutes in planning, reviewing documentation, counseling the patient, and discussing with other team members." ASSESSMENT ASSESSMENT Assessment # NSEMI- V post triple vessel CABG # Severe multivessel CAD s/p CABG # Hypertriglyceridemia # Small pericardial effusion likely from CABG JOSE MCNAMARA RESIDENT Jan 24, 2025 14:09
[2025-01-24] MEDS: AZITHROMYCIN 250 MG TAB PO ONE (15:01)
--- NOTE | 2025-01-24 21:30 | DVHPN2 ---
Progress Note - Dictate Date Seen: Jan 24, 2025 Medical Necessity Reason Pt with a Central, PICC or Fol: No Subjective Patient was seen and evaluated in follow up. Patient reported mild chest wall pain but no new complaints. HGB 9.9, HCT 27.5. Patient is cardiac stable for discharge. Telemetry reviewed. vital signs Vital Sign Date Time Temp Pulse Resp B/P (MAP) Pulse Ox O2 Delivery O2 Flow Rate FiO2 01/24/25 14:03 74 01/24/25 13:00 98.6 19 117/71 (86) 96 98.6 01/24/25 08:00 Room Air* 0 21 Total Intake and Output 01/23/25 01/23/25 01/24/25 15:00 23:00 07:00 Intake Total 1900 ml 450 ml Balance 1900 ml 450 ml objective GENERAL: Awake, alert, oriented. LUNGS: Clear. CARDIOVASCULAR: Heart sounds are good. ABDOMEN: Soft. SKIN: Hematoma to right thigh. Mid-sternal vertical incision with no signs of trauma or infection laboratory and microbiology Laboratory Tests 01/24/25 06:14 Test 01/24/25 06:14 Range/Units Serum Glucose 195 H 74-106 mg/dL Problem List Non-ST elevation myocardial infarction Type V post triple vessel CABG. Severe multivessel coronary artery disease s/p CABG. Chronic compensated HFrEF, NYHA class I. Uncontrolled juvenile type 2 diabetes mellitus. Hypertension. Hypertriglyceridemia. Thyroid disease. Bipolar/Schizophrenia. Nicotine dependance. Assessment/Plan Continued all current supportive medical care. Strongly counseled on tobacco use cessation. Morphine and [place] for pain management. Aspirin, Lipitor, Metoprolol. IV antibiotics as ordered. DVT and GI prophylactics. Nitro SL. Additional plan as per the hospital course. Plan discussed with: Patient DEVEN MEJIA MD Jan 24, 2025 21:30
== END 2025-01-24 16:01 | disposition home or self-care (01) | DRG 280 ==
LOC: ER 15:06 → OVERFLOW 20:45 → TELE-WESTW 01-23 18:36
PROVIDERS: ADMIT Student in an Organized Health Care Education/Training Program; ATTEND Student in an Organized Health Care Education/Training Program
DX: I11.0 Hypertensive heart disease with heart failure (principal); I50.23 Acute on chronic systolic (congestive) heart failure; I21.A9 Other myocardial infarction type; J15.69 Pneumonia due to other Gram-negative bacteria; J15.9 Unspecified bacterial pneumonia; I31.39 Other pericardial effusion (noninflammatory); E87.5 Hyperkalemia; I25.10 Atherosclerotic heart disease of native coronary artery without angina pectoris; E07.9 Disorder of thyroid, unspecified; E11.9 Type 2 diabetes mellitus without complications; F20.9 Schizophrenia, unspecified; F31.9 Bipolar disorder, unspecified; F17.210 Nicotine dependence, cigarettes, uncomplicated; M94.0 Chondrocostal junction syndrome [Tietze]; K21.9 Gastro-esophageal reflux disease without esophagitis; E78.1 Pure hyperglyceridemia; Z95.1 Presence of aortocoronary bypass graft; Z91.012 Allergy to eggs; Z79.2 Long term (current) use of antibiotics; Z79.84 Long term (current) use of oral hypoglycemic drugs; Z79.4 Long term (current) use of insulin; Z79.82 Long term (current) use of aspirin; Z79.899 Other long term (current) drug therapy; Z83.3 Family history of diabetes mellitus; Z82.49 Family history of ischemic heart disease and other diseases of the circulatory system; Z87.442 Personal history of urinary calculi
CPT/HCPCS: 36415; 71045; 71275; 80048; 80053; 80320; 82962; 83605; 83735; 83880; 84443; 84484; 85025; 85379; 85610; 85730; 87040; 87081; 87426; 87804; 93005; 93971; 94640; 99291; G0378; J1815; J1885

== ENCOUNTER 2025-01-27 09:57 | Emergency (ER) | payer OTHER, MEDICAID ==
[~2025-01-27] VITALS: Ht 188 cm; Wt 77.0 kg
[~2025-01-27 09:57] MED LIST changes: +AZIT-185 PO; +METH-1181 PO; +METO25TA93 PO
[2025-01-27 10:05] VITALS: BP 118/99; PULSE 85; RESP 20; TEMP 97.3; O2SAT 99
--- NOTE | 2025-01-27 10:33 | ED.PDOC ---
Musculoskeletal HPI Comments A 34 YEAR OLD MALE PRESENTS TO THE ED WITH COMPLAINT OF RIGHT LOWER LEG PAIN AND SUTURE REMOVAL. PATIENT STATES HE WAS ADMITTED 2 WEEKS AGO FOR OPEN HEART SURGERY AND HAD SUTURES PLACED ON HIS CHEST WALL. PATIENT IS REQUESTING THESE SUTURES BE REMOVED TODAY. PATIENT REPORTS HE HAS ALSO BEEN EXPERIENCING RIGHT LOWER LEG PAIN THAT INITIALLY STARTED HE WAS ADMITTED HERE IN THIS HOSPITAL, BUT STATES HE WAS ONLY TOLD TO TAKE TYLENOL AND MOTRIN. PATIENT IS REQUESTING AN ULTRASOUND TO RULE OUT A DVT IN HIS RIGHT LOWER LEG. PATIENT DENIES FEVER, CHILLS, SHORTNESS OF BREATH, CHEST PAIN, ABDOMINAL PAIN, NAUSEA, VOMITING, HEADACHE, OR OTHER COMPLAINTS. NO OTHER SYMPTOMS OR MODIFYING FACTORS AT THIS TIME. PATIENT IS ALERT, ORIENTED X 4, AND HAS STEADY GAIT. Chief Complaint: Lower Extremity Time Seen by MD: 10:00 Primary Care Provider: FEDERICO Reviewed Notes: Nurses Notes, Medications, Allergies Allergies: Coded Allergies: Egg-derived Products (Verified Allergy, Unknown, 01/05/25) Home Meds Active Scripts Naproxen (Naproxen) 500 Mg Tab, 500 MG PO BID, #30 TAB Prov:TABATHA MONTENEGRO 01/27/25 Azithromycin (ZITHROMAX TABLET) 250 Mg Tb, 250 MG PO DAILY for 5 Days, #5 TAB Prov:JOSE MCNAMARA RESIDENT 01/24/25 Prednisone (Prednisone) 20 Mg Tab, 60 MG PO DAILY, #18 TAB Prov:TABATHA MONTENEGRO 08/05/24 Amoxicillin Trihydrate (Amoxicillin) 875 Mg Tab, 1 TAB PO BID, #20 TAB Prov:TABATHA MONTENEGRO 08/05/24 Metformin Hydrochloride (Metformin Hcl) 500 Mg Tab, 1 TAB PO BID, #60 TAB 3 Refills Prov:JENISE RAMOS 07/20/24 Ibuprofen Micronized (Ibuprofen) 800 Mg Tab, 800 MG PO Q8HPRN PRN, #20 TAB Prov:JENISE RAMOS 07/20/24 Hydrocodone-Acetaminophen (Hydrocodone Bitartrate/AC 10-325 mg) 1 Tab Tab, 1 TAB PO Q6HPRN PRN, #15 TAB Prov:JENISE RAMOS 07/20/24 Cefpodoxime Proxetil (Cefpodoxime Proxetil) 200 Mg Tab, 1 TAB PO BID for 10 Days, #20 TAB Prov:JENISE RAMOS 07/20/24 Pantoprazole Sodium Sesquihydr (Protonix) 40 Mg Tab, 40 MG PO BID for 30 Days, #60 TAB Prov:JOSE DE JESUS CLIFFORD MD 11/04/23 Sucralfate (CARAFATE SUSP) 1 Gm/10 Ml Ss, 1 GM PO TIDAC for 30 Days, #1200 ML Prov:JOSE DE JESUS CLIFFORD MD 11/04/23 Sacubitril-Valsartan (Entresto 24-26 mg) 1 Tab Tab, 1 TAB PO BID for 30 Days, #60 TAB Prov:JOSE DE JESUS CLIFFORD MD 11/04/23 Metoprolol Tartrate (Lopressor) 25 Mg Tb, 12.5 MG PO BID for 30 Days, #60 TAB Prov:JOSE DE JESUS CLIFFORD MD 11/04/23 Cyclobenzaprine Hcl (Cyclobenzaprine Hcl) 10 Mg Tab, 10 MG PO BID PRN, #20 TAB Prov:ISAAC ANTONIO MD 01/27/23 Famotidine (PEPCID TABLET) 20 Mg Tb, 20 MG GT BID for 14 Days, #28 TAB Prov:ISAAC ANTONIO MD 01/27/23 Citalopram Hydrobromide (Celexa) 10 Mg Tab, 1 TAB PO DAILY, #30 TAB 0 Refills Prov:DANIELA LEOS MD 07/21/22 Insulin Regular (Human) (Novolin R) 100 Unit/Ml Inj, 0 UNITS SC IQ4HR for 30 Days, INJ if BS 150-200 give 2 units if BS 201-250 give 4 units if BS 251-300 give 6 units if BS 301-350 give 8 units if BS 351-400 give 10 units. if BS >400 call your doctor Prov:BILLIE ADAMS MD 07/17/22 Insulin Glargine (Lantus) 100 Unit/Ml Inj, 30 UNIT SC DAILY for 30 Days, #30 INJ Prov:BILLIE ADAMS MD 07/17/22 Reported Medications Methocarbamol (Methocarbamol) 500 Mg Tab, 500 MG PO TID for 30 Days, MG 01/23/25 Metoprolol Succinate (Metoprolol Succinate Er) 25 Mg Tab, 25 MG PO DAILY for 30 Days, MG 01/23/25 Sacubitril-Valsartan (Entresto 24-26 mg) 1 Tab Tab, 1 TAB PO BID, TAB 01/23/25 Quetiapine Fumerate (QUETIAPINE FUMARATE) 300 Mg Tab, 1 TAB PO DAILY 11/03/23 Trazodone Hcl (Trazodone Hcl) 100 Mg Tab, 1 TAB PO HS 11/03/23 Citalopram Hydrobromide (Citalopram Hydrobromide) 20 Mg Tab, 1 TAB PO DAILY 11/03/23 Bupropion Hcl (Bupropion Hcl Xl) 300 Mg Tab, 1 TAB PO QAM 11/03/23 Citalopram Hydrobromide (Celexa) 10 Mg Tab, 1 TAB PO DAILY, #30 TAB 2 Refills 07/13/22 Lisinopril (Lisinopril) 40 Mg Tab, 1 TAB PO DAILY, #30 TAB 5 Refills 07/13/22 Omeprazole (Gnp Omeprazole) 20 Mg Tab, 1 TAB PO DAILY, #90 TAB 1 Refill 07/13/22 Aspirin (Aspirin Ec) 81 Mg Tab, 81 MG PO DAILY, TAB 07/13/22 Levothyroxine Sodium (Levothyroxine Sodium) 25 Mcg Tab, 1 TAB PO DAILY, #30 TAB 5 Refills 07/13/22 Montelukast Sodium (MONTELUKAST SODIUM) 10 Mg Tab, 1 TAB PO DAILY, #30 TAB 5 Refills 07/13/22 Atorvastatin Calcium (ATORVASTATIN CALCIUM) 80 Mg Tab, 1 TAB PO DAILY, #30 TAB 5 Refills 07/13/22 Divalproex Sodium (Depakote) 500 Mg Tab, 500 MG PO DAILY, TAB 07/13/22 Quetiapine Fumerate (Seroquel) 400 Mg Tab, 1 TAB PO QPM, #30 TAB 1 Refill 07/13/22 Ziprasidone Hydrochloride (Geodon) 60 Mg Cap, 60 MG PO BID, CAP 07/13/22 Acetaminophen (Tylenol) 325 Mg Cap, 325 MG PO Q4HPRN, CAP 07/13/22 Ibuprofen (Ibuprofen) 800 Mg Tab, 1 TAB PO Q4HPRN, #90 TAB 1 Refill 07/13/22 Baclofen (Baclofen) 20 Mg Tab, 1 TAB PO TID, #90 TAB 2 Refills 07/13/22 Information Source: Patient Mode of Arrival: Ambulatory Location: Right Extremity Location: Leg (LOWER LEG) Timing: Weeks Prehospital treatment: None Severity: Moderate Able to Move Extremity: Yes Bear Weight: Fully Pain: Moderate Mechanism: No Trauma, Spontaneous Circumstances: Spontaneous Onset of Symptoms: Spontaneous Symptoms: Pain DVT Risk Factors: Recent surgery Last Tetanus: Unknown Associated signs and symptoms: Leg pain Past Medical History PAST MEDICAL HISTORY: Depression, DM, GERD, High Lipids, HTN, Schizophrenia Surgical History (Other): OPEN SURGERY Family History Family History: Reviewed,noncontributory to illness Social History Smoker: Cigarettes Alcohol: Heavy Drugs: Denies Drug Use Lives In: Assisted Care Constitutional: denies: chills, diaphoresis, fatigue, fever, malaise, sweats, weakness, others EENTM: denies: blurred vision, double vision, ear bleeding, ear discharge, ear drainage, ear pain, ear ringing, eye pain, eye redness, hearing loss, mouth pain, mouth swelling, nasal discharge, nose bleeding, nose congestion, nose pain, photophobia, tearing, throat pain, throat swelling, voice changes, others Respiratory: denies: cough, hemoptysis, orthopnea, SOB at rest, shortness of breath, SOB with excertion, stridor, wheezing, others Cardiovascular: denies: chest pain, dizzy spells, diaphoresis, Dyspnea on exertion, edema, irregular heart beat, left arm pain, lightheadedness, palpitations, PND, syncope, others Gastrointestinal: denies: abdomen distended, abdominal pain, blood streaked bowels, constipated, diarrhea, dysphagia, difficulty swallowing, hematemesis, melena, nausea, poor appetite, poor fluid intake, rectal bleeding, rectal pain, vomiting, others Genitourinary: denies: burning, dysuria, flank pain, frequency, hematuria, incontinence, penile discharge, penile sore, pain, testicle pain, testicle swelling, urgency, others Neurological: denies: dizziness, fainting, headache, left sided numbness, left sided weakness, numbness, paresthesia, pre-existing deficit, right sided numbness, right sided weakness, seizure, speech problems, tingling, tremors, weakness, others Musculoskeletal: reports: muscle pain, others (RIGHT LOWER LEG PAIN); denies: back pain, gout, joint pain, joint swelling, muscle stiffness, neck pain Integumetry: reports: lumps (RIGHT INNER THIGH ), wounds (INCISION WOUND ON LEFT SIDE ABD WALL. ); denies: bruises, change in color, change in hair/nails, dryness, laceration, lesions, rash, others Allergic/Immunocompromised: denies: Difficulty Healing, Frequent Infections, Hives, Itching, others Hematologic/Lymphatic: denies: anemia, blood clots, easy bleeding, easy bruising, swollen glands, others Endocrine: denies: excessive hunger, excessive sweating, excessive thirst, excessive urination, flushing, intolerance to cold, intolerance to heat, unexplained weight gain, unexplained weight loss, others Psychiatric: denies: anxiety, bipolar disorder, depression, hopeless, panic disorder, schizophrenia, sleepless, suicidal, others All Other Systems: Reviewed and Negative Physical Exam General Appearance: No Apparent Distress, Normal HEENT: Normal ENT Inspection, PERRL/EOMI, Pharynx Normal, TMs Normal Neck: Full Range of Motion, Non-Tender, Normal, Normal Inspection Respiratory: Chest Non-Tender, Lungs Clear, No Accessory Muscle Use, No Respiratory Distress, Normal Breath Sounds Cardiovascular: No Edema, No JVD, No Murmur, No Gallop, Normal Peripheral Pulses, Regular Rate/Rhythm Breast Exam: Deferred Gastrointestinal: No Organomegaly, Non Tender, No Pulsatile Mass, Normal Bowel Sounds, Soft Genitalia: Deferred Pelvic: Normal External Exam Rectal: Deferred Extremities: No calf tenderness, Normal capillary refill, Normal range of motion, No pedal edema, Tender (RIGHT INNER THIGH TO RIGHT LOWER LEG, NO REDNESS AND SWELLING, NO DVT SIGNS. ) Musculoskeletal : Apperance: Normal Neurologic: Alert, proration clerk II-XII nml as Tested, No Motor Deficits, Normal Affect, Normal Mood, No Sensory Deficits Cerebellar Function: Normal Reflexes: Normal Skin: Dry, Normal Color, Warm, Wounds (INCISION WOUND ON LEFT SIDE ABD WALL, HEALED, NO INFECTION SIGNS. ), Other (A SMALL BUMP ON RIGHT INNER THIGH, NO REDNESS AND SWELLING. ) Peripheral Pulses: 2+ carotid (R), 2+ carotid (L), 2+ dorsalis pedis (R), 2+ dorsalis pedis (L) Lymphatic: No Adenopathy Was a procedure done? Was a procedure done?: No Differential Diagnosis EXT Differential Diagnosis: Cellulitis, Deep Vein Thrombosis, Sprain, DJD, Strain X-Ray, Labs, Meds, VS Vital Signs Date Time Temp Pulse Resp B/P (MAP) Pulse Ox O2 Delivery O2 Flow Rate FiO2 01/27/25 10:05 97.3 85 20 118/99 (105) 99 97.3 01/27/25 10:05 97.3 85 20 115/49 (71) 99 97.3 Right lower extremity venous duplex Clinical History: RIGHT INNER THIGH PAIN TO RIGHT LOWER LEG Comparison: US RT LOWER DVT on DOS: 01/22/25 Findings: Duplex Doppler evaluation of the deep venous systems of the right lower extremity from the common femoral veins to the popliteal veins including color Doppler and spectral/pulsed waveform analysis was performed. RIGHT SIDE: The common femoral vein demonstrates appropriate compressibility and waveform variability. There is compressibility/patency of the great saphenous vein at the proximal thigh. The femoral vein demonstrates appropriate compressibility and waveform variability. The deep femoral vein demonstrates appropriate compressibility and waveform variability. The popliteal vein demonstrates appropriate compressibility and waveform variability. There is normal compressibility at the tibioperoneal trunk. There is a fluid collection in the proximal thigh which measures 2.8 cm. Impression: 1. No deep venous thrombosis in the right lower extremity. 2. Fluid collection in the right proximal thigh measuring 2.8 cm probably reflecting a seroma. ATED BY: MORRIS CRUZ MD DICTATED DATE/TIME: 01/27/25 1123 SIGNED BY: MORRIS CRUZ MD SIGNED DATE/TIME: 01/27/25 1123 CC: X-Ray, Labs, Meds, VS Comment EXTERNAL MEDICAL RECORDS REVIEWED: [NONE] INDEPENDENT HISTORIANS: [NONE] SOCIAL DETERMINANTS OF HEALTH: [NONE] LABS ORDERED: NONE REVIEWED AND INTERPRETED RESULTS: NONE IMAGING ORDERED: CV VENOUS DOPPLER LOW EXT RT TREATMENTS ORDERED: NONE PROCEDURES PERFORMED: NONE CRITICAL CARE TIME: NONE I HAVE DISCUSSED THE PATIENT WITH THE ATTENDING PHYSICIAN DR. DA SILVA AND HE AGREES WITH THE PATIENT'S PLAN OF CARE AND DISPOSITION. BASED ON HISTORY OF PRESENT ILLNESS, AND PHYSICAL EXAM, PATIENT WILL BE DISCHARGED HOME. SHARED DECISION MAKING: PATIENT INSTRUCTED TO FOLLOW UP WITH PRIMARY CARE PROVIDER IN 1-2 DAYS FOR RE-EVALUATION OF SYMPTOMS. PATIENT VERBALIZES UNDERSTAN DING TO RETURN TO ED FOR NEW OR WORSENING SYMPTOMS OR IF FOLLOW UP WITH PCP CANNOT BE OBTAINED. PATIENT FEELS COMFORTABLE GOING HOME AT THIS TIME. ALL QUESTIONS ADDRESSED AT TIME OF DISCHARGE. Images Reviewed?: Images reviewed and evaluated by me Time of 1ST Reevaluation: 11:41 Reevaluation 1ST: Improved Patient Education/Counseling: Diagnosis, Treatment, Need For Follow Up Family Education/Counseling: Diagnosis, Treatment, Need For Follow Up Medical Screening: No EMC Exist At This Time Departure 1 Departure Time of Disposition: 11:42 Impression: Primary Impression: Seroma, postoperative Qualified Codes: L76.34 - Postprocedural seroma of skin and subcutaneous tissue following other procedure Additional Impression: Encounter for removal of sutures Disposition: 01 HOME / SELF CARE / HOMELESS Condition: Stable Additional Instructions: FOLLOW-UP WITH PCP IN 1 TO 2 DAYS. TAKE MEDICATIONS PRESCRIBED. RETURN TO ED FOR ANY NEW OR WORSENING SYMPTOMS. e-Prescriptions Naproxen (Naproxen) 500 Mg Tab 500 MG PO BID, #30 TAB Prov: TABATHA MONTENEGRO 01/27/25 Discharged With: Self Critical Care Note Critical Care Time?: No Stability Stability form required: No I personally scribed for TABATHA MONTENEGRO ([email or web address]) on 01/27/25 at 10:33. Electronically submitted by Laurent Stone ([email or web address]). I personally scribed for TABATHA MONTENEGRO ([email or web address]) on 01/27/25 at 11:32. Electronically submitted by Laurent Stone ([email or web address]). TABATHA MONTENEGRO Jan 27, 2025 10:33
--- NOTE | 2025-01-27 11:25 | DVH ---
Right lower extremity venous duplex Clinical History: RIGHT INNER THIGH PAIN TO RIGHT LOWER LEG Comparison: US RT LOWER DVT on DOS: 01/22/25 Findings: Duplex Doppler evaluation of the deep venous systems of the right lower extremity from the common fem oral veins to the popliteal veins including color Doppler and spectral/pulsed waveform analysis was p erformed. RIGHT SIDE: The common femoral vein demonstrates appropriate compressibility and waveform variability. There is compressibility/patency of the great saphenous vein at the proximal thigh. The femoral vein demonstrates appropriate compressibility and waveform variability. The deep femoral vein demonstrates appropriate compressibility and waveform variability. The popliteal vein demonstrates appropriate compressibility and waveform variability. There is normal compressibility at the tibioperoneal trunk. There is a fluid collection in the proximal thigh which measures 2.8 cm. Impression: 1. No deep venous thrombosis in the right lower extremity. 2. Fluid collection in the right proximal thigh measuring 2.8 cm probably reflecting a seroma.
[2025-01-27] MEDS ORDERED: NAPR-746 PO (11:40)
== END 2025-01-27 11:41 | disposition home or self-care (01) ==
LOC: ER 09:57
DX: L76.34 Postprocedural seroma of skin and subcutaneous tissue following other procedure (principal); F32.A Depression, unspecified; E11.9 Type 2 diabetes mellitus without complications; I10 Essential (primary) hypertension; K21.9 Gastro-esophageal reflux disease without esophagitis; F20.9 Schizophrenia, unspecified; E78.5 Hyperlipidemia, unspecified; F17.210 Nicotine dependence, cigarettes, uncomplicated; Z48.02 Encounter for removal of sutures; Z91.040 Latex allergy status; Z79.899 Other long term (current) drug therapy; Z79.84 Long term (current) use of oral hypoglycemic drugs; Z79.82 Long term (current) use of aspirin; Z79.52 Long term (current) use of systemic steroids; Z79.4 Long term (current) use of insulin
CPT/HCPCS: 93971

== ENCOUNTER 2025-03-15 15:15 | Emergency (ER) | payer OTHER, MEDICAID ==
[~2025-03-15] VITALS: Ht 188 cm; Wt 72.4 kg
[~2025-03-15 15:15] MED LIST changes: +NAPR-746 PO
--- NOTE | 2025-03-15 16:07 | ECG ---
[facility] Test Date: 2025-03-15 Test Time: 15:54:53 Pat Name: MAKAYLA OCSAR Department: ER Room: Gender: M Histotechnician: HOLLY : 1990 Requested By: ESTHER BAZZI Order Number: [id number] Reading MD: Sukhwinder Lamas Measurements Intervals [place] Rate: 104 P: 64 [place]: 130 QRS: 258 QRSD: 111 T: 97 QT: 389 QTc: 512 Interpretive Statements Sinus tachycardia LAD, consider left anterior fascicular block Anterior infarct, old Nonspecific T abnormalities, lateral leads Prolonged QT interval Electronically Signed On 03-16-2025 21:11:20 PDT by Sukhwinder Lamas Please click the below link to view image of tracing.
--- NOTE | 2025-03-15 16:29 | DVH ---
EXAM: XY CHEST PORTABLE HISTORY: cp COMPARISON: XY CHEST PORTABLE on DOS: 01/22/25, XY CHEST PORTABLE on DOS: 01/04/25, XY CHEST XRAY 1 VIE W on DOS: 08/13/24, XY CHEST XRAY 1 VIEW on DOS: 07/20/24, XY CHEST PORTABLE on DOS: 11/03/23 TECHNIQUE: Portable AP view of the chest was performed. FINDINGS: No pneumothorax, consolidative infiltrates, or pulmonary edema. The heart is not enlarged. Status pos t median sternotomy. The bony thorax image with no bruit several mild degree IMPRESSION: 1. No acute intrathoracic process 2. Status post median sternotomy.
[2025-03-15 16:33] LABS: Basophils # (auto) 0.1 10 ^3/uL (0-0.2); Basophils % (auto) 1.4 % (0.0-2.0); Eosinophils # (auto) 0.2 10 ^3/uL (0-0.8); Eosinophils % (auto) 3.2 % (0.0-7.0); Hematocrit 41.5 % (41.0-53.0); Hemoglobin 14.8 g/dL (13.5-17.5); Lymphocytes # (auto) 2.1 10 ^3/uL (0.4-5.4); Lymphocytes % (auto) 36.9 % (10.0-50.0); Mean Corpuscular Hemoglobin 32.1 pg (28.0-32.0); Mean Corpuscular Hgb Conc. 35.6 g/dL (32.0-36.0); Mean Corpuscular Volume 90.1 fL (80.0-100.0); Monocytes # (auto) 0.3 10 ^3/uL (0-1.3); Monocytes % (auto) 5.3 % (0.0-12.0); Neutrophils # (auto) 3.1 10 ^3/uL (1.6-8.6); Neutrophils % (auto) 53.2 % (37.0-80.0); Platelet Count (auto) 335 10^3/uL (140-450); Red Cell Distribution Width 13.8 % (11.8-14.3); White Blood Cell 5.7 10^3/uL (4.4-10.8)
[2025-03-15 16:49] LABS: INR 0.96 (0.9-1.15); Partial Thromboplastin Time 27.9 SEC (24.5-34.5); Prothrombin Time 10.2 sec (9.3-11.8)
[2025-03-15 16:50] LABS: Alanine Aminotransferase 16 U/L (7-40); Albumin 4.2 g/dL (3.2-4.8); Alkaline Phosphatase 114 U/L (46-116); Anion Gap 12 (5-15); BUN/Creatinine Ratio 21.1 (10.0-20.0); Bilirubin, Total 0.5 mg/dL (0.2-1.0); Blood Urea Nitrogen 20 mg/dL (9-23); Calcium 9.3 mg/dL (8.7-10.4); Carbon Dioxide 24 mmol/L (20-31); Chloride 103 mmol/L (98-107); Sodium 139 mmol/L (136-145); Total Protein 6.5 g/dL (5.7-8.2)
[2025-03-15 16:51] LABS: Aspartate Aminotransferase 12 U/L (13-40); Glucose 232 mg/dL (74-106); Potassium 3.5 mmol/L (3.5-5.1)
[2025-03-15 16:53] LABS: Lactic Acid w/Reflex 2.4 mmol/L (0.4-2.0)
--- NOTE | 2025-03-15 17:33 | ED.PDOC ---
HPI Comments 34y F who presents to the ED for chief complaint of chest pain. 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 Patient's symptoms have resolved prior to my evaluation. PMH: autism, COPD, DM, bipolar, HTN, schizophrenia, HLD, depression, hld PSH: CABG Meds: Depakote, asa, Flexeril, baclofen, statin, lisinopril, entresto Allergies: denies social history: endorses ETOH use, endorses tobacco use, endorses drug use HPI: Poor Historian. By the time of my evaluation, patient has no chest pain. REVIEW OF SYSTEMS: CONSTITUTIONAL: Denies acute: fever, diaphoresis, chills, generalized weakness. HEAD: Denies acute: headache, photophobia Eyes: Denies acute: Double vision, vision loss, eye pain, eye discharge. EARS: Denies acute: tinnitus, hearing loss, ear discharge, ear pain, THROAT: Denies acute: sore throat, swelling, difficulty swallowing , pain with swallowing, change in voice. NECK: Denies acute: neck pain, neck swelling, stiff neck. HEART: Denies acute : palpitations, LUNGS: Denies acute: SOB, wheezing, cough, hemoptysis ABDOMEN: Denies acute: abdominal pain, Nausea, Vomiting, diarrhea, melena , hematemesis, hematochezia SKIN: Denies acute: rash, redness, lesions, itchiness. EXTREMITIES: Denies acute: calf pain, numbness, tingling, weakness, denies pain in extremity. Denies acute: Low back pain. Neuro: Denies acute: focal neurological deficit, motor or sensory focal neurological deficit, tremors, seizure like activity, confusion, dizziness, change in mental status, loss of bowel or bladder function, cauda equina like symptoms. : Denies acute: dysuria, hematuria, flank pain, increase in urinary frequency. PSYCH: Denies acute: hallucination, suicidal ideation, homicidal ideation. PHYSICAL EXAM: General: ----no----acute distress, awake and alert. Head: normocephalic, atraumatic. Neck: supple, trachea is midline, no swelling. Throat: Normal phonation. Eyes:, no erythema, no purulent discharge, no proptosis, no icterus. Heart: regular rate, regular rhythm, no significant murmur appreciated. Lungs: no apparent respiratory distress, Able to speak in full sentences. No wheezing, no rhonchi, no crackles. No stridors Clear to auscultation bilaterally. Abdomen: non tender to palpation, non distended, soft, no guarding, no rebound, + bowel sounds. Chest CABG incision appears normal with no signs of infection or swelling or discharge.. Healing well. Neuro: Awake, Alert, oriented to name, self, situation, follows commands GCS=15. Speech is normal. Skin: no petechia, no purpura, no cyanosis, non-pale, not jaundice. Lower extremities: --no - Pitting edema no deformity, no focal swelling, no calf TTP. Makes eye contact. moves all four extremities. Face: no apparent facial droop. Ambulating in the ED independently. ED COURSE: Chief Complaint: Chest Pain Time Seen by MD: 17:55 Primary Care Provider: FEDERICO Falcon Notes: Nurses Notes, Allergies Allergies: Coded Allergies: Egg-derived Products (Verified Allergy, Unknown, 01/05/25) Home Meds Active Scripts Naproxen (Naproxen) 500 Mg Tab, 500 MG PO BID, #30 TAB Prov:TABATHA MONTENEGRO 01/27/25 Azithromycin (ZITHROMAX TABLET) 250 Mg Tb, 250 MG PO DAILY for 5 Days, #5 TAB Prov:JOSE MCNAMARA RESIDENT 01/24/25 Prednisone (Prednisone) 20 Mg Tab, 60 MG PO DAILY, #18 TAB Prov:TABATHA MONTENEGRO 08/05/24 Amoxicillin Trihydrate (Amoxicillin) 875 Mg Tab, 1 TAB PO BID, #20 TAB Prov:TABATHA MONTENEGRO 9/27/24 Metformin Hydrochloride (Metformin Hcl) 500 Mg Tab, 1 TAB PO BID, #60 TAB 3 Refills Prov:JENISE RAMOS JAZMINE [facility] 07/20/24 Ibuprofen Micronized (Ibuprofen) 800 Mg Tab, 800 MG PO Q8HPRN PRN, #20 TAB Prov:JENISE RAMOS JAZMINE [facility] 07/20/24 Hydrocodone-Acetaminophen (Hydrocodone Bitartrate/AC 10-325 mg) 1 Tab Tab, 1 TAB PO Q6HPRN PRN, #15 TAB [facility] 07/20/24 Cefpodoxime Proxetil (Cefpodoxime Proxetil) 200 Mg Tab, 1 TAB PO BID for 10 Days, #20 TAB Prov[facility] 07/20/24 Pantoprazole Sodium Sesquihydr (Protonix) 40 Mg Tab, 40 MG PO BID for 30 Days, #60 TAB Prov:JOSE DE JESUS CLIFFORD MD 11/04/23 Sucralfate (CARAFATE SUSP) 1 Gm/10 Ml Ss, 1 GM PO TIDAC for 30 Days, #1200 ML Prov:JOSE DE JESUS CLIFFORD MD 11/04/23 Sacubitril-Valsartan (Entresto 24-26 mg) 1 Tab Tab, 1 TAB PO BID for 30 Days, #60 TAB Prov:JOSE DE JESUS CLIFFORD MD 11/04/23 Metoprolol Tartrate (Lopressor) 25 Mg Tb, 12.5 MG PO BID for 30 Days, #60 TAB Prov:JOSE DE JESUS CLIFFORD MD 11/04/23 Cyclobenzaprine Hcl (Cyclobenzaprine Hcl) 10 Mg Tab, 10 MG PO BID PRN, #20 TAB Prov:ISAAC ANTONIO MD 01/27/23 Famotidine (PEPCID TABLET) 20 Mg Tb, 20 MG GT BID for 14 Days, #28 TAB Prov:ISAAC ANTONIO MD 01/27/23 Citalopram Hydrobromide (Celexa) 10 Mg Tab, 1 TAB PO DAILY, #30 TAB 0 Refills Prov:DANIELA LEOS MD 07/21/22 Insulin Regular (Human) (Novolin R) 100 Unit/Ml Inj, 0 UNITS SC IQ4HR for 30 Days, INJ if BS 150-200 give 2 units if BS 201-250 give 4 units if BS 251-300 give 6 units if BS 301-350 give 8 units if BS 351-400 give 10 units. if BS >400 call your doctor Prov:BILLIE ADAMS MD 07/17/22 Insulin Glargine (Lantus) 100 Unit/Ml Inj, 30 UNIT SC DAILY for 30 Days, #30 INJ Prov:BILLIE ADAMS MD 07/17/22 Reported Medications Methocarbamol (Methocarbamol) 500 Mg Tab, 500 MG PO TID for 30 Days, MG 01/23/25 Metoprolol Succinate (Metoprolol Succinate Er) 25 Mg Tab, 25 MG PO DAILY for 30 Days, MG 01/23/25 Sacubitril-Valsartan (Entresto 24-26 mg) 1 Tab Tab, 1 TAB PO BID, TAB 01/23/25 Quetiapine Fumerate (QUETIAPINE FUMARATE) 300 Mg Tab, 1 TAB PO DAILY 11/03/23 Trazodone Hcl (Trazodone Hcl) 100 Mg Tab, 1 TAB PO HS 11/03/23 Citalopram Hydrobromide (Citalopram Hydrobromide) 20 Mg Tab, 1 TAB PO DAILY 11/03/23 Bupropion Hcl (Bupropion Hcl Xl) 300 Mg Tab, 1 TAB PO QAM 11/03/23 Citalopram Hydrobromide (Celexa) 10 Mg Tab, 1 TAB PO DAILY, #30 TAB 2 Refills 07/13/22 Lisinopril (Lisinopril) 40 Mg Tab, 1 TAB PO DAILY, #30 TAB 5 Refills 07/13/22 Omeprazole (Gnp Omeprazole) 20 Mg Tab, 1 TAB PO DAILY, #90 TAB 1 Refill 07/13/22 Aspirin (Aspirin Ec) 81 Mg Tab, 81 MG PO DAILY, TAB 07/13/22 Levothyroxine Sodium (Levothyroxine Sodium) 25 Mcg Tab, 1 TAB PO DAILY, #30 TAB 5 Refills 07/13/22 Montelukast Sodium (MONTELUKAST SODIUM) 10 Mg Tab, 1 TAB PO DAILY, #30 TAB 5 Refills 07/13/22 Atorvastatin Calcium (ATORVASTATIN CALCIUM) 80 Mg Tab, 1 TAB PO DAILY, #30 TAB 5 Refills 07/13/22 Divalproex Sodium (Depakote) 500 Mg Tab, 500 MG PO DAILY, TAB 07/13/22 Quetiapine Fumerate (Seroquel) 400 Mg Tab, 1 TAB PO QPM, #30 TAB 1 Refill 07/13/22 Ziprasidone Hydrochloride (Geodon) 60 Mg Cap, 60 MG PO BID, CAP 07/13/22 Acetaminophen (Tylenol) 325 Mg Cap, 325 MG PO Q4HPRN, CAP 07/13/22 Ibuprofen (Ibuprofen) 800 Mg Tab, 1 TAB PO Q4HPRN, #90 TAB 1 Refill 07/13/22 Baclofen (Baclofen) 20 Mg Tab, 1 TAB PO TID, #90 TAB 2 Refills 07/13/22 Information Source: Patient Mode of Arrival: Ambulatory Past Medical History PAST MEDICAL HISTORY: Depression, DM, GERD, High Lipids, HTN, Schizophrenia Family History Family History: Reviewed,noncontributory to illness Social History Smoker: Cigarettes Alcohol: Heavy Drugs: Denies Drug Use Lives In: Assisted Care Was a procedure done? Was a procedure done?: No CP Differential Dx Differential Diagnosis: N/A Differential Diagnosis: Other (Ddx include but not limitied to gastritis, musculoskeletal pain, radiculopathy, atypical chest pain, dissection, aneurysm, ACS, unstable angina, hiatal hernia, GERD, anxiety, costochondritis, PE, pneumothroax, neoplasm, cardiac ischemia, drug abuse, anemia.) X-Ray, Labs, Meds, VS Vital Signs Date Time Temp Pulse Resp B/P (MAP) Pulse Ox O2 Delivery O2 Flow Rate FiO2 03/15/25 15:54 104 03/15/25 15:50 97.3 103 24 115/78 (90) 99 97.3 Lab Test 03/15/25 20:11 03/15/25 17:26 03/15/25 16:21 03/15/25 15:49 Range/Units Lactic Acid Level 1.0 2.4 *H 0.4-2.0 mmol/L Troponin I High Sensitivity 9 8 9 </=54 ng/L White Blood Count 5.7 4.4-10.8 10^3/uL Red Blood Count 4.60 4.5-5.90 10^6/uL Hemoglobin 14.8 13.5-17.5 g/dL Hematocrit 41.5 41.0-53.0 % Mean Corpuscular Volume 90.1 80.0-100.0 fL Mean Corpuscular Hemoglobin 32.1 H 28.0-32.0 pg Mean Corpuscular Hemoglobin Concent 35.6 32.0-36.0 g/dL Red Cell Distribution Width 13.8 11.8-14.3 % Platelet Count 335 140-450 10^3/uL Mean Platelet Volume 6.7 L 6.9-10.8 fL Neutrophils (%) (Auto) 53.2 37.0-80.0 % Lymphocytes (%) (Auto) 36.9 10.0-50.0 % Monocytes (%) (Auto) 5.3 0.0-12.0 % Eosinophils (%) (Auto) 3.2 0.0-7.0 % Basophils (%) (Auto) 1.4 0.0-2.0 % Neutrophils # (Auto) 3.1 1.6-8.6 10 ^3/uL Lymphocytes # (Auto) 2.1 0.4-5.4 10 ^3/uL Monocytes # (Auto) 0.3 0-1.3 10 ^3/uL Eosinophils # (Auto) 0.2 0-0.8 10 ^3/uL Basophils # (Auto) 0.1 0-0.2 10 ^3/uL Nucleated Red Blood Cells 0.0 % Prothrombin Time 10.2 9.3-11.8 sec Prothrombin Time INR 0.96 0.9-1.15 Activated Partial Thromboplast Time 27.9 24.5-34.5 SEC D-Dimer, Quantitative 0.74 H 0.0-0.49 mg/L FEU Sodium Level 139 136-145 mmol/L Potassium Level 3.5 3.5-5.1 mmol/L Chloride Level 103 98-107 mmol/L Carbon Dioxide Level 24 20-31 mmol/L Anion Gap 12 5-15 Blood Urea Nitrogen 20 9-23 mg/dL Creatinine 0.95 0.700-1.30 mg/dL Glomerular Filtration Rate Calc 107 >90 mL/min BUN/Creatinine Ratio 21.1 H 10.0-20.0 Serum Glucose 232 H 74-106 mg/dL Calcium Level 9.3 8.7-10.4 mg/dL Total Bilirubin 0.5 0.2-1.0 mg/dL Aspartate Amino Transferase (AST) 12 L 13-40 U/L Alanine Aminotransferase (ALT) 16 7-40 U/L Alkaline Phosphatase 114 46-116 U/L B-Type Natriuretic Peptide 101.74 0-100 pg/mL Total Protein 6.5 5.7-8.2 g/dL Albumin 4.2 3.2-4.8 g/dL Urine Opiates Screen Neg NEGATIVE Urine Fentanyl Screen Neg NEGATIVE Urine Barbiturates Screen Neg NEGATIVE Urine Phencyclidine Screen Neg NEGATIVE Urine Amphetamines Screen Neg NEGATIVE Urine Benzodiazepines Screen Neg NEGATIVE Urine Cocaine Screen Neg NEGATIVE Urine Cannabinoids Screen Neg NEGATIVE [place] [address] Ph: [phone] DIAGNOSTIC IMAGING Diagnostic Imaging Report : [id number] Signed PATIENT: MAKAYLA OSCAR ACCT: [id number] UNIT: [id number] : 1990 LOC: ER ROOM / BED: / AGE / SEX: 34 / M ADM STATUS: REG ER SERVICE 1603 ORDERING PHYSICIAN: ESTHER BAZZI DO PROCEDURE(s): CXRP - CHEST PORTABLE REASON: cp ORDER NUMBER(s): [id number], ACCESSION NUMBER(s): [id number] EXAM: XY CHEST PORTABLE HISTORY: cp COMPARISON: XY CHEST PORTABLE on DOS: 01/22/25, XY CHEST PORTABLE on DOS: 01/04/25, XY CHEST XRAY 1 VIEW on DOS: 08/13/24, XY CHEST XRAY 1 VIEW on DOS: 07/20/24, XY CHEST PORTABLE on DOS: 11/03/23 TECHNIQUE: Portable AP view of the chest was performed. FINDINGS: No pneumothorax, consolidative infiltrates, or pulmonary edema. The heart is not enlarged. Status post median sternotomy. The bony thorax image with no bruit several mild degree IMPRESSION: 1. No acute intrathoracic process 2. Status post median sternotomy. ATED BY: HUANG VOGT MD DICTATED DATE/TIME: 03/15/251626 SIGNED BY: HUANG VOGT MD SIGNED DATE/TIME: 03/15/251626 CC: [place] [id number] Ph: [phone] DIAGNOSTIC IMAGING Diagnostic Imaging Report : [id number] Signed PATIENT: MAKAYLA OSCARCCT: [id number] UNIT: [id number] : 1990 LOC: ER ROOM / BED: / AGE / SEX: 34 / M ADM STATUS: REG ER SERVICE 09 ORDERING PHYSICIAN: ESTHER BAZZI DO PROCEDURE(s): CTACH - CT ANGIO CHEST CONTRAST REASON: cp ORDER NUMBER(s): [id number], ACCESSION NUMBER(s): [id number] CTA Chest with intravenous contrast INDICATION: cp COMPARISON: CT CT ANGIO CHEST CONTRAST on DOS: 01/22/25 TECHNIQUE: Multidetector spiral CTA of the chest was performed of the chest with intravenous contrast. PULMONARY ANGIOGRAPHY PROTOCOL was utilized using a bolus- tracking technique centered on the main pulmonary artery. Axial, coronal and sagittal multiplanar and MIP reformats were performed. Radiation Dose : 1. Chest: CTDI volume is mGy. Dose-length product is mGy*cm The dose indicators for CT are the volume Computed Tomography (CT) Dose Index (CTDIvol) and the Dose Length Product (DLP), and are measured in units of mGy and mGy-cm, respectively. These indicators are not patient dose, but values generated from the CT scanner acquisition factors. The report includes radiation exposure data for exposures received during this examination. Findings: Pulmonary artery: No evidence of pulmonary embolism. Lower neck: Unremarkable. Lungs: No consolidation or other abnormality. Pleura: No pleural effusion or pneumothorax. Heart/Vascular Structures: Normal thoracic aorta. Normal heart size. Trace residual pericardial effusion, decreased compared to the prior CTA chest from January 2025. Mediastinum / Lymph Nodes: No abnormality demonstrated. No lymphadenopathy. Musculoskeletal: No osseous abnormality. Soft tissues: Unremarkable. Visualized Upper abdomen: Unremarkable. IMPRESSION: No pulmonary embolism or other acute thoracic abnormality. ATED BY: MARY GUEVARA MD DICTATED DATE/TIME: 03/15/252127 SIGNED BY: MARY GUEVARA MD SIGNED DATE/TIME: 03/15/252127 CC: Time of 1ST Reevaluation: 00:00 Reevaluation 1ST: Resolved Time of 2ND Reevaluation: 21:49 Reevaluation 2ND: Resolved Patient Education/Counseling: Diagnosis, Treatment Family Education/Counseling: No Family Present Comments Patient presented with the above HPI.-chest pain-----workup was initiated. patient was found with the above mentioned diagnosis. the following medications were ordered: please refer to order lists of meds and tests obtained by myself Dr. Bazzi. Patient ED course and VS have been stabilized. Patient has been reassessed in the ED and remained in a stable condition. Pertinent incidental findings were discussed with the patient and/or family. Patient/family voices understanding and is agreeable with plan. Patient has been observed in the ED adequate length of time to insure improvement/stability. Escalation of care considered: Consideration of escalation to observation or admission Patient was DISCHARGED home in a stable condition. All the reports of any imaging studies that were ordered by myself were reviewed by myself. Departure 1 Departure Time of Disposition: 21:34 Impression: Primary Impression: Chest pain Disposition: HOME / SELF CARE / HOMELESS Condition: Stable Additional Instructions: Additional instructions: You MUST follow-up with your primary care/family doctor in 1 to 2 days. If you are unable to see your primary care/family doctor, please return to our emergency room for re-assessment and re-evaluation in 1 to 2 days. Return to the emergency room here in our facility or to the nearest ER [facility] if your symptoms change or worsen. CONSULTATIONS: you MUST Follow-up for consultation as soon as possible with: -cardiology in 1-2 days. Please call for appointment You MUST call the consultants office yourself to make an appointment. You may need to arrange that through your insurance and/or your primary/family doctor. If you are unable to see the audit consultant in 1 to 2 days, you must return to our emergency room (or any other ER of your choice) for re-assessment and re- evaluation. Adequate fluid hydration. Discharged With: Self Critical Care Note Critical Care Time?: No Heart Score Heart Score: Heart Score Response (Comments) Value History Slightly Suspicious 0 EKG Normal 0 Age <45 0 Risk Factors >3 or Hx ASHD 2 Troponin Normal limit 0 Total 2 I personally scribed for ESTHER BAZZI DO (DVFARMI) on 03/15/25 at 17:33. Electronically submitted by [employer] ([email or web address]). I personally scribed for ESTHER [facility]ZZI DO ([facility] on 03/15/25 at 17:57. Electronically submitted by [employer] Dud[employer] ([facility] I personally scribed for ESTHER BAZZI DO ([facility]) on 03/15/25 at 20:36. Electronically submitted by [employer]ley ([facility] ESTHER BAZZI DO March 15, 2025 17:33
[2025-03-15 18:31] LABS: Opiate Scree,Urine Neg (NEGATIVE)
[2025-03-15 18:33] LABS: Amphetamine Screen, Urine Neg (NEGATIVE); Barbiturate Scree,Urine Neg (NEGATIVE); Benzodiazephine Screen, Urine Neg (NEGATIVE); Cannabinoid Screen, Urine Neg (NEGATIVE); Cocaine Screen, Urine Neg (NEGATIVE); Phencyclidine Screen, Urine Neg (NEGATIVE)
--- NOTE | 2025-03-15 21:31 | DVH ---
CTA Chest with intravenous contrast INDICATION: cp COMPARISON: CT CT ANGIO CHEST CONTRAST on DOS: 01/22/25 TECHNIQUE: Multidetector spiral CTA of the chest was performed of the chest with intravenous contrast . PULMONARY ANGIOGRAPHY PROTOCOL was utilized using a bolus-tracking technique centered on the main p ulmonary artery. Axial, coronal and sagittal multiplanar and MIP reformats were performed. Radiation Dose : 1. Chest: CTDI volume is mGy. Dose-length product is mGy*cm The dose indicators for CT are the volume Computed Tomography (CT) Dose Index (CTDIvol) and the Dose Length Product (DLP), and are measured in units of mGy and mGy-cm, respectively. These indicators are not patient dose, but values generated from the CT scanner acquisition factors. The report includes radiation exposure data for exposures received during this examination. Findings: Pulmonary artery: No evidence of pulmonary embolism. Lower neck: Unremarkable. Lungs: No consolidation or other abnormality. Pleura: No pleural effusion or pneumothorax. Heart/Vascular Structures: Normal thoracic aorta. Normal heart size. Trace residual pericardial effus ion, decreased compared to the prior CTA chest from January 2025. Mediastinum / Lymph Nodes: No abnormality demonstrated. No lymphadenopathy. Musculoskeletal: No osseous abnormality. Soft tissues: Unremarkable. Visualized Upper abdomen: Unremarkable. IMPRESSION: No pulmonary embolism or other acute thoracic abnormality.
[2025-03-15] MEDS: IOHEXOL 350 MG/ML 100ML IJ ONE (22:40)
[2025-03-15] MEDS: SODIUM CHLORIDE 0.9% 1,000 ML IV ONE (22:54)
[2025-03-15 23:10] VITALS: BP 130/92; PULSE 109; RESP 16; TEMP 98.2; O2SAT 99
== END 2025-03-15 23:10 | disposition home or self-care (01) ==
LOC: ER 15:21
DX: R07.89 Other chest pain (principal); E11.9 Type 2 diabetes mellitus without complications; E78.5 Hyperlipidemia, unspecified; F17.210 Nicotine dependence, cigarettes, uncomplicated; I10 Essential (primary) hypertension; F20.9 Schizophrenia, unspecified; Z91.012 Allergy to eggs; Z98.890 Other specified postprocedural states; Z95.1 Presence of aortocoronary bypass graft; Z79.899 Other long term (current) drug therapy
CPT/HCPCS: 36415; 71045; 71275; 80053; 80307; 82947; 83605; 83880; 84484; 85025; 85379; 85610; 85730; 93005; 99285; Q9967

== ENCOUNTER 2025-07-22 12:41 | Emergency (ER) | payer OTHER, MEDICAID ==
--- NOTE | 2025-07-22 13:31 | ED.PDOC ---
HPI Comments This is a 35 year-old male with a PMHX of HTN, Depression, GERD, and chronic back pain, who presents to the ED with a chief complaint of chest pain as of 0200 this morning S/P taking "119" Opioid. Upon arrival, patient notes to be hypertensive at 192/118. Patient has no further complaints or modifying factors at this time. Patient otherwise denies cough, palpitations, SOB, dizziness, headache, fever, chills, or N/V/D. Chief Complaint: High Blood Pressure Time Seen by MD: 13:17 Primary Care Provider: FEDERICO Reviewed Notes: Nurses Notes, Medications, Allergies Allergies: Coded Allergies: Egg-derived Products (Verified Allergy, Unknown, 01/05/25) Home Meds Active Scripts Naproxen (Naproxen) 500 Mg Tab, 500 MG PO BID, #30 TAB Prov:TABATHA MONTENEGRO 01/27/25 Azithromycin (ZITHROMAX TABLET) 250 Mg Tb, 250 MG PO DAILY for 5 Days, #5 TAB Prov:JOSE MCNAMARA [facility] 01/24/25 Prednisone (Prednisone) 20 Mg Tab, 60 MG PO DAILY, #18 TAB Prov:TABATHA MONTENEGRO 08/05/24 Amoxicillin Trihydrate (Amoxicillin) 875 Mg Tab, 1 TAB PO BID, #20 TAB Prov:TABATHA MONTENEGRO 08/05/24 Metformin Hydrochloride (Metformin Hcl) 500 Mg Tab, 1 TAB PO BID, #60 TAB 3 Re fills Prov:JENISE RAMOS [facility] 07/20/24 Ibuprofen Micronized (Ibuprofen) 800 Mg Tab, 800 MG PO Q8HPRN PRN, #20 TAB Prov:JENISE RAMOS [facility] 07/20/24 Hydrocodone-Acetaminophen (Hydrocodone Bitartrate/AC 10-325 mg) 1 Tab Tab, 1 TAB PO Q6HPRN PRN, #15 TAB Prov:JENISE RAMOS [facility] 07/20/24 Cefpodoxime Proxetil (Cefpodoxime Proxetil) 200 Mg Tab, 1 TAB PO BID for 10 Days, #20 TAB Prov:JENISE RAMSO [facility] 07/20/24 Pantoprazole Sodium Sesquihydr (Protonix) 40 Mg Tab, 40 MG PO BID for 30 Days, #60 TAB Prov:JOSE DE JESUS CLIFFORD MD 11/04/23 Sucralfate (CARAFATE SUSP) 1 Gm/10 Ml Ss, 1 GM PO TIDAC for 30 Days, #1200 ML Prov:JOSE DE JESUS CLIFFORD MD 11/04/23 Sacubitril-Valsartan (Entresto 24-26 mg) 1 Tab Tab, 1 TAB PO BID for 30 Days, #60 TAB Prov:JOSE DE JESUS CLIFFORD MD 11/04/23 Metoprolol Tartrate (Lopressor) 25 Mg Tb, 12.5 MG PO BID for 30 Days, #60 TAB Prov:JOSE DE JESUS CLIFFORD MD 11/04/23 Cyclobenzaprine Hcl (Cyclobenzaprine Hcl) 10 Mg Tab, 10 MG PO BID PRN, #20 TAB Prov:ISAAC ANTONIO MD 01/27/23 Famotidine (PEPCID TABLET) 20 Mg Tb, 20 MG GT BID for 14 Days, #28 TAB Prov:ISAAC ANTONIO MD 01/27/23 Citalopram Hydrobromide (Celexa) 10 Mg Tab, 1 TAB PO DAILY, #30 TAB 0 Refills Prov:DANIELA LEOS MD 07/21/22 Insulin Regular (Human) (Novolin R) 100 Unit/Ml Inj, 0 UNITS SC IQ4HR for 30 Days, INJ if BS 150-200 give 2 units if BS 201-250 give 4 units if BS 251-300 give 6 units if BS 301-350 give 8 units if BS 351-400 give 10 units. if BS >400 call your doctor Prov:BILLIE ADAMS MD 07/17/22 Insulin Glargine (Lantus) 100 Unit/Ml Inj, 30 UNIT SC DAILY for 30 Days, #30 INJ Prov:BILLIE ADAMS MD 07/17/22 Reported Medications Methocarbamol (Methocarbamol) 500 Mg Tab, 500 MG PO TID for 30 Days, MG 01/23/25 Metoprolol Succinate (Metoprolol Succinate Er) 25 Mg Tab, 25 MG PO DAILY for 30 Days, MG 01/23/25 Sacubitril-Valsartan (Entresto 24-26 mg) 1 Tab Tab, 1 TAB PO BID, TAB 01/23/25 Quetiapine Fumerate (QUETIAPINE FUMARATE) 300 Mg Tab, 1 TAB PO DAILY 11/03/23 Trazodone Hcl (Trazodone Hcl) 100 Mg Tab, 1 TAB PO HS 11/03/23 Citalopram Hydrobromide (Citalopram Hydrobromide) 20 Mg Tab, 1 TAB PO DAILY 11/03/23 Bupropion Hcl (Bupropion Hcl Xl) 300 Mg Tab, 1 TAB PO QAM 11/03/23 Citalopram Hydrobromide (Celexa) 10 Mg Tab, 1 TAB PO DAILY, #30 TAB 2 Refills 07/13/22 Lisinopril (Lisinopril) 40 Mg Tab, 1 TAB PO DAILY, #30 TAB 5 Refills 07/13/22 Omeprazole (Gnp Omeprazole) 20 Mg Tab, 1 TAB PO DAILY, #90 TAB 1 Refill 07/13/22 Aspirin (Aspirin Ec) 81 Mg Tab, 81 MG PO DAILY, TAB 07/13/22 Levothyroxine Sodium (Levothyroxine Sodium) 25 Mcg Tab, 1 TAB PO DAILY, #30 TAB 5 Refills 07/13/22 Montelukast Sodium (MONTELUKAST SODIUM) 10 Mg Tab, 1 TAB PO DAILY, #30 TAB 5 Refills 07/13/22 Atorvastatin Calcium (ATORVASTATIN CALCIUM) 80 Mg Tab, 1 TAB PO DAILY, #30 TAB 5 Refills 07/13/22 Divalproex Sodium (Depakote) 500 Mg Tab, 500 MG PO DAILY, TAB 07/13/22 Quetiapine Fumerate (Seroquel) 400 Mg Tab, 1 TAB PO QPM, #30 TAB 1 Refill 07/13/22 Ziprasidone Hydrochloride (Geodon) 60 Mg Cap, 60 MG PO BID, CAP 07/13/22 Acetaminophen (Tylenol) 325 Mg Cap, 325 MG PO Q4HPRN, CAP 07/13/22 Ibuprofen (Ibuprofen) 800 Mg Tab, 1 TAB PO Q4HPRN, #90 TAB 1 Refill 07/13/22 Baclofen (Baclofen) 20 Mg Tab, 1 TAB PO TID, #90 TAB 2 Refills 07/13/22 Information Source: Patient Mode of Arrival: Wheelchair Severity: Moderate Timing: Hours Duration: Since onset Prehospital treatment: None Associated Signs and Symptoms: Other (chest pain ) Past Medical History PAST MEDICAL HISTORY: Depression, DM, GERD, High Lipids, HTN, Schizophrenia Surgical History: Denies all surgeries Family History Family History: Reviewed,noncontributory to illness Social History Smoker: Cigarettes Alcohol: Heavy Drugs: Denies Drug Use Lives In: Assisted Care Constitutional: denies: chills, diaphoresis, fatigue, fever, malaise, sweats, weakness, others EENTM: denies: blurred vision, double vision, ear bleeding, ear discharge, ear drainage, ear pain, ear ringing, eye pain, eye redness, hearing loss, mouth pain, mouth swelling, nasal discharge, nose bleeding, nose congestion, nose pain, photophobia, tearing, throat pain, throat swelling, voice changes, others Respiratory: denies: cough, hemoptysis, orthopnea, SOB at rest, shortness of breath, SOB with excertion, stridor, wheezing, others Cardiovascular: reports: chest pain; denies: dizzy spells, diaphoresis, Dyspnea on exertion, edema, irregular heart beat, left arm pain, lightheadedness, palpitations, PND, syncope, others Gastrointestinal: denies: abdomen distended, abdominal pain, blood streaked bowels, constipated, diarrhea, dysphagia, difficulty swallowing, hematemesis, melena, nausea, poor appetite, poor fluid intake, rectal bleeding, rectal pain, vomiting, others Genitourinary: denies: burning, dysuria, flank pain, frequency, hematuria, incontinence, penile discharge, penile sore, pain, testicle pain, testicle swelling, urgency, others Neurological: denies: dizziness, fainting, headache, left sided numbness, left sided weakness, numbness, paresthesia, pre-existing deficit, right sided numbness, right sided weakness, seizure, speech problems, tingling, tremors, weakness, others Musculoskeletal: denies: back pain, gout, joint pain, joint swelling, muscle pain, muscle stiffness, neck pain, others Integumetry: denies: bruises, change in color, change in hair/nails, dryness, laceration, lesions, lumps, rash, wounds, others Allergic/Immunocompromised: denies: Difficulty Healing, Frequent Infections, Hives, Itching, others Hematologic/Lymphatic: denies: anemia, blood clots, easy bleeding, easy bruising, swollen glands, others Endocrine: denies: excessive hunger, excessive sweating, excessive thirst, excessive urination, flushing, intolerance to cold, intolerance to heat, unexplained weight gain, unexplained weight loss, others Psychiatric: denies: anxiety, bipolar disorder, depression, hopeless, panic disorder, schizophrenia, sleepless, suicidal, others All Other Systems: Reviewed and Negative Physical Exam General Appearance: Moderate Distress HEENT: Normal ENT Inspection, Pharynx Normal, TMs Normal Neck: Full Range of Motion, Non-Tender, Normal, Normal Inspection Respiratory: Chest Non-Tender, Lungs Clear, No Accessory Muscle Use, No Respiratory Distress, Normal Breath Sounds Cardiovascular: No Edema, No JVD, No Murmur, No Gallop, Normal Peripheral Pulses, Regular Rate/Rhythm Breast Exam: Deferred Gastrointestinal: No Organomegaly, Non Tender, No Pulsatile Mass, Normal Bowel Sounds, Soft Genitalia: Deferred Pelvic: Deferred Rectal: Deferred Extremities: No calf tenderness, Normal capillary refill, Normal inspection, Normal range of motion, Non-tender, No pedal edema Musculoskeletal : Apperance: Normal Neurologic: Alert, head of housekeeping II-XII nml as Tested, No Motor Deficits, Normal Affect, Normal Mood, No Sensory Deficits Cerebellar Function: Normal Reflexes: Normal Skin: Dry, Normal Color, Warm Peripheral Pulses: 3+ Radial (R), 3+ Radial (L) Lymphatic: No Adenopathy Was a procedure done? Was a procedure done?: No CP Differential Dx Differential Diagnosis: A-fib, A-Flutter, Angina, Anxiety / Panic Attack, Atrial Dysrhythmia, Electrolyte Disorder Differential Diagnosis: HTN Essential Differential Diagnosis: Angina, Chest Wall Pain X-Ray, Labs, Meds, VS Vital Signs Date Time Temp Pulse Resp B/P (MAP) Pulse Ox O2 Delivery O2 Flow Rate FiO2 07/22/25 15:11 97.8 110 18 154/94 (114) 97 97.8 07/22/25 13:05 104 07/22/25 12:46 98.9 117 16 192/118 100 98.9 Lab Test 07/22/25 13:16 Range/Units White Blood Count 4.7 4.4-10.8 10^3/uL Red Blood Count 5.57 4.5-5.90 10^6/uL Hemoglobin 18.1 H 13.5-17.5 g/dL Hematocrit 51.6 41.0-53.0 % Mean Corpuscular Volume 92.6 80.0-100.0 fL Mean Corpuscular Hemoglobin 32.4 H 28.0-32.0 pg Mean Corpuscular Hemoglobin Concent 35.0 32.0-36.0 g/dL Red Cell Distribution Width 13.4 11.8-14.3 % Platelet Count 352 140-450 10^3/uL Mean Platelet Volume 7.3 6.9-10.8 fL Neutrophils (%) (Auto) 52.1 37.0-80.0 % Lymphocytes (%) (Auto) 38.3 10.0-50.0 % Monocytes (%) (Auto) 7.3 0.0-12.0 % Eosinophils (%) (Auto) 1.3 0.0-7.0 % Basophils (%) (Auto) 1.0 0.0-2.0 % Neutrophils # (Auto) 2.5 1.6-8.6 10 ^3/uL Lymphocytes # (Auto) 1.8 0.4-5.4 10 ^3/uL Monocytes # (Auto) 0.3 0-1.3 10 ^3/uL Eosinophils # (Auto) 0.1 0-0.8 10 ^3/uL Basophils # (Auto) 0 0-0.2 10 ^3/uL Nucleated Red Blood Cells 0.1 % Sodium Level 139 136-145 mmol/L Potassium Level 4.2 3.5-5.1 mmol/L Chloride Level 107 98-107 mmol/L Carbon Dioxide Level 22 20-31 mmol/L Anion Gap 10 5-15 Blood Urea Nitrogen 5 L 9-23 mg/dL Creatinine 0.99 0.700-1.30 mg/dL Glomerular Filtration Rate Calc 101 >90 mL/min BUN/Creatinine Ratio 5.1 L 10.0-20.0 Serum Glucose 168 H 74-106 mg/dL Calcium Level 10.4 8.7-10.4 mg/dL Troponin I High Sensitivity 6 </=54 ng/L Patient alert. Came in because of high blood pressure. Was given clonidine. Saturation pristine on room air. WBC within normal limits. Vitals stable. Blood sugar slightly elevated. Cardiac marker within normal limits. No leg swelling. No shortness a breath. Heart rate clinically within normal limits. Neurological exam intact. Explained to the patient. Was told to follow up with his primary care physician. Was told to come back if there is any problem. Images Reviewed?: Images reviewed and evaluated by me Time of 1ST Reevaluation: 13:53 Reevaluation 1ST: Unchanged Patient Education/Counseling: Diagnosis, Treatment Family Education/Counseling: No Family Present SEPSIS Sepsis Screen Date sepsis recognized/suspect: Jul 22, 2025 Time Sepsis recognized/suspect: 1246 Recent Procedure: No On Antibiotic Therapy: No Respiratory Rate >20: No Heart Rate >90: Yes Temp<36 C (96.8 F) or >38.3 C: No SBP <90 or MAP <65 mmHG: No New Acute Mental Status Change: No Is the patient on CPAP, BIPAP,: No Physician Orders Electrocardigram (07/22/25 14:00) Vital Signs Date Time Temp Pulse Resp B/P (MAP) Pulse Ox O2 Delivery O2 Flow Rate FiO2 07/22/25 15:11 97.8 110 18 154/94 (114) 97 97.8 07/22/25 13:05 104 07/22/25 12:46 98.9 117 16 192/118 100 98.9 Laboratory Tests Test 07/22/25 13:16 White Blood Count 4.7 10^3/uL (4.4-10.8) Departure 1 Departure Time of Disposition: 16:35 Impression: Primary Impression: Uncontrolled diabetes mellitus Qualified Codes: E13.65 - Other specified diabetes mellitus with hyperglycemia Additional Impression: Hypertensive urgency Disposition: 01 HOME / SELF CARE / HOMELESS Condition: Good Discharged With: Self Critical Care Note Critical Care Time?: No Stability Stability form required: No Heart Score Heart Score: Heart Score Response (Comments) Value History Moderate Suspicious 1 EKG Normal 0 Age <45 0 Risk Factors 1 or 2 risk factors 1 Troponin Normal limit 0 Total 2 I personally scribed for ANGELA ARTHUR MD ([email or web address]) on 07/22/25 at 13:31. Electronically submitted by Rena Fontenot ([email or web address]). ANGELA ARTHUR MD Jul 22, 2025 13:31
[2025-07-22 13:39] LABS: Mean Corpuscular Volume 92.6 fL (80.0-100.0)
[2025-07-22 13:41] LABS: Chloride 107 mmol/L (98-107); Hematocrit 51.6 % (41.0-53.0); Hemoglobin 18.1 g/dL (13.5-17.5); Mean Corpuscular Hemoglobin 32.4 pg (28.0-32.0); Nucleated Red Blood Cells % 0.1 %; Potassium 4.2 mmol/L (3.5-5.1); Sodium 139 mmol/L (136-145)
[2025-07-22 13:42] LABS: Anion Gap 10 (5-15); Carbon Dioxide 22 mmol/L (20-31)
[2025-07-22 13:43] LABS: Calcium 10.4 mg/dL (8.7-10.4)
[2025-07-22 13:47] LABS: BUN/Creatinine Ratio 5.1 (10.0-20.0)
[2025-07-22 13:50] LABS: Blood Urea Nitrogen 5 mg/dL (9-23); Glucose 168 mg/dL (74-106)
[2025-07-22] MEDS: SODIUM CHLORIDE 0.9% 1,000 ML IV ONE (18:30)
--- NOTE | 2025-07-22 19:08 | ECG ---
[facility] Test Date: 2025-07-22 Test Time: 13:02:43 Pat Name: MAKAYLA OSCAR Department: [facility] ED Patient ID: [id number] Room: Gender: M Technology Advisor: PJ : [id number] Requested By: ANGELA ARTHUR Order Number: [id number] Reading MD: Measurements Intervals [place] Rate: 104 P: 72 [place]: 127 QRS: 269 QRSD: 108 T: 108 QT: 354 QTc: 466 Interpretive Statements Sinus tachycardia Left anterior fascicular block Abnormal R-wave progression, late transition Borderline T wave abnormalities Baseline wander in lead(s) V6 Please click the below link to view image of tracing.
[2025-07-22 19:26] VITALS: BP 152/92; PULSE 108; RESP 18; TEMP 98.3; O2SAT 95
== END 2025-07-22 19:35 | disposition home or self-care (01) ==
LOC: ER 12:41
DX: E11.65 Type 2 diabetes mellitus with hyperglycemia (principal); I16.0 Hypertensive urgency; I10 Essential (primary) hypertension; Z79.899 Other long term (current) drug therapy
CPT/HCPCS: 36415; 80048; 84484; 85025; 93005; 96360; 99285; J7030